=== PATIENT | female | born 1985 | race Caucasian/White ===

== ENCOUNTER 2016-09-04 10:53 | Emergency (ER) | payer OTHER ==
[2016-09-04] MEDS ORDERED: CIPROFLOXACIN 0.3% OPHTH SOLN 2.5 ML BTL RIGHT EAR STA (12:00)
[2016-09-04] MEDS ORDERED: AMOXIC-POT CLAV 875-125MG 1 EACH TAB PO STA (12:00)
--- NOTE | 2016-09-04 12:02 | ED ---
General Adult HPI - General Chief complaint: ENT Stated complaint: DIZZINESS Time Seen by Provider: 09/04/16 11:43 Source: patient, RN notes reviewed, old records reviewed Mode of arrival: wheelchair Limitations: no limitations - History of Present Illness Initial comments: This is a 31-year-old female here for evaluation of failure pain. Patient has pain in her right ear, history of similar symptoms. No fevers no cough no congestion no travel history no history of diabetes no trauma. Patient states she does have some episodes of room does spin around. Symptoms started last night progressing and considered today no modifying factors for pain outpatient states she is able to walk and ambulate without difficulty - Related Data Home Medications Medication Instructions Recorded Confirmed Escitalopram [Lexapro] 10 mg PO DAILY 11/01/15 09/07/16 Lisinopril [Zestril] 5 mg PO DAILY 06/08/16 09/07/16 Omeprazole [PriLOSEC] 10 mg PO DAILY 06/08/16 09/07/16 Acetaminophen-Codeine 300-30mg 1 tab PO Q6H PRN 09/04/16 09/07/16 [Tylenol #3] metFORMIN HCL [Glucophage] 1,000 mg PO BID 09/04/16 09/07/16 Previous Rx's Medication Instructions Recorded Amoxic-Pot Clav 875-125Mg 1 tab PO Q12HR #20 tablet 09/04/16 [Augmentin 875-125] Meclizine [Antivert] 25 mg PO TID PRN #30 tab 09/04/16 Ciprofloxacin Ophth Soln [Cipro 2 drops RIGHT EAR Q4HR #1 bottle 09/07/16 Ophth Soln] Meclizine [Antivert] 25 mg PO TID #30 tab 09/07/16 Allergies Allergy/AdvReac Type Severity Reaction Status Date / Time tomato Allergy Unknown Verified 09/07/16 10:30 Review of Systems ROS Statement: Those systems with pertinent positive or pertinent negative responses have been documented in the HPI. ROS Other: All systems not noted in ROS Statement are negative. Past Medical History Past Medical History: Diabetes Mellitus, Hyperlipidemia Additional Past Medical History / Comment(s): chronic back pain History of Any Multi-Drug Resistant Organisms: None Reported Additional Past Surgical History / Comment(s): cyst removed from neck Past Psychological History: Anxiety, Depression Smoking Status: Current every day smoker Past Alcohol Use History: None Reported Past Drug Use History: None Reported General Exam Limitations: no limitations General appearance: alert, in no apparent distress Head exam: Present: atraumatic, normocephalic, normal inspection Eye exam: Present: normal appearance, PERRL, EOMI. Absent: scleral icterus, conjunctival injection, periorbital swelling ENT exam: Present: normal exam, mucous membranes moist Neck exam: Present: normal inspection. Absent: tenderness, meningismus, lymphadenopathy Respiratory exam: Present: normal lung sounds bilaterally. Absent: respiratory distress, wheezes, rales, rhonchi, stridor Cardiovascular Exam: Present: regular rate, normal rhythm, normal heart sounds. Absent: systolic murmur, diastolic murmur, rubs, gallop, clicks GI/Abdominal exam: Present: soft, normal bowel sounds. Absent: distended, tenderness, guarding, rebound, rigid Extremities exam: Present: normal inspection, full ROM, normal capillary refill. Absent: tenderness, pedal edema, joint swelling, calf tenderness Back exam: Present: normal inspection Neurological exam: Present: alert, oriented X3, CN II-XII intact Psychiatric exam: Present: normal affect, normal mood Skin exam: Present: warm, dry, intact, normal color. Absent: rash Course Vital Signs 09/04/16 09/04/16 11:04 12:15 Temperature 98.8 F 98.5 F Pulse Rate 105 H 99 Respiratory 16 20 Rate Blood Pressure 145/85 142/79 O2 Sat by Pulse 96 96 Oximetry Medical Decision Making - Medical Decision Making 31 female the ER for evaluation of right ear pain. Right ear pain with vertiginous symptoms. Patient states she's had prior history before with vertigo and ear infections, will discharge home patient on antibiotics Disposition Clinical Impression: Right otitis media Disposition: HOME SELF-CARE Condition: Good Instructions: Earache (ED), Otitis Media (ED) Prescriptions: Amoxic-Pot Clav 875-125Mg [Augmentin 875-125] 1 tab PO Q12HR #20 tablet Meclizine [Antivert] 25 mg PO TID PRN #30 tab PRN Reason: Nausea Referrals: Zach Herr MD [Primary Care Provider] - 1-2 days
[2016-09-04] MEDS ORDERED: MECLIZINE 12.5 MG TAB PO STA (12:15)
[2016-09-04 12:16] VITALS: BP 142/79; PULSE 99; RESP 20; TEMP 98.5
== END 2016-09-04 12:25 | disposition home or self-care (01) ==
LOC: EC 10:53
DX: H66.91 Otitis media, unspecified, right ear (principal); F32.9 Major depressive disorder, single episode, unspecified; F41.9 Anxiety disorder, unspecified; E11.9 Type 2 diabetes mellitus without complications; F17.200 Nicotine dependence, unspecified, uncomplicated; Z79.84 Long term (current) use of oral hypoglycemic drugs; Z79.899 Other long term (current) drug therapy; Z91.018 Allergy to other foods
CPT/HCPCS: 99283

== ENCOUNTER 2017-01-04 06:19 | Day surgery (SDC) | payer OTHER ==
[2016-12-30 14:45] VITALS: BMI 46.6
[~2017-01-04 06:19] MED LIST: LACTATED RINGERS 1,000 ML IV SCH
[2017-01-04] MEDS ORDERED: LACTATED RINGERS 1,000 ML IV ONE (06:40)
[2017-01-04 06:53] VITALS: RESP 16; TEMP 98.3
[2017-01-04 06:58] LABS: Glucose,Whole Blood 144 mg/dL (75-99)
[2017-01-04] MEDS ORDERED: PROPOFOL 10 MG/ML 20 ML VIAL IV ONE (07:15)
[2017-01-04 08:18] VITALS: BP 120/70; PULSE 96
[2017-01-04 08:22] LABS: Basophils # (A) 0.1 k/uL (0-0.2); Basophils % (A) 1 %; CH 28.4; CHCM 32.7; Eosinophils # (A) 0.5 k/uL (0-0.7); Eosinophils % (A) 2 %; HCT 46.5 % (34.0-46.0); HDW 2.64; HGB 15.7 gm/dL (11.4-16.0); Luc # (Auto) 0.25; Luc % (Auto) 1; Lymphocytes # (A) 4.1 k/uL (1.0-4.8); Lymphocytes % (A) 20 %; MCH 29.4 pg (25.0-35.0); MCHC 33.7 g/dL (31.0-37.0); MCV 87.3 fL (80.0-100.0); Mean Platelet Volume 8.1; Monocytes % (A) 5 %; Neutrophils # (A) 14.2 k/uL (1.3-7.7); Neutrophils % (A) 71 %; RBC 5.33 m/uL (3.80-5.40); WBC 20.1 k/uL (3.8-10.6); WBC (Perox) 20.12
--- NOTE | 2017-01-04 17:49 | PCN ---
PREOPERATIVE DIAGNOSIS: Leukocytosis. POSTOPERATIVE DIAGNOSIS: Leukocytosis. ANESTHESIA: Local with IV systemic sedation. DETAIL: ( ) sterile technique, the skin overlying the right iliac crest was prepared with ( ) alcohol. ( ) and sterile draping. Local anesthesia and systemic sedation. Size 11 4-inch Jamshidi needle was utilized to access the periosteum with ease. A total of 15 mL of aspirate and 1 cm bone core biopsies were obtained. The patient tolerated the procedure very well. No immediate procedure-related complication ( ). Results pending. MTDD
== END 2017-01-04 08:34 | disposition home or self-care (01) ==
LOC: OR 06:19
PROVIDERS: ATTEND Internal Medicine Hematology & Oncology
DX: D72.821 Monocytosis (symptomatic) (principal); D72.820 Lymphocytosis (symptomatic); I10 Essential (primary) hypertension; J45.909 Unspecified asthma, uncomplicated; M19.90 Unspecified osteoarthritis, unspecified site; F17.200 Nicotine dependence, unspecified, uncomplicated; Z79.84 Long term (current) use of oral hypoglycemic drugs; Z79.899 Other long term (current) drug therapy; Z91.018 Allergy to other foods
CPT/HCPCS: 81025; 85025; 38221; J2704; G0364

== ENCOUNTER 2017-05-10 19:26 | Emergency (ER) | payer OTHER ==
[2017-05-10] MEDS ORDERED: DIAZEPAM 5 MG/ML (10 ML MDV) IVP STA (20:04)
--- NOTE | 2017-05-10 20:22 | ED ---
General Adult HPI - General Chief complaint: Shortness of Breath Stated complaint: SOB, shoulder pain Time Seen by Provider: 05/10/17 19:50 Source: patient Mode of arrival: ambulatory Limitations: no limitations - History of Present Illness Initial comments: patient is a 31-year-old female with a medical history of diabetes, any family history of HI a young age and her mother who presents with a chief complaint of back pain and shortness of breath. She characterizes her shortness of breath as a heaviness. Patient states that at the onset, she was lying on the couch. She does not identify any specific inciting incident. There are no alleviating factors however it is aggravated with palpation and movement of the left arm. Timing is been constant since onset. On initial evaluation, patient appears stable. Triage vitals show that she is mildly tachycardic with a room air oxygen saturation of 95% - Related Data Home Medications Medication Instructions Recorded Confirmed metFORMIN HCL [Glucophage] 1,000 mg PO BID 09/04/16 05/10/17 Albuterol Sulfate [Ventolin Hfa] 1 - 2 puff INHALATION RT-QID PRN 12/30/1605/10 sitaGLIPtin [Januvia] 100 mg PO DAILY 12/30/16 05/10/17 ALPRAZolam [Xanax] 0.25 mg PO BID PRN 05/10/17 05/10/17 Escitalopram Oxalate [Lexapro] 20 mg PO DAILY 05/10/17 05/10/17 Ibuprofen [Motrin] 200 - 400 mg PO Q6HR PRN 05/10/17 05/10/17 Allergies Allergy/AdvReac Type Severity Reaction Status Date / Time tomato Allergy RASH, Verified 05/10/17 20:23 ITCHING amoxicillin AdvReac CAUSED Verified 05/10/17 20:23 DEHYDRATION PER PT Review of Systems ROS Statement: Those systems with pertinent positive or pertinent negative responses have been documented in the HPI. ROS Other: All systems not noted in ROS Statement are negative. Constitutional: Denies: fever Eyes: Denies: vision change ENT: Denies: ear pain, throat pain Respiratory: Reports: dyspnea. Denies: cough Cardiovascular: Reports: chest pain Endocrine: Denies: fatigue Gastrointestinal: Denies: abdominal pain, nausea, vomiting Genitourinary: Denies: dysuria Musculoskeletal: Reports: back pain Skin: Denies: rash, lesions Neurological: Denies: headache Past Medical History Past Medical History: Asthma, Diabetes Mellitus Additional Past Medical History / Comment(s): chronic back pain, VERTIGO,. ELEVATED WBC History of Any Multi-Drug Resistant Organisms: None Reported Additional Past Surgical History / Comment(s): cyst removed from SIDE neck Past Anesthesia/Blood Transfusion Reactions: No Reported Reaction Past Psychological History: Anxiety, Depression Smoking Status: Current every day smoker Past Alcohol Use History: None Reported Past Drug Use History: None Reported - Past Family History Mother Family Medical History: Deep Vein Thrombosis (DVT), Pulmonary Embolus General Exam Limitations: no limitations General appearance: alert, in no apparent distress Head exam: Present: atraumatic, normocephalic Eye exam: Present: normal appearance ENT exam: Present: mucous membranes moist Neck exam: Present: normal inspection Respiratory exam: Present: normal lung sounds bilaterally Cardiovascular Exam: Present: normal rhythm, tachycardia GI/Abdominal exam: Present: soft, other (abdominal exam is limited secondary to morbid obesity). Absent: distended, tenderness Rectal exam: Present: deferred Back exam: Present: tenderness, other (patient has tenderness to palpation of the paraspinal muscles in her thoracic spine. These are exacerbated with left arm movement.) Neurological exam: Present: alert, oriented X3, CN II-XII intact, normal gait Psychiatric exam: Present: normal affect, normal mood Course Vital Signs 05/10/17 19:38 Temperature 100.0 F H Pulse Rate 111 H Respiratory 22 Rate Blood Pressure 147/95 O2 Sat by Pulse 95 Oximetry Medical Decision Making - Medical Decision Making patient presents with a chief complaint of back pain, chest pressure, shortness of breath. History and physical examination most likely consistent with thoracic back pain and muscle spasm however given patient was tachycardic in triage and that she has an oxygen saturation of 95% on room air we'll send basic labs and a d-dimer. Patient was given Valium for suspected muscle spasm. EKG performed at 2036 shows sinus tachycardia with a rate of 105 bpm. EKG is otherwise unremarkable. 9:31 PM lab evaluation of this patient shows leukocytosis with 19,000 white blood cells , patient is hyperglycemic. labs are otherwise unremarkable. D-dimer is negative at 0.29. At this time, he is a very unlikely diagnosis. Chest x-ray does not show any acute process. At this time, patient is stable for discharge. Her pain is likely secondary to muscle spasm. I discussed that the patient should take anti-inflammatory medications and use heat. She is instructed to follow-up with her primary care doctor in 5 days. Further she is instructed to return to the emergency department if her symptoms worsen or change in any way. - Lab Data Result diagrams: 05/10/17 20:12 05/10/17 20:12 Lab Results 05/10/17 05/10/17 05/10/17 Range/Units 20:12 20:12 20:12 WBC 19.6 H (3.8-10.6) k/uL RBC 4.96 (3.80-5.40) m/uL Hgb 14.1 (11.4-16.0) gm/dL Hct 42.7 (34.0-46.0) % MCV 86.0 (80.0-100.0) fL MCH 28.4 (25.0-35.0) pg MCHC 33.0 (31.0-37.0) g/dL RDW 13.7 (11.5-15.5) % Plt Count 303 (150-450) k/uL Neutrophils % 69 % Lymphocytes % 20 % Monocytes % 4 % Eosinophils % 5 % Basophils % 1 % Neutrophils # 13.5 H (1.3-7.7) k/uL Lymphocytes # 3.8 (1.0-4.8) k/uL Monocytes # 0.9 (0-1.0) k/uL Eosinophils # 1.0 H (0-0.7) k/uL Basophils # 0.1 (0-0.2) k/uL D-Dimer 0.29 (<0.60) mg/L FEU Sodium 136 L (137-145) mmol/L Potassium 4.6 (3.5-5.1) mmol/L Chloride 104 (98-107) mmol/L Carbon Dioxide 22 (22-30) mmol/L Anion Gap 10 mmol/L BUN 14 (7-17) mg/dL Creatinine 0.70 (0.52-1.04) mg/dL Est GFR (MDRD) Af Amer >60 (>60 ml/min/1.73 sqM) Est GFR (MDRD) Non-Af >60 (>60 ml/min/1.73 sqM) Glucose 252 H (74-99) mg/dL Calcium 9.5 (8.4-10.2) mg/dL Disposition Clinical Impression: Muscle spasm, Back pain Disposition: HOME SELF-CARE Condition: Good Instructions: Muscle Spasm (ED) Referrals: Zach Herr MD [Primary Care Provider] - 1-2 days
[2017-05-10 20:23] LABS: Basophils # (A) 0.1 k/uL (0-0.2); Basophils % (A) 1 %; CH 27.9; CHCM 32.7; Eosinophils % (A) 5 %; HCT 42.7 % (34.0-46.0); HDW 2.89; HGB 14.1 gm/dL (11.4-16.0); Luc # (Auto) 0.25; Luc % (Auto) 1; Lymphocytes # (A) 3.8 k/uL (1.0-4.8); Lymphocytes % (A) 20 %; MCH 28.4 pg (25.0-35.0); Mean Platelet Volume 7.6; Monocytes # (A) 0.9 k/uL (0-1.0); Monocytes % (A) 4 %; Neutrophils # (A) 13.5 k/uL (1.3-7.7); Neutrophils % (A) 69 %; RBC 4.96 m/uL (3.80-5.40); RDW 13.7 % (11.5-15.5); WBC 19.6 k/uL (3.8-10.6); WBC (Perox) 19.29
[2017-05-10 20:36] LABS: Anion Gap 10 mmol/L; Blood Urea Nitrogen 14 mg/dL (7-17); Calcium 9.5 mg/dL (8.4-10.2); Carbon Dioxide 22 mmol/L (22-30); Chloride 104 mmol/L (98-107); Glucose 252 mg/dL (74-99); Non-African American GFR(MDRD) >60 (>60 ml/min/1.73 sqM); Potassium 4.6 mmol/L (3.5-5.1); Sodium 136 mmol/L (137-145)
--- NOTE | 2017-05-10 21:36 | XR ---
EXAMINATION TYPE: XR chest 2V DATE OF EXAM: 05/10/2017 COMPARISON: 01/24/2016 HISTORY: Shoulder pain TECHNIQUE: Frontal and lateral views of the chest are obtained. FINDINGS: Heart and mediastinum are normal. Lungs are clear. Diaphragm is normal. Bony thorax appear s intact. IMPRESSION: Normal chest. No change.
[2017-05-10 21:48] VITALS: BP 136/73; PULSE 100; RESP 18; TEMP 97.8
== END 2017-05-10 21:48 | disposition home or self-care (01) ==
LOC: EC 19:26
DX: M62.830 Muscle spasm of back (principal); R06.02 Shortness of breath; R00.0 Tachycardia, unspecified; E11.9 Type 2 diabetes mellitus without complications; F32.9 Major depressive disorder, single episode, unspecified; F41.9 Anxiety disorder, unspecified; F17.200 Nicotine dependence, unspecified, uncomplicated; Z79.84 Long term (current) use of oral hypoglycemic drugs; Z79.899 Other long term (current) drug therapy; Z88.0 Allergy status to penicillin; Z91.018 Allergy to other foods
CPT/HCPCS: 36415; 93005; 85379; 80048; 85025; 71020; 99285; 96374; J3360

== ENCOUNTER 2018-01-25 12:09 | Emergency (ER) | payer OTHER ==
[2018-01-25 12:26] VITALS: RESP 18
[2018-01-25] MEDS ORDERED: SODIUM CHLORIDE 0.9% 1,000 ML IV ONE (13:27)
[2018-01-25 14:04] VITALS: BP 111/51; PULSE 90
[2018-01-25 14:15] LABS: Basophils # (A) 0.1 k/uL (0-0.2); Basophils % (A) 1 %; Eosinophils # (A) 0.5 k/uL (0-0.7); Eosinophils % (A) 3 %; HCT 44.2 % (34.0-46.0); HGB 14.5 gm/dL (11.4-16.0); Lymphocytes # (A) 3.4 k/uL (1.0-4.8); Lymphocytes % (A) 19 %; MCH 27.3 pg (25.0-35.0); MCHC 32.7 g/dL (31.0-37.0); MCV 83.5 fL (80.0-100.0); Mean Platelet Volume 8.2; Monocytes # (A) 0.8 k/uL (0-1.0); Monocytes % (A) 5 %; Neutrophils # (A) 12.6 k/uL (1.3-7.7); Neutrophils % (A) 72 %; Platelet Count 299 k/uL (150-450); RDW 14.6 % (11.5-15.5); WBC 17.5 k/uL (3.8-10.6)
[2018-01-25 14:24] LABS: ALT 37 U/L (9-52); AST 28 U/L (14-36); Albumin 3.7 g/dL (3.5-5.0); Alkaline Phosphatase 130 U/L (38-126); Amylase 46 U/L (30-110); Anion Gap 9 mmol/L; Blood Urea Nitrogen 13 mg/dL (7-17); Calcium 9.5 mg/dL (8.4-10.2); Carbon Dioxide 24 mmol/L (22-30); Chloride 104 mmol/L (98-107); Glucose 243 mg/dL (74-99); Lipase 485 U/L (23-300); Magnesium 1.8 mg/dL (1.6-2.3); Potassium 4.7 mmol/L (3.5-5.1); Sodium 137 mmol/L (137-145); Total Bilirubin 0.4 mg/dL (0.2-1.3); Total Protein 6.5 g/dL (6.3-8.2)
[2018-01-25 14:48] LABS: Appearance,Urine Cloudy (Clear); Bacteria,Urine Rare /hpf; Bilirubin,Urine Negative (Negative); Blood,Urine Negative (Negative); Color,Urine Yellow; Glucose,Urine (UA) 3+ (Negative); Ketones,Urine Negative (Negative); Leukocyte Esterase,Urine Large (Negative); Mucus,Urine Few /hpf; Nitrite,Urine Negative (Negative); Protein,Urine Trace (Negative); RBC,Urine 3 /hpf (0-5); Specific Gravity,Urine 1.024 (1.001-1.035); Squamous Epithelial Cell,Urine 5 /hpf (0-4); WBC,Urine 16 /hpf (0-5)
--- NOTE | 2018-01-25 15:10 | ED ---
Abdominal Pain HPI - General Chief Complaint: Abdominal Pain Stated Complaint: vomiting Time Seen by Provider: 01/25/18 13:02 Source: patient Mode of arrival: wheelchair Limitations: no limitations - History of Present Illness Initial Comments: This is a 32-year-old female past medical history of diabetes of Victoza, uncontrolled who presents today for chief complaint of nausea and vomiting 5 days. Patient states that for the past 5 days she's been experiencing nausea, and vomiting, stating that when she is vomiting she has episodes of diarrhea. She denies hematemesis, hematochezia or melena. Patient states that the diarrhea is watery. Patient denies any fever, chills, sick contacts, abdominal pain, dysuria, urgency, frequency, back pain, epigastric pain. Patient hasn't been able to eat very much, however she has been drinking burners enabled that down. Patient presents to emergency department today appearing well, with vital signs stable afebrile. Patient denies any recent fever, chills, shortness of breath, chest pain, back pain, abdominal pain, nausea or vomiting, numbness or tingling, dysuria or hematuria, constipation or diarrhea, headaches or visual changes, or any other complaints. - Related Data Home Medications Medication Instructions Recorded Confirmed metFORMIN HCL [Glucophage] 1,000 mg PO BID 09/04/16 01/25/18 Albuterol Sulfate [Ventolin Hfa] 1 - 2 puff INHALATION RT-QID PRN 12/30/1601/25 sitaGLIPtin [Januvia] 100 mg PO DAILY 12/30/16 01/25/18 DULoxetine HCL [Cymbalta] 60 mg PO DAILY 01/25/18 01/25/18 Gabapentin 600 mg PO TID PRN 01/25/18 01/25/18 Insulin Glargine [Lantus] 50 unit SQ DAILY 01/25/18 01/25/18 Medroxyprogesterone Acetate 150 mg IM Q90D 01/25/18 01/25/18 [Depo-Provera] Omeprazole 20 mg PO DAILY 01/25/18 01/25/18 Ondansetron Odt [Zofran Odt] 4 mg PO Q6H PRN 01/25/18 01/25/18 hydrOXYzine HCL [Atarax] 50 mg PO HS 01/25/18 01/25/18 Previous Rx's Medication Instructions Recorded Ondansetron [Zofran] 4 mg PO Q8HR PRN 3 Days #9 tab 01/25/18 Allergies Allergy/AdvReac Type Severity Reaction Status Date / Time tomato Allergy RASH, Verified 01/25/18 14:13 ITCHING amoxicillin AdvReac CAUSED Verified 01/25/18 14:13 DEHYDRATION PER PT Review of Systems ROS Statement: Those systems with pertinent positive or pertinent negative responses have been documented in the HPI. ROS Other: All systems not noted in ROS Statement are negative. Past Medical History Past Medical History: Asthma, Diabetes Mellitus Additional Past Medical History / Comment(s): chronic back pain, VERTIGO,. ELEVATED WBC History of Any Multi-Drug Resistant Organisms: None Reported Past Surgical History: Tonsillectomy Additional Past Surgical History / Comment(s): cyst removed from SIDE neck Past Anesthesia/Blood Transfusion Reactions: No Reported Reaction Past Psychological History: Anxiety, Depression Smoking Status: Current every day smoker Past Alcohol Use History: None Reported Past Drug Use History: None Reported - Past Family History Mother Family Medical History: Deep Vein Thrombosis (DVT), Pulmonary Embolus General Exam - General Exam Comments Initial Comments: General: The patient is awake and alert, in no distress, and does not appear acutely ill. Eye: Pupils are equal, round and reactive to light, extra-ocular movements are intact. No nystagmus. There is normal conjunctiva bilaterally. No signs of icterus. Ears, nose, mouth and throat: There are moist mucous membranes and no oral lesions. Neck: The neck is supple, there is no tenderness or JVD. Cardiovascular: There is a regular rate and rhythm. No murmur, rub or gallop is appreciated. Respiratory: Lungs are clear to auscultation, respirations are non-labored, breath sounds are equal. No wheezes, stridor, rales, or rhonchi. Gastrointestinal: Obsese abdomen. Striae over abdomen no ecchymosis. Soft, non- distended, non-tender abdomen to deep palpation of all 4 quadrants without masses or organomegaly noted. There is no rebound or guarding present. No CVA tenderness. Bowel sounds are unremarkable. (-) Heel jar, (--) [place] sign. Musculoskeletal: Normal ROM, no tenderness. Strength 5/5. Sensation intact. Pulses equal bilaterally 2+. Neurological: A&O x 3. CN II-XII intact, There are no obvious motor or sensory deficits. Coordination appears grossly intact. Speech is normal. Skin: Skin is warm and dry and no rashes or lesions are noted. Psychiatric: Cooperative, appropriate mood & affect, normal judgment. Limitations: no limitations Course Vital Signs 01/25/18 01/25/18 01/25/18 12:21 14:01 16:38 Temperature 98.3 F 98 F Pulse Rate 104 H 90 Respiratory 18 18 Rate Blood Pressure 126/84 111/51 O2 Sat by Pulse 97 96 Oximetry Medical Decision Making - Medical Decision Making 32yo with complaints of N/V/D x 5 days. Pt given bolus 1000ml of NS. CBC, CMP, Lipase, Amylse, UA, and acetone obtained. CBC revealed elevated WBC at this time we feel this is due to the vomiting/diarrhea most likely viral in origin. Pt mentioned that last night she had mild chest discomfort, that she thought may have been due to vomiting. Trop and EKG obtained returning WNL. Alk Phos and Lipase mildly elevated- U/S of gallbladder obtained because pt stated her mother had similar non specific symptoms when her gall bladder was acting up. U/ S revealed steatotic liver, most likely the cause of increased Alk Phos. Pt blood glucose 243 however she denied treatment at this time stating she would just go home and take her diabetes medication for the day. Pt given zofran for nausea. pt did not have any episodes of vomiting during her visit and was tolerating PO intake drinking her vernors. UA (-) for ketones, acetone (-). Urine (+) leukocyte and WBC however 5 squamous cells. Pt denied urinary symptoms and urine was sent for cx. Pt continued to deny abdominal pain and refused further imaging stating she just wanted to go home and sleep.Case was discussed in detail with Dr. Patiño at this time we feel patient is stable for discharge. Pt was told to return to the ED for any abdominal pain, change or worsening symptoms. pt agreed and was discharged in stable condition. - Lab Data Result diagrams: 01/25/18 13:45 01/25/18 13:45 Lab Results 01/25/18 01/25/18 01/25/18 Range/Units 13:45 13:45 13:45 WBC 17.5 H (3.8-10.6) k/uL RBC 5.30 (3.80-5.40) m/uL Hgb 14.5 (11.4-16.0) gm/dL Hct 44.2 (34.0-46.0) % MCV 83.5 (80.0-100.0) fL MCH 27.3 (25.0-35.0) pg MCHC 32.7 (31.0-37.0) g/dL RDW 14.6 (11.5-15.5) % Plt Count 299 (150-450) k/uL Neutrophils % 72 % Lymphocytes % 19 % Monocytes % 5 % Eosinophils % 3 % Basophils % 1 % Neutrophils # 12.6 H (1.3-7.7) k/uL Lymphocytes # 3.4 (1.0-4.8) k/uL Monocytes # 0.8 (0-1.0) k/uL Eosinophils # 0.5 (0-0.7) k/uL Basophils # 0.1 (0-0.2) k/uL Sodium 137 (137-145) mmol/L Potassium 4.7 (3.5-5.1) mmol/L Chloride 104 (98-107) mmol/L Carbon Dioxide 24 (22-30) mmol/L Anion Gap 9 mmol/L BUN 13 (7-17) mg/dL Creatinine 0.54 (0.52-1.04) mg/dL Est GFR (CKD-EPI)AfAm >90 (>60 ml/min/1.73 sqM) Est GFR (CKD-EPI)NonAf >90 (>60 ml/min/1.73 sqM) Glucose 243 H (74-99) mg/dL Calcium 9.5 (8.4-10.2) mg/dL Magnesium 1.8 (1.6-2.3) mg/dL Total Bilirubin 0.4 (0.2-1.3) mg/dL AST 28 (14-36) U/L ALT 37 (9-52) U/L Alkaline Phosphatase 130 H (38-126) U/L Troponin I <0.012 (0.000-0.034) ng/mL Total Protein 6.5 (6.3-8.2) g/dL Albumin 3.7 (3.5-5.0) g/dL Amylase 46 (30-110) U/L Lipase 485 H (23-300) U/L Urine Color Urine Appearance (Clear) Urine pH (5.0-8.0) Ur Specific [place] (1.001-1.035) Urine Protein (Negative) Urine Glucose (UA) (Negative) Urine Ketones (Negative) Urine Blood (Negative) Urine Nitrite (Negative) Urine Bilirubin (Negative) Urine Urobilinogen (<2.0) mg/dL Ur Leukocyte Esterase (Negative) Urine RBC (0-5) /hpf Urine WBC (0-5) /hpf Ur Squamous Epith Cells (0-4) /hpf Urine Bacteria (None) /hpf Urine Mucus (None) /hpf Urine HCG, Qual (Not Detectd) Acetone, Qual Negative (Negative) 01/25/18 01/25/18 Range/Units 14:15 14:15 WBC (3.8-10.6) k/uL RBC (3.80-5.40) m/uL Hgb (11.4-16.0) gm/dL Hct (34.0-46.0) % MCV (80.0-100.0) fL MCH (25.0-35.0) pg MCHC (31.0-37.0) g/dL RDW (11.5-15.5) % Plt Count (150-450) k/uL Neutrophils % % Lymphocytes % % Monocytes % % Eosinophils % % Basophils % % Neutrophils # (1.3-7.7) k/uL Lymphocytes # (1.0-4.8) k/uL Monocytes # (0-1.0) k/uL Eosinophils # (0-0.7) k/uL Basophils # (0-0.2) k/uL Sodium (137-145) mmol/L Potassium (3.5-5.1) mmol/L Chloride (98-107) mmol/L Carbon Dioxide (22-30) mmol/L Anion Gap mmol/L BUN (7-17) mg/dL Creatinine (0.52-1.04) mg/dL Est GFR (CKD-EPI)AfAm (>60 ml/min/1.73 sqM) Est GFR (CKD-EPI)NonAf (>60 ml/min/1.73 sqM) Glucose (74-99) mg/dL Calcium (8.4-10.2) mg/dL Magnesium (1.6-2.3) mg/dL Total Bilirubin (0.2-1.3) mg/dL AST (14-36) U/L ALT (9-52) U/L Alkaline Phosphatase (38-126) U/L Troponin I (0.000-0.034) ng/mL Total Protein (6.3-8.2) g/dL Albumin (3.5-5.0) g/dL Amylase (30-110) U/L Lipase (23-300) U/L Urine Color Yellow Urine Appearance Cloudy H (Clear) Urine pH 6.0 (5.0-8.0) Ur Specific [place] 1.024 (1.001-1.035) Urine Protein Trace H (Negative) Urine Glucose (UA) 3+ H (Negative) Urine Ketones Negative (Negative) Urine Blood Negative (Negative) Urine Nitrite Negative (Negative) Urine Bilirubin Negative (Negative) Urine Urobilinogen 2.0 (<2.0) mg/dL Ur Leukocyte Esterase Large H (Negative) Urine RBC 3 (0-5) /hpf Urine WBC 16 H (0-5) /hpf Ur Squamous Epith Cells 5 H (0-4) /hpf Urine Bacteria Rare H (None) /hpf Urine Mucus Few H (None) /hpf Urine HCG, Qual Not Detected (Not Detectd) Acetone, Qual (Negative) Disposition Clinical Impression: Nausea vomiting and diarrhea Disposition: HOME SELF-CARE Condition: Good Instructions: Acute Nausea and Vomiting (ED), Acute Diarrhea (ED) Additional Instructions: Please use medication as discussed. Please follow-up with family doctor in the next 2 days of symptoms have not improved. Please return to emergency room if the symptoms increase or worsen or for any other concerns as discussed. Prescriptions: Ondansetron [Zofran] 4 mg PO Q8HR PRN 3 Days #9 tab PRN Reason: Nausea Is patient prescribed a controlled substance at d/c from ED?: No Referrals: Zach Herr MD [Primary Care Provider] - 1-2 days Time of Disposition: 16:20
[2018-01-25] MEDS ORDERED: ONDANSETRON ODT 4 MG TAB PO STA (15:15)
--- NOTE | 2018-01-25 16:12 | US ---
EXAMINATION TYPE: US gallbladder DATE OF EXAM: 01/25/2018 COMPARISON: None CLINICAL HISTORY: 32-year-old female Pain. RUQ pain, abn labs TECHNIQUE: Multiple sonographic images of the right upper quadrant are obtained. FINDINGS: EXAM MEASUREMENTS: Liver Length: 22.4 cm Gallbladder Wall: 0.2 cm CBD: 0.6 cm CHD: 0.4 cm Right Kidney: 12.3 x 5.4 x 4.7 cm Pancreas: Tail obscured by overlying bowel gas Liver: Large with increased echogenicity. No focal lesion seen. Gallbladder: wnl Evidence for sonographic Fatima's sign: neg CBD: wnl CHD: wnl Right Kidney: No hydronephrosis. IMPRESSION: 1. Hepatomegaly (22.4 cm) with hepatic steatosis. 2. Otherwise, no specific abnormality seen.
[2018-01-25 16:40] VITALS: TEMP 98
== END 2018-01-25 16:39 | disposition home or self-care (01) ==
LOC: EC 12:09
DX: R11.2 Nausea with vomiting, unspecified (principal); R19.7 Diarrhea, unspecified; J45.909 Unspecified asthma, uncomplicated; E11.9 Type 2 diabetes mellitus without complications; F41.9 Anxiety disorder, unspecified; F32.9 Major depressive disorder, single episode, unspecified; F17.200 Nicotine dependence, unspecified, uncomplicated; Z53.29 Procedure and treatment not carried out because of patient's decision for other reasons; Z79.4 Long term (current) use of insulin; Z79.3 Long term (current) use of hormonal contraceptives; Z79.899 Other long term (current) drug therapy; Z91.018 Allergy to other foods; Z88.0 Allergy status to penicillin
CPT/HCPCS: 36415; 76705; 80053; 81001; 81025; 82009; 82150; 83690; 83735; 84484; 85025; 87086; 93005; 96360; 99284

== ENCOUNTER → 2018-02-14 | Outpatient (CLI) | payer OTHER ==
[2018-02-14 17:43] LABS: Blood Urea Nitrogen 9 mg/dL (7-17)
--- NOTE | 2018-02-15 08:51 | CT ---
EXAMINATION TYPE: CT abdomen pelvis w con DATE OF EXAM: 02/14/2018 COMPARISON: None HISTORY: Left sided pain for [address] DLP: 1944 mGycm CONTRAST: CT scan of the abdomen and pelvis is performed with Oral Contrast and with IV Contrast, patient injec jon with 100 mL of Isovue 300. FINDINGS: LUNG BASES-: No visible nodule. No infiltrate. LIVER/GB: No calcified gallstones. No space occupying hepatic lesion. Biliary tree is of normal ca liber. PANCREAS: No inflammation. No distinct mass. SPLEEN: Mild splenic enlargement at 13.2 cm craniocaudal dimension. No lesion seen. ADRENALS: No nodule. No thickening. KIDNEYS/BLADDER: No hydronephrosis. No nephrolithiasis. No distinct renal mass. Urinary bladder g rossly unremarkable. BOWEL: Normal appendix. Normal bowel caliber. No inflammation. GENITAL ORGANS: No gross abnormality. LYMPH NODES: No greater than 1cm abdominal or pelvic lymph nodes are appreciated. AORTA: No significant abnormality. OSSEOUS STRUCTURES: No significant abnormality is seen. OTHER: Fat-containing umbilical hernia noted. IMPRESSION: 1. Mild splenic enlargement at 13.2 cm craniocaudal dimension. 2. Fat-containing umbilical hernia.
== END | disposition home or self-care (01) ==
LOC: RADCTMAIN 16:46
PROVIDERS: ATTEND Family Medicine
DX: K42.9 Umbilical hernia without obstruction or gangrene (principal); R16.1 Splenomegaly, not elsewhere classified
CPT/HCPCS: 82565; 84520; 74177; 36415; Q9967

== ENCOUNTER 2018-03-03 06:38 | Day surgery (SDC) | payer OTHER ==
[2018-03-01 09:04] VITALS: BMI 42.4
[~2018-03-03 06:38] MED LIST changes: +DEXAMETHASONE SOD PHOSPHATE 10 MG/ML 1 ML VIAL IV ONE; +HYDROmorphone 0.5 MG/0.5 ML SYRINGE IVP PRN; +MIDAZOLAM 2 MG/2 ML VIAL IV PRN; +ONDANSETRON 4 MG/2 ML VIAL IVP ONE
[2018-03-03 07:06] VITALS: TEMP 98.7
[2018-03-03 07:09] LABS: Glucose,Whole Blood 233 mg/dL (75-99)
[2018-03-03] MEDS ORDERED: LIDOCAINE 1% INJ 10MG/ML (20 ML MDV) ONE (08:24)
[2018-03-03] MEDS ORDERED: ONDANSETRON 4 MG/2 ML VIAL ONE (08:24)
[2018-03-03] MEDS ORDERED: PROPOFOL 10 MG/ML 20 ML VIAL IV ONE (08:24)
--- NOTE | 2018-03-03 08:33 | P.GSHP ---
History of Present Illness H&P Date: 03/03/18 Chief Complaint: GERD, left lower quadrant pain This is a 32-year-old female presents for EGD and colonoscopy. She's had issues with GERD. She'll to complaints of left lower quadrant pain she is undergoing colonoscopy tonight for possible diverticulitis and EGD for evaluation of GERD. Past Medical History Past Medical History: Asthma, Diabetes Mellitus Additional Past Medical History / Comment(s): chronic back pain, VERTIGO,. FREQ N/V/D FOR PAST 6 WEEKS History of Any Multi-Drug Resistant Organisms: None Reported Past Surgical History: Tonsillectomy Additional Past Surgical History / Comment(s): cyst removed from SIDE neck Past Anesthesia/Blood Transfusion Reactions: No Reported Reaction Smoking Status: Current every day smoker - Past Family History Mother Family Medical History: Deep Vein Thrombosis (DVT), Pulmonary Embolus Medications and Allergies Home Medications Medication Instructions Recorded Confirmed Type metFORMIN HCL [Glucophage] 1,000 mg PO BID 09/04/16 03/03/18 History Albuterol Sulfate [Ventolin Hfa] 1 - 2 puff INHALATION RT-QID PRN 12/30/1603/03 History sitaGLIPtin [Januvia] 100 mg PO DAILY 12/30/16 03/03/18 History DULoxetine HCL [Cymbalta] 60 mg PO DAILY 01/25/18 03/03/18 History Gabapentin 600 mg PO TID PRN 01/25/18 03/03/18 History Insulin Glargine [Lantus] 50 unit SQ DAILY 01/25/18 03/03/18 History Medroxyprogesterone Acetate 150 mg IM Q90D 01/25/18 03/03/18 History [Depo-Provera] Omeprazole 20 mg PO DAILY 01/25/18 03/03/18 History Ondansetron Odt [Zofran Odt] 4 mg PO Q6H PRN 01/25/18 03/03/18 History Ondansetron [Zofran] 4 mg PO Q8HR PRN 3 Days #9 tab 01/25/18 03/03/18 Rx hydrOXYzine HCL [Atarax] 50 mg PO HS 01/25/18 03/03/18 History Allergies Allergy/AdvReac Type Severity Reaction Status Date / Time tomato Allergy RASH, Verified 03/01/18 08:59 ITCHING amoxicillin AdvReac CAUSED Verified 03/01/18 08:59 DEHYDRATION PER PT Surgical - Exam Vital Signs Temp Pulse Resp BP Pulse Ox 98.7 F 105 H 14 157/99 97 03/03/18 07:05 03/03/18 07:05 03/03/18 07:05 03/03/18 07:05 03/03/18 07:05 - General well developed, no distress - Eyes PERRL - ENT normal pinna - Neck no masses - Respiratory normal expansion - Cardiovascular Rhythm: regular - Abdomen Abdomen: soft, non tender Hernia: umbilical Results - Labs Abnormal Lab Results - Last 24 Hours (Table) 03/03/18 Range/Units 07:07 POC Glucose (mg/dL) 233 H (75-99) mg/dL Assessment and Plan Assessment: GERD, left lower quadrant pain. We'll perform EGD and colonoscopy to evaluate for GERD and diverticulitis.
--- NOTE | 2018-03-03 08:56 | P.OP ---
Date of Procedure: 03/03/18 Preoperative Diagnosis: GERD Left lower quadrant pain Postoperative Diagnosis: Antral gastritis Hiatal hernia Mild esophagitis Normal colon Procedure(s) Performed: EGD Colonoscopy Anesthesia: MAC Surgeon: Alex De Paz Pathology: other (Antrum, esophagus) Condition: stable Disposition: PACU Description of Procedure: PROCEDURE: The patient was placed on the endoscopy table in the lateral position. Digital rectal examination was performed which revealed no abnormalities. Flexible colonoscope was then placed in the patient's anus and passed throughout the entire colon. The ileocecal valve was visualized. The cecum, ascending, transverse, descending and sigmoid colon were normal. The rectum was normal as well. There were no masses, polyps or diverticula noted in the entire colon. Next, the gastric was placed oropharynx passed in the esophagus and stomach. Scope then placed through the pylorus. The first and second portion of the duodenum appeared normal. Scope was then brought back the antrum this. Mildly inflamed. A biopsy was performed. The scope was then retroflexed and the remainder of the stomach appeared normal. There was a small hiatal hernia. The GE junction was at 38 cm. The distal esophagus appeared mildly inflamed a biopsies performed. The proximal esophagus appeared normal. Scope was withdrawn for patient.
[2018-03-03 09:12] VITALS: RESP 18
[2018-03-03 09:36] VITALS: BP 147/85; PULSE 94
== END 2018-03-03 09:57 | disposition home or self-care (01) ==
LOC: ORWHC2ENDO 06:38
PROVIDERS: ATTEND Surgery
DX: K44.9 Diaphragmatic hernia without obstruction or gangrene (principal); K29.50 Unspecified chronic gastritis without bleeding; K21.0 Gastro-esophageal reflux disease with esophagitis; J45.909 Unspecified asthma, uncomplicated; E11.9 Type 2 diabetes mellitus without complications; G89.29 Other chronic pain; M54.9 Dorsalgia, unspecified; F17.200 Nicotine dependence, unspecified, uncomplicated; F39 Unspecified mood [affective] disorder; R42 Dizziness and giddiness; Z79.02 Long term (current) use of antithrombotics/antiplatelets; Z79.4 Long term (current) use of insulin; Z79.899 Other long term (current) drug therapy; Z88.0 Allergy status to penicillin; Z91.018 Allergy to other foods
CPT/HCPCS: 81025; 88305; 45378; 43239; J2405; J2001; J2704

== ENCOUNTER → 2018-03-14 | Outpatient (CLI) | payer OTHER ==
--- NOTE | 2018-03-15 07:08 | NM ---
EXAMINATION TYPE: NM hepatobiliary w CCK DATE OF EXAM: 03/14/2018 COMPARISON: NONE HISTORY: Right upper quadrant pain TECHNIQUE: After the intravenous administration of 5.02 mCi Tc 99m Mebrofenin hepatobiliary scintigra phy is performed. Immediate images post injection. FINDINGS: There is satisfactory initial accumulation of tracer by the liver. The gallbladder is visualized wit hin 10 minutes. The small bowel activity is noted within 10 minutes. At one hour CCK was administer ed, patient was injected with 2.2 mcg of Kinevac, and gallbladder ejection fraction is calculated at 13 %. IMPRESSION: 1. Diminished gallbladder ejection fraction which may reflect chronic cholecystitis and/or biliary dy skinesia.
== END | disposition home or self-care (01) ==
LOC: RADNMMAIN 14:15
PROVIDERS: ATTEND Surgery
DX: R93.2 Abnormal findings on diagnostic imaging of liver and biliary tract (principal); R10.11 Right upper quadrant pain
CPT/HCPCS: 78227; A9537; J2805

== ENCOUNTER 2018-04-26 06:23 | Day surgery (SDC) | payer OTHER ==
[2018-04-21 10:22] VITALS: BMI 42.3
[~2018-04-26 06:23] MED LIST changes: +HEPARIN SODIUM,PORCINE 5,000 UNIT/ML 1 ML VIAL SQ ONE; -HYDROmorphone 0.5 MG/0.5 ML SYRINGE IVP PRN; +LIDOCAINE 1% 20 ML VIAL (10MG/ML) FOR IV START INTRADERMA PRN; -MIDAZOLAM 2 MG/2 ML VIAL IV PRN; +SCOPOLAMINE 1.5MG/72HR PATCH TRANSDERM ONE
[2018-04-26 07:22] LABS: Glucose,Whole Blood 323 mg/dL (75-99)
[2018-04-26] MEDS ORDERED: INSULIN ASPART 100 UNIT/ML 1 ML 10 ML VIAL SQ ONE ×2 (07:24→10:10)
[2018-04-26 07:32] LABS: Potassium 4.7 mmol/L (3.5-5.1)
--- NOTE | 2018-04-26 08:12 | P.GSHP ---
History of Present Illness H&P Date: 04/26/18 Chief Complaint: Right upper quadrant pain This is a 32-year-old female who presents today for laparoscopic cholecystectomy. Patient's complaints were for pain. She has a HIDA scan which shows a diminished ejection fraction consistent with chronic cholecystitis. Past Medical History Past Medical History: Asthma, Diabetes Mellitus Additional Past Medical History / Comment(s): chronic back pain, History of Any Multi-Drug Resistant Organisms: None Reported Past Surgical History: Tonsillectomy Additional Past Surgical History / Comment(s): cyst removed from SIDE neck, COLONOSCOPY Past Anesthesia/Blood Transfusion Reactions: No Reported Reaction Past Psychological History: Anxiety, Depression, Panic Disorder Additional Psychological History / Comment(s): PANIC ATTACKS Smoking Status: Current every day smoker Past Alcohol Use History: None Reported Additional Past Alcohol Use History / Comment(s): STARTED SMOKING AT AGE 18 SMOKES 3/4 PPD Past Drug Use History: None Reported - Past Family History Mother Family Medical History: Deep Vein Thrombosis (DVT), Pulmonary Embolus Medications and Allergies Home Medications Medication Instructions Recorded Confirmed Type metFORMIN HCL [Glucophage] 1,000 mg PO BID 09/04/16 04/21/18 History Albuterol Sulfate [Ventolin Hfa] 1 - 2 puff INHALATION RT-QID PRN 12/30/1604/21 History sitaGLIPtin [Januvia] 100 mg PO HS 12/30/16 04/21/18 History DULoxetine HCL [Cymbalta] 60 mg PO QAM 01/25/18 04/21/18 History Medroxyprogesterone Acetate 150 mg IM Q90D 01/25/18 04/21/18 History [Depo-Provera] Omeprazole 20 mg PO QAM 01/25/18 04/21/18 History hydrOXYzine HCL [Atarax] 50 mg PO HS PRN 01/25/18 04/21/18 History Insulin Glargine,Hum.rec.anlog 30 units SQ HS 03/15/18 04/21/18 History [Toujeo Solostar] Insulin Glulisine [Apidra] 10 unit SQ TID-W/MEALS PRN 03/15/18 04/21/18 History Pregabalin [Lyrica] 50 mg PO DAILY 03/15/18 04/21/18 History buPROPion HCL [Zyban] 150 mg PO BID 03/15/18 04/21/18 History Acetaminophen Tab [Tylenol Tab] 650 mg PO Q4H PRN 04/21/18 04/21/18 History Allergies Allergy/AdvReac Type Severity Reaction Status Date / Time amoxicillin Allergy Severe Nausea & Verified 04/21/18 10:06 Vomiting tomato Allergy RASH, Verified 04/21/18 10:06 ITCHING Surgical - Exam Vital Signs Temp Pulse Resp BP Pulse Ox 98 F 107 H 16 144/85 97 04/26/18 07:10 04/26/18 07:10 04/26/18 07:10 04/26/18 07:10 04/26/18 07:10 - General well developed, no distress - Eyes PERRL - ENT normal pinna - Neck no masses - Respiratory normal expansion - Cardiovascular Rhythm: regular - Abdomen Abdomen: soft, non tender Results - Labs 04/26/18 07:10 Abnormal Lab Results - Last 24 Hours (Table) 04/26/18 Range/Units 07:06 POC Glucose (mg/dL) 323 H (75-99) mg/dL Diabetes panel 04/26/18 Range/Units 07:10 Potassium 4.7 (3.5-5.1) mmol/L Creatinine 0.52 (0.52-1.04) mg/dL Pituitary panel 04/26/18 Range/Units 07:10 Potassium 4.7 (3.5-5.1) mmol/L Creatinine 0.52 (0.52-1.04) mg/dL Adrenal panel 04/26/18 Range/Units 07:10 Potassium 4.7 (3.5-5.1) mmol/L Creatinine 0.52 (0.52-1.04) mg/dL Assessment and Plan Assessment: Chronic cholecystitis. We'll perform laparoscopic cholecystectomy.
[2018-04-26] MEDS ORDERED: fentaNYL (PF) 50 MCG/ML 2 ML AMP ONE (08:13)
[2018-04-26] MEDS ORDERED: LIDOCAINE 1% INJ 10MG/ML (20 ML MDV) ONE (08:13)
[2018-04-26] MEDS ORDERED: ROCURONIUM BROMIDE 10 MG/ML 10 ML VIAL IV ONE (08:13)
[2018-04-26] MEDS ORDERED: HYDROmorphone (PF) 1 MG/ML ONE (08:13)
[2018-04-26] MEDS ORDERED: PROPOFOL 10 MG/ML 20 ML VIAL IV ONE (08:13)
[2018-04-26] MEDS: ceFAZolin IN SWFI 2 GM/20 ML SYRINGE IVP ONE ×2 (08:13→08:48)
[2018-04-26] MEDS ORDERED: MIDAZOLAM 2 MG/2 ML VIAL ONE (08:13)
[2018-04-26] MEDS ORDERED: GLYCOPYRROLATE 0.2 MG/ML 2 ML VIAL ONE (08:13)
[2018-04-26] MEDS ORDERED: LABETALOL 5 MG/ML VIAL MDV ONE (08:13)
[2018-04-26] MEDS ORDERED: NEOSTIGMINE 1 MG/ML 10 ML VIAL ONE (08:13)
[2018-04-26] MEDS ORDERED: BUPIVACAIN-EPI 0.25%-1:200,000 30 ML VIAL SQ ONE (08:48)
[2018-04-26] MEDS ORDERED: ONDANSETRON 4 MG/2 ML VIAL IVP ONE (09:22)
--- NOTE | 2018-04-26 09:31 | P.OP ---
Date of Procedure: 04/26/18 Preoperative Diagnosis: Cholecystitis Postoperative Diagnosis: Cholecystitis Procedure(s) Performed: Laparoscopic cholecystectomy Anesthesia: BHUPENDRA Surgeon: Alex De Paz Estimated Blood Loss (ml): 5 Pathology: other (Gallbladder) Condition: stable Disposition: PACU Description of Procedure: The patient was placed on the operating table. The patient received a general endotracheal tube anesthesia. The patients abdomen was prepped and draped in the usual sterile fashion. Through an infraumbilical stab incision, the fascia of the anterior abdominal wall was grasped with a pair of Kochers and then the Veress needle was placed in the peritoneal cavity. Position of the Veress needle was confirmed with positive drop test. The abdomen was then insufflated. After adequate insufflation, the 10 mm trocar was placed in the peritoneal cavity. Following this the laparoscope was placed in the peritoneal cavity. The patient was placed in the head-up, right side up position and then a 5 mm trocar was placed in the right lateral and right subcostal position under direct visualization. A 8 mm trocar was placed in the epigastric position. The gallbladder was grasped in the fundus and infundibulum. Traction on the gallbladder was placed in the lateral and the cephalad positions. The triangle of Calot was visualized.. The cystic duct was bluntly dissected until the union of the cystic duct and common bile duct was seen. The cystic duct was then divided and sealed with the Harmonic scissors. A PDS Endoloop was then placed throughout the cystic duct stump. The cystic artery divided and sealed with the Harmonic scissors. The gallbladder was then removed from the liver bed using Harmonic scissors. The gallbladder was then extracted through the epigastric port site. Operative field was checked for any bleeding spots and Harmonic scissors was used to coagulate the liver bed. The abdomen was irrigated. The trocars were removed. The skin was closed using interrupted 3-0 Vicryl suture. Dermabond dressing were applied. The patient tolerated the procedure well.
[2018-04-26 09:32] VITALS: TEMP 97.1
[2018-04-26] MEDS: HYDROmorphone 0.5 MG/0.5 ML SYRINGE IVP PRN ×4 (09:49→10:18)
[2018-04-26] MEDS ORDERED: METOCLOPRAMIDE 5 MG/ML 2 ML VIAL IVP ONE (09:53)
[2018-04-26 10:18] LABS: Glucose,Whole Blood 334 mg/dL (75-99)
[2018-04-26 10:33] VITALS: RESP 18
[2018-04-26 10:45] LABS: Glucose,Whole Blood 337 mg/dL (75-99)
[2018-04-26] MEDS ORDERED: HYDROcodone/APAP 7.5-325MG 1 EACH TAB PO ONE (11:04)
[2018-04-26 11:09] VITALS: BP 110/70; PULSE 95
== END 2018-04-26 12:02 | disposition home or self-care (01) ==
LOC: OR 06:23
PROVIDERS: ATTEND Surgery
DX: K81.1 Chronic cholecystitis (principal); J45.909 Unspecified asthma, uncomplicated; E11.9 Type 2 diabetes mellitus without complications; M54.9 Dorsalgia, unspecified; G89.29 Other chronic pain; F41.9 Anxiety disorder, unspecified; F32.9 Major depressive disorder, single episode, unspecified; F41.0 Panic disorder [episodic paroxysmal anxiety]; K21.9 Gastro-esophageal reflux disease without esophagitis; E66.9 Obesity, unspecified; Z68.41 Body mass index [BMI] 40.0-44.9, adult; F17.210 Nicotine dependence, cigarettes, uncomplicated; Z79.4 Long term (current) use of insulin; Z79.899 Other long term (current) drug therapy; Z79.3 Long term (current) use of hormonal contraceptives; Z88.0 Allergy status to penicillin; Z91.018 Allergy to other foods
CPT/HCPCS: 81025; 88304; 82565; 84132; 47562; J2250; J1644; J1100; J2710; J2765; J2405; J2001; J3010; J1170 ×2; J2704; J0690

== ENCOUNTER 2018-05-24 07:31 | Observation (INO) | payer OTHER ==
[2018-05-22 12:27] VITALS: BMI 41.3
[~2018-05-24 07:31] MED LIST changes: -LACTATED RINGERS 1,000 ML IV SCH; +MIDAZOLAM 2 MG/2 ML VIAL IV PRN; +ceFAZolin IN SWFI 2 GM/20 ML SYRINGE IVP ONE
--- NOTE | 2018-05-24 08:51 | P.GSHP ---
History of Present Illness H&P Date: 05/24/18 Chief Complaint: Umbilical hernia This is a 32-year-old female who presents today for laparoscopic robotic- assisted repair of umbilical hernia. Past Medical History Past Medical History: Asthma, Diabetes Mellitus, Hyperlipidemia Additional Past Medical History / Comment(s): chronic back pain, one seizure as , enlarged spleen, hiatal hernia, high cholesterol "years ago", "high red blood cell count", neuropathy natalia feet History of Any Multi-Drug Resistant Organisms: None Reported Past Surgical History: Cholecystectomy, Tonsillectomy Additional Past Surgical History / Comment(s): cyst removed from SIDE neck, COLONOSCOPY Past Anesthesia/Blood Transfusion Reactions: No Reported Reaction Smoking Status: Current every day smoker - Past Family History Mother Family Medical History: Deep Vein Thrombosis (DVT), Pulmonary Embolus Medications and Allergies Home Medications Medication Instructions Recorded Confirmed Type metFORMIN HCL [Glucophage] 1,000 mg PO BID 09/04/16 05/24/18 History Albuterol Sulfate [Ventolin Hfa] 1 - 2 puff INHALATION QID PRN 12/30/16 History sitaGLIPtin [Januvia] 100 mg PO HS 12/30/16 05/24/18 History DULoxetine HCL [Cymbalta] 60 mg PO QAM 01/25/18 05/24/18 History Medroxyprogesterone Acetate 150 mg IM Q90D 01/25/18 05/24/18 History [Depo-Provera] Omeprazole 20 mg PO QAM 01/25/18 05/24/18 History hydrOXYzine HCL [Atarax] 50 mg PO HS PRN 01/25/18 05/24/18 History Insulin Glargine,Hum.rec.anlog 35 units SQ HS 03/15/18 05/24/18 History [Toujeo Solostar] Insulin Glulisine [Apidra] 10 unit SQ TID-W/MEALS 03/15/18 05/24/18 History Pregabalin [Lyrica] 50 mg PO TID 03/15/18 05/24/18 History Acetaminophen [Tylenol Extra 500 mg PO DIRECTED PRN 05/22/18 05/24/18 History Strength] Allergies Allergy/AdvReac Type Severity Reaction Status Date / Time amoxicillin Allergy Severe Nausea & Verified 05/24/18 08:36 Vomiting tomato Allergy RASH, Verified 05/24/18 08:36 ITCHING Surgical - Exam Vital Signs Temp Pulse Resp BP Pulse Ox 98.0 F 119 H 16 149/82 98 05/24/18 08:23 05/24/18 08:23 05/24/18 08:23 05/24/18 08:23 05/24/18 08:23 - General well developed, no distress - Eyes PERRL - ENT normal pinna - Neck no masses, no bruits - Respiratory normal expansion - Cardiovascular Rhythm: regular - Abdomen Abdomen: soft, non tender Hernia: umbilical Assessment and Plan Assessment: Umbilical hernia. We'll perform laparoscopic robotic-assisted repair.
[2018-05-24] MEDS: LACTATED RINGERS 1,000 ML IV SCH (08:52)
[2018-05-24] MEDS ORDERED: INSULIN ASPART 100 UNIT/ML 1 ML 10 ML VIAL SQ ONE ×3 (09:07→12:10)
[2018-05-24 09:14] LABS: Glucose,Whole Blood 337 mg/dL (75-99)
[2018-05-24] MEDS ORDERED: fentaNYL (PF) 50 MCG/ML 2 ML AMP ONE (09:14)
[2018-05-24] MEDS ORDERED: ROCURONIUM BROMIDE 10 MG/ML 10 ML VIAL IV ONE (09:14)
[2018-05-24] MEDS ORDERED: HYDROmorphone (PF) 1 MG/ML ONE (09:14)
[2018-05-24] MEDS ORDERED: MIDAZOLAM 2 MG/2 ML VIAL ONE (09:14)
[2018-05-24] MEDS ORDERED: LIDOCAINE 1% INJ 10MG/ML (20 ML MDV) ONE (09:14)
[2018-05-24] MEDS ORDERED: LABETALOL 5 MG/ML VIAL MDV ONE (09:14)
[2018-05-24] MEDS ORDERED: SUCCINYLCHOLINE CHLORIDE VIAL 200 MG/10 ML VIAL IV ONE (09:14)
[2018-05-24] MEDS ORDERED: PROPOFOL 10 MG/ML 20 ML VIAL IV ONE (09:14)
[2018-05-24] MEDS ORDERED: BUPIVACAIN-EPI 0.25%-1:200,000 30 ML VIAL SQ ONE (09:49)
--- NOTE | 2018-05-24 10:16 | P.OP ---
Preoperative Diagnosis: Umbilical hernia Postoperative Diagnosis: Incarcerated umbilical hernia Procedure(s) Performed: Laparoscopic robotic-assisted repair of incarcerated umbilical hernia Partial omentectomy Anesthesia: BHUPENDRA Surgeon: Alex De Paz Estimated Blood Loss (ml): 5 Pathology: other (Omentum) Condition: stable Disposition: PACU Description of Procedure: The patient was placed on the operating table in the supine position. He received general anesthesia. His abdomen was prepped and draped usual fashion. Using a 5 mm optical trocar under direct visualization the peritoneal cavity was entered in the left upper quadrant. The abdomen was then insufflated. The laparoscope was placed back into the perineal cavity. Next a 8 mm robotic trocar was placed in the left lower quadrant and a 12 mm robotic trocar was placed in the left lateral position. The original 5 mm trocar was exchanged for a 8 mm robotic trocar. The patient's placed in the left side up position. And the patient was undocked the robot. The umbilical hernia was visualized. Using hook cautery the peritoneum over the umbilical hernia was excised. The incarcerated omentum was dissected free and transected. The fascial opening was repaired using 0V LOC suture. Next a piece of 11 cm round ventral light ST mesh was placed into the. Cavity and secured with 2 OV lock suture. The patient was undocked the robot. The needles were retrieved. The omentum was retrieved and sent to pathology.. The fascia of the 12 mm trocar site was closed with 0 Ethibond suture. Skin was closed interrupted 3-0 Monocryl suture. Dermabond dressings was applied. Patient top procedure well and was sent to recovery room stable condition.
[2018-05-24] MEDS: HYDROmorphone 0.5 MG/0.5 ML SYRINGE IVP PRN ×3 (10:40→11:49)
[2018-05-24] MEDS ORDERED: ONDANSETRON 4 MG/2 ML VIAL IVP ONE (10:53)
[2018-05-24] MEDS ORDERED: PROMETHAZINE INJ 25 MG/ML 1 ML VIAL IVPB ONE (11:02)
[2018-05-24 11:08] LABS: Glucose,Whole Blood 361 mg/dL (75-99)
--- NOTE | 2018-05-24 11:43 | P.ONQ ---
Anesthesiology Proc Note - PNB - Peripheral Nerve Block Performed Bilateral Rectus Abdominis Single Time Out Performed: Yes Procedure Start Time: : Procedure Stop Time: : Indication: Acute Post-Operative Pain, Requested by physician (Dr De Paz) Sedation Type: Sedate with meaningful contact maintained Preparation: Sterile Prep Position: Supine Catheter: None Needle Types: Facet Needle Size: 100mm (4") Needle Gauge: 21 Technique: Ultrasound (Images saved) Injectate: 0.5% Ropivacaine (see comment for volume) (30 ml) Blood Aspirated: No Pain Paresthesia on Injection Noted: No Resistance on Injection: Normal Events: Uneventful and Well Tolerated
[2018-05-24 12:09] LABS: Glucose,Whole Blood 384 mg/dL (75-99)
[2018-05-24] MEDS ORDERED: ONDANSETRON 4 MG/2 ML VIAL IVP PRN (12:36)
[2018-05-24] MEDS ORDERED: NALOXONE 0.4 MG/ML 1 ML VIAL IV PRN (12:36)
[2018-05-24] MEDS ORDERED: LACTATED RINGERS 1,000 ML IV ONE (12:36)
[2018-05-24] MEDS ORDERED: traMADol 50 MG TAB PO PRN (12:36)
[2018-05-24] MEDS ORDERED: hydrOXYzine HCL 25 MG TAB PO PRN (14:38)
[2018-05-24] MEDS ORDERED: ALBUTEROL NEBULIZED 2.5 MG/3 ML INHALATION PRN (14:39)
[2018-05-24 14:46] LABS: Glucose,Whole Blood 338 mg/dL (75-99)
[2018-05-24] MEDS: HYDROcodone/APAP 5-325MG 1 EACH TAB PO PRN ×2 (15:34→22:43)
[2018-05-24] MEDS: HYDROmorphone 1 MG/ML 1 ML SYRINGE IVP PRN ×2 (15:35→19:55)
[2018-05-24] MEDS: NICOTINE 14MG/24HR PATCH TRANSDERM SCH (15:57)
[2018-05-24 17:50] LABS: Glucose,Whole Blood 310 mg/dL (75-99)
[2018-05-24] MEDS: INSULIN ASPART 100 UNIT/ML 1 ML 10 ML VIAL SQ SCH ×3 (18:06→22:40)
[2018-05-24] MEDS: PREGABALIN 50 MG CAP PO SCH ×2 (18:06→22:42)
[2018-05-24 19:36] LABS: Glucose,Whole Blood 306 mg/dL (75-99)
[2018-05-24] MEDS ORDERED: INSULIN DETEMIR 100 UNIT/ML 10 ML VIAL SQ SCH (21:00)
[2018-05-24] MEDS ORDERED: LINAGLIPTIN 5 MG TABLET PO SCH (21:00)
[2018-05-24 22:29] LABS: Glucose,Whole Blood 297 mg/dL (75-99)
[2018-05-24] MEDS: DOCUSATE 100 MG CAP PO SCH (22:42)
[2018-05-24] MEDS: metFORMIN 500 MG TAB PO SCH (22:42)
[2018-05-25] MEDS: HYDROmorphone 1 MG/ML 1 ML SYRINGE IVP PRN ×2 (00:52→04:41)
[2018-05-25 01:30] VITALS: RESP 16
[2018-05-25] MEDS: LACTATED RINGERS 1,000 ML IV SCH (03:33)
[2018-05-25 07:00] LABS: Glucose,Whole Blood 199 mg/dL (75-99)
[2018-05-25] MEDS: INSULIN ASPART 100 UNIT/ML 1 ML 10 ML VIAL SQ SCH ×4 (08:17→13:52)
[2018-05-25 08:35] VITALS: BP 156/105; PULSE 97; TEMP 98.5
[2018-05-25] MEDS ORDERED: DULoxetine HCL 60 MG CAPSULE.DR PO SCH (09:00)
[2018-05-25] MEDS: PREGABALIN 50 MG CAP PO SCH (09:25)
[2018-05-25] MEDS: metFORMIN 500 MG TAB PO SCH (09:25)
[2018-05-25] MEDS: DOCUSATE 100 MG CAP PO SCH (09:26)
[2018-05-25] MEDS: HYDROcodone/APAP 5-325MG 1 EACH TAB PO PRN (09:30)
[2018-05-25] MEDS: NICOTINE 14MG/24HR PATCH TRANSDERM SCH (11:28)
[2018-05-25] MEDS: ENOXAPARIN 40 MG/0.4 ML SYRINGE SQ SCH ×2 (11:28→12:53)
[2018-05-25 11:59] LABS: Glucose,Whole Blood 215 mg/dL (75-99)
--- NOTE | 2018-05-25 13:15 | P.DS ---
Providers Date of admission: 05/25/18 01:40 Expected date of discharge: 05/25/18 Attending physician: Alex De Paz Consults: 05/24/18 12:36 Consult Physician Routine Consulting Provider: Zach Herr Consult Reason/Comments: Medical management Do you want consulting provider notified?: Yes Primary care physician: Zach Herr [facility] Hospital Course: 32-year-old female presented to undergo a laparoscopic robotic-assisted repair of umbilical hernia on May 24 patient underwent left as A robotic-assisted repair of incarcerated umbilical hernia. There were no postop events. Patient was tolerating a diet. Is felt to be appropriate to be discharged. Impression discharge diagnosis Present on admission incarcerated umbilical hernia Postop May 24 laparoscopic robotic-assisted repair of incarcerated umbilical hernia Chronic back pain Type 2 diabetes insulin requiring The above impression and plan of care have been discussed and directed by signing physician. Kathy Hernandez nurse practitioner acting as scribe for signing physician. Plan - Discharge Summary Discharge Rx Participant: No New Discharge Prescriptions: New Docusate [Colace] 100 mg PO BID #20 capsule HYDROcodone/APAP 7.5-325MG [Page 7.5-325] 1 tab PO Q4H PRN 3 Days #18 tab PRN Reason: Pain Continue metFORMIN HCL [Glucophage] 1,000 mg PO BID sitaGLIPtin [Januvia] 100 mg PO HS Albuterol Sulfate [Ventolin HFA] 1 - 2 puff INHALATION RT-QID PRN PRN Reason: Shortness Of Breath Omeprazole 20 mg PO QAM hydrOXYzine HCL [Atarax] 50 mg PO HS PRN PRN Reason: Itching Medroxyprogesterone Acetate [Depo-Provera] 150 mg IM Q90D DULoxetine HCL [Cymbalta] 60 mg PO QAM Insulin Glulisine [Apidra] 10 unit SQ TID-W/MEALS Insulin Glargine,Hum.rec.anlog [Toujeo Solostar] 35 units SQ HS Pregabalin [Lyrica] 50 mg PO TID Acetaminophen [Tylenol Extra Strength] 500 mg PO Q6H PRN PRN Reason: Pain Discharge Medication List metFORMIN HCL [Glucophage] 1,000 mg PO BID 09/04/16 [History] Albuterol Sulfate [Ventolin HFA] 1 - 2 puff INHALATION RT-QID PRN 12/30/16 [ History] sitaGLIPtin [Januvia] 100 mg PO HS 12/30/16 [History] DULoxetine HCL [Cymbalta] 60 mg PO QAM 01/25/18 [History] Medroxyprogesterone Acetate [Depo-Provera] 150 mg IM Q90D 01/25/18 [History] Omeprazole 20 mg PO QAM 01/25/18 [History] hydrOXYzine HCL [Atarax] 50 mg PO HS PRN 01/25/18 [History] Insulin Glargine,Hum.rec.anlog [Toujeo Solostar] 35 units SQ HS 03/15/18 [ History] Insulin Glulisine [Apidra] 10 unit SQ TID-W/MEALS 03/15/18 [History] Pregabalin [Lyrica] 50 mg PO TID 03/15/18 [History] Acetaminophen [Tylenol Extra Strength] 500 mg PO Q6H PRN 05/22/18 [History] Docusate [Colace] 100 mg PO BID #20 capsule 05/24/18 [Rx] HYDROcodone/APAP 7.5-325MG [Page 7.5-325] 1 tab PO Q4H PRN 3 Days #18 tab 05/24 [Rx] Follow up Appointment(s)/Referral(s): Zach Herr MD [Primary Care Provider] - 05/31/18 1:45 pm Alex De Paz MD [STAFF PHYSICIAN] - 06/01/18 2:20 pm Patient Instructions/Handouts: *Surgery [facility] - (Anesthesia) Discharge Instructions Outpatient Surgery, Umbilical Hernia (ED), Umbilical Hernia (DC) Care Plan Goals (MU): CONTINUE CLEAR LIQUID DIET OK TO SHOWER DAILY, NO TUB BATHS OR SOAKING NO DRIVING MAINTAIN ABDOMINAL BINDER CHECK BLOOD SUGAR BEFORE MEALS AND AT BEDTIME NO HEAVY LIFTING, PULLING OR PUSHING NO DRIVING UNTIL OK WITH SURGEON Discharge Disposition: HOME SELF-CARE
[2018-05-25 13:44] LABS: Hemoglobin A1C 10.2 % (4.0-6.0)
== END 2018-05-25 14:00 | disposition home or self-care (01) ==
LOC: OR 07:31 → 4SSUR 14:10 → OR 05-25 01:47
PROVIDERS: ADMIT Surgery; ATTEND Surgery
DX: K42.0 Umbilical hernia with obstruction, without gangrene (principal); G89.29 Other chronic pain; M54.9 Dorsalgia, unspecified; E11.40 Type 2 diabetes mellitus with diabetic neuropathy, unspecified; J45.909 Unspecified asthma, uncomplicated; E78.5 Hyperlipidemia, unspecified; Z88.0 Allergy status to penicillin; Z91.018 Allergy to other foods; Z79.899 Other long term (current) drug therapy; Z79.84 Long term (current) use of oral hypoglycemic drugs; Z79.4 Long term (current) use of insulin; Z79.3 Long term (current) use of hormonal contraceptives; Z90.49 Acquired absence of other specified parts of digestive tract; Z83.2 Family history of diseases of the blood and blood-forming organs and certain disorders involving the immune mechanism; F17.200 Nicotine dependence, unspecified, uncomplicated; E66.01 Morbid (severe) obesity due to excess calories; Z68.41 Body mass index [BMI] 40.0-44.9, adult
CPT/HCPCS: 49653; S2900; 81025; 83036; 88305

== ENCOUNTER → 2018-08-21 | Outpatient (CLI) | payer OTHER ==
[2018-08-21 15:10] VITALS: BP 150/80; PULSE 110; RESP 16; TEMP 99.2; BMI 42.4
--- NOTE | 2018-08-21 16:05 | P.HPBAR ---
Bariatric H&P - History & Physicial H&P Date: 08/21/18 History & Physicial: Visit/CC: initial visit Patient initial contact: Initial weight: 119.55 kg Initial weight in pounds: 263.56 Height: 5 ft 6 in Initial BMI: 42.5 Last weight: Current weight: 119.295 kg Current weight in pounds: 263.00 Current BMI: 42.4 [place] body weight (based on NIH guidelines): 58.967 kg Excess body weight loss: 0.4% The patient is a 33 year-old F who presents for Bariatric Assessment. Patient presents today for new patient consultation. Patient has had lifetime problems obesity. She has severe issues with diabetes. She is requesting information on sleeve gastrectomy. Her BMI is 42. Past Medical History Past Medical History: Asthma, Diabetes Mellitus Additional Past Medical History / Comment(s): chronic back pain, one seizure as , enlarged spleen, hiatal hernia, "high red blood cell count", neuropathy natalia feet, MIGRAINE HEADACHE,difficult swallowing History of Any Multi-Drug Resistant Organisms: None Reported Past Surgical History: Cholecystectomy, Hernia Repair, Tonsillectomy Additional Past Surgical History / Comment(s): cyst removed from SIDE neck, COLONOSCOPY, robotic assisted hernia repair- UMBILICAL REPAIR Past Anesthesia/Blood Transfusion Reactions: No Reported Reaction Past Psychological History: Anxiety, Depression Additional Psychological History / Comment(s): PANIC ATTACKS Smoking Status: Current every day smoker Past Alcohol Use History: None Reported Additional Past Alcohol Use History / Comment(s): STARTED SMOKING AT AGE 18, SMOKES 1/2 PPD Past Drug Use History: None Reported - Past Family History Mother Family Medical History: Deep Vein Thrombosis (DVT), Pulmonary Embolus Surgical - Exam Vital Signs Temp Pulse Resp BP 99.2 F 110 H 16 150/80 08/21/18 15:07 08/21/18 15:07 08/21/18 15:07 08/21/18 15:07 - General well developed, no distress - Eyes PERRL - ENT normal pinna - Neck no masses - Respiratory normal expansion - Cardiovascular Rhythm: regular - Abdomen Abdomen: soft, non tender Bariatric Assessment & Plan Plan: Morbid obesity. Patient will be worked up for sleeve gastrectomy. She'll be scheduled for EGD. She'll follow-up in the bandage clinic after her EGD is performed. Bariatric Checklist Checklist: Plan: Checklist: EGD: 1. Hiatal hernia: 2. H. Pylori: HgbA1c: Vitamin D: Smoking: Current every day smoker Primary care physician referral: dr. villarreal Psychiatry clearance: Cardiology clearance: Sleep study: Diet journal: VTE risk score: VTE risk level: Rehab needs at discharge:
== END ==
LOC: BARWHC3 14:47
PROVIDERS: ATTEND Surgery
DX: Z48.815 Encounter for surgical aftercare following surgery on the digestive system (principal); E66.01 Morbid (severe) obesity due to excess calories; F17.200 Nicotine dependence, unspecified, uncomplicated; Z98.84 Bariatric surgery status; Z68.41 Body mass index [BMI] 40.0-44.9, adult
CPT/HCPCS: 99201

== ENCOUNTER 2018-08-23 08:04 | Day surgery (SDC) | payer OTHER ==
[2018-08-18 11:25] VITALS: BMI 39.6
[~2018-08-23 08:04] MED LIST changes: -DEXAMETHASONE SOD PHOSPHATE 10 MG/ML 1 ML VIAL IV ONE; -HEPARIN SODIUM,PORCINE 5,000 UNIT/ML 1 ML VIAL SQ ONE; +LACTATED RINGERS 1,000 ML IV SCH; -LIDOCAINE 1% 20 ML VIAL (10MG/ML) FOR IV START INTRADERMA PRN; -MIDAZOLAM 2 MG/2 ML VIAL IV PRN; -ONDANSETRON 4 MG/2 ML VIAL IVP ONE; -SCOPOLAMINE 1.5MG/72HR PATCH TRANSDERM ONE; -ceFAZolin IN SWFI 2 GM/20 ML SYRINGE IVP ONE
[2018-08-23 08:38] VITALS: TEMP 97.5
[2018-08-23] MEDS ORDERED: LACTATED RINGERS 1,000 ML IV ONE (08:40)
[2018-08-23] MEDS ORDERED: LIDOCAINE 1% 20 ML VIAL (10MG/ML) FOR IV START INTRADERMA ONE (08:40)
[2018-08-23 08:52] LABS: Glucose,Whole Blood 268 mg/dL (75-99)
[2018-08-23] MEDS ORDERED: fentaNYL (PF) 50 MCG/ML 2 ML AMP ONE (09:04)
[2018-08-23] MEDS ORDERED: PROPOFOL 10 MG/ML 20 ML VIAL IV ONE (09:04)
[2018-08-23] MEDS ORDERED: LIDOCAINE 1% INJ 10MG/ML (20 ML MDV) ONE (09:04)
--- NOTE | 2018-08-23 09:12 | P.GSHP ---
History of Present Illness H&P Date: 08/23/18 Chief Complaint: GERD This is a 33-year-old female who presents today for EGD. She's had issues with GERD. Patient is morbidly obese with a BMI of 40. Past Medical History Past Medical History: Asthma, Diabetes Mellitus Additional Past Medical History / Comment(s): chronic back pain, one seizure as , enlarged spleen, hiatal hernia, "high red blood cell count", neuropathy natalia feet, MIGRAINE HEADACHE,difficult swallowing History of Any Multi-Drug Resistant Organisms: None Reported Past Surgical History: Cholecystectomy, Hernia Repair, Tonsillectomy Additional Past Surgical History / Comment(s): cyst removed from SIDE neck, COLONOSCOPY, robotic assisted hernia repair- UMBILICAL REPAIR Past Anesthesia/Blood Transfusion Reactions: No Reported Reaction Past Psychological History: Anxiety, Depression Additional Psychological History / Comment(s): PANIC ATTACKS Smoking Status: Current every day smoker Past Alcohol Use History: None Reported Additional Past Alcohol Use History / Comment(s): STARTED SMOKING AT AGE 18, SMOKES 1/2 PPD Past Drug Use History: None Reported - Past Family History Mother Family Medical History: Deep Vein Thrombosis (DVT), Pulmonary Embolus Medications and Allergies Home Medications Medication Instructions Recorded Confirmed Type metFORMIN HCL [Glucophage] 1,000 mg PO BID 09/04/16 08/18/18 History Albuterol Sulfate [Ventolin HFA] 1 - 2 puff INHALATION RT-QID PRN 12/30/1608/18 History sitaGLIPtin [Januvia] 100 mg PO DAILY 12/30/16 08/18/18 History DULoxetine HCL [Cymbalta] 60 mg PO HS 01/25/18 08/18/18 History Medroxyprogesterone Acetate 150 mg IM Q90D 01/25/18 08/18/18 History [Depo-Provera] Omeprazole 20 mg PO QAM 01/25/18 08/18/18 History hydrOXYzine HCL [Atarax] 50 mg PO HS PRN 01/25/18 08/18/18 History Pregabalin [Lyrica] 150 mg PO BID 03/15/18 08/18/18 History Acetaminophen [Tylenol Extra 500 mg PO Q6H PRN 05/22/18 08/18/18 History Strength] Insulin Glargine [Lantus] 30 unit SQ HS 08/10/18 08/18/18 History Allergies Allergy/AdvReac Type Severity Reaction Status Date / Time amoxicillin Allergy Severe Nausea & Verified 08/18/18 11:18 Vomiting tomato Allergy RASH, Verified 08/18/18 11:18 ITCHING Surgical - Exam Vital Signs Temp Pulse Resp BP Pulse Ox 97.5 F L 104 H 18 177/85 98 08/23/18 08:37 08/23/18 08:37 08/23/18 08:37 08/23/18 08:37 08/23/18 08:37 - General well developed, well nourished, no distress - Eyes PERRL - ENT normal pinna - Neck no masses - Respiratory normal expansion - Cardiovascular Rhythm: regular - Abdomen Abdomen: soft, non tender Results - Labs Abnormal Lab Results - Last 24 Hours (Table) 08/23/18 Range/Units 08:47 POC Glucose (mg/dL) 268 H (75-99) mg/dL Assessment and Plan Assessment: Morbid obesity GERD. We'll perform EGD.
--- NOTE | 2018-08-23 09:28 | P.OP ---
Date of Procedure: 08/23/18 Preoperative Diagnosis: GERD Morbid obesity Postoperative Diagnosis: Antral gastritis Morbid obesity, BMI 40 Procedure(s) Performed: EGD Anesthesia: MAC Surgeon: Alex De Paz Pathology: other (Antral gastritis) Condition: stable Disposition: PACU Description of Procedure: The patient's placed on the endoscopy table in the lateral position. She received IV sedation. The gastroscope placed oropharynx and passed in the esophagus. Scope was then placed through the pylorus. First and second portion of the duodenum appeared normal. Scope was then brought back the antrum this. Mildly inflamed. A biopsies performed to call [facility]. The scope was unretroflexed and remainder of the stomach appeared normal. There was no hiatal hernia. The GE junction was at 40 cm. The distal esophagus appeared mildly inflamed. A biopsies performed. The proximal esophagus appeared normal. The scope was withdrawn for patient.
[2018-08-23 09:29] VITALS: RESP 16
[2018-08-23 09:33] LABS: Glucose,Whole Blood 280 mg/dL (75-99)
[2018-08-23] MEDS ORDERED: INSULIN ASPART (NovoLOG) 100 UNIT/ML VIAL SQ ONE (09:51)
[2018-08-23 10:00] VITALS: BP 138/83; PULSE 108
== END 2018-08-23 10:26 ==
LOC: ORWHC2ENDO 08:04
PROVIDERS: ATTEND Surgery
DX: K29.50 Unspecified chronic gastritis without bleeding (principal); E66.01 Morbid (severe) obesity due to excess calories; Z68.41 Body mass index [BMI] 40.0-44.9, adult; E11.42 Type 2 diabetes mellitus with diabetic polyneuropathy; J45.909 Unspecified asthma, uncomplicated; G89.29 Other chronic pain; M54.9 Dorsalgia, unspecified; R16.1 Splenomegaly, not elsewhere classified; F17.210 Nicotine dependence, cigarettes, uncomplicated; R71.8 Other abnormality of red blood cells; Z79.4 Long term (current) use of insulin; Z79.899 Other long term (current) drug therapy; Z88.0 Allergy status to penicillin; Z91.018 Allergy to other foods
CPT/HCPCS: 81025; 88305; 43239; J2001; J3010; J2704

== ENCOUNTER → 2018-09-07 | Outpatient (CLI) | payer OTHER ==
[2018-09-07 11:12] LABS: Basophils # (A) 0.1 k/uL (0-0.2); Basophils % (A) 1 %; Eosinophils # (A) 0.5 k/uL (0-0.7); Eosinophils % (A) 3 %; HCT 50.1 % (34.0-46.0); HGB 15.5 gm/dL (11.4-16.0); Lymphocytes # (A) 3.6 k/uL (1.0-4.8); Lymphocytes % (A) 20 %; MCH 26.6 pg (25.0-35.0); MCV 85.6 fL (80.0-100.0); Mean Platelet Volume 7.7; Monocytes # (A) 0.8 k/uL (0-1.0); Monocytes % (A) 5 %; Neutrophils # (A) 12.9 k/uL (1.3-7.7); Neutrophils % (A) 71 %; Platelet Count 334 k/uL (150-450); RBC 5.84 m/uL (3.80-5.40); RDW 14.5 % (11.5-15.5); WBC 18.2 k/uL (3.8-10.6)
[2018-09-07 16:46] LABS: Iron Saturation 14.56 (12.00-45.00)
[2018-09-07 16:51] LABS: Vitamin D 25 Hydroxy 9.4 ng/mL (30.0-100.0)
[2018-09-07 16:57] LABS: Hemoglobin A1C 10.4 % (4.0-6.0)
[2018-09-07 17:02] LABS: Albumin 4.6 g/dL (3.80-4.90); Albumin/Globulin Ratio 1.92 (1.60-3.17); Anion Gap 10.8 mmol/L (4.00-12.00); Carbon Dioxide 25.2 mmol/L (21.6-31.8); Globulin 2.4 g/dL (1.6-3.3); Potassium 5.1 mmol/L (3.5-5.5); Total Bilirubin 0.4 mg/dL (0.2-1.2)
== END | disposition home or self-care (01) ==
LOC: LABWHC1 10:09
PROVIDERS: ATTEND Surgery
DX: E55.9 Vitamin D deficiency, unspecified (principal); E66.01 Morbid (severe) obesity due to excess calories; D72.829 Elevated white blood cell count, unspecified; I10 Essential (primary) hypertension; J45.21 Mild intermittent asthma with (acute) exacerbation; M15.9 Polyosteoarthritis, unspecified
CPT/HCPCS: 36415; 80053; 82306; 82607; 82728; 83036; 83540; 83550; 85025

== ENCOUNTER → 2018-10-10 | Outpatient (CLI) | payer OTHER | END | disposition home or self-care (01) | LOC: LABWHC1 12:00 | PROVIDERS: ATTEND Surgery | DX: E66.01 Morbid (severe) obesity due to excess calories (principal) | CPT/HCPCS: 36415; 93005 ==

== ENCOUNTER → 2018-10-16 | Outpatient (CLI) | payer OTHER ==
[2018-10-16 15:33] VITALS: BP 153/100; PULSE 130; RESP 16; TEMP 98.2; BMI 41.6
--- NOTE | 2018-10-17 09:57 | P.HPBAR ---
Bariatric H&P - History & Physicial H&P Date: 10/16/18 History & Physicial: Visit/CC: Working on criteria Patient initial contact: Initial weight: 119.55 kg Initial weight in pounds: 263.56 Height: 5 ft 6 in Initial BMI: 42.5 Last weight: Current weight: 117.027 kg Current weight in pounds: 258.00 Current BMI: 41.6 [place] body weight (based on NIH guidelines): 58.967 kg Excess body weight loss: 4.1% The patient is a 33 year-old F who presents for Bariatric Assessment. Patient presents today for presurgical consultation. She is currently working on her insurance authorization criteria. She's had long-standing issues with diabetes. Her BMI is 42. Past Medical History Past Medical History: Asthma, Diabetes Mellitus Additional Past Medical History / Comment(s): chronic back pain, one seizure as infant, enlarged spleen, hiatal hernia, "high red blood cell count", neuropathy natalia feet, MIGRAINE HEADACHE,difficult swallowing, anemia requiring iron infusions (September 2018) History of Any Multi-Drug Resistant Organisms: None Reported Past Surgical History: Cholecystectomy, Hernia Repair, Tonsillectomy Additional Past Surgical History / Comment(s): cyst removed from SIDE neck, COLONOSCOPY, robotic assisted hernia repair- UMBILICAL REPAIR Past Anesthesia/Blood Transfusion Reactions: No Reported Reaction Smoking Status: Current every day smoker - Past Family History Mother Family Medical History: Deep Vein Thrombosis (DVT), Pulmonary Embolus Surgical - Exam Vital Signs Temp Pulse Resp BP 98.2 F 130 H 16 153/100 10/16/18 15:29 10/16/18 15:29 10/16/18 15:29 10/16/18 15:29 - General well developed, well nourished, no distress - Eyes PERRL - Abdomen Abdomen: soft, non tender Bariatric Assessment & Plan Plan: Morbid obesity IDDM Patient has a good understanding sleeve gastrectomy. We went over the risks and benefits of the procedure. Patient will have her blood sugar and hemoglobin A1c checked at the next visit. Bariatric Checklist Checklist: Plan: Checklist: EGD: 1. Hiatal hernia: 2. H. Pylori: HgbA1c: Vitamin D: Smoking: Current every day smoker Primary care physician referral: Psychiatry clearance: Cardiology clearance: Sleep study: Diet journal: VTE risk score: VTE risk level: Rehab needs at discharge:
== END | disposition home or self-care (01) ==
LOC: BARWHC3 12:24
PROVIDERS: ATTEND Surgery
DX: E66.01 Morbid (severe) obesity due to excess calories (principal); F17.200 Nicotine dependence, unspecified, uncomplicated; E11.9 Type 2 diabetes mellitus without complications; Z68.41 Body mass index [BMI] 40.0-44.9, adult
CPT/HCPCS: 99211

== ENCOUNTER → 2018-10-30 | Outpatient (CLI) | payer OTHER ==
[2018-10-30 14:10] VITALS: BP 168/121; PULSE 90; TEMP 98.3; BMI 42.4
--- NOTE | 2018-10-30 14:39 | P.HPBAR ---
Bariatric H&P - History & Physicial H&P Date: 10/30/18 History & Physicial: Visit/CC: sleeve consult (check CBG levels per d/c instructions at last visit) Patient initial contact: Initial weight: 119.55 kg Initial weight in pounds: 263.56 Height: 5 ft 6 in Initial BMI: 42.5 Last weight: Current weight: 119.34 kg Current weight in pounds: 263.10 Current BMI: 42.4 [place] body weight (based on NIH guidelines): 58.967 kg Excess body weight loss: 0.3% The patient is a 33 year-old F who presents for Bariatric Assessment. Patient resents today for presurgical screening. She's had trouble maintaining her blood sugars in the normal range. They're consistently in the 2-300 range. Past Medical History Past Medical History: Asthma, Diabetes Mellitus Additional Past Medical History / Comment(s): chronic back pain, one seizure as infant, enlarged spleen, hiatal hernia, "high red blood cell count", neuropathy natalia feet, MIGRAINE HEADACHE,difficult swallowing History of Any Multi-Drug Resistant Organisms: None Reported Past Surgical History: Cholecystectomy, Hernia Repair, Tonsillectomy Additional Past Surgical History / Comment(s): cyst removed from SIDE neck, COLONOSCOPY, robotic assisted hernia repair- UMBILICAL REPAIR Past Anesthesia/Blood Transfusion Reactions: No Reported Reaction Past Psychological History: Anxiety, Depression Additional Psychological History / Comment(s): PANIC ATTACKS Smoking Status: Current every day smoker Past Alcohol Use History: None Reported Additional Past Alcohol Use History / Comment(s): STARTED SMOKING AT AGE 18, SMOKES 1/2 PPD Past Drug Use History: None Reported - Past Family History Mother Family Medical History: Deep Vein Thrombosis (DVT), Pulmonary Embolus Surgical - Exam Vital Signs Temp Pulse BP 98.3 F 90 168/121 10/30/18 13:54 10/30/18 13:54 10/30/18 13:54 - General well developed, well nourished, no distress - Eyes PERRL - ENT normal pinna - Neck no masses - Respiratory normal expansion - Cardiovascular Rhythm: regular - Abdomen Abdomen: soft, non tender Bariatric Assessment & Plan Plan: Poorly controlled diabetes. Patient will follow-up with her PCP for control of her diabetes. She'll follow-up in one month. Patient's morbid obesity BMI 43 Bariatric Checklist Checklist: Plan: Checklist: EGD: 1. Hiatal hernia: 2. H. Pylori: HgbA1c: Vitamin D: Smoking: Current every day smoker Primary care physician referral: Psychiatry clearance: Cardiology clearance: Sleep study: Diet journal: VTE risk score: VTE risk level: Rehab needs at discharge:
== END ==
LOC: BARWHC3 12:52
PROVIDERS: ATTEND Surgery
DX: E66.01 Morbid (severe) obesity due to excess calories (principal); F17.210 Nicotine dependence, cigarettes, uncomplicated; E11.65 Type 2 diabetes mellitus with hyperglycemia; Z68.41 Body mass index [BMI] 40.0-44.9, adult; Z90.49 Acquired absence of other specified parts of digestive tract
CPT/HCPCS: 99211

== ENCOUNTER → 2018-12-04 | Outpatient (CLI) | payer OTHER ==
[2018-12-04 13:20] VITALS: BP 144/98; PULSE 114; RESP 16; TEMP 98.4; BMI 42.1
--- NOTE | 2018-12-04 15:53 | P.HPBAR ---
Bariatric H&P - History & Physicial H&P Date: 12/04/18 History & Physicial: Visit/CC: Working on Criteria Patient initial contact: Initial weight: 119.55 kg Initial weight in pounds: 263.56 Height: 5 ft 6 in Initial BMI: 42.5 Last weight: Current weight: 118.388 kg Current weight in pounds: 261.00 Current BMI: 42.1 [place] body weight (based on NIH guidelines): 58.967 kg Excess body weight loss: 1.9% The patient is a 33 year-old F who presents for Bariatric Assessment. Patient presents today for free surgical consultation. Her weight is remain stable at around 261 pounds. Her BMI is 42. The patient has improved her blood sugars. Dr. Herr has increased her insulin levels. Past Medical History Past Medical History: Asthma, Diabetes Mellitus Additional Past Medical History / Comment(s): chronic back pain, one seizure as infant, enlarged spleen, hiatal hernia, "high red blood cell count", neuropathy natalia feet, MIGRAINE HEADACHE,difficult swallowing History of Any Multi-Drug Resistant Organisms: None Reported Past Surgical History: Cholecystectomy, Hernia Repair, Tonsillectomy Additional Past Surgical History / Comment(s): cyst removed from SIDE neck, COLONOSCOPY, robotic assisted hernia repair- UMBILICAL REPAIR Past Anesthesia/Blood Transfusion Reactions: No Reported Reaction Smoking Status: Current every day smoker - Past Family History Mother Family Medical History: Deep Vein Thrombosis (DVT), Pulmonary Embolus Surgical - Exam Vital Signs Temp Pulse Resp BP 98.4 F 114 H 16 144/98 12/04/18 13:17 12/04/18 13:17 12/04/18 13:17 12/04/18 13:17 - General well developed, well nourished, no distress - Eyes PERRL - ENT normal pinna - Neck no masses - Respiratory normal expansion - Cardiovascular Rhythm: regular - Abdomen Abdomen: soft, non tender Bariatric Assessment & Plan Plan: Morbid obesity Insulin-dependent diabetes Patient will follow-up in one month. She will have her insulin was adjusted in order to improve her blood sugar Bariatric Checklist Checklist: Plan: Checklist: EGD: 1. Hiatal hernia: 2. H. Pylori: HgbA1c: Vitamin D: Smoking: Current every day smoker Primary care physician referral: Psychiatry clearance: Cardiology clearance: Sleep study: Diet journal: VTE risk score: VTE risk level: Rehab needs at discharge:
== END | disposition home or self-care (01) ==
LOC: BARWHC3 12:39
PROVIDERS: ATTEND Surgery
DX: E66.01 Morbid (severe) obesity due to excess calories (principal); E11.9 Type 2 diabetes mellitus without complications; F17.200 Nicotine dependence, unspecified, uncomplicated; Z68.41 Body mass index [BMI] 40.0-44.9, adult; Z79.4 Long term (current) use of insulin
CPT/HCPCS: 99211

== ENCOUNTER 2019-02-18 21:32 | Observation (INO) | payer OTHER ==
--- NOTE | 2019-02-18 23:04 | ED ---
General Adult HPI - General Chief complaint: Abdominal Pain Stated complaint: High Sugar, flank pain Time Seen by Provider: 02/18/19 22:53 Source: patient, family, EMS Mode of arrival: EMS Limitations: no limitations - History of Present Illness Initial comments: Camille is a 33-year-old female who presents to the emergency department today for evaluation of right upper quadrant abdominal and right sided chest pain. Patient reports that approximately a year ago she began experiencing the symptoms, her gallbladder was removed which improved symptoms for couple of months however approximately 2 months after gallbladder removal she began having pain in the right side of her chest as well as some occasional epigastric pain usually comes and goes. She reports she has never seen a doctor for this because it usually resolves in a matter time. Patient reports that yesterday evening she began expressing pain in the right side of her chest which made it hard to breathe. She has no personal history of DVT PE but her mother has had multiple DVTs and PEs for unknown reason. - Related Data Home Medications Medication Instructions Recorded Confirmed metFORMIN HCL [Glucophage] 1,000 mg PO BID 09/04/16 12/14/18 Albuterol Sulfate [Ventolin HFA] 1 - 2 puff INHALATION RT-QID PRN 12/30/16 12/14/18 DULoxetine HCL [Cymbalta] 60 mg PO HS 01/25/18 12/14/18 Medroxyprogesterone Acetate 150 mg IM Q90D 01/25/18 02/18/19 [Depo-Provera] Omeprazole 20 mg PO QAM 01/25/18 02/18/19 hydrOXYzine HCL [Atarax] 50 mg PO HS PRN 01/25/18 12/14/18 Acetaminophen [Tylenol Extra 500 mg PO Q6H PRN 05/22/18 12/14/18 Strength] Meloxicam 2 tab PO DAILY 10/03/18 12/14/18 Insulin Glargine/Lixisenatide 50 units SQ HS 02/18/19 02/18/19 [Soliqua 100 Unit-33 Mcg/ml Pen] Pregabalin [Lyrica] 150 mg PO BID 02/18/19 02/18/19 Allergies Allergy/AdvReac Type Severity Reaction Status Date / Time amoxicillin Allergy Severe Nausea & Verified 02/18/19 21:41 Vomiting tomato Allergy RASH, Verified 02/18/19 21:41 ITCHING Review of Systems ROS Statement: Those systems with pertinent positive or pertinent negative responses have been documented in the HPI. ROS Other: All systems not noted in ROS Statement are negative. Past Medical History Past Medical History: Asthma, Diabetes Mellitus Additional Past Medical History / Comment(s): chronic back pain, one seizure as infant, enlarged spleen, hiatal hernia, "high red blood cell count", neuropathy natalia feet, MIGRAINE HEADACHE,difficult swallowing History of Any Multi-Drug Resistant Organisms: None Reported Past Surgical History: Cholecystectomy, Hernia Repair, Tonsillectomy Additional Past Surgical History / Comment(s): cyst removed from SIDE neck, COLONOSCOPY, robotic assisted hernia repair- UMBILICAL REPAIR Past Anesthesia/Blood Transfusion Reactions: No Reported Reaction Past Psychological History: Anxiety, Depression Smoking Status: Current every day smoker Past Alcohol Use History: None Reported Past Drug Use History: None Reported - Past Family History Mother Family Medical History: Deep Vein Thrombosis (DVT), Pulmonary Embolus General Exam - General Exam Comments Initial Comments: Physical Exam GENERAL: Patient is well-developed and well-nourished. Appears uncomfortable HENT: Normocephalic, Atraumatic. EYES: PERRL, EOMI PULMONARY: Unlabored respirations. No audible rales rhonchi or wheezing was noted. Pleuritic chest pain on inhalation CARDIOVASCULAR: There is a regular rate and rhythm without any murmurs gallops or rubs. ABDOMEN: RUQ and epigastric tenderness Obese SKIN: Skin is clear with no lesions or rashes and otherwise unremarkable. : Deferred NEUROLOGIC: Patient is alert and oriented x3. Moving all extremities spontaneously MUSCULOSKELETAL: Normal extremities with adequate strength and full range of motion. No lower extremity swelling or edema. No calf tenderness. PSYCHIATRIC: Normal psychiatric evaluation. Limitations: no limitations Course Vital Signs 02/18/19 02/19/19 21:37 03:26 Temperature 99.2 F 98.5 F Pulse Rate 118 H 111 H Respiratory 20 20 Rate Blood Pressure 150/100 168/95 O2 Sat by Pulse 96 97 Oximetry EKG Findings - EKG Comments: EKG Findings:: EKG was obtained due to pleuritic chest pain and tachycardia, EKG obtained at 2150, rate is 116 rhythm is sinus tachycardia there is normal axis there are normal intervals, SD 188, QRS 60, QTC is 433, there are no acute ST elevations or depressions exertional evidence of acute ischemia or infarction. There is no acute right heart strain. Medical Decision Making - Medical Decision Making The patient was seen and evaluated history was obtained from patient excited patient has right-sided chest and abdominal pain as well as mild hyperglycemia Labs and imaging were ordered Patient's tachycardia and pleuritic right-sided chest pain as well as family history of recurrent DVT and PE and her mother at 80 study was ordered LabsMultiple abnormalities including leukocytosis, hyperglycemia, elevated lipase This time a CT of the abdomen was ordered CT of the chest concerning for possible pneumonia. Rocephin and azithromycin was ordered. CT of The abdomen with no acute findings no evidence on CT of acute pancreatitis Given the patient's persistent tachycardia, leukocytosis, possible pneumonia, elevated lipase I do feel the patient warrants admission to the hospital for IV fluids and reevaluation. Patient care was discussed with her Dr. Nguyen who agrees with plan for admission. - Lab Data Result diagrams: 02/18/19 21:54 02/18/19 21:54 Lab Results 02/18/19 02/18/19 02/18/19 Range/Units 21:54 21:54 21:54 WBC 22.0 H (3.8-10.6) k/uL RBC 5.17 (3.80-5.40) m/uL Hgb 14.8 (11.4-16.0) gm/dL Hct 44.9 (34.0-46.0) % MCV 86.8 (80.0-100.0) fL MCH 28.7 (25.0-35.0) pg MCHC 33.0 (31.0-37.0) g/dL RDW 16.2 H (11.5-15.5) % Plt Count 322 (150-450) k/uL Neutrophils % 72 % Lymphocytes % 19 % Monocytes % 5 % Eosinophils % 2 % Basophils % 1 % Neutrophils # 15.9 H (1.3-7.7) k/uL Lymphocytes # 4.2 (1.0-4.8) k/uL Monocytes # 1.0 (0-1.0) k/uL Eosinophils # 0.5 (0-0.7) k/uL Basophils # 0.2 (0-0.2) k/uL Anisocytosis Slight PT 9.5 (9.0-12.0) sec INR 0.9 (<1.2) APTT 26.1 (22.0-30.0) sec Sodium 138 (137-145) mmol/L Potassium 4.2 (3.5-5.1) mmol/L Chloride 103 (98-107) mmol/L Carbon Dioxide 21 L (22-30) mmol/L Anion Gap 14 mmol/L BUN 11 (7-17) mg/dL Creatinine 0.53 (0.52-1.04) mg/dL Est GFR (CKD-EPI)AfAm >90 (>60 ml/min/1.73 sqM) Est GFR (CKD-EPI)NonAf >90 (>60 ml/min/1.73 sqM) Glucose 309 H (74-99) mg/dL Calcium 9.8 (8.4-10.2) mg/dL Total Bilirubin 0.3 (0.2-1.3) mg/dL AST 23 (14-36) U/L ALT 26 (9-52) U/L Alkaline Phosphatase 161 H (38-126) U/L Troponin I (0.000-0.034) ng/mL Total Protein 7.0 (6.3-8.2) g/dL Albumin 4.0 (3.5-5.0) g/dL Amylase 46 (30-110) U/L Lipase 507 H (23-300) U/L Urine Color Urine Appearance (Clear) Urine pH (5.0-8.0) Ur Specific [place] (1.001-1.035) Urine Protein (Negative) Urine Glucose (UA) (Negative) Urine Ketones (Negative) Urine Blood (Negative) Urine Nitrite (Negative) Urine Bilirubin (Negative) Urine Urobilinogen (<2.0) mg/dL Ur Leukocyte Esterase (Negative) Urine RBC (0-5) /hpf Urine WBC (0-5) /hpf Ur Squamous Epith Cells (0-4) /hpf Urine Mucus (None) /hpf 02/18/19 02/19/19 Range/Units 21:54 01:00 WBC (3.8-10.6) k/uL RBC (3.80-5.40) m/uL Hgb (11.4-16.0) gm/dL Hct (34.0-46.0) % MCV (80.0-100.0) fL MCH (25.0-35.0) pg MCHC (31.0-37.0) g/dL RDW (11.5-15.5) % Plt Count (150-450) k/uL Neutrophils % % Lymphocytes % % Monocytes % % Eosinophils % % Basophils % % Neutrophils # (1.3-7.7) k/uL Lymphocytes # (1.0-4.8) k/uL Monocytes # (0-1.0) k/uL Eosinophils # (0-0.7) k/uL Basophils # (0-0.2) k/uL Anisocytosis PT (9.0-12.0) sec INR (<1.2) APTT (22.0-30.0) sec Sodium (137-145) mmol/L Potassium (3.5-5.1) mmol/L Chloride (98-107) mmol/L Carbon Dioxide (22-30) mmol/L Anion Gap mmol/L BUN (7-17) mg/dL Creatinine (0.52-1.04) mg/dL Est GFR (CKD-EPI)AfAm (>60 ml/min/1.73 sqM) Est GFR (CKD-EPI)NonAf (>60 ml/min/1.73 sqM) Glucose (74-99) mg/dL Calcium (8.4-10.2) mg/dL Total Bilirubin (0.2-1.3) mg/dL AST (14-36) U/L ALT (9-52) U/L Alkaline Phosphatase (38-126) U/L Troponin I <0.012 (0.000-0.034) ng/mL Total Protein (6.3-8.2) g/dL Albumin (3.5-5.0) g/dL Amylase (30-110) U/L Lipase (23-300) U/L Urine Color Yellow Urine Appearance Clear (Clear) Urine pH 5.5 (5.0-8.0) Ur Specific [place] 1.040 H (1.001-1.035) Urine Protein Trace H (Negative) Urine Glucose (UA) 3+ H (Negative) Urine Ketones Negative (Negative) Urine Blood Large H (Negative) Urine Nitrite Negative (Negative) Urine Bilirubin Negative (Negative) Urine Urobilinogen <2.0 (<2.0) mg/dL Ur Leukocyte Esterase Negative (Negative) Urine RBC 4 (0-5) /hpf Urine WBC 3 (0-5) /hpf Ur Squamous Epith Cells 2 (0-4) /hpf Urine Mucus Rare H (None) /hpf Disposition Clinical Impression: Leukocytosis, Pneumonia, Elevated lipase, Tachycardia Disposition: ADMITTED IP TO THIS HOSP Condition: Stable Is patient prescribed a controlled substance at d/c from ED?: No
[2019-02-18] MEDS ORDERED: SODIUM CHLORIDE 0.9% 1,000 ML IV STA (23:26)
[2019-02-18 23:36] LABS: Anisocytosis Slight; Basophils # (A) 0.2 k/uL (0-0.2); Basophils % (A) 1 %; Eosinophils # (A) 0.5 k/uL (0-0.7); Eosinophils % (A) 2 %; HCT 44.9 % (34.0-46.0); HGB 14.8 gm/dL (11.4-16.0); Lymphocytes # (A) 4.2 k/uL (1.0-4.8); Lymphocytes % (A) 19 %; MCH 28.7 pg (25.0-35.0); MCV 86.8 fL (80.0-100.0); Monocytes % (A) 5 %; Neutrophils # (A) 15.9 k/uL (1.3-7.7); Neutrophils % (A) 72 %; Platelet Count 322 k/uL (150-450); RBC 5.17 m/uL (3.80-5.40); RDW 16.2 % (11.5-15.5)
[2019-02-18 23:48] LABS: INR 0.9 (<1.2); Partial Thromboplastin Time 26.1 sec (22.0-30.0); Prothrombin Time 9.5 sec (9.0-12.0)
[2019-02-18 23:52] LABS: ALT 26 U/L (9-52); AST 23 U/L (14-36); African American GFR (CKD) >90 (>60 ml/min/1.73 sqM); Alkaline Phosphatase 161 U/L (38-126); Amylase 46 U/L (30-110); Anion Gap 14 mmol/L; Blood Urea Nitrogen 11 mg/dL (7-17); Calcium 9.8 mg/dL (8.4-10.2); Carbon Dioxide 21 mmol/L (22-30); Chloride 103 mmol/L (98-107); Glucose 309 mg/dL (74-99); Potassium 4.2 mmol/L (3.5-5.1); Sodium 138 mmol/L (137-145); Total Bilirubin 0.3 mg/dL (0.2-1.3)
--- NOTE | 2019-02-19 00:10 | CT ---
EXAM: CT Angiography Chest With Intravenous Contrast CLINICAL HISTORY: ITS.REASON CT Reason: Right sided chest pain, tachycard TECHNIQUE: Axial computed tomographic angiography images of the chest with intravenous contrast using pulmonary embolism protocol. CTDI is 27 mGy and DLP is 977 mGy-cm. This CT exam was performed using one or more of the following dose reduction techniques: automated exposure control, adjustment of the mA and/or kV according to patient size, and/or use of iterative reconstruction technique. MIP reconstructed images were created and reviewed. COMPARISON: 05/10/17 x-ray FINDINGS: Pulmonary arteries: No filling defects. Aorta: No thoracic aortic aneurysm. Lungs: No mass. No consolidation. Tiny groundglass opacities in the right upper lobe. 6 mm nodule in the right upper lobe. Pleural space: No pneumothorax. No significant effusion. Heart: Mild cardiomegaly. No pericardial effusion. Bones/joints: No acute fracture or dislocation. Soft tissues: Unremarkable. Lymph nodes: No enlarged lymph nodes. IMPRESSION: No pulmonary embolism. Small groundglass opacities and 6 mm nodule in the right upper lobe, possibly infectious/inflammatory process. Mild cardiomegaly.
[2019-02-19] MEDS ORDERED: MORPHINE SULFATE 4 MG/ML SYRINGE IVP STA (00:14)
[2019-02-19] MEDS ORDERED: SODIUM CHLORIDE 0.9% 1,000 ML IV ONE (00:15)
[2019-02-19 01:10] LABS: Appearance,Urine Clear (Clear); Bilirubin,Urine Negative (Negative); Blood,Urine Large (Negative); Color,Urine Yellow; Glucose,Urine (UA) 3+ (Negative); Ketones,Urine Negative (Negative); Leukocyte Esterase,Urine Negative (Negative); Mucus,Urine Rare /hpf; Nitrite,Urine Negative (Negative); PH, Urine 5.5 (5.0-8.0); Protein,Urine Trace (Negative); RBC,Urine 4 /hpf (0-5); Squamous Epithelial Cell,Urine 2 /hpf (0-4); Urobilinogen,Urine <2.0 mg/dL (<2.0); WBC,Urine 3 /hpf (0-5)
--- NOTE | 2019-02-19 02:13 | CT ---
EXAM: CT Abdomen and Pelvis With Intravenous Contrast CLINICAL HISTORY: ITS.REASON CT Reason: Pain, pancreatitis TECHNIQUE: Axial computed tomography images of the abdomen and pelvis with intravenous contrast. CTDI is 29 mGy and DLP is 1149 mGy-cm. This CT exam was performed using one or more of the following dose reduction techniques: automated exposure control, adjustment of the mA and/or kV according to patient size, and/or use of iterative reconstruction technique. COMPARISON: 02/14/19 CT abdomen FINDINGS: Lung bases: No mass. No consolidation. ABDOMEN: Liver: Enlarged with steatosis. Gallbladder and bile ducts: Removed. Pancreas: Unremarkable. Spleen: Unremarkable. Adrenals: Unremarkable. Kidneys and ureters: No hydronephrosis. Stomach and bowel: No bowel obstruction. No bowel wall thickening. PELVIS: Appendix: No appendicitis. Bladder: Unremarkable. Reproductive: Unremarkable. ABDOMEN and PELVIS: Intraperitoneal space: Unremarkable. Bones/joints: No acute fractures. Soft tissues: Unremarkable. Vasculature: No abdominal aortic aneurysm. Lymph nodes: No enlarged lymph nodes. IMPRESSION: Pancreas appears unremarkable. Hepatomegaly with steatosis.
[2019-02-19] MEDS ORDERED: AZITHROMYCIN 500 MG in SODIUM CHLORIDE 0.9% 250 ML IVPB STA (03:06)
[2019-02-19] MEDS ORDERED: PNEUMONIA PROTOCOL UTILIZED 1 EACH MISC PO PRN (03:38)
[2019-02-19] MEDS ORDERED: SODIUM CHLORIDE 0.9% 1,000 ML IV SCH (03:45)
[2019-02-19 04:52] VITALS: BMI 41.0
[2019-02-19] MEDS: NICOTINE 21MG/24HR PATCH TRANSDERM SCH (09:28)
[2019-02-19 12:08] LABS: Glucose,Whole Blood 226 mg/dL (75-99)
[2019-02-19 12:13] VITALS: BP 151/88; PULSE 99; RESP 20; TEMP 98.2
[2019-02-19] MEDS ORDERED: INSULIN ASPART (NovoLOG) 100 UNIT/ML VIAL SQ SCH (12:30)
--- NOTE | 2019-02-19 14:18 | P.HPIM ---
History of Present Illness H&P Date: 02/19/19 Chief Complaint: Abdominal pain 33-year-old female well-known practice who presents today for right upper quadrant abdominal pain and right-sided chest pain reports approximately ago she began experiencing same symptoms patient status post cholecystectomy Long-standing history of fatty liver disease, with chronic cholecystitis prior to cholecystectomy and probable subsequent chronic pancreatitis No personal history of DVT PE but mother has had multiple DVTs and PEs for some unknown reason which apparently has not been investigated at this time Patient has some difficulty breathing which seems to have improved. Also a history of chronic lymphocytic leukemia for which she is then followed by Dr. Bar Cali Review of Systems Constitutional: Reports as per HPI Ears, nose, mouth and throat: Reports as per HPI Cardiovascular: Reports as per HPI Respiratory: Reports as per HPI (Right-sided abdominal pain right upper flank pain M and no evidence of PE or DVT) Gastrointestinal: Reports as per HPI (Right-sided abdominal pain and right-sided flank pain status post cholecystectomy approximately 3 months ago) Genitourinary: Reports as per HPI Menstruation: Reports as per HPI Musculoskeletal: Reports as per HPI Integumentary: Reports as per HPI Neurological: Reports as per HPI Psychiatric: Reports as per HPI Endocrine: Reports excessive thirst, Reports high blood sugars, Reports polydipsia Hematologic/Lymphatic: Reports lymphadenopathy (Known history of CLL) Past Medical History Past Medical History: Asthma, Diabetes Mellitus Additional Past Medical History / Comment(s): chronic back pain, one seizure as infant, enlarged spleen, hiatal hernia, "high red blood cell count", neuropathy natalia feet, MIGRAINE HEADACHE,difficult swallowing History of Any Multi-Drug Resistant Organisms: None Reported Past Surgical History: Cholecystectomy, Hernia Repair, Tonsillectomy Additional Past Surgical History / Comment(s): cyst removed from SIDE neck, COLONOSCOPY, robotic assisted hernia repair- UMBILICAL REPAIR Past Anesthesia/Blood Transfusion Reactions: No Reported Reaction Additional Past Anesthesia/Blood Transfusion Reaction / Comment(s): 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 currently being worked up by oncology Past Psychological History: Anxiety, Depression Smoking Status: Current every day smoker Past Alcohol Use History: None Reported Past Drug Use History: None Reported - Past Family History Mother Family Medical History: Deep Vein Thrombosis (DVT), Pulmonary Embolus Medications and Allergies Home Medications Medication Instructions Recorded Confirmed Type metFORMIN HCL [Glucophage] 1,000 mg PO BID 09/04/16 12/14/18 History Albuterol Sulfate [Ventolin HFA] 1 - 2 puff INHALATION RT-QID PRN 12/30/16 12/14/18 History DULoxetine HCL [Cymbalta] 60 mg PO HS 01/25/18 02/19/19 History Medroxyprogesterone Acetate 150 mg IM Q90D 01/25/18 02/18/19 History [Depo-Provera] Omeprazole 20 mg PO QAM 01/25/18 02/18/19 History hydrOXYzine HCL [Atarax] 50 mg PO HS PRN 01/25/18 12/14/18 History Acetaminophen [Tylenol Extra 500 mg PO Q6H PRN 05/22/18 12/14/18 History Strength] Meloxicam 2 tab PO DAILY 10/03/18 12/14/18 History Insulin Glargine/Lixisenatide 50 units SQ HS 02/18/19 02/18/19 History [Soliqua 100 Unit-33 Mcg/ml Pen] Pregabalin [Lyrica] 150 mg PO BID 02/18/19 02/18/19 History Allergies Allergy/AdvReac Type Severity Reaction Status Date / Time amoxicillin Allergy Severe Nausea & Verified 02/18/19 21:41 Vomiting tomato Allergy RASH, Verified 02/18/19 21:41 ITCHING Physical Exam Osteopathic Statement: *. No significant issues noted on an osteopathic structural exam other than those noted in the History and Physical/Consult. Vitals: Vital Signs Temp Pulse Pulse Resp BP BP Pulse Ox 02/19/19 12:11 98.2 F 99 20 151/88 97 02/19/19 05:18 98.5 F 120 H 16 144/82 94 L 02/19/19 03:26 98.5 F 111 H 20 168/95 97 02/18/19 21:37 99.2 F 118 H 20 150/100 96 Intake and Output 02/18/19 02/19/19 02/19/19 22:59 06:59 14:59 Intake Total 800 Balance 800 Intake: Intake, IV Titration 800 Amount Sodium Chloride 0.9% 1, 800 000 ml @ 100 mls/hr IV . Q10H [facility] Rx#:[id number] Other: Voiding Method Toilet Toilet # Voids 1 2 Weight 115.212 kg General: [Patient awake, alert and oriented times 3. Patient in no acute distress.] Morbidly obese HEENT: [PERRL. EOMI. No pharyngeal erythema or exudate.] Neck: [No adenopathy.] Cardiac: [Heart regular in rate and rhythm. No S3. No S4. No clicks, rubs. No murmur.] Lungs: Breath sounds clear bilaterally with mild wheezes in the bases Abdomen: [No mass. No organomegaly. Bowel sounds presnt and normoactive in all 4 quadrants.] Extremes: [No edema no cyanosis no claudication normal pulses] : [] Musculoskeletal: [No joint erythema, edema or tenderness.] Skin: [No rash.] Neurologic: [No lateralizing deficits. CN II - XII grossly intact.] Lymphatic: [No adenopathy.] Results CBC & Chem 7: 02/18/19 21:54 02/18/19 21:54 Labs: Abnormal Lab Results - Last 24 Hours (Table) 02/18/19 02/18/19 02/19/19 Range/Units 21:54 21:54 01:00 WBC 22.0 H (3.8-10.6) k/uL RDW 16.2 H (11.5-15.5) % Neutrophils # 15.9 H (1.3-7.7) k/uL Carbon Dioxide 21 L (22-30) mmol/L Glucose 309 H (74-99) mg/dL POC Glucose (mg/dL) (75-99) mg/dL Alkaline Phosphatase 161 H (38-126) U/L Lipase 507 H (23-300) U/L Ur Specific [place] 1.040 H (1.001-1.035) Urine Protein Trace H (Negative) Urine Glucose (UA) 3+ H (Negative) Urine Blood Large H (Negative) Urine Mucus Rare H (None) /hpf 02/19/19 Range/Units 12:05 WBC (3.8-10.6) k/uL RDW (11.5-15.5) % Neutrophils # (1.3-7.7) k/uL Carbon Dioxide (22-30) mmol/L Glucose (74-99) mg/dL POC Glucose (mg/dL) 226 H (75-99) mg/dL Alkaline Phosphatase (38-126) U/L Lipase (23-300) U/L Ur Specific [place] (1.001-1.035) Urine Protein (Negative) Urine Glucose (UA) (Negative) Urine Blood (Negative) Urine Mucus (None) /hpf Thrombosis Risk Factor Assmnt - Choose All That Apply Any of the Below Risk Factors Present?: Yes Each Factor Represents 1 point: Obesity (BMI >25), Serious lung disease incl. pn eumonia (< 1month) Other Risk Factors: Yes Each Risk Factor Represents 3 Points: Family history of DVT/PE Thrombosis Risk Factor Assessment Total Risk Factor Score: 5 Thrombosis Risk Factor Assessment Level: High Risk Assessment and Plan (1) Elevated lipase Narrative/Plan: Recent cholecystectomy\\fatty liver disease Current Visit: Yes Status: Acute Code(s): R74.8 - ABNORMAL LEVELS OF OTHER SERUM ENZYMES SNOMED Code(s): 235710350 (2) Leukocytosis Narrative/Plan: Currently being worked up with heme for secondary polycythemia vera and possible chronic lymphocytic leukemia patient currently seeing DR PARUL DOUGLAS for same Current Visit: Yes Status: Acute Code(s): D72.829 - ELEVATED WHITE BLOOD CELL COUNT, UNSPECIFIED SNOMED Code(s): 548882555 (3) Pneumonia Narrative/Plan: Discharge home on Levaquin 500 mg 1 by mouth daily 10 days Current Visit: Yes Status: Acute Code(s): J18.9 - PNEUMONIA, UNSPECIFIED ORGANISM SNOMED Code(s): 387247659 (4) Tachycardia Current Visit: Yes Status: Acute Code(s): R00.0 - TACHYCARDIA, UNSPECIFIED SNOMED Code(s): 6260073 Plan: Patient was admitted to the hospital started on IV antibiotic therapy When patient is afternoon she was in the process of taking her IV out and told me that she was going home We'll discharge patient home on by mouth Levaquin 500 mg 1 by mouth daily for 10 days We'll workup fatty liver disease, and elevated lipase as outpatient Patient has repeat colonoscopy scheduled for this Tuesday we may reschedule Patient has instructions to follow up with Dr. lewis or Dr. Herr in 3-5 days We will follow her aggressively
--- NOTE | 2019-02-19 15:13 | P.DS ---
Providers Date of admission: 02/19/19 03:39 Expected date of discharge: 02/19/19 Attending physician: Ernesto Nguyen Primary care physician: Zach Herr - Discharge Diagnosis(es) (1) Elevated lipase Current Visit: Yes Status: Acute (2) Leukocytosis Current Visit: Yes Status: Acute (3) Pneumonia Current Visit: Yes Status: Acute (4) Tachycardia Current Visit: Yes Status: Acute Hospital Course: Pateint insisted on being discharged home. Patient Condition at Discharge: Stable Plan - Discharge Summary Discharge Rx Participant: No New Discharge Prescriptions: New Ciprofloxacin HCl [Cipro] 500 mg PO Q12HR #20 tablet No Action metFORMIN HCL [Glucophage] 1,000 mg PO BID Albuterol Sulfate [Ventolin HFA] 1 - 2 puff INHALATION RT-QID PRN PRN Reason: Shortness Of Breath Omeprazole 20 mg PO QAM hydrOXYzine HCL [Atarax] 50 mg PO HS PRN PRN Reason: Itching Medroxyprogesterone Acetate [Depo-Provera] 150 mg IM Q90D DULoxetine HCL [Cymbalta] 60 mg PO HS Acetaminophen [Tylenol Extra Strength] 500 mg PO Q6H PRN PRN Reason: Pain Meloxicam 2 tab PO DAILY Pregabalin [Lyrica] 150 mg PO BID Insulin Glargine/Lixisenatide [Soliqua 100 Unit-33 Mcg/ml Pen] 50 units SQ HS Discharge Medication List metFORMIN HCL [Glucophage] 1,000 mg PO BID 09/04/16 [History] Albuterol Sulfate [Ventolin HFA] 1 - 2 puff INHALATION RT-QID PRN 12/30/16 [History] DULoxetine HCL [Cymbalta] 60 mg PO HS 01/25/18 [History] Medroxyprogesterone Acetate [Depo-Provera] 150 mg IM Q90D 01/25/18 [History] Omeprazole 20 mg PO QAM 01/25/18 [History] hydrOXYzine HCL [Atarax] 50 mg PO HS PRN 01/25/18 [History] Acetaminophen [Tylenol Extra Strength] 500 mg PO Q6H PRN 05/22/18 [History] Meloxicam 2 tab PO DAILY 10/03/18 [History] Insulin Glargine/Lixisenatide [Soliqua 100 Unit-33 Mcg/ml Pen] 50 units SQ HS 02/18/19 [History] Pregabalin [Lyrica] 150 mg PO BID 02/18/19 [History] Ciprofloxacin HCl [Cipro] 500 mg PO Q12HR #20 tablet 02/19/19 [Rx] Follow up Appointment(s)/Referral(s): Zach Herr MD [Primary Care Provider] - 1-2 days Patient Instructions/Handouts: Atrial Tachycardia (DC), Pneumonia (DC)
== END 2019-02-19 15:47 | disposition home or self-care (01) ==
LOC: EC 21:32 → 3NMEDONC 02-19 03:39
PROVIDERS: ADMIT Family Medicine; ATTEND Family Medicine
DX: J18.9 Pneumonia, unspecified organism (principal); R74.8 Abnormal levels of other serum enzymes; C91.10 Chronic lymphocytic leukemia of B-cell type not having achieved remission; K76.0 Fatty (change of) liver, not elsewhere classified; J45.909 Unspecified asthma, uncomplicated; E11.42 Type 2 diabetes mellitus with diabetic polyneuropathy; R91.1 Solitary pulmonary nodule; G89.29 Other chronic pain; M54.9 Dorsalgia, unspecified; R16.1 Splenomegaly, not elsewhere classified; K44.9 Diaphragmatic hernia without obstruction or gangrene; F41.9 Anxiety disorder, unspecified; F32.9 Major depressive disorder, single episode, unspecified; F17.200 Nicotine dependence, unspecified, uncomplicated; E11.65 Type 2 diabetes mellitus with hyperglycemia; R13.10 Dysphagia, unspecified; E66.9 Obesity, unspecified; Z68.41 Body mass index [BMI] 40.0-44.9, adult; Z79.4 Long term (current) use of insulin; Z79.1 Long term (current) use of non-steroidal anti-inflammatories (NSAID); Z79.899 Other long term (current) drug therapy; Z88.0 Allergy status to penicillin; Z91.018 Allergy to other foods; Z90.49 Acquired absence of other specified parts of digestive tract; Z83.2 Family history of diseases of the blood and blood-forming organs and certain disorders involving the immune mechanism; Z82.49 Family history of ischemic heart disease and other diseases of the circulatory system
CPT/HCPCS: 96366; 96361 ×2; 96365; 96367; 96375; 99285; 36415; 80053; 82150; 83690; 84484; 85025; 85610; 85730; 81001; 71275; 74177; G0378; S4990; J2270; J0456; J0696; Q9967 ×2

== ENCOUNTER → 2019-03-14 | Outpatient (CLI) | payer OTHER | END | disposition home or self-care (01) | LOC: LABWHC1 08:09 | PROVIDERS: ATTEND Family Medicine | DX: R00.0 Tachycardia, unspecified (principal) | CPT/HCPCS: 93005 ==

== ENCOUNTER 2019-04-03 20:39 | Emergency (ER) | payer OTHER ==
[2019-04-03 20:45] VITALS: BP 136/95; PULSE 111; RESP 20; TEMP 98.7
--- NOTE | 2019-04-03 20:59 | ED ---
Abdominal Pain HPI - General Chief Complaint: Abdominal Pain Stated Complaint: Back Pain Source: patient Mode of arrival: EMS Limitations: no limitations - History of Present Illness Initial Comments: Camille morbidly obese 33-year-old diabetic female who presents the emergency de partment today for evaluation of 2 days of right-sided flank pain. Patient reports severe pain in her right abdomen and right flank. He is not associated with any nausea, vomiting, change in bowel or bladder habits, hematuria or dysuria. Patient reports the pain is been constant nothing makes it better, pain is worse with movement or palpation. Pain is both in her right flank and her right anterior mid abdomen. No right lower quadrant pain,. Patient is status post cholecystectomy that she does still have her appendix in place. Patient experienced similar pain higher in the flank last month and was diagnosed with an atypical pneumonia and subsequently admitted to the hospital. - Related Data Home Medications Medication Instructions Recorded Confirmed metFORMIN HCL [Glucophage] 1,000 mg PO BID 09/04/16 04/03/19 Albuterol Sulfate [Ventolin HFA] 2 puff INHALATION RT-QID PRN 12/30/16 04/03/19 DULoxetine HCL [Cymbalta] 60 mg PO HS 01/25/18 04/03/19 Medroxyprogesterone Acetate 150 mg IM Q90D 01/25/18 04/03/19 [Depo-Provera] Omeprazole 20 mg PO QAM 01/25/18 04/03/19 hydrOXYzine HCL [Atarax] 50 mg PO HS PRN 01/25/18 04/03/19 Insulin Glargine/Lixisenatide 50 units SQ HS 02/18/19 04/03/19 [Soliqua 100 Unit-33 Mcg/ml Pen] Pregabalin [Lyrica] 150 mg PO TID 02/18/19 04/03/19 Ibuprofen [Motrin] 800 mg PO TID PRN 04/03/19 04/03/19 Valsartan [Diovan] 160 mg PO DAILY 04/03/19 04/03/19 amLODIPine [Norvasc] 5 mg PO DAILY 04/03/19 04/03/19 Allergies Allergy/AdvReac Type Severity Reaction Status Date / Time tomato Allergy RASH, Verified 04/03/19 21:03 ITCHING amoxicillin AdvReac Severe Nausea & Verified 04/03/19 21:03 Vomiting Review of Systems ROS Statement: Those systems with pertinent positive or pertinent negative responses have been documented in the HPI. ROS Other: All systems not noted in ROS Statement are negative. Past Medical History Past Medical History: Asthma, Diabetes Mellitus Additional Past Medical History / Comment(s): chronic back pain, one seizure as , enlarged spleen, hiatal hernia, "high red blood cell count", neuropathy natalia feet, MIGRAINE HEADACHE,difficult swallowing History of Any Multi-Drug Resistant Organisms: None Reported Past Surgical History: Cholecystectomy, Hernia Repair, Tonsillectomy Additional Past Surgical History / Comment(s): cyst removed from SIDE neck, COLONOSCOPY, robotic assisted hernia repair- UMBILICAL REPAIR Past Anesthesia/Blood Transfusion Reactions: No Reported Reaction Additional Past Anesthesia/Blood Transfusion Reaction / Comment(s): 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 currently being worked up by oncology Past Psychological History: Anxiety, Depression Smoking Status: Current every day smoker Past Alcohol Use History: None Reported Past Drug Use History: Marijuana - Past Family History Mother Family Medical History: Deep Vein Thrombosis (DVT), Pulmonary Embolus General Exam - General Exam Comments Initial Comments: Physical Exam GENERAL: Patient is well-developed and well-nourished. Patient is nontoxic and well-hydrated Appears uncomfortable HENT: Normocephalic, Atraumatic. EYES: PERRL, EOMI PULMONARY: Unlabored respirations. No audible rales rhonchi or wheezing was noted. CARDIOVASCULAR: Tachycardic, regular ABDOMEN: Morbidly obese, tenderness in right abdomen Non-peritoneal SKIN: Skin is clear with no lesions or rashes and otherwise unremarkable. : Deferred NEUROLOGIC: Patient is alert and oriented x3. Moving all extremities spontaneously MUSCULOSKELETAL: Normal extremities with adequate strength and full range of motion. No lower extremity swelling or edema. No calf tenderness. PSYCHIATRIC: Normal psychiatric evaluation. Limitations: no limitations Course Vital Signs 04/03/19 20:40 Temperature 98.7 F Pulse Rate 111 H Respiratory 20 Rate Blood Pressure 136/95 O2 Sat by Pulse 96 Oximetry Medical Decision Making - Medical Decision Making Patient was seen and evaluated, history is obtained from patient and review of medical record This morbidly obese 33-year-old female with recurrent right-sided flank pain. Previous workup revealed leukocytosis which is chronic in nature, patient was previously diagnosed possible pneumonia no other identifying cause of her right flank pain. Repeat labs and ultrasound imaging were ordered today. Urinalysis with some hematuria no signs of significant infection there is green the cells noted indicating contamination of the sample. Patient reported pain improvement with Toradol however had recurrent episodes of pain, was given additional pain medications, Ultrasound was obtained, patient is comfortable with plan for discharge home and outpatient management. All questions pertaining care were answered return parameters were discussed patient was discharged home in stable condition with a presumed nonobstructive kidney stone. - Lab Data Result diagrams: 04/03/19 22:10 04/03/19 22:10 Lab Results 04/03/19 04/03/19 04/04/19 Range/Units 22:10 22:10 00:15 WBC 22.8 H (3.8-10.6) k/uL RBC 5.22 (3.80-5.40) m/uL Hgb 15.3 (11.4-16.0) gm/dL Hct 44.8 (34.0-46.0) % MCV 85.8 (80.0-100.0) fL MCH 29.2 (25.0-35.0) pg MCHC 34.1 (31.0-37.0) g/dL RDW 13.7 (11.5-15.5) % Plt Count 329 (150-450) k/uL Neutrophils % 70 % Lymphocytes % 21 % Monocytes % 4 % Eosinophils % 2 % Basophils % 1 % Neutrophils # 16.0 H (1.3-7.7) k/uL Lymphocytes # 4.8 (1.0-4.8) k/uL Monocytes # 1.0 (0-1.0) k/uL Eosinophils # 0.5 (0-0.7) k/uL Basophils # 0.2 (0-0.2) k/uL Sodium 138 (137-145) mmol/L Potassium 4.3 (3.5-5.1) mmol/L Chloride 102 (98-107) mmol/L Carbon Dioxide 23 (22-30) mmol/L Anion Gap 13 mmol/L BUN 12 (7-17) mg/dL Creatinine 0.57 (0.52-1.04) mg/dL Est GFR (CKD-EPI)AfAm >90 (>60 ml/min/1.73 sqM) Est GFR (CKD-EPI)NonAf >90 (>60 ml/min/1.73 sqM) Glucose 318 H (74-99) mg/dL Calcium 10.3 H (8.4-10.2) mg/dL Total Bilirubin 0.3 (0.2-1.3) mg/dL AST 18 (14-36) U/L ALT 29 (9-52) U/L Alkaline Phosphatase 181 H (38-126) U/L Total Protein 7.4 (6.3-8.2) g/dL Albumin 4.2 (3.5-5.0) g/dL Lipase 474 H (23-300) U/L Urine Color Urine Appearance (Clear) Urine pH (5.0-8.0) Ur Specific [place] (1.001-1.035) Urine Protein (Negative) Urine Glucose (UA) (Negative) Urine Ketones (Negative) Urine Blood (Negative) Urine Nitrite (Negative) Urine Bilirubin (Negative) Urine Urobilinogen (<2.0) mg/dL Ur Leukocyte Esterase (Negative) Urine RBC (0-5) /hpf Urine WBC (0-5) /hpf Ur Squamous Epith Cells (0-4) /hpf Calcium Oxalate Crystal (None) /hpf Urine Bacteria (None) /hpf Hyaline Casts (0-2) /lpf Urine Mucus (None) /hpf Urine Yeast (Budding) (None) /hpf Urine HCG, Qual Not Detected (Not Detectd) 04/04/19 Range/Units 00:15 WBC (3.8-10.6) k/uL RBC (3.80-5.40) m/uL Hgb (11.4-16.0) gm/dL Hct (34.0-46.0) % MCV (80.0-100.0) fL MCH (25.0-35.0) pg MCHC (31.0-37.0) g/dL RDW (11.5-15.5) % Plt Count (150-450) k/uL Neutrophils % % Lymphocytes % % Monocytes % % Eosinophils % % Basophils % % Neutrophils # (1.3-7.7) k/uL Lymphocytes # (1.0-4.8) k/uL Monocytes # (0-1.0) k/uL Eosinophils # (0-0.7) k/uL Basophils # (0-0.2) k/uL Sodium (137-145) mmol/L Potassium (3.5-5.1) mmol/L Chloride (98-107) mmol/L Carbon Dioxide (22-30) mmol/L Anion Gap mmol/L BUN (7-17) mg/dL Creatinine (0.52-1.04) mg/dL Est GFR (CKD-EPI)AfAm (>60 ml/min/1.73 sqM) Est GFR (CKD-EPI)NonAf (>60 ml/min/1.73 sqM) Glucose (74-99) mg/dL Calcium (8.4-10.2) mg/dL Total Bilirubin (0.2-1.3) mg/dL AST (14-36) U/L ALT (9-52) U/L Alkaline Phosphatase (38-126) U/L Total Protein (6.3-8.2) g/dL Albumin (3.5-5.0) g/dL Lipase (23-300) U/L Urine Color Yellow Urine Appearance Cloudy H (Clear) Urine pH 5.5 (5.0-8.0) Ur Specific [place] 1.029 (1.001-1.035) Urine Protein 1+ H (Negative) Urine Glucose (UA) 4+ H (Negative) Urine Ketones Trace H (Negative) Urine Blood Negative (Negative) Urine Nitrite Negative (Negative) Urine Bilirubin Negative (Negative) Urine Urobilinogen 2.0 (<2.0) mg/dL Ur Leukocyte Esterase Large H (Negative) Urine RBC 6 H (0-5) /hpf Urine WBC 92 H (0-5) /hpf Ur Squamous Epith Cells 18 H (0-4) /hpf Calcium Oxalate Crystal Moderate H (None) /hpf Urine Bacteria Rare H (None) /hpf Hyaline Casts 20 H (0-2) /lpf Urine Mucus Many H (None) /hpf Urine Yeast (Budding) Moderate H (None) /hpf Urine HCG, Qual (Not Detectd) Disposition Clinical Impression: Flank pain Disposition: HOME SELF-CARE Condition: Stable Instructions (If sedation given, give patient instructions): Abdominal Pain (ED) Is patient prescribed a controlled substance at d/c from ED?: No Referrals: Zach Herr MD [Primary Care Provider] - 1-2 days
[2019-04-03] MEDS ORDERED: KETOROLAC 30 MG/ML 1 ML VIAL IVP STA (21:15)
[2019-04-03] MEDS ORDERED: SODIUM CHLORIDE 0.9% 1,000 ML IV STA (21:15)
[2019-04-03 22:30] LABS: ALT 29 U/L (9-52); AST 18 U/L (14-36); African American GFR (CKD) >90 (>60 ml/min/1.73 sqM); Albumin 4.2 g/dL (3.5-5.0); Alkaline Phosphatase 181 U/L (38-126); Anion Gap 13 mmol/L; Blood Urea Nitrogen 12 mg/dL (7-17); Calcium 10.3 mg/dL (8.4-10.2); Carbon Dioxide 23 mmol/L (22-30); Chloride 102 mmol/L (98-107); Glucose 318 mg/dL (74-99); Potassium 4.3 mmol/L (3.5-5.1); Sodium 138 mmol/L (137-145); Total Bilirubin 0.3 mg/dL (0.2-1.3); Total Protein 7.4 g/dL (6.3-8.2)
[2019-04-03 22:34] LABS: Basophils # (A) 0.2 k/uL (0-0.2); Basophils % (A) 1 %; Eosinophils # (A) 0.5 k/uL (0-0.7); Eosinophils % (A) 2 %; HCT 44.8 % (34.0-46.0); HGB 15.3 gm/dL (11.4-16.0); Lymphocytes # (A) 4.8 k/uL (1.0-4.8); Lymphocytes % (A) 21 %; MCH 29.2 pg (25.0-35.0); MCHC 34.1 g/dL (31.0-37.0); MCV 85.8 fL (80.0-100.0); Mean Platelet Volume 7.3; Monocytes % (A) 4 %; Neutrophils % (A) 70 %; Platelet Count 329 k/uL (150-450); RBC 5.22 m/uL (3.80-5.40); RDW 13.7 % (11.5-15.5); WBC 22.8 k/uL (3.8-10.6)
[2019-04-04] MEDS ORDERED: ACET/COD 300 MG/30 MG STARTER PACK 6 TAB BTL PO ONE (01:30)
[2019-04-04] MEDS ORDERED: ONDANSETRON 4 MG ODT STARTER PACK 2 TAB BTL ONE (01:30)
[2019-04-04 09:34] LABS: Appearance,Urine Cloudy (Clear); Bacteria,Urine Rare /hpf; Bilirubin,Urine Negative (Negative); Blood,Urine Negative (Negative); Budding Yeast,Urine Moderate /hpf; Calcium Oxalate Crystals,Urine Moderate /hpf; Color,Urine Yellow; Glucose,Urine (UA) 4+ (Negative); Hyaline Casts,Urine 20 /lpf (0-2); Ketones,Urine Trace (Negative); Leukocyte Esterase,Urine Large (Negative); Mucus,Urine Many /hpf; Nitrite,Urine Negative (Negative); PH, Urine 5.5 (5.0-8.0); Protein,Urine 1+ (Negative); RBC,Urine 6 /hpf (0-5); Specific Gravity,Urine 1.029 (1.001-1.035); Squamous Epithelial Cell,Urine 18 /hpf (0-4)
--- NOTE | 2019-04-04 09:59 | XR ---
EXAM: XR Abdomen, 2 Views CLINICAL HISTORY: RLQ abd pain TECHNIQUE: Frontal view of the abdomen/pelvis with upright view of the abdomen. COMPARISON: 02/19/2019. FINDINGS: Lower thorax: Minimal elevation of the right hemidiaphragm. Intraperitoneal space: No evidence of free air. Gastrointestinal tract: Unremarkable. No dilation. Organs: A 0.3 cm nonobstructing calculus in the upper pole region of the right kidney is suggested. Bones/joints: Probable osteopenia. Gentle levoscoliosis of the lumbar spine. Other findings: Mild to moderate quantity of stool is noted. IMPRESSION: Nonspecific bowel gas pattern. No evidence of obstruction. No free air. Nonobstructing right renal calculus.
--- NOTE | 2019-04-04 10:43 | US ---
EXAM: US Retroperitoneal Limited, Renal CLINICAL HISTORY: Kidney stone per physician order (verbal). Back pain. TECHNIQUE: Real-time limited ultrasound of the retroperitoneum with image documentation. COMPARISON: No relevant prior studies available. FINDINGS: Right kidney: No stones. No solid mass. No hydronephrosis. Left kidney: No stones. No solid mass. No hydronephrosis. Bladder: Not seen. Patient voided prior. IMPRESSION: No hydronephrosis or nephrolithiasis.
== END 2019-04-04 01:39 | disposition home or self-care (01) ==
LOC: EC 20:39
DX: R10.9 Unspecified abdominal pain (principal); M54.9 Dorsalgia, unspecified; Z32.02 Encounter for pregnancy test, result negative; D72.829 Elevated white blood cell count, unspecified; J45.909 Unspecified asthma, uncomplicated; F41.9 Anxiety disorder, unspecified; F32.9 Major depressive disorder, single episode, unspecified; E11.40 Type 2 diabetes mellitus with diabetic neuropathy, unspecified; F17.200 Nicotine dependence, unspecified, uncomplicated; E66.01 Morbid (severe) obesity due to excess calories; Z79.4 Long term (current) use of insulin; Z79.899 Other long term (current) drug therapy; Z88.0 Allergy status to penicillin; Z91.018 Allergy to other foods; Z90.49 Acquired absence of other specified parts of digestive tract
CPT/HCPCS: 36415; 80053; 83690; 85025; 81001; 81025; 87086; 74018; 76770; 99284; 96374; 96361; J1885; S0119

== ENCOUNTER 2019-05-13 13:17 | Inpatient (IN) | payer OTHER ==
[2019-05-13] MEDS ORDERED: SODIUM CHLORIDE 0.9% 500 ML 500 ML IV SCH (14:15)
[2019-05-13 14:26] LABS: Appearance,Urine Clear (Clear); Bilirubin,Urine Negative (Negative); Blood,Urine Small (Negative); Budding Yeast,Urine Occasional /hpf; Color,Urine Yellow; Glucose,Urine (UA) 4+ (Negative); Ketones,Urine Negative (Negative); Leukocyte Esterase,Urine Trace (Negative); Nitrite,Urine Negative (Negative); PH, Urine 6.5 (5.0-8.0); Protein,Urine Negative (Negative); RBC,Urine 7 /hpf (0-5); Specific Gravity,Urine 1.032 (1.001-1.035); Squamous Epithelial Cell,Urine 1 /hpf (0-4); Urobilinogen,Urine <2.0 mg/dL (<2.0)
[2019-05-13] MEDS ORDERED: KETOROLAC 30 MG/ML 1 ML VIAL IVP STA (14:31)
[2019-05-13] MEDS ORDERED: MORPHINE SULFATE 4 MG/ML SYRINGE IVP STA (14:31)
--- NOTE | 2019-05-13 14:54 | ED ---
General Adult HPI - General Chief complaint: Urogenital Stated complaint: urine incontinence Time Seen by Provider: 05/13/19 13:24 Source: patient, RN notes reviewed Mode of arrival: EMS Limitations: no limitations - History of Present Illness Initial comments: 33-year-old female with a past medical history of diabetes, asthma, chronic back pain presents to the emergency department for but I couldn't wound. Patient has had a wound for the past several weeks. However this is not improving and seems to be worsening. States it is draining. This is now painful to move and walk because of this so she has been urinating on herself instead of getting up to go to the bathroom. It was noted that patient walked to the ambulance by EMS.Patient has no other complaints at this time including shortness of breath, chest pain, abdominal pain, nausea or vomiting, headache, or visual changes. - Related Data Home Medications Medication Instructions Recorded Confirmed metFORMIN HCL [Glucophage] 1,000 mg PO BID 09/04/16 04/03/19 Albuterol Sulfate [Ventolin HFA] 2 puff INHALATION RT-QID PRN 12/30/16 04/03/19 DULoxetine HCL [Cymbalta] 60 mg PO HS 01/25/18 04/03/19 Medroxyprogesterone Acetate 150 mg IM Q90D 01/25/18 04/03/19 [Depo-Provera] Omeprazole 20 mg PO QAM 01/25/18 04/03/19 hydrOXYzine HCL [Atarax] 50 mg PO HS PRN 01/25/18 04/03/19 Insulin Glargine/Lixisenatide 50 units SQ HS 02/18/19 04/03/19 [Soliqua 100 Unit-33 Mcg/ml Pen] Pregabalin [Lyrica] 150 mg PO TID 02/18/19 04/03/19 Ibuprofen [Motrin] 800 mg PO TID PRN 04/03/19 04/03/19 Valsartan [Diovan] 160 mg PO DAILY 04/03/19 04/03/19 amLODIPine [Norvasc] 5 mg PO DAILY 04/03/19 04/03/19 Allergies Allergy/AdvReac Type Severity Reaction Status Date / Time tomato Allergy RASH, Verified 05/13/19 13:34 ITCHING amoxicillin AdvReac Severe Nausea & Verified 05/13/19 13:34 Vomiting Review of Systems ROS Statement: Those systems with pertinent positive or pertinent negative responses have been documented in the HPI. ROS Other: All systems not noted in ROS Statement are negative. Past Medical History Past Medical History: Asthma, Diabetes Mellitus Additional Past Medical History / Comment(s): chronic back pain, one seizure as , enlarged spleen, hiatal hernia, "high red blood cell count", neuropathy natalia feet, MIGRAINE HEADACHE,difficult swallowing History of Any Multi-Drug Resistant Organisms: None Reported Past Surgical History: Cholecystectomy, Hernia Repair, Tonsillectomy Additional Past Surgical History / Comment(s): cyst removed from SIDE neck, COLONOSCOPY, robotic assisted hernia repair- UMBILICAL REPAIR Past Anesthesia/Blood Transfusion Reactions: No Reported Reaction Additional Past Anesthesia/Blood Transfusion Reaction / Comment(s): 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 Absent: scleral icterus, conjunctival injection, periorbital swelling ENT exam: Present: normal exam, mucous membranes moist Neck exam: Present: normal inspection, full ROM. Absent: tenderness, meningismus, lymphadenopathy Respiratory exam: Present: normal lung sounds bilaterally. Absent: respiratory distress, wheezes, rales, rhonchi, stridor Cardiovascular Exam: Present: regular rate, normal rhythm, normal heart sounds. Absent: systolic murmur, diastolic murmur, rubs, gallop, clicks GI/Abdominal exam: Present: soft, normal bowel sounds. Absent: distended, tenderness, guarding, rebound, rigid Skin exam: Present: other (Patient has a visible 3 cm x 3 cm wound on the left lateral buttock. However when explored with a Q-tip it extends up to about 8 cm. Copious Purulent material draining from wound) Course Vital Signs 05/13/19 05/13/19 13:25 14:34 Temperature 97.8 F 98.3 F Pulse Rate 118 H 89 Respiratory 18 20 Rate Blood Pressure 111/59 108/60 O2 Sat by Pulse 95 98 Oximetry Medical Decision Making - Medical Decision Making 33-year-old female presents for abscess. Patient states has been ongoing for several weeks but is getting worse. It is on her left buttock inferiorly and laterally. CBC shows a white count of 12.7. Patient also has mild lactic acidosis. She was given 30 mg/kg of fluids based on her ideal body weight. Urinalysis unremarkable. Ultrasound was performed 5.4 x 3.2 cm. Patient was given Rocephin immediately. Vancomycin will be added. Blood and wound pending. Culture pending At this point patient will be admitted given lab abnormalities with abscess. - Lab Data Result diagrams: 05/13/19 14:45 05/13/19 14:45 Lab Results 05/13/19 05/13/19 05/13/19 Range/Units 14:00 14:00 14:45 WBC 12.7 H (3.8-10.6) k/uL RBC 4.36 (3.80-5.40) m/uL Hgb 12.4 (11.4-16.0) gm/dL Hct 37.0 (34.0-46.0) % MCV 84.9 (80.0-100.0) fL MCH 28.5 (25.0-35.0) pg MCHC 33.6 (31.0-37.0) g/dL RDW 13.6 (11.5-15.5) % Plt Count 437 (150-450) k/uL Neutrophils % 76 % Lymphocytes % 19 % Monocytes % 2 % Eosinophils % 1 % Basophils % 1 % Neutrophils # 9.6 H (1.3-7.7) k/uL Lymphocytes # 2.4 (1.0-4.8) k/uL Monocytes # 0.3 (0-1.0) k/uL Eosinophils # 0.2 (0-0.7) k/uL Basophils # 0.1 (0-0.2) k/uL Sodium (137-145) mmol/L Potassium (3.5-5.1) mmol/L Chloride (98-107) mmol/L Carbon Dioxide (22-30) mmol/L Anion Gap mmol/L BUN (7-17) mg/dL Creatinine (0.52-1.04) mg/dL Est GFR (CKD-EPI)AfAm (>60 ml/min/1.73 sqM) Est GFR (CKD-EPI)NonAf (>60 ml/min/1.73 sqM) Glucose (74-99) mg/dL Plasma Lactic Acid Simon (0.7-2.0) mmol/L Calcium (8.4-10.2) mg/dL Total Bilirubin (0.2-1.3) mg/dL AST (14-36) U/L ALT (9-52) U/L Alkaline Phosphatase (38-126) U/L Total Protein (6.3-8.2) g/dL Albumin (3.5-5.0) g/dL Urine Color Yellow Urine Appearance Clear (Clear) Urine pH 6.5 (5.0-8.0) Ur Specific [place] 1.032 (1.001-1.035) Urine Protein Negative (Negative) Urine Glucose (UA) 4+ H (Negative) Urine Ketones Negative (Negative) Urine Blood Small H (Negative) Urine Nitrite Negative (Negative) Urine Bilirubin Negative (Negative) Urine Urobilinogen <2.0 (<2.0) mg/dL Ur Leukocyte Esterase Trace H (Negative) Urine RBC 7 H (0-5) /hpf Urine WBC 1 (0-5) /hpf Ur Squamous Epith Cells 1 (0-4) /hpf Urine Yeast (Budding) Occasional H (None) /hpf Urine HCG, Qual Not Detected (Not Detectd) 05/13/19 05/13/19 Range/Units 14:45 14:45 WBC (3.8-10.6) k/uL RBC (3.80-5.40) m/uL Hgb (11.4-16.0) gm/dL Hct (34.0-46.0) % MCV (80.0-100.0) fL MCH (25.0-35.0) pg MCHC (31.0-37.0) g/dL RDW (11.5-15.5) % Plt Count (150-450) k/uL Neutrophils % % Lymphocytes % % Monocytes % % Eosinophils % % Basophils % % Neutrophils # (1.3-7.7) k/uL Lymphocytes # (1.0-4.8) k/uL Monocytes # (0-1.0) k/uL Eosinophils # (0-0.7) k/uL Basophils # (0-0.2) k/uL Sodium 131 L (137-145) mmol/L Potassium 3.4 L (3.5-5.1) mmol/L Chloride 91 L (98-107) mmol/L Carbon Dioxide 32 H (22-30) mmol/L Anion Gap 8 mmol/L BUN 9 (7-17) mg/dL Creatinine 0.49 L (0.52-1.04) mg/dL Est GFR (CKD-EPI)AfAm >90 (>60 ml/min/1.73 sqM) Est GFR (CKD-EPI)NonAf >90 (>60 ml/min/1.73 sqM) Glucose 471 H (74-99) mg/dL Plasma Lactic Acid Simon 2.5 H* (0.7-2.0) mmol/L Calcium 8.5 (8.4-10.2) mg/dL Total Bilirubin 0.4 (0.2-1.3) mg/dL AST 13 L (14-36) U/L ALT 18 (9-52) U/L Alkaline Phosphatase 176 H (38-126) U/L Total Protein 5.5 L (6.3-8.2) g/dL Albumin 2.5 L (3.5-5.0) g/dL Urine Color Urine Appearance (Clear) Urine pH (5.0-8.0) Ur Specific [place] (1.001-1.035) Urine Protein (Negative) Urine Glucose (UA) (Negative) Urine Ketones (Negative) Urine Blood (Negative) Urine Nitrite (Negative) Urine Bilirubin (Negative) Urine Urobilinogen (<2.0) mg/dL Ur Leukocyte Esterase (Negative) Urine RBC (0-5) /hpf Urine WBC (0-5) /hpf Ur Squamous Epith Cells (0-4) /hpf Urine Yeast (Budding) (None) /hpf Urine HCG, Qual (Not Detectd) Disposition Clinical Impression: Abscess, Lactic acidosis, Leukocytosis Disposition: ADMITTED IP TO THIS HOSP Condition: Fair Is patient prescribed a controlled substance at d/c from ED?: No Referrals: Zach Herr MD [Primary Care Provider] - 1-2 days Time of Disposition: 16:00
[2019-05-13 15:15] LABS: Basophils # (A) 0.1 k/uL (0-0.2); Basophils % (A) 1 %; Eosinophils # (A) 0.2 k/uL (0-0.7); Eosinophils % (A) 1 %; HGB 12.4 gm/dL (11.4-16.0); Lymphocytes # (A) 2.4 k/uL (1.0-4.8); Lymphocytes % (A) 19 %; MCH 28.5 pg (25.0-35.0); MCHC 33.6 g/dL (31.0-37.0); MCV 84.9 fL (80.0-100.0); Mean Platelet Volume 7.2; Monocytes # (A) 0.3 k/uL (0-1.0); Monocytes % (A) 2 %; Neutrophils # (A) 9.6 k/uL (1.3-7.7); Neutrophils % (A) 76 %; Platelet Count 437 k/uL (150-450); RBC 4.36 m/uL (3.80-5.40); RDW 13.6 % (11.5-15.5); WBC 12.7 k/uL (3.8-10.6)
[2019-05-13 15:26] LABS: ALT 18 U/L (9-52); AST 13 U/L (14-36); African American GFR (CKD) >90 (>60 ml/min/1.73 sqM); Albumin 2.5 g/dL (3.5-5.0); Alkaline Phosphatase 176 U/L (38-126); Anion Gap 8 mmol/L; Blood Urea Nitrogen 9 mg/dL (7-17); Calcium 8.5 mg/dL (8.4-10.2); Carbon Dioxide 32 mmol/L (22-30); Chloride 91 mmol/L (98-107); Glucose 471 mg/dL (74-99); Non-African American GFR(CKD) >90 (>60 ml/min/1.73 sqM); Potassium 3.4 mmol/L (3.5-5.1); Sodium 131 mmol/L (137-145); Total Bilirubin 0.4 mg/dL (0.2-1.3); Total Protein 5.5 g/dL (6.3-8.2)
--- NOTE | 2019-05-13 15:32 | US ---
EXAMINATION TYPE: US extremity nonvasc mass LT DATE OF EXAM: 05/13/2019 COMPARISON: NONE CLINICAL HISTORY: measure wound size. Open wound left posterior thigh inferior to buttocks x 2 weeks with discharge scanned within area of concern, left posterior upper thigh inferior to buttock, complex hypoechoic ar ea = 5.4 x 3.2cm. soft tissue edema also noted Limited scanning performed at the level of patient's symptomatology IMPRESSION: Findings likely correspond to phlegmon or developing abscess.
[2019-05-13] MEDS ORDERED: INSULIN REGULAR 100 UNIT/ML VIAL IV ONE (15:46)
[2019-05-13] MEDS ORDERED: SODIUM CHLORIDE 0.9% 1,000 ML IV STA (15:55)
[2019-05-13] MEDS ORDERED: VANCOMYCIN IV PER PHARMACY 1 EACH MISC MISCELLANE PRN (15:58)
[2019-05-13] MEDS ORDERED: VANCOMYCIN 1,750 MG in SODIUM CHLORIDE 0.9% 500 ML 500 ML IVPB STA (16:02)
[2019-05-13 16:17] LABS: Glucose,Whole Blood 490 mg/dL (75-99)
[2019-05-13 17:32] LABS: Glucose,Whole Blood 346 mg/dL (75-99)
[2019-05-13] MEDS: INSULIN ASPART (NovoLOG) 100 UNIT/ML VIAL SQ SCH ×2 (17:35→20:35)
[2019-05-13] MEDS: PIPERACILLIN-TAZOBACTAM 3.375 GM in SODIUM CHLORIDE 0.9% 100 ML IVPB SCH (18:42)
[2019-05-13] MEDS: PREGABALIN 75 MG CAP PO SCH ×2 (18:52→20:36)
[2019-05-13] MEDS: SODIUM CHLORIDE 0.9% 1,000 ML IV SCH (18:52)
[2019-05-13] MEDS ORDERED: SODIUM CHLORIDE 0.9% 500 ML 500 ML IV ONE (19:54)
[2019-05-13] MEDS ORDERED: HYDROcodone/APAP 10-325MG 1 EACH TAB PO PRN (20:22)
[2019-05-13 20:25] LABS: Glucose,Whole Blood 432 mg/dL (75-99)
[2019-05-13] MEDS: DULoxetine HCL 60 MG CAPSULE.DR PO SCH (20:35)
[2019-05-13] MEDS: busPIRone HCl 5 MG TAB PO SCH (20:36)
[2019-05-13] MEDS: NICOTINE 21MG/24HR PATCH TRANSDERM SCH (20:36)
[2019-05-13] MEDS: metFORMIN 500 MG TAB PO SCH (20:36)
[2019-05-13] MEDS ORDERED: INSULIN DETEMIR (LEVEMIR) 100 UNIT/ML SYR SQ SCH (21:00)
[2019-05-14] MEDS: PIPERACILLIN-TAZOBACTAM 3.375 GM in SODIUM CHLORIDE 0.9% 100 ML IVPB SCH ×3 (00:59→16:19)
[2019-05-14] MEDS: HYDROcodone/APAP 10-325MG 1 EACH TAB PO PRN ×3 (00:59→11:57)
[2019-05-14] MEDS: VANCOMYCIN 1,750 MG in SODIUM CHLORIDE 0.9% 500 ML 500 ML IVPB SCH ×2 (03:27→09:15)
[2019-05-14 03:28] LABS: African American GFR (CKD) >90 (>60 ml/min/1.73 sqM); Non-African American GFR(CKD) >90 (>60 ml/min/1.73 sqM)
[2019-05-14] MEDS: SODIUM CHLORIDE 0.9% 1,000 ML IV SCH ×3 (03:32→16:18)
[2019-05-14] MEDS ORDERED: INSULIN DETEMIR (LEVEMIR) 100 UNIT/ML SYR SQ SCH (07:00)
[2019-05-14 07:57] LABS: Glucose,Whole Blood 219 mg/dL (75-99)
[2019-05-14] MEDS: metFORMIN 500 MG TAB PO SCH (09:11)
[2019-05-14] MEDS: VALSARTAN 160 MG TAB PO SCH (09:11)
[2019-05-14] MEDS: NICOTINE 21MG/24HR PATCH TRANSDERM SCH (09:11)
[2019-05-14] MEDS: PREGABALIN 75 MG CAP PO SCH ×3 (09:11→20:50)
[2019-05-14] MEDS: PANTOPRAZOLE 40 MG TABLET PO SCH (09:11)
[2019-05-14] MEDS: busPIRone HCl 5 MG TAB PO SCH ×2 (09:12→20:50)
[2019-05-14] MEDS: INSULIN ASPART (NovoLOG) 100 UNIT/ML VIAL SQ SCH ×3 (09:12→18:31)
[2019-05-14] MEDS: amLODIPine 5 MG TAB PO SCH (09:15)
[2019-05-14 11:14] LABS: Glucose,Whole Blood 269 mg/dL (75-99)
[2019-05-14] MEDS ORDERED: Potassium Replacement Protocol 1 EACH MISC MISCELLANE PRN (12:12)
[2019-05-14] MEDS ORDERED: INSULIN REGULAR 100 UNIT in SODIUM CHLORIDE 0.9% 100 ML IV SCH (12:15)
--- NOTE | 2019-05-14 12:26 | P.HPIM ---
History of Present Illness H&P Date: 05/14/19 Chief Complaint: Left lateral buttock abscess This is a 33-year-old female with history of asthma, diabetes mellitus, chronic back pain, nicotine dependence, marijuana use, anxiety, depression, panic attacks and multiple other medical issues presented to the ER with tender left lateral buttock wound worsening over several weeks with copious purulent drainage. He reports wound to making it difficult for her to ambulate, to the point where she is unable to walk to the bathroom, urinating on herself. Reports she does not check her blood sugars, with Accu-Chek of 490 on admission. Afebrile, WBC 12.7. Lactic acid 3.4, received IV fluid hydration, currently down to 1.9. Hemoglobin 12.4. Sodium 131, potassium 3.4. BUN 9, creatinine 0.49. Alk phos elevated to 176. UA reporting 4+ glucose, negative for ketones. Ultrasound of left posterior thigh measuring 5.43.2 cm soft tissue edema, corresponding to phlegmon or developing abscess-limited study. Denies chest p ain, palpitations or shortness of breath. Denies lightheadedness, dizziness or focal deficits. Wound and blood cultures obtained. Rocephin and vancomycin IV antibiotics initiated. Review of Systems ROS Statement: Those systems with pertinent positive or pertinent negative responses have been documented in the HPI. ROS Other: All systems not noted in ROS Statement are negative. Past Medical History Past Medical History: Asthma, Diabetes Mellitus Additional Past Medical History / Comment(s): chronic back pain, one seizure as , enlarged spleen, hiatal hernia, "high red blood cell count", neuropathy natalia feet, MIGRAINE HEADACHE,difficult swallowing History of Any Multi-Drug Resistant Organisms: None Reported Past Surgical History: Cholecystectomy, Hernia Repair, Tonsillectomy Additional Past Surgical History / Comment(s): cyst removed from SIDE neck, COLONOSCOPY, robotic assisted hernia repair- UMBILICAL REPAIR Past Anesthesia/Blood Transfusion Reactions: No Reported Reaction Additional Past Anesthesia/Blood Transfusion Reaction / Comment(s): 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 currently being worked up by oncology Past Psychological History: Anxiety, Depression Additional Psychological History / Comment(s): PANIC ATTACKS Smoking Status: Current every day smoker Past Alcohol Use History: None Reported Additional Past Alcohol Use History / Comment(s): STARTED SMOKING AT AGE 18, SMOKES 1/2 PPD Past Drug Use History: Marijuana - Past Family History Mother Family Medical History: Deep Vein Thrombosis (DVT), Pulmonary Embolus Medications and Allergies Home Medications Medication Instructions Recorded Confirmed Type metFORMIN HCL [Glucophage] 1,000 mg PO BID 09/04/16 05/13/19 History DULoxetine HCL [Cymbalta] 60 mg PO HS 01/25/18 05/13/19 History Medroxyprogesterone Acetate 150 mg IM Q90D 01/25/18 05/13/19 History [Depo-Provera] Omeprazole 20 mg PO DAILY 01/25/18 05/13/19 History Insulin Glargine/Lixisenatide See Protocol SQ HS 02/18/19 05/13/19 History [Soliqua 100 Unit-33 Mcg/ml Pen] Pregabalin [Lyrica] 150 mg PO TID 02/18/19 05/13/19 History Ibuprofen [Motrin] 800 mg PO TID PRN 04/03/19 05/13/19 History Valsartan [Diovan] 160 mg PO DAILY 04/03/19 05/13/19 History amLODIPine [Norvasc] 5 mg PO DAILY 04/03/19 05/13/19 History Nicotine Polacrilex [Nicorette] 4 mg BC Q2H PRN 05/13/19 05/13/19 History busPIRone HCl [Buspar] 5 mg PO BID 05/13/19 05/13/19 History Allergies Allergy/AdvReac Type Severity Reaction Status Date / Time tomato Allergy RASH, Verified 05/13/19 16:32 ITCHING amoxicillin AdvReac Severe Nausea & Verified 05/13/19 16:32 Vomiting Physical Exam Vitals: Vital Signs Temp Pulse Pulse Pulse Resp BP BP 05/14/19 07:00 97.9 F 117 H 15 91/64 05/14/19 01:11 98.1 F 116 H 16 110/65 05/14/19 00:00 16 05/13/19 20:00 16 05/13/19 16:36 98.1 F 95 20 103/50 05/13/19 14:34 98.3 F 89 20 108/60 05/13/19 13:25 97.8 F 118 H 18 111/59 Pulse Ox 05/14/19 07:00 92 L 05/14/19 01:11 94 L 05/14/19 00:00 05/13/19 20:00 05/13/19 16:36 95 05/13/19 14:34 98 05/13/19 13:25 95 Intake and Output 05/13/19 05/14/19 05/14/19 22:59 06:59 14:59 Output Total 3 Balance -3 Output: Urine 3 Other: Voiding Method Bedpan Bedpan Diaper Diaper # Voids 2 2 PHYSICAL EXAM: VITAL SIGNS: As above GENERAL: Sitting up in bed, no acute distress HEENT: Conjunctivae normal. eyes normal. NECK: No JVD. No thyroid enlargement. No LNs CARDIOVASCULAR: S1, S2 regular.. No murmur RESPIRATION: Breath sounds diminished in the bases. No rhonchi or crackles. No bronchial breathing. ABDOMEN: Obese, Soft, nontender . No guarding. no masses palpable. No ascites, No hepatosplenomegaly.Bowel sounds heard. LEGS: No edema. no swelling PSYCHIATRY: Alert and oriented X3, mood and affect normal. NERVOUS SYSTEM: Cranial N 2-12 grossly normal. Moves all 4 limbs. Diffuse weakness No focal deficits. Strength and sensation grossly intact.. Skin: Left posterior lateral buttock abscess, 5.43.2 cm with purulent drainage,erythematous. Lymphatic system. No LN neck axilla or groin. Results CBC & Chem 7: 05/13/19 14:45 05/14/19 03:05 Labs: Abnormal Lab Results - Last 24 Hours (Table) 05/13/19 05/13/19 05/13/19 Range/Units 14:00 14:45 14:45 WBC 12.7 H (3.8-10.6) k/uL Neutrophils # 9.6 H (1.3-7.7) k/uL Sodium 131 L (137-145) mmol/L Potassium 3.4 L (3.5-5.1) mmol/L Chloride 91 L (98-107) mmol/L Carbon Dioxide 32 H (22-30) mmol/L Creatinine 0.49 L (0.52-1.04) mg/dL Glucose 471 H (74-99) mg/dL POC Glucose (mg/dL) (75-99) mg/dL Plasma Lactic Acid Simon (0.7-2.0) mmol/L AST 13 L (14-36) U/L Alkaline Phosphatase 176 H (38-126) U/L Total Protein 5.5 L (6.3-8.2) g/dL Albumin 2.5 L (3.5-5.0) g/dL Urine Glucose (UA) 4+ H (Negative) Urine Blood Small H (Negative) Ur Leukocyte Esterase Trace H (Negative) Urine RBC 7 H (0-5) /hpf Urine Yeast (Budding) Occasional H (None) /hpf 05/13/19 05/13/19 05/13/19 Range/Units 14:45 16:16 17:21 WBC (3.8-10.6) k/uL Neutrophils # (1.3-7.7) k/uL Sodium (137-145) mmol/L Potassium (3.5-5.1) mmol/L Chloride (98-107) mmol/L Carbon Dioxide (22-30) mmol/L Creatinine (0.52-1.04) mg/dL Glucose (74-99) mg/dL POC Glucose (mg/dL) 490 H 346 H (75-99) mg/dL Plasma Lactic Acid Simon 2.5 H* (0.7-2.0) mmol/L AST (14-36) U/L Alkaline Phosphatase (38-126) U/L Total Protein (6.3-8.2) g/dL Albumin (3.5-5.0) g/dL Urine Glucose (UA) (Negative) Urine Blood (Negative) Ur Leukocyte Esterase (Negative) Urine RBC (0-5) /hpf Urine Yeast (Budding) (None) /hpf 05/13/19 05/13/19 05/13/19 Range/Units 18:47 20:14 23:04 WBC (3.8-10.6) k/uL Neutrophils # (1.3-7.7) k/uL Sodium (137-145) mmol/L Potassium (3.5-5.1) mmol/L Chloride (98-107) mmol/L Carbon Dioxide (22-30) mmol/L Creatinine (0.52-1.04) mg/dL Glucose (74-99) mg/dL POC Glucose (mg/dL) 432 H (75-99) mg/dL Plasma Lactic Acid Simon 3.6 H* 3.4 H* (0.7-2.0) mmol/L AST (14-36) U/L Alkaline Phosphatase (38-126) U/L Total Protein (6.3-8.2) g/dL Albumin (3.5-5.0) g/dL Urine Glucose (UA) (Negative) Urine Blood (Negative) Ur Leukocyte Esterase (Negative) Urine RBC (0-5) /hpf Urine Yeast (Budding) (None) /hpf 05/14/19 05/14/19 05/14/19 Range/Units 03:04 07:56 11:09 WBC (3.8-10.6) k/uL Neutrophils # (1.3-7.7) k/uL Sodium (137-145) mmol/L Potassium (3.5-5.1) mmol/L Chloride (98-107) mmol/L Carbon Dioxide (22-30) mmol/L Creatinine (0.52-1.04) mg/dL Glucose (74-99) mg/dL POC Glucose (mg/dL) 219 H 269 H (75-99) mg/dL Plasma Lactic Acid Simon 2.5 H* (0.7-2.0) mmol/L AST (14-36) U/L Alkaline Phosphatase (38-126) U/L Total Protein (6.3-8.2) g/dL Albumin (3.5-5.0) g/dL Urine Glucose (UA) (Negative) Urine Blood (Negative) Ur Leukocyte Esterase (Negative) Urine RBC (0-5) /hpf Urine Yeast (Budding) (None) /hpf Microbiology - Last 24 Hours (Table) 05/13/19 14:00 Gram Stain - Preliminary Buttock Wound Culture - Preliminary Gram Neg Bacilli Assessment and Plan Assessment: -Left buttock abscess -Leukocytosis secondary to the above -Lactic acidosis -Diabetes mellitus, hyperglycemia, secondary to infection and noncompliance, hemoglobin A1c pending -Chronic intermittent asthma -Chronic back pain -Anxiety-depression -Panic attacks -Ongoing nicotine dependence -Marijuana use -Morbid obesity, BMI 38.7. Plan: Continue on current medication regime ,monitoring and symptomatic treatment. Maintain IV antibiotics Rocephin, vancomycin. Surgery consulted. Tight blood sugar control, insulin drip ordered. Hemoglobin A1c pending. Diabe tic educator consulted. Home meds have been reviewed and resumed. GI and DVT prophylaxis in place. The impression and plan of care has been dictated as directed. : I performed a history and examination of this patient, discussed the same with the dictator. I agree with the dictator's note ,documented as a scribe. Any additional findings or plans will be noted.
--- NOTE | 2019-05-14 14:32 | P.GSCN ---
History of Present Illness Consult date: 05/14/19 Reason for Consult: Abscess Requesting physician: Laureano Patiño History of present illness: CHIEF COMPLAINT: Abscess HISTORY OF PRESENT ILLNESS: 33-year-old female who presents to emergency room with a chief complaint of an abscess to her left posterior leg. Patient reports she thought she had a boil to the back of her leg that started about two weeks ago. She states it started to drain spontaneously. She denies previous abscesses like this one. She states the area has become more tender to the point that she has not been able to ambulate and was urinating on herself. Patients blood sugars were found to be 490 on admission. Patient states she does not check her blood sugars at home and does not administer her insulin because "it hurts". PAST MEDICAL HISTORY: See list. PAST SURGICAL HISTORY: See list. SOCIAL HISTORY: History of marijuana use REVIEW OF SYSTEMS: CONSTITUTIONAL: Denies fever or chills. HEENT: Denies blurred vision, vision changes, or eye pain. Denies hemoptysis CARDIOVASCULAR: Denies chest pain or pressure. RESPIRATORY: No shortness of breath. GASTROINTESTINAL: Denies abdominal pain. Denies nausea or vomiting HEMATOLOGIC: Denies bleeding disorders. GENITOURINARY: Denies any blood in urine. SKIN: Reports wound to left posterior leg PHYSICAL EXAM: VITAL SIGNS: Reviewed. GENERAL: Well-developed in no acute distress. HEENT: No sclera icterus. Extraocular movements grossly intact. Moist buccal mucosa. Head is atraumatic, normocephalic. ABDOMEN: Soft. Nondistended. Nontender. NEUROLOGIC: Alert and oriented. Cranial nerves II through XII grossly intact. SKIN: Quarter sized open wound to left posterior thigh with purulent drainage. Undermining present. Surrounding erythema. Skin surrounding wound indurated. No palpable fluid collection. LABORATORY DATA: WBC on admission 12.7. Hemoglobin 12.4. Platelet count 437. Sodium 131. Potassium 3.4. BUN 9. Creatinine 0.49. Lactic acid peaked at 3.6. Most recent 1.9. IMAGING: Ultrasound left leg: Findings likely correspond to phlegmon or developing abscess. Measuring 5.4 x 3.2 cm. Soft tissue edema also noted. ASSESSMENT: 1. Left posterior upper thigh abscess PLAN: 1. Continue antibiotics. Await culture results. Infectious disease consulted 2. Local wound care with aquacel rope. Pack wound daily. Cover with gauze and ABD pad 3. Patient requires tight glucose control. She is noncompliant with her diabetes. Will consult coding educator. 4. No surgical intervention recommended at this time Nurse practitioner note has been reviewed by physician. Signing provider agrees with the documented findings, assessment, and plan of care. Past Medical History Past Medical History: Asthma, Diabetes Mellitus Additional Past Medical History / Comment(s): chronic back pain, one seizure as infant, enlarged spleen, hiatal hernia, "high red blood cell count", neuropathy natalia feet, MIGRAINE HEADACHE,difficult swallowing History of Any Multi-Drug Resistant Organisms: None Reported Past Surgical History: Cholecystectomy, Hernia Repair, Tonsillectomy Additional Past Surgical History / Comment(s): cyst removed from SIDE neck, COLONOSCOPY, robotic assisted hernia repair- UMBILICAL REPAIR Past Anesthesia/Blood Transfusion Reactions: No Reported Reaction Additional Past Anesthesia/Blood Transfusion Reaction / Comm: 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 currently being worked up by oncology Past Psychological History: Anxiety, Depression Additional Psychological History / Comment(s): PANIC ATTACKS Smoking Status: Current every day smoker Past Alcohol Use History: None Reported Additional Past Alcohol Use History / Comment(s): STARTED SMOKING AT AGE 18, SMOKES 1/2 PPD Past Drug Use History: Marijuana - Past Family History Mother Family Medical History: Deep Vein Thrombosis (DVT), Pulmonary Embolus Medications and Allergies Home Medications Medication Instructions Recorded Confirmed Type metFORMIN HCL [Glucophage] 1,000 mg PO BID 09/04/16 05/13/19 History DULoxetine HCL [Cymbalta] 60 mg PO HS 01/25/18 05/13/19 History Medroxyprogesterone Acetate 150 mg IM Q90D 01/25/18 05/13/19 History [Depo-Provera] Omeprazole 20 mg PO DAILY 01/25/18 05/13/19 History Insulin Glargine/Lixisenatide See Protocol SQ HS 02/18/19 05/13/19 History [Soliqua 100 Unit-33 Mcg/ml Pen] Pregabalin [Lyrica] 150 mg PO TID 02/18/19 05/13/19 History Ibuprofen [Motrin] 800 mg PO TID PRN 04/03/19 05/13/19 History Valsartan [Diovan] 160 mg PO DAILY 04/03/19 05/13/19 History amLODIPine [Norvasc] 5 mg PO DAILY 04/03/19 05/13/19 History Nicotine Polacrilex [Nicorette] 4 mg BC Q2H PRN 05/13/19 05/13/19 History busPIRone HCl [Buspar] 5 mg PO BID 05/13/19 05/13/19 History Allergies Allergy/AdvReac Type Severity Reaction Status Date / Time tomato Allergy RASH, Verified 05/13/19 16:32 ITCHING amoxicillin AdvReac Severe Nausea & Verified 05/13/19 16:32 Vomiting Surgical - Exam Vital Signs Temp Pulse Resp BP Pulse Ox 97.8 F 118 H 18 111/59 95 05/13/19 13:25 05/13/19 13:25 05/13/19 13:25 05/13/19 13:25 05/13/19 13:25 Results - Labs 05/13/19 14:45 05/14/19 03:05 Abnormal Lab Results - Last 24 Hours (Table) 05/13/19 05/13/19 05/13/19 Range/Units 14:00 14:45 14:45 WBC 12.7 H (3.8-10.6) k/uL Neutrophils # 9.6 H (1.3-7.7) k/uL Sodium 131 L (137-145) mmol/L Potassium 3.4 L (3.5-5.1) mmol/L Chloride 91 L (98-107) mmol/L Carbon Dioxide 32 H (22-30) mmol/L Creatinine 0.49 L (0.52-1.04) mg/dL Glucose 471 H (74-99) mg/dL POC Glucose (mg/dL) (75-99) mg/dL Plasma Lactic Acid Simon (0.7-2.0) mmol/L AST 13 L (14-36) U/L Alkaline Phosphatase 176 H (38-126) U/L Total Protein 5.5 L (6.3-8.2) g/dL Albumin 2.5 L (3.5-5.0) g/dL Urine Glucose (UA) 4+ H (Negative) Urine Blood Small H (Negative) Ur Leukocyte Esterase Trace H (Negative) Urine RBC 7 H (0-5) /hpf Urine Yeast (Budding) Occasional H (None) /hpf 05/13/19 05/13/1919 Range/Units 14:45 16:16 17:21 WBC (3.8-10.6) k/uL Neutrophils # (1.3-7.7) k/uL Sodium (137-145) mmol/L Potassium (3.5-5.1) mmol/L Chloride (98-107) mmol/L Carbon Dioxide (22-30) mmol/L Creatinine (0.52-1.04) mg/dL Glucose (74-99) mg/dL POC Glucose (mg/dL) 490 H 346 H (75-99) mg/dL Plasma Lactic Acid Simon 2.5 H* (0.7-2.0) mmol/L AST (14-36) U/L Alkaline Phosphatase (38-126) U/L Total Protein (6.3-8.2) g/dL Albumin (3.5-5.0) g/dL Urine Glucose (UA) (Negative) Urine Blood (Negative) Ur Leukocyte Esterase (Negative) Urine RBC (0-5) /hpf Urine Yeast (Budding) (None) /hpf 05/13/19 05/13/19 05/13/19 Range/Units 18:47 20:14 23:04 WBC (3.8-10.6) k/uL Neutrophils # (1.3-7.7) k/uL Sodium (137-145) mmol/L Potassium (3.5-5.1) mmol/L Chloride (98-107) mmol/L Carbon Dioxide (22-30) mmol/L Creatinine (0.52-1.04) mg/dL Glucose (74-99) mg/dL POC Glucose (mg/dL) 432 H (75-99) mg/dL Plasma Lactic Acid Simon 3.6 H* 3.4 H* (0.7-2.0) mmol/L AST (14-36) U/L Alkaline Phosphatase (38-126) U/L Total Protein (6.3-8.2) g/dL Albumin (3.5-5.0) g/dL Urine Glucose (UA) (Negative) Urine Blood (Negative) Ur Leukocyte Esterase (Negative) Urine RBC (0-5) /hpf Urine Yeast (Budding) (None) /hpf 05/14/19 05/14/19 05/14/19 Range/Units 03:04 07:56 11:09 WBC (3.8-10.6) k/uL Neutrophils # (1.3-7.7) k/uL Sodium (137-145) mmol/L Potassium (3.5-5.1) mmol/L Chloride (98-107) mmol/L Carbon Dioxide (22-30) mmol/L Creatinine (0.52-1.04) mg/dL Glucose (74-99) mg/dL POC Glucose (mg/dL) 219 H 269 H (75-99) mg/dL Plasma Lactic Acid Simon 2.5 H* (0.7-2.0) mmol/L AST (14-36) U/L Alkaline Phosphatase (38-126) U/L Total Protein (6.3-8.2) g/dL Albumin (3.5-5.0) g/dL Urine Glucose (UA) (Negative) Urine Blood (Negative) Ur Leukocyte Esterase (Negative) Urine RBC (0-5) /hpf Urine Yeast (Budding) (None) /hpf Microbiology - Last 24 Hours (Table) 05/13/19 14:00 Gram Stain - Preliminary Buttock Wound Culture - Preliminary Gram Neg Bacilli Diabetes panel 05/13/19 05/14/19 Range/Units 14:45 03:05 Sodium 131 L (137-145) mmol/L Potassium 3.4 L (3.5-5.1) mmol/L Chloride 91 L (98-107) mmol/L Carbon Dioxide 32 H (22-30) mmol/L BUN 9 (7-17) mg/dL Creatinine 0.49 L 0.59 (0.52-1.04) mg/dL Glucose 471 H (74-99) mg/dL Calcium 8.5 (8.4-10.2) mg/dL AST 13 L (14-36) U/L ALT 18 (9-52) U/L Alkaline Phosphatase 176 H (38-126) U/L Total Protein 5.5 L (6.3-8.2) g/dL Albumin 2.5 L (3.5-5.0) g/dL Calcium panel 05/13/19 Range/Units 14:45 Calcium 8.5 (8.4-10.2) mg/dL Albumin 2.5 L (3.5-5.0) g/dL Pituitary panel 05/13/19 05/14/19 Range/Units 14:45 03:05 Sodium 131 L (137-145) mmol/L Potassium 3.4 L (3.5-5.1) mmol/L Chloride 91 L (98-107) mmol/L Carbon Dioxide 32 H (22-30) mmol/L BUN 9 (7-17) mg/dL Creatinine 0.49 L 0.59 (0.52-1.04) mg/dL Glucose 471 H (74-99) mg/dL Calcium 8.5 (8.4-10.2) mg/dL Adrenal panel 05/13/19 05/14/19 Range/Units 14:45 03:05 Sodium 131 L (137-145) mmol/L Potassium 3.4 L (3.5-5.1) mmol/L Chloride 91 L (98-107) mmol/L Carbon Dioxide 32 H (22-30) mmol/L BUN 9 (7-17) mg/dL Creatinine 0.49 L 0.59 (0.52-1.04) mg/dL Glucose 471 H (74-99) mg/dL Calcium 8.5 (8.4-10.2) mg/dL Total Bilirubin 0.4 (0.2-1.3) mg/dL AST 13 L (14-36) U/L ALT 18 (9-52) U/L Alkaline Phosphatase 176 H (38-126) U/L Total Protein 5.5 L (6.3-8.2) g/dL Albumin 2.5 L (3.5-5.0) g/dL
[2019-05-14] MEDS: HEPARIN SODIUM,PORCINE 5,000 UNIT/ML 1 ML VIAL SQ SCH (16:19)
[2019-05-14 16:32] LABS: Glucose,Whole Blood 144 mg/dL (75-99)
[2019-05-14] MEDS: IOPAMIDOL CONTRAST (ORAL USE) VIAL PO PRN ×2 (17:18→17:57)
--- NOTE | 2019-05-14 18:55 | CT ---
EXAMINATION TYPE: CT abdomen pelvis w con DATE OF EXAM: 05/14/2019 COMPARISON: February 19, 2019 HISTORY: PERIRECTAL ABCESS CT DLP: 2932.4 mGycm Automated exposure control for dose reduction was used. TECHNIQUE: Helical acquisition of images was performed from the lung bases through the pelvis. CONTRAST: Performed with Oral Contrast and with IV Contrast, patient injected with 100 mL of Isovue 300. FINDINGS: There is small right pleural effusion. There is minimal pleural thickening left posterior lung base. There is no pericardial effusion. Liver appears intact. There are clips from cholecystectomy. Bile ducts are not dilated. Spleen is int act. Spleen is slightly enlarged and measures 13.5 cm. The stomach is intact. There is no pancreatic mass. There is no adrenal mass. Kidneys show satisfactory contrast opacificati on. Delayed images show very little contrast in the renal collecting system. There is no retroperiton eal adenopathy. There is subcutaneous edema around the abdomen. Ureters are not dilated. Bladder distends smoothly. Uterus is anteverted. There is tiny amount of fluid in the pelvis. There i s no inguinal hernia. There is soft tissue air over the lateral aspect of the pelvis on the left side and also left hip. There is extensive soft tissue air extending over the left buttock posteriorly an d into the medial aspect of the left upper thigh. I see no evidence of a rectal abscess. Bladder dist ends smoothly. There is normal contrast opacification of the small bowel. There is no sign of a bowel obstruction. T here is no ascites. There is no free air. There is no mesenteric edema. Lumbar vertebra have normal spacing and alignment. Posterior elements are intact. Bony pelvis appears intact. IMPRESSION: THERE IS EXTENSIVE FAT STRANDING AND SOFT TISSUE AIR BUBBLES OVER THE POSTERIOR LEFT BUTTOCK AND LATE RAL ASPECT OF THE LEFT HIP CONSISTENT WITH CELLULITIS AND ABSCESS FORMATION. I DO NOT SEE ANY PERIREC ALANA INVOLVEMENT. NO EVIDENCE OF OSTEOMYELITIS. THE LOWER EXTENT OF THE ABNORMALITY IS NOT DEMONSTRATED. THIS APPEARS T O EXTEND FURTHER DOWN THE LEFT THIGH. THERE IS VERY LITTLE CONTRAST IN THE RENAL COLLECTING SYSTEM ON THE DELAYED IMAGES SUGGESTIVE OF ACUT E RENAL FAILURE. NO RENAL ATROPHY. THERE IS NEW SMALL RIGHT PLEURAL EFFUSION COMPARED TO LAST EXAM.
[2019-05-14 20:08] LABS: Glucose,Whole Blood 116 mg/dL (75-99)
[2019-05-14] MEDS: DULoxetine HCL 60 MG CAPSULE.DR PO SCH (20:50)
[2019-05-15] MEDS ORDERED: HEPARIN SODIUM,PORCINE 5,000 UNIT/ML 1 ML VIAL ONE (03:52)
[2019-05-15] MEDS ORDERED: SODIUM CHLORIDE 0.9% 1,000 ML BAG ONE (03:52)
[2019-05-15] MEDS ORDERED: HYDROcodone/APAP 10-325MG 1 EACH TAB ONE (03:52)
[2019-05-15] MEDS: SODIUM CHLORIDE 0.9% 1,000 ML IV SCH ×2 (05:42→20:53)
[2019-05-15] MEDS: HEPARIN SODIUM,PORCINE 5,000 UNIT/ML 1 ML VIAL SQ SCH ×3 (05:42→17:23)
[2019-05-15] MEDS: PIPERACILLIN-TAZOBACTAM 3.375 GM in SODIUM CHLORIDE 0.9% 100 ML IVPB SCH ×3 (05:42→17:23)
[2019-05-15 06:52] LABS: Glucose,Whole Blood 102 mg/dL (75-99)
[2019-05-15] MEDS: INSULIN ASPART (NovoLOG) 100 UNIT/ML VIAL SQ SCH ×3 (07:43→18:38)
[2019-05-15] MEDS: amLODIPine 5 MG TAB PO SCH (08:09)
[2019-05-15] MEDS: busPIRone HCl 5 MG TAB PO SCH ×2 (08:09→21:16)
[2019-05-15] MEDS: HYDROcodone/APAP 10-325MG 1 EACH TAB PO PRN ×2 (08:09→13:44)
[2019-05-15] MEDS: PREGABALIN 75 MG CAP PO SCH ×3 (08:09→21:16)
[2019-05-15] MEDS: PANTOPRAZOLE 40 MG TABLET PO SCH (08:09)
[2019-05-15] MEDS: VALSARTAN 160 MG TAB PO SCH (08:11)
[2019-05-15] MEDS: NICOTINE 21MG/24HR PATCH TRANSDERM SCH (08:16)
--- NOTE | 2019-05-15 08:45 | P.CONS ---
History of Present Illness - Reason for Consult Consult date: 05/14/19 Left gluteal wound and abscess Requesting physician: Zach Herr - Chief Complaint Pain drainage to the left gluteal area times few weeks - History of Present Illness Patient is a 33-year-old morbidly obese female presenting to the ER yesterday with the chief complaints of pain in the draining wound to the left gluteal area for the last few weeks the patient stated the area started as a pimple that subsequently eruption about a week ago patient said she did not try to yovani it with drainage of some purulent material since then had the area has not healed with persistent drainage which has been moderate in amount and pain to the left gluteal area with the patient is describing to be sharp almost 10 out of 10 and no radiation slight worsening with movement of her leg patient denies having any diarrhea the patient be complaining of some fever and chills with these symptoms the patient was evaluated by the ER physician and ultrasound of the area did shows a small area of abscess for Gen. surgery has been consulted patient did have elevated white count of 12,000 but no fever wound cultures has been obtained and the patient had been empirically treated with vancomycin and Zosyn and infectious disease has been consulted for further recommendation regarding antibiotic therapy Review of Systems Positive point has been mentioned in the HPI rest of the systems are negative Past Medical History Past Medical History: Asthma, Diabetes Mellitus Additional Past Medical History / Comment(s): chronic back pain, one seizure as , enlarged spleen, hiatal hernia, "high red blood cell count", neuropathy natalia feet, MIGRAINE HEADACHE,difficult swallowing History of Any Multi-Drug Resistant Organisms: None Reported Past Surgical History: Cholecystectomy, Hernia Repair, Tonsillectomy Additional Past Surgical History / Comment(s): cyst removed from SIDE neck, COLONOSCOPY, robotic assisted hernia repair- UMBILICAL REPAIR Past Anesthesia/Blood Transfusion Reactions: No Reported Reaction Additional Past Anesthesia/Blood Transfusion Reaction / Comm: 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 currently being worked up by oncology Past Psychological History: Anxiety, Depression Additional Psychological History / Comment(s): PANIC ATTACKS Smoking Status: Current every day smoker Past Alcohol Use History: None Reported Additional Past Alcohol Use History / Comment(s): STARTED SMOKING AT AGE 18, SMOKES 1/2 PPD Past Drug Use History: Marijuana - Past Family History Mother Family Medical History: Deep Vein Thrombosis (DVT), Pulmonary Embolus Medications and Allergies Home Medications Medication Instructions Recorded Confirmed Type metFORMIN HCL [Glucophage] 1,000 mg PO BID 09/04/16 05/13/19 History DULoxetine HCL [Cymbalta] 60 mg PO HS 01/25/18 05/13/19 History Medroxyprogesterone Acetate 150 mg IM Q90D 01/25/18 05/13/19 History [Depo-Provera] Omeprazole 20 mg PO DAILY 01/25/18 05/13/19 History Insulin Glargine/Lixisenatide See Protocol SQ HS 02/18/19 05/13/19 History [Soliqua 100 Unit-33 Mcg/ml Pen] Pregabalin [Lyrica] 150 mg PO TID 02/18/19 05/13/19 History Ibuprofen [Motrin] 800 mg PO TID PRN 04/03/19 05/13/19 History Valsartan [Diovan] 160 mg PO DAILY 04/03/19 05/13/19 History amLODIPine [Norvasc] 5 mg PO DAILY 04/03/19 05/13/19 History Nicotine Polacrilex [Nicorette] 4 mg BC Q2H PRN 05/13/19 05/13/19 History busPIRone HCl [Buspar] 5 mg PO BID 05/13/19 05/13/19 History Allergies Allergy/AdvReac Type Severity Reaction Status Date / Time tomato Allergy RASH, Verified 05/13/19 16:32 ITCHING amoxicillin AdvReac Severe Nausea & Verified 05/13/19 16:32 Vomiting Physical Exam Vitals: Vital Signs Temp Pulse Pulse Pulse Resp BP BP 05/14/19 07:00 97.9 F 117 H 15 91/64 05/14/19 01:11 98.1 F 116 H 16 110/65 05/14/19 00:00 16 05/13/19 20:00 16 05/13/19 16:36 98.1 F 95 20 103/50 05/13/19 14:34 98.3 F 89 20 108/60 05/13/19 13:25 97.8 F 118 H 18 111/59 Pulse Ox 05/14/19 07:00 92 L 05/14/19 01:11 94 L 05/14/19 00:00 05/13/19 20:00 05/13/19 16:36 95 05/13/19 14:34 98 05/13/19 13:25 95 Intake and Output 05/13/19 05/14/19 05/14/19 22:59 06:59 14:59 Output Total 3 Balance -3 Output: Urine 3 Other: Voiding Method Bedpan Bedpan Diaper Diaper # Voids 2 2 GENERAL DESCRIPTION: Middle-aged female lying in bed, no distress. No tachypnea or accessory muscle of respiration use. HEENT: Shows Pallor , no scleral icterus. Oral mucous membrane is dry. No pharyngeal erythema or thrush NECK: Trachea central, no thyromegaly. LUNGS: Unlabored breathing. Clear to auscultation anteriorly. No wheeze or crackle. HEART: S1, S2, regular rate and rhythm. No loud murmur ABDOMEN: Soft, no tenderness , guarding or rigidity, no organomegaly Left gluteal area with the draining wound and drainage of significant amount of purulent secretion EXTREMITIES: No edema of feet. SKIN: No rash, no masses palpable. NEUROLOGICAL: The patient is awake, alert, oriented x3, mood and affect normal. Results CBC & Chem 7: 05/13/19 14:45 05/14/19 03:05 Labs: Abnormal Lab Results - Last 24 Hours (Table) 05/13/19 05/13/19 05/13/19 Range/Units 14:00 14:45 14:45 WBC 12.7 H (3.8-10.6) k/uL Neutrophils # 9.6 H (1.3-7.7) k/uL Sodium 131 L (137-145) mmol/L Potassium 3.4 L (3.5-5.1) mmol/L Chloride 91 L (98-107) mmol/L Carbon Dioxide 32 H (22-30) mmol/L Creatinine 0.49 L (0.52-1.04) mg/dL Glucose 471 H (74-99) mg/dL POC Glucose (mg/dL) (75-99) mg/dL Plasma Lactic Acid Simon (0.7-2.0) mmol/L AST 13 L (14-36) U/L Alkaline Phosphatase 176 H (38-126) U/L Total Protein 5.5 L (6.3-8.2) g/dL Albumin 2.5 L (3.5-5.0) g/dL Urine Glucose (UA) 4+ H (Negative) Urine Blood Small H (Negative) Ur Leukocyte Esterase Trace H (Negative) Urine RBC 7 H (0-5) /hpf Urine Yeast (Budding) Occasional H (None) /hpf 05/13/19 05/13/19 05/13/19 Range/Units 14:45 16:16 17:21 WBC (3.8-10.6) k/uL Neutrophils # (1.3-7.7) k/uL Sodium (137-145) mmol/L Potassium (3.5-5.1) mmol/L Chloride (98-107) mmol/L Carbon Dioxide (22-30) mmol/L Creatinine (0.52-1.04) mg/dL Glucose (74-99) mg/dL POC Glucose (mg/dL) 490 H 346 H (75-99) mg/dL Plasma Lactic Acid Simon 2.5 H* (0.7-2.0) mmol/L AST (14-36) U/L Alkaline Phosphatase (38-126) U/L Total Protein (6.3-8.2) g/dL Albumin (3.5-5.0) g/dL Urine Glucose (UA) (Negative) Urine Blood (Negative) Ur Leukocyte Esterase (Negative) Urine RBC (0-5) /hpf Urine Yeast (Budding) (None) /hpf 05/13/19 05/13/19 05/13/19 Range/Units 18:47 20:14 23:04 WBC (3.8-10.6) k/uL Neutrophils # (1.3-7.7) k/uL Sodium (137-145) mmol/L Potassium (3.5-5.1) mmol/L Chloride (98-107) mmol/L Carbon Dioxide (22-30) mmol/L Creatinine (0.52-1.04) mg/dL Glucose (74-99) mg/dL POC Glucose (mg/dL) 432 H (75-99) mg/dL Plasma Lactic Acid Simon 3.6 H* 3.4 H* (0.7-2.0) mmol/L AST (14-36) U/L Alkaline Phosphatase (38-126) U/L Total Protein (6.3-8.2) g/dL Albumin (3.5-5.0) g/dL Urine Glucose (UA) (Negative) Urine Blood (Negative) Ur Leukocyte Esterase (Negative) Urine RBC (0-5) /hpf Urine Yeast (Budding) (None) /hpf 05/14/19 05/14/19 05/14/19 Range/Units 03:04 07:56 11:09 WBC (3.8-10.6) k/uL Neutrophils # (1.3-7.7) k/uL Sodium (137-145) mmol/L Potassium (3.5-5.1) mmol/L Chloride (98-107) mmol/L Carbon Dioxide (22-30) mmol/L Creatinine (0.52-1.04) mg/dL Glucose (74-99) mg/dL POC Glucose (mg/dL) 219 H 269 H (75-99) mg/dL Plasma Lactic Acid Simon 2.5 H* (0.7-2.0) mmol/L AST (14-36) U/L Alkaline Phosphatase (38-126) U/L Total Protein (6.3-8.2) g/dL Albumin (3.5-5.0) g/dL Urine Glucose (UA) (Negative) Urine Blood (Negative) Ur Leukocyte Esterase (Negative) Urine RBC (0-5) /hpf Urine Yeast (Budding) (None) /hpf Microbiology - Last 24 Hours (Table) 05/13/19 14:00 Gram Stain - Preliminary Buttock Wound Culture - Preliminary Gram Neg Bacilli Assessment and Plan Assessment: 1-patient presented to the hospital with left gluteal pain in this patient did have a wound after spontaneous with evidence of underlying abscess in the of the close proximity to the pelvic organ will make sure no evidence of any colocutenous fistula and involvement of the GI tract as the Gram stain is currently showing gram-negative 2-patient with questionable amoxicillin ALLERGY as she has been tolerating Zosyn without any problem (1) Abscess, gluteal, left Current Visit: Yes Status: Acute Code(s): L02.31 - CUTANEOUS ABSCESS OF BUTTOCK SNOMED Code(s): 77490528 Plan: 1-we will obtain a CT of abdominal pelvis to make sure no evidence of any fistula 2-should continue with Zosyn 3.375 g every 8 hours and discontinue the vancomycin as no gram-positive has been seen We will follow on clinical condition and cultures to further adjust medication if needed Thank you for this consultation will follow this patient with you Time with Patient: Greater than 30
[2019-05-15] MEDS ORDERED: VANCOMYCIN TROUGH DUE 1 EACH MISC MISCELLANE ONE (09:00)
[2019-05-15 09:47] LABS: Basophils # (A) 0.3 k/uL (0-0.2); Basophils % (A) 2 %; Eosinophils # (A) 0.2 k/uL (0-0.7); Eosinophils % (A) 1 %; HCT 35.8 % (34.0-46.0); HGB 11.4 gm/dL (11.4-16.0); Lymphocytes # (A) 2.8 k/uL (1.0-4.8); Lymphocytes % (A) 17 %; MCH 27.6 pg (25.0-35.0); MCHC 31.8 g/dL (31.0-37.0); MCV 86.9 fL (80.0-100.0); Mean Platelet Volume 7.4; Monocytes # (A) 0.4 k/uL (0-1.0); Monocytes % (A) 2 %; Neutrophils % (A) 77 %; Platelet Count 401 k/uL (150-450); RBC 4.12 m/uL (3.80-5.40); RDW 14.2 % (11.5-15.5); WBC 16.9 k/uL (3.8-10.6)
[2019-05-15 10:14] LABS: Calcium 7.9 mg/dL (8.4-10.2); Potassium 3.4 mmol/L (3.5-5.1)
[2019-05-15 10:37] LABS: C Reactive Protein 229.4 mg/L (<10.0)
[2019-05-15 11:45] LABS: Glucose,Whole Blood 136 mg/dL (75-99)
--- NOTE | 2019-05-15 13:57 | P.PN ---
Subjective Progress Note Date: 05/15/19 CHIEF COMPLAINT: Abscess HISTORY OF PRESENT ILLNESS: Patient examined at the bedside. She reports her pain has improved today. WBC 16.9. Cultures positive for Klebsiella oxytoca. PHYSICAL EXAM: VITAL SIGNS: Reviewed. GENERAL: Well-developed in no acute distress. HEENT: No sclera icterus. Extraocular movements grossly intact. Moist buccal mucosa. Head is atraumatic, normocephalic. ABDOMEN: Soft. Nondistended. Nontender. NEUROLOGIC: Alert and oriented. Cranial nerves II through XII grossly intact. SKIN: Quarter sized open wound to left posterior thigh with purulent drainage. Undermining present. Surrounding erythema. Skin surrounding wound indurated. No palpable fluid collection. ASSESSMENT: 1. Left posterior upper thigh abscess PLAN: 1. Continue antibiotics. Antibiotics per Infectious disease. 2. Local wound care with aquacel rope. Pack wound daily. Cover with gauze and AB D pad 3. Patient requires tight glucose control. She is noncompliant with her diabetes. nutrition educator on consult. 4. No surgical intervention recommended at this time per Dr. De Paz Nurse practitioner note has been reviewed by physician. Signing provider agrees with the documented findings, assessment, and plan of care. Objective - Vital Signs Vital signs: Vital Signs Temp 98.0 F 05/15/19 07:00 Pulse 102 H 05/15/19 08:20 Resp 17 05/15/19 08:20 BP 112/68 05/15/19 07:00 Pulse Ox 93 L 05/15/19 07:00 Intake & Output 05/14/19 05/15/19 05/15/19 18:59 06:59 18:59 Intake Total 2200 20 100 Output Total 3 Balance 2200 20 97 Intake: IV 2200 Piperacillin-Tazobactam 3 1100 .375 gm In Sodium Chloride 0.9% 100 ml @ 25 mls/hr IVPB Q8HR [facility] Rx# :[id number] Sodium Chloride 0.9% 1, 600 000 ml @ 75 mls/hr IV . [id number] [facility] Rx#:[id number] Vancomycin 1,750 mg In 500 Sodium Chloride 0.9% 500 ml 500 ml @ 167 mls/hr IVPB Q8H [facility] Rx#: [id number] Oral 20 100 Output: Urine 3 Other: Voiding Method Bedpan Bedpan # Voids 2 - Labs CBC & Chem 7: 11/26/19 09:13 05/15/19 09:13 Labs: Abnormal Lab Results - Last 24 Hours (Table) 05/14/19 05/14/19 05/15/19 Range/Units 16:31 20:06 06:49 WBC (3.8-10.6) k/uL Neutrophils # (1.3-7.7) k/uL Basophils # (0-0.2) k/uL Sodium (137-145) mmol/L Potassium (3.5-5.1) mmol/L BUN (7-17) mg/dL Creatinine (0.52-1.04) mg/dL Glucose (74-99) mg/dL POC Glucose (mg/dL) 144 H 116 H 102 H (75-99) mg/dL Calcium (8.4-10.2) mg/dL C-Reactive Protein (<10.0) mg/L 05/15/19 05/15/19 05/15/19 Range/Units 09:13 09:13 11:42 WBC 16.9 H (3.8-10.6) k/uL Neutrophils # 13.0 H (1.3-7.7) k/uL Basophils # 0.3 H (0-0.2) k/uL Sodium 132 L (137-145) mmol/L Potassium 3.4 L (3.5-5.1) mmol/L BUN 21 H (7-17) mg/dL Creatinine 2.23 H (0.52-1.04) mg/dL Glucose 119 H (74-99) mg/dL POC Glucose (mg/dL) 136 H (75-99) mg/dL Calcium 7.9 L (8.4-10.2) mg/dL C-Reactive Protein 229.4 H (<10.0) mg/L Microbiology - Last 24 Hours (Table) 05/13/19 14:00 Gram Stain - Final Buttock Wound Culture - Final Klebsiella oxytoca 05/13/19 14:45 Blood Culture - Preliminary Blood No Growth after 24 hours
--- NOTE | 2019-05-15 15:19 | P.PN ---
Subjective Progress Note Date: 05/15/19 This is a 33-year-old female with history of asthma, diabetes mellitus, chronic back pain, nicotine dependence, marijuana use, anxiety, depression, panic attacks and multiple other medical issues presented to the ER with tender left lateral buttock wound worsening over several weeks with copious purulent drainage. He reports wound to making it difficult for her to ambulate, to the point where she is unable to walk to the bathroom, urinating on herself. Reports she does not check her blood sugars, with Accu-Chek of 490 on admission. Afebrile, WBC 12.7. Lactic acid 3.4, received IV fluid hydration, currently down to 1.9. Hemoglobin 12.4. Sodium 131, potassium 3.4. BUN 9, creatinine 0.49. Alk phos elevated to 176. UA reporting 4+ glucose, negative for ketones. Ultrasound of left posterior thigh measuring 5.43.2 cm soft tissue edema, corresponding to phlegmon or developing abscess-limited study. Denies chest pain, palpitations or shortness of breath. Denies lightheadedness, dizziness or focal deficits. Wound and blood cultures obtained. Rocephin and vancomycin IV antibiotics initiated. 05/15/2019 maintained on Zosyn, vancomycin discontinued as per infectious disease. Complete of urinary retention, bladder scanned for [address] of abdomen and pelvis reporting cellulitis and abscess formation without. Rectal involvement, no osteomyelitis, appears to extend further down by. Wound culture reporting gram-negative bacilli. Afebrile, WBC elevated 16.9. Blood sugars con trolled. Hemoglobin A1c pending. Reports pain improving. Objective - Vital Signs Vital signs: Vital Signs Temp 98.0 F 05/15/19 07:00 Pulse 102 H 05/15/19 07:00 Resp 17 05/15/19 07:00 BP 112/68 05/15/19 07:00 Pulse Ox 93 L 05/15/19 07:00 Intake & Output 05/14/19 05/15/19 05/15/19 18:59 06:59 18:59 Intake Total 2200 20 100 Balance 2200 20 100 Intake: IV 2200 Piperacillin-Tazobactam 3 1100 .375 gm In Sodium Chloride 0.9% 100 ml @ 25 mls/hr IVPB Q8HR [facility] Rx# :[id number] Sodium Chloride 0.9% 1, 600 000 ml @ 75 mls/hr IV . [id number] [facility] Rx#:[id number] Vancomycin 1,750 mg In 500 Sodium Chloride 0.9% 500 ml 500 ml @ 167 mls/hr IVPB Q8H [facility] Rx#: [id number] Oral 20 100 Other: Voiding Method Bedpan - Exam PHYSICAL EXAM: VITAL SIGNS: As above GENERAL: Sitting up in bed, no acute distress HEENT: Conjunctivae normal. eyes normal. NECK: No JVD. No thyroid enlargement. No LNs CARDIOVASCULAR: S1, S2 regular.. No murmur RESPIRATION: Breath sounds diminished in the bases. No rhonchi or crackles. No bronchial breathing. ABDOMEN: Obese, Soft, nontender . No guarding. no masses palpable. No ascites, No hepatosplenomegaly.Bowel sounds heard. PSYCHIATRY: Alert and oriented X3, mood and affect normal. NERVOUS SYSTEM: Cranial N 2-12 grossly normal. Moves all 4 limbs. Diffuse weakness No focal deficits. Strength and sensation grossly intact.. Skin: Left posterior lateral buttock abscess, 5.43.2 cm with purulent copious drainage,erythematous. - Labs CBC & Chem 7: 05/15/19 09:13 05/15/19 09:13 Labs: Abnormal Lab Results - Last 24 Hours (Table) 05/14/19 05/14/19 05/14/19 Range/Units 11:09 16:31 20:06 POC Glucose (mg/dL) 269 H 144 H 116 H (75-99) mg/dL 05/15/19 Range/Units 06:49 POC Glucose (mg/dL) 102 H (75-99) mg/dL Microbiology - Last 24 Hours (Table) 05/13/19 14:45 Blood Culture - Preliminary Blood No Growth after 24 hours 05/13/19 14:00 Gram Stain - Preliminary Buttock Wound Culture - Preliminary Gram Neg Bacilli Assessment and Plan Assessment: -Left buttock abscess, culture reporting gram-negative bacilli -Leukocytosis secondary to the above -Lactic acidosis -Diabetes mellitus, hyperglycemia, secondary to infection and noncompliance, hemoglobin A1c pending -Chronic intermittent asthma -Chronic back pain -Anxiety-depression -Panic attacks -Ongoing nicotine dependence -Marijuana use -Morbid obesity, BMI 38.7. Plan: Continue on current medication regime ,monitoring and symptomatic treatment. IV antibiotics as per ID. Wound care, possible I&D as per surgery. Patient declined insulin drip yesterday. Currently maintained on 3 shots protocol. Close monitoring of Accu-Cheks. Hemoglobin A1c pending. Pt/Ot. The impression and plan of care has been dictated as directed. : I performed a history and examination of this patient, discussed the same with the dictator. I agree with the dictator's note ,documented as a scribe. Any additional findings or plans will be noted.
[2019-05-15 17:02] LABS: Glucose,Whole Blood 142 mg/dL (75-99)
[2019-05-15 20:26] LABS: Glucose,Whole Blood 201 mg/dL (75-99)
[2019-05-15 20:49] LABS: Hemoglobin A1C 14.6 % (4.0-6.0)
[2019-05-15] MEDS: DULoxetine HCL 60 MG CAPSULE.DR PO SCH (21:16)
--- NOTE | 2019-05-16 00:22 | PN ---
PROGRESS NOTE DATE OF SERVICE: 05/15/2019. REASON FOR FOLLOWUP: Left gluteal abscess and cellulitis. INTERVAL HISTORY: The patient is currently afebrile. The patient is breathing comfortably. The patient denies having any chest pain or cough. No nausea, vomiting. No abdominal pain or pain to the left scrotal area. PHYSICAL EXAMINATION: Blood pressure is 95/58 with a pulse of 102, temperature 98. She is 94% on room air. General description is a middle-aged female lying in bed in no distress.. Respiratory system: Unlabored breathing and is clear to auscultation anteriorly heart S1, S2. Regular rate and rhythm. ABDOMEN: Soft, no tenderness. Left foot is currently dressed up. No obvious drainage on the dressing. LABS: Hemoglobin is 11.4, white count 16.9. However, the patient did have jump in creatinine to 2.3. DIAGNOSTIC IMPRESSION AND PLAN: Patient with left gluteal abscess, status post spontaneous drainage culture with Klebsiella antibiotic will be adjusted to Rocephin 2 g daily with finish therapy with oral antibiotics. She did have jump in her creatinine,, will need to be monitored closely. Repeat a CBC and BMP tomorrow. Continue supportive care. MMODL / IJN: [id number] /
[2019-05-16] MEDS: PIPERACILLIN-TAZOBACTAM 3.375 GM in SODIUM CHLORIDE 0.9% 100 ML IVPB SCH ×3 (01:24→15:47)
[2019-05-16] MEDS: HEPARIN SODIUM,PORCINE 5,000 UNIT/ML 1 ML VIAL SQ SCH ×4 (01:24→23:38)
[2019-05-16] MEDS: SODIUM CHLORIDE 0.9% 1,000 ML IV SCH ×2 (05:40→20:00)
[2019-05-16] MEDS: HYDROcodone/APAP 10-325MG 1 EACH TAB PO PRN ×3 (05:45→17:53)
[2019-05-16 06:58] LABS: Glucose,Whole Blood 135 mg/dL (75-99)
[2019-05-16] MEDS: INSULIN ASPART (NovoLOG) 100 UNIT/ML VIAL SQ SCH ×3 (07:19→17:53)
--- NOTE | 2019-05-16 09:41 | P.PN ---
Subjective his is a 33-year-old female with history of asthma, diabetes mellitus, chronic back pain, nicotine dependence, marijuana use, anxiety, depression, panic attacks and multiple other medical issues presented to the ER with tender left lateral buttock wound worsening over several weeks with copious purulent drainage. He reports wound to making it difficult for her to ambulate, to the point where she is unable to walk to the bathroom, urinating on herself. Reports she does not check her blood sugars, with Accu-Chek of 490 on admission. Afebrile, WBC 12.7. Lactic acid 3.4, received IV fluid hydration, currently down to 1.9. Hemoglobin 12.4. Sodium 131, potassium 3.4. BUN 9, creatinine 0.49. Alk phos elevated to 176. UA reporting 4+ glucose, negative for ketones. Ultrasound of left posterior thigh measuring 5.43.2 cm soft tissue edema, corresponding to phlegmon or developing abscess-limited study. Denies chest pain, palpitations or shortness of breath. Denies lightheadedness, dizziness or focal deficits. Wound and blood cultures obtained. Rocephin and vancomycin IV antibiotics initiated. 05/16/2019: Patient remains in pain from her abscess to the left thigh. She had possible sepsis on admission and had significant IV fluid hydration. Currently her blood pressure stable. Her oxygen is stable. Her sugars are well contr olled at this time. Her creatinine yesterday was 2.23 with a BUN of 21 and a GFR of 29, this is up from her BUN of 9 and creatinine is 0.49 admission. She currently is on IV fluids at 75 mL an hour. Wound cultures are resulted and positive for Klebsiella. Infectious disease was consult and changed her to Zosyn. Surgery does not want to do an or debridement. He is currently on valsartan for blood pressure along with amlodipine. She denies any chest pains, pressures, shortness of breath. She does indicate she can feel sore all over. No recent nausea or vomiting. Objective - Vital Signs Vital signs: Vital Signs Temp 97.6 F 05/16/19 07:00 Pulse 95 05/16/19 07:00 Resp 12 05/16/19 07:00 BP 101/63 05/16/19 07:00 Pulse Ox 94 L 05/16/19 07:00 Intake & Output 05/15/19 05/16/19 05/16/19 18:59 06:59 18:59 Intake Total 1245 120 140 Output Total 6 Balance 1239 120 140 Intake: IV 625 Piperacillin-Tazobactam 3 100 .375 gm In Sodium Chloride 0.9% 100 ml @ 25 mls/hr IVPB Q8HR [facility] Rx# :[id number] Sodium Chloride 0.9% 1, 525 000 ml @ 75 mls/hr IV . [id number] [facility] Rx#:[id number] Oral 620 120 140 Output: Urine 6 Other: Voiding Method Bedpan Toilet # Voids 1 - Exam GENERAL: She is lying in bed, in minimal distress due to pain, she is morbidly obese NECK: No JVD. No thyroid enlargement. No LNs CARDIOVASCULAR: S1, S2 regular.. No murmur RESPIRATION: Breath sounds diminished in the bases. No rhonchi or crackles. No bronchial breathing. ABDOMEN: Obese, Soft, nontender . Distended due to truncal obesity. No guarding. no masses palpable. No ascites, No hepatosplenomegaly.Bowel sounds heard. PSYCHIATRY: Alert and oriented X3, mood and affect normal. NERVOUS SYSTEM: Cranial N 2-12 grossly normal. Moves all 4 limbs. Diffuse weakness No focal deficits. Strength and sensation grossly intact.. Skin: Left posterior lateral buttock abscess, 5.43.2 cm with purulent copious drainage,erythematous. - Labs CBC & Chem 7: 05/15/19 09:13 05/16/19 06:57 Labs: Abnormal Lab Results - Last 24 Hours (Table) 05/15/19 05/15/19 05/15/19 Range/Units 09:13 09:13 09:13 WBC 16.9 H (3.8-10.6) k/uL Neutrophils # 13.0 H (1.3-7.7) k/uL Basophils # 0.3 H (0-0.2) k/uL Sodium 132 L (137-145) mmol/L Potassium 3.4 L (3.5-5.1) mmol/L BUN 21 H (7-17) mg/dL Creatinine 2.23 H (0.52-1.04) mg/dL Glucose 119 H (74-99) mg/dL POC Glucose (mg/dL) (75-99) mg/dL Hemoglobin A1c 14.6 H (4.0-6.0) % Calcium 7.9 L (8.4-10.2) mg/dL C-Reactive Protein 229.4 H (<10.0) mg/L 05/15/19 05/15/19 05/15/19 Range/Units 11:42 16:57 20:15 WBC (3.8-10.6) k/uL Neutrophils # (1.3-7.7) k/uL Basophils # (0-0.2) k/uL Sodium (137-145) mmol/L Potassium (3.5-5.1) mmol/L BUN (7-17) mg/dL Creatinine (0.52-1.04) mg/dL Glucose (74-99) mg/dL POC Glucose (mg/dL) 136 H 142 H 201 H (75-99) mg/dL Hemoglobin A1c (4.0-6.0) % Calcium (8.4-10.2) mg/dL C-Reactive Protein (<10.0) mg/L 05/16/19 05/16/19 Range/Units 06:56 06:57 WBC (3.8-10.6) k/uL Neutrophils # (1.3-7.7) k/uL Basophils # (0-0.2) k/uL Sodium (137-145) mmol/L Potassium (3.5-5.1) mmol/L BUN (7-17) mg/dL Creatinine 3.65 H (0.52-1.04) mg/dL Glucose (74-99) mg/dL POC Glucose (mg/dL) 135 H (75-99) mg/dL Hemoglobin A1c (4.0-6.0) % Calcium (8.4-10.2) mg/dL C-Reactive Protein (<10.0) mg/L Microbiology - Last 24 Hours (Table) 05/13/19 14:45 Blood Culture - Preliminary Blood No Growth after 48 hours 05/13/19 14:00 Gram Stain - Final Buttock Wound Culture - Final Klebsiella oxytoca Assessment and Plan (1) Type 2 diabetes mellitus with hyperglycemia Current Visit: Yes Status: Acute Code(s): E11.65 - TYPE 2 DIABETES MELLITUS WITH HYPERGLYCEMIA SNOMED Code(s): 989667602601108 (2) Morbid (severe) obesity due to excess calories Current Visit: Yes Status: Acute Code(s): E66.01 - MORBID (SEVERE) OBESITY DUE TO EXCESS CALORIES SNOMED Code(s): 289966921 (3) Depression Current Visit: Yes Status: Acute Code(s): F32.9 - MAJOR DEPRESSIVE DISORDER, SINGLE EPISODE, UNSPECIFIED SNOMED Code(s): 70537422 (4) Dorsalgia of lumbar region Current Visit: Yes Status: Acute Code(s): M54.5 - LOW BACK PAIN SNOMED Code(s): 438551337 (5) Asthma Current Visit: Yes Status: Acute Code(s): J45.909 - UNSPECIFIED ASTHMA, UNCOMPLICATED SNOMED Code(s): 219180490 (6) Acute renal failure Current Visit: Yes Status: Acute Code(s): N17.9 - ACUTE KIDNEY FAILURE, UNSPECIFIED SNOMED Code(s): 48178014 (7) Abscess, gluteal, left Current Visit: Yes Status: Acute Code(s): L02.31 - CUTANEOUS ABSCESS OF BUTTOCK SNOMED Code(s): 14665836 (8) Leukocytosis Current Visit: Yes Status: Acute Code(s): D72.829 - ELEVATED WHITE BLOOD CELL COUNT, UNSPECIFIED SNOMED Code(s): 273408966 Plan: Due to significantly elevated creatinine this morning, I'll consult nephrology, we'll increase the IV fluids 125 mL per hour for 75. I'll discontinue her valsartan. I will bedside probe the wound to break up any loculations as surgery does not want to do an or debridement. We'll continue Aquacel Silver packed in the wound. She may need a wound VAC in the near future. She'll continue on her current pain medications of [place], and NovoLog 14 units before meals await further recommendations from infectious disease. Be reevaluated in the next 24 hours.
--- NOTE | 2019-05-16 09:46 | P.WCPCN ---
Wound Center Open Debridement PREOPERATIVE DIAGNOSES: Left thigh abscess with tunneling POSTOPERATIVE DIAGNOSES: [same] PROCEDURE: Mechanical debridement DESCRIPTION: The full-thickness ulcer, measuring, pre-debridement: 5.4 x 3.2 x 0.3 cm with undermining to 8 cm at 7:00 to 12:00 was debrided to the subcutaneous tissues today to remove yellow fibrinous slough, purulent drainage, and break up the loculations. Post debridement measurements:5.4 x 3.2 x 0.3 cm with undermining to 10 cm at 7:00 to 12:00 There are obvious signs of infection today and this abscess. There are [no] other materials in the wound that he would inhibit healing or promote adjacent tissue breakdown. EXTENT OF NECROTIC TISSUE: 100% DEGREE OF EPITHELIALIZATION: 0% CHARACTER OF WOUND AFTER DEBRIDEMINT: bloody with a great deal of purulent material removed from the wound.. INSTRUMENTATION: Multiple cotton-tipped swabs, and normal saline with 60 mL syringe for irrigation after BLEEDING: [Minimal and controlled with pressure] ANESTHESIA: None at this time DRESSING: AQUACEL ag rope packed in the wound and changed daily as needed depending Amount of drainage. EBD overlying this. Patient tolerated today's procedure well. The patient will be reevaluated in 1 day
[2019-05-16] MEDS: PANTOPRAZOLE 40 MG TABLET PO SCH (10:06)
[2019-05-16] MEDS: amLODIPine 5 MG TAB PO SCH (10:08)
[2019-05-16] MEDS: busPIRone HCl 5 MG TAB PO SCH ×2 (10:08→20:32)
[2019-05-16] MEDS: NICOTINE 21MG/24HR PATCH TRANSDERM SCH (10:08)
[2019-05-16] MEDS: PREGABALIN 75 MG CAP PO SCH ×3 (10:09→21:36)
--- NOTE | 2019-05-16 10:42 | P.PN ---
<Laura Acuna A - Last Filed: 05/16/19 10:37> Subjective Progress Note Date: 05/16/19 CHIEF COMPLAINT: Abscess HISTORY OF PRESENT ILLNESS: Patient examined at the bedside. She continues to reports discomfort to leg wound but states the pain is improved since admission. She is tolerating diet. Denies nausea or vomiting. Creatinine was noted to be 3.65 today. No repeat CBC today. She is afebrile. Cultures positive for Klebsiella oxytoca. PHYSICAL EXAM: VITAL SIGNS: Reviewed. GENERAL: Well-developed in no acute distress. HEENT: No sclera icterus. Extraocular movements grossly intact. Moist buccal mucosa. Head is atraumatic, normocephalic. ABDOMEN: Soft. Nondistended. Nontender. NEUROLOGIC: Alert and oriented. Cranial nerves II through XII grossly intact. SKIN: Quarter sized open wound to left posterior thigh with purulent drainage. Undermining present. Surrounding erythema. Skin surrounding wound indurated. No palpable fluid collection. ASSESSMENT: 1. Left posterior upper thigh abscess PLAN: 1. Continue antibiotics per Infectious disease. 2. Continue local wound care 3. Patient requires tight glucose control. She is noncompliant with her diabetes. certified breastfeeding educator on consult. 4. No surgical intervention recommended at this time 5. Repeat CBC and BMP in AM 6. Case discussed with Dr. Herr at the bedside who reports he will perform bedside debridement of wound. Nephrology consult also placed due to acute renal failure. Nurse practitioner note has been reviewed by physician. Signing provider agrees with the documented findings, assessment, and plan of care. Objective - Vital Signs Vital signs: Vital Signs Temp 97.6 F 05/16/19 07:00 Pulse 95 05/16/19 07:00 Resp 12 05/16/19 07:00 BP 101/63 05/16/19 07:00 Pulse Ox 94 L 05/16/19 07:00 Intake & Output 05/15/19 05/16/19 05/16/19 18:59 06:59 18:59 Intake Total 1245 120 140 Output Total 6 Balance 1239 120 140 Intake: IV 625 Piperacillin-Tazobactam 3 100 .375 gm In Sodium Chloride 0.9% 100 ml @ 25 mls/hr IVPB Q8HR [facility] Rx# :[id number] Sodium Chloride 0.9% 1, 525 000 ml @ 125 mls/hr IV . Q8H [facility] Rx#:[id number] Oral 620 120 140 Output: Urine 6 Other: Voiding Method Bedpan Toilet # Voids 1 # Bowel Movements 1 - Labs CBC & Chem 7: 05/15/19 09:13 05/16/19 06:57 Labs: Abnormal Lab Results - Last 24 Hours (Table) 05/15/19 05/15/19 05/15/19 Range/Units 09:13 09:13 11:42 Creatinine (0.52-1.04) mg/dL POC Glucose (mg/dL) 136 H (75-99) mg/dL Hemoglobin A1c 14.6 H (4.0-6.0) % Creatine Kinase (30-135) U/L C-Reactive Protein 229.4 H (<10.0) mg/L 05/15/19 05/15/19 05/16/19 Range/Units 16:57 20:15 06:56 Creatinine (0.52-1.04) mg/dL POC Glucose (mg/dL) 142 H 201 H 135 H (75-99) mg/dL Hemoglobin A1c (4.0-6.0) % Creatine Kinase (30-135) U/L C-Reactive Protein (<10.0) mg/L 05/16/19 05/16/19 Range/Units 06:57 06:57 Creatinine 3.65 H (0.52-1.04) mg/dL POC Glucose (mg/dL) (75-99) mg/dL Hemoglobin A1c (4.0-6.0) % Creatine Kinase 22 L (30-135) U/L C-Reactive Protein (<10.0) mg/L Microbiology - Last 24 Hours (Table) 05/13/19 14:45 Blood Culture - Preliminary Blood No Growth after 48 hours 05/13/19 14:00 Gram Stain - Final Buttock Wound Culture - Final Klebsiella oxytoca <Mushtaq Torres - Last Filed: 05/16/19 12:46> Subjective As above. Patient without new complaints. Says her pain in the posterior left thigh is improved. Continue local dressing. Switch to cling gauze for now. Objective - Vital Signs Vital signs: Vital Signs Temp 97.6 F 05/16/19 07:00 Pulse 95 05/16/19 08:05 Resp 14 05/16/19 08:05 BP 101/63 11/27/19 07:00 Pulse Ox 94 L 05/16/19 07:00 Intake & Output 05/15/19 05/16/19 05/16/19 18:59 06:59 18:59 Intake Total 1245 120 140 Output Total 6 Balance 1239 120 140 Intake: IV 625 Piperacillin-Tazobactam 3 100 .375 gm In Sodium Chloride 0.9% 100 ml @ 25 mls/hr IVPB Q8HR [facility] Rx# :[id number] Sodium Chloride 0.9% 1, 525 000 ml @ 125 mls/hr IV . Q8H [facility] Rx#:[id number] Oral 620 120 140 Output: Urine 6 Other: Voiding Method Bedpan Toilet Toilet # Voids 1 # Bowel Movements 1 - Labs CBC & Chem 7: 05/15/19 09:13 05/16/19 06:57 Labs: Abnormal Lab Results - Last 24 Hours (Table) 05/15/19 05/15/19 05/15/19 Range/Units 09:13 16:57 20:15 Creatinine (0.52-1.04) mg/dL POC Glucose (mg/dL) 142 H 201 H (75-99) mg/dL Hemoglobin A1c 14.6 H (4.0-6.0) % Creatine Kinase (30-135) U/L 05/16/19 05/16/19 05/16/19 Range/Units 06:56 06:57 06:57 Creatinine 3.65 H (0.52-1.04) mg/dL POC Glucose (mg/dL) 135 H (75-99) mg/dL Hemoglobin A1c (4.0-6.0) % Creatine Kinase 22 L (30-135) U/L 05/16/19 Range/Units 11:18 Creatinine (0.52-1.04) mg/dL POC Glucose (mg/dL) 284 H (75-99) mg/dL Hemoglobin A1c (4.0-6.0) % Creatine Kinase (30-135) U/L Microbiology - Last 24 Hours (Table) 05/13/19 14:45 Blood Culture - Preliminary Blood No Growth after 48 hours 05/13/19 14:00 Gram Stain - Final Buttock Wound Culture - Final Klebsiella oxytoca
[2019-05-16 11:20] LABS: Glucose,Whole Blood 284 mg/dL (75-99)
--- NOTE | 2019-05-16 11:54 | P.NPCON ---
History of Present Illness - Reason for Consult acute renal failure - History of Present Illness Reason for consultation: Acute kidney injury History of present illness: Patient is 33-year-old female seen in renal consultation for acute kidney injury. Patient presented to the hospital due to poor wound on her left buttock. Patient states she felt that she had a pimple which a pop. She was having drainage for several days of different colors. She finally decided to come to the hospital for further care. Patient's creatinine on admission was 0.49 and is up to 3.65 today. She has been voiding. No hematuria or dysuria. Denies chest pain or shortness of breath. She does admit to taking Motrin 2-3 times daily prior to admission for about a month. No family history of renal disease. Patient's blood pressure has been low in the systolic 90s this admission. This morning he was 101/63. Patient's UA reveals no proteinuria and 7 RBCs. She does have history of diabetes mellitus that was diagnosed 4 years ago. She is maintained on Norvasc at this time. Diovan was discontinued on May 15. In terms of antibiotic she is on IV Zosyn. She is also receiving IV fluids with normal saline at 125 mL an hour. Vital signs are stable. General: The patient appeared well nourished and normally developed. HEENT: Head exam is unremarkable. Neck is without jugular venous distension. LUNGS: Lungs are clear to auscultation and percussion. Breath sounds decreased. HEART: Rate and Rhythm are regular. First and second heart sounds normal. No murmurs, rubs or gallops. ABDOMEN: Abdominal exam reveals normal bowel sounds. Non-tender and non- distended. No evidence of peritonitis. EXTREMITITES: Trace edema. Past Medical History Past Medical History: Asthma, Diabetes Mellitus Additional Past Medical History / Comment(s): chronic back pain, one seizure as , enlarged spleen, hiatal hernia, "high red blood cell count", neuropathy [place] feet, MIGRAINE HEADACHE,difficult swallowing History of Any Multi-Drug Resistant Organisms: None Reported Past Surgical History: Cholecystectomy, Hernia Repair, Tonsillectomy Additional Past Surgical History / Comment(s): cyst removed from SIDE neck, COLONOSCOPY, robotic assisted hernia repair- UMBILICAL REPAIR Past Anesthesia/Blood Transfusion Reactions: No Reported Reaction Additional Past Anesthesia/Blood Transfusion Reaction / Comment(s): 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 currently being worked up by oncology Past Psychological History: Anxiety, Depression Additional Psychological History / Comment(s): PANIC ATTACKS Smoking Status: Current every day smoker Past Alcohol Use History: None Reported Additional Past Alcohol Use History / Comment(s): STARTED SMOKING AT AGE 18, SMOKES 1/2 PPD Past Drug Use History: Marijuana - Past Family History Mother Family Medical History: Deep Vein Thrombosis (DVT), Pulmonary Embolus Medications and Allergies Home Medications Medication Instructions Recorded Confirmed Type metFORMIN HCL [Glucophage] 1,000 mg PO BID 09/04/16 05/13/19 History DULoxetine HCL [Cymbalta] 60 mg PO HS 01/25/18 05/13/19 History Medroxyprogesterone Acetate 150 mg IM Q90D 01/25/18 05/13/19 History [Depo-Provera] Omeprazole 20 mg PO DAILY 01/25/18 05/13/19 History Insulin Glargine/Lixisenatide See Protocol SQ HS 02/18/19 05/13/19 History [Sol[place]a 100 Unit-33 Mcg/ml Pen] Pregabalin [Lyrica] 150 mg PO TID 02/18/19 05/13/19 History Ibuprofen [Motrin] 800 mg PO TID PRN 04/03/19 05/13/19 History Valsartan [Diovan] 160 mg PO DAILY 04/03/19 05/13/19 History amLODIPine [Norvasc] 5 mg PO DAILY 04/03/19 05/13/19 History Nicotine Polacrilex [Nicorette] 4 mg BC Q2H PRN 05/13/19 05/13/19 History busPIRone HCl [Buspar] 5 mg PO BID 05/13/19 05/13/19 History Allergies Allergy/AdvReac Type Severity Reaction Status Date / Time amoxicillin AdvReac Severe Nausea & Verified 05/13/19 16:32 Vomiting Tomatoes fresh cut Allergy Rash/Hives Uncoded 05/15/19 16:09 Physical Exam Vitals: Vital Signs Temp Pulse Resp BP BP Pulse Ox 05/16/19 07:00 97.6 F 95 12 101/63 94 L 05/16/19 02:42 98.6 F 105 H 102/65 95 05/15/19 19:35 98 F 102 H 16 95/58 94 L 05/15/19 16:00 100 17 05/15/19 14:40 97.9 F 100 17 104/64 94 L Intake and Output 05/15/19 05/16/19 05/16/19 22:59 06:59 14:59 Intake Total 100 20 140 Output Total 3 Balance 97 20 140 Intake: Oral 100 20 140 Output: Urine 3 Other: Voiding Method Toilet # Voids 1 # Bowel Movements 1 Results - Lab Results Most recent lab results Calcium 7.9 mg/dL (8.4-10.2) L 05/15/19 09:13 05/15/19 09:13 05/16/19 06:57 Assessment and Plan Plan: Assessment: 1. Acute kidney injury secondary to ATN secondary to infection and hypotension. Rule out ALLERGIC interstitial nephritis from antibiotics. No proteinuria on UA. No hydronephrosis noted on CAT scan. Baseline creatinine near 1. 2. Left gluteal abscess maintained on antibiotics. Wound culture positive for Klebsiella. Maintained on IV antibiotics per infectious disease. 3. Diabetes mellitus. Patient's hemoglobin A1c was 14.6 on admission. 4. Benign hypertension. Blood pressure currently in the lower side. Plan: Decreased rate of normal saline to 75 mL an hour. Discontinue all antihypertensives. Quantify proteinuria. Check urine eosinophils. Check bladder scan to rule out underlying urinary retention. Check kidney ultrasound. Continue to monitor renal function and urine output closely. Thank you for the consultation. I will continue to follow the patient with you during her hospital stay.
--- NOTE | 2019-05-16 13:30 | US ---
EXAMINATION TYPE: US kidneys/renal and bladder DATE OF EXAM: 05/16/2019 COMPARISON: CT abdomen pelvis 2 days ago. CLINICAL HISTORY: kirstin. Patient states being in renal failure EXAM MEASUREMENTS: Right Kidney: 14.3 x 7.0 x 6.1 cm Left Kidney: 13.4 x 6.8 x 6.4 cm Right Kidney: No hydronephrosis or masses seen Left Kidney: No hydronephrosis or masses seen Bladder: Mildly distended, very limited visualization Bilateral Jets not seen There is no evidence for hydronephrosis at this point in time. No nephrolithiasis is seen. No marbin s are identified. The urinary bladder is not well visualized. Bilateral ureteral jets are not seen. IMPRESSION: Suboptimal study due to body habitus without gross hydronephrosis seen bilaterally.
[2019-05-16 14:23] VITALS: BMI 38.7
[2019-05-16 16:39] LABS: Glucose,Whole Blood 272 mg/dL (75-99)
--- NOTE | 2019-05-16 19:34 | PN ---
PROGRESS NOTE DATE OF SERVICE: 05/16/2019 REASON FOR FOLLOWUP: Left gluteal wound and abscess. INTERVAL HISTORY: The patient is currently afebrile. The patient is mentioning that Dr. Fonseca did do a bedside debridement of her wound. The patient denies having any chest pain or cough. No nausea, vomiting or abdominal pain or any diarrhea. PHYSICAL EXAMINATION: On examination, her blood pressure is 94/58 with a pulse of 90, temperature 97.6. She is 93% on room air. General description is a middle-aged female lying in bed in no distress. RESPIRATORY SYSTEM: Unlabored breathing. Clear to auscultation anteriorly. HEART: S1, S2. Regular rate and rhythm. ABDOMEN: Soft. No tenderness. Gluteal area is currently dressed up. LABS: Creatinine is up to 3.65. The left buttock wound culture finalized with Klebsiella. DIAGNOSTIC IMPRESSION AND PLAN: Patient with a left gluteal wound as a result of spontaneous drainage of an abscess. The patient is currently covered with Zosyn. Antibiotic was adjusted to Rocephin sensitive pathogen. Local care to continue as ordered. Monitor clinical course closely. Continue with supportive care. MMODL / IJN: [id number] /
[2019-05-16] MEDS: DULoxetine HCL 60 MG CAPSULE.DR PO SCH (20:32)
[2019-05-16 20:49] LABS: Glucose,Whole Blood 266 mg/dL (75-99)
[2019-05-17] MEDS: HYDROcodone/APAP 10-325MG 1 EACH TAB PO PRN ×2 (03:05→13:37)
[2019-05-17 07:17] LABS: Glucose,Whole Blood 204 mg/dL (75-99)
[2019-05-17 08:00] LABS: Basophils % (A) 0 %; Eosinophils # (A) 0.1 k/uL (0-0.7); Eosinophils % (A) 1 %; HGB 10.7 gm/dL (11.4-16.0); Hypochromasia Slight; Lymphocytes # (A) 1.9 k/uL (1.0-4.8); Lymphocytes % (A) 14 %; MCHC 32.4 g/dL (31.0-37.0); MCV 86.4 fL (80.0-100.0); Mean Platelet Volume 6.6; Monocytes # (A) 0.4 k/uL (0-1.0); Monocytes % (A) 3 %; Neutrophils # (A) 10.4 k/uL (1.3-7.7); Neutrophils % (A) 80 %; Platelet Count 370 k/uL (150-450); RBC 3.82 m/uL (3.80-5.40); RDW 14.1 % (11.5-15.5)
[2019-05-17] MEDS: busPIRone HCl 5 MG TAB PO SCH ×2 (08:09→21:15)
[2019-05-17] MEDS: INSULIN ASPART (NovoLOG) 100 UNIT/ML VIAL SQ SCH ×3 (08:09→17:24)
[2019-05-17] MEDS: NICOTINE 21MG/24HR PATCH TRANSDERM SCH (08:09)
[2019-05-17] MEDS: HEPARIN SODIUM,PORCINE 5,000 UNIT/ML 1 ML VIAL SQ SCH ×2 (08:10→15:55)
[2019-05-17] MEDS: PREGABALIN 75 MG CAP PO SCH ×3 (08:10→21:14)
[2019-05-17] MEDS: PANTOPRAZOLE 40 MG TABLET PO SCH (08:10)
[2019-05-17 08:18] LABS: Albumin 2.1 g/dL (3.5-5.0); Calcium 7.8 mg/dL (8.4-10.2); Magnesium 1.8 mg/dL (1.6-2.3); Potassium 3.6 mmol/L (3.5-5.1); Total Bilirubin 0.6 mg/dL (0.2-1.3); Total Protein 4.6 g/dL (6.3-8.2)
[2019-05-17] MEDS: SODIUM CHLORIDE 0.9% 1,000 ML IV SCH ×4 (09:10→22:39)
--- NOTE | 2019-05-17 10:48 | P.PN ---
Subjective Progress Note Date: 05/17/19 Principal diagnosis: This is a 33-year-old female with diabetes mellitus, came in with a left upper thigh abscess and her creatinine which was normal admission for 2 days but subse quently has been going up very rapidly. Her creatinine was 0.4 on 05/13/2019, 0.5 on 05/14/2019, went up to 2.2 on 1126 and is up to 4.75 this morning.. This acute kidney injury is deemed to be from a combination of hypotension, sepsis as well as dye study associated with a CAT scan of the abdomen dated 05/14/2019. Urinalysis benign. Urine protein to creatinine ratio is 24/49. Blood pressures remain in the 90s to 100's range. She is afebrile. She has fair appetite no nausea vomiting no chest pain shortness of breath no cough no fever chills. No abdominal pain no diarrhea. She says is making fair amount of urine. Is not documented how much Objective - Vital Signs Vital signs: Vital Signs Temp 97.4 F L 05/17/19 07:51 Pulse 93 05/17/19 07:51 Resp 16 05/17/19 07:51 BP 98/61 05/17/19 07:51 Pulse Ox 96 05/17/19 07:51 Intake & Output 05/16/19 05/17/19 05/17/19 18:59 06:59 18:59 Intake Total 1610 20 Output Total 350 Balance 1610 -330 Weight 108.862 kg Intake: IV 100 Piperacillin-Tazobactam 3 100 .375 gm In Sodium Chloride 0.9% 100 ml @ 25 mls/hr IVPB Q8HR [facility] Rx# :[id number] Intake, IV Titration 600 Amount Sodium Chloride 0.9% 1, 600 000 ml @ 75 mls/hr IV . [id number] [facility] Rx#:[id number] Oral 910 20 Output: Urine 350 Straight 50 Other: Voiding Method Toilet Toilet # Voids 3 1 1 # Bowel Movements 1 1 On examination she is obese female comfortable not in any distress HEENT exam no JVP neck is supple no facial asymmetry Lungs are clear to auscultation fair air entry bilaterally Heart sounds are unremarkable no murmur rub gallop Abdomen is soft but vaguely tender bowel sounds are present. Extremity exam was trace edema She has a large bandage in her left upper thigh posteriorly which is showing fair amount of drainage. Neurologically awake alert oriented - Labs CBC & Chem 7: 05/17/19 07:30 05/17/19 07:30 Labs: Abnormal Lab Results - Last 24 Hours (Table) 05/16/19 05/16/19 05/16/19 Range/Units 11:18 16:37 20:36 WBC (3.8-10.6) k/uL Hgb (11.4-16.0) gm/dL Hct (34.0-46.0) % Neutrophils # (1.3-7.7) k/uL Sodium (137-145) mmol/L Carbon Dioxide (22-30) mmol/L BUN (7-17) mg/dL Creatinine (0.52-1.04) mg/dL Glucose (74-99) mg/dL POC Glucose (mg/dL) 284 H 272 H 266 H (75-99) mg/dL Calcium (8.4-10.2) mg/dL Alkaline Phosphatase (38-126) U/L Total Protein (6.3-8.2) g/dL Albumin (3.5-5.0) g/dL U Random Total Protein (<12) mg/dL 05/17/19 05/17/19 05/17/19 Range/Units 05:45 07:00 07:30 WBC 13.0 H (3.8-10.6) k/uL Hgb 10.7 L (11.4-16.0) gm/dL Hct 33.0 L (34.0-46.0) % Neutrophils # 10.4 H (1.3-7.7) k/uL Sodium (137-145) mmol/L Carbon Dioxide (22-30) mmol/L BUN (7-17) mg/dL Creatinine (0.52-1.04) mg/dL Glucose (74-99) mg/dL POC Glucose (mg/dL) 204 H (75-99) mg/dL Calcium (8.4-10.2) mg/dL Alkaline Phosphatase (38-126) U/L Total Protein (6.3-8.2) g/dL Albumin (3.5-5.0) g/dL U Random Total Protein 24 H (<12) mg/dL 05/17/19 Range/Units 07:30 WBC (3.8-10.6) k/uL Hgb (11.4-16.0) gm/dL Hct (34.0-46.0) % Neutrophils # (1.3-7.7) k/uL Sodium 132 L (137-145) mmol/L Carbon Dioxide 21 L (22-30) mmol/L BUN 33 H (7-17) mg/dL Creatinine 4.75 H (0.52-1.04) mg/dL Glucose 177 H (74-99) mg/dL POC Glucose (mg/dL) (75-99) mg/dL Calcium 7.8 L (8.4-10.2) mg/dL Alkaline Phosphatase 150 H (38-126) U/L Total Protein 4.6 L (6.3-8.2) g/dL Albumin 2.1 L (3.5-5.0) g/dL U Random Total Protein (<12) mg/dL Microbiology - Last 24 Hours (Table) 05/13/19 14:45 Blood Culture - Preliminary Blood No Growth after 72 hours Assessment and Plan Assessment: Impression 1. Acute kidney injury with ATN, and a rapidly progressive increase in creatinine from 0.5-4.75 in 3 days. This is from hypotension, CT dye and sepsis from the high abscess. Urine protein to creatinine ratio is 24/49, urinalysis shows 7 rbc's 1 WBCs and negative protein on 05/13/2019 prior to her acute kidney injury 2. Mild degree of non-gap acidosis. Bicarb 21 and gap is 10 3. Mild degree of hyponatremia sodium is 132 secondary to acute kidney injury 4. Hypotension secondary to sepsis 5. Obesity Recommendation 1. IV normal saline 100 and hour 2. Repeat urinalysis 3. Check postvoid Restoril 4. Patient has been warned about possible need for dialysis
--- NOTE | 2019-05-17 12:05 | P.PN ---
Subjective his is a 33-year-old female with history of asthma, diabetes mellitus, chronic back pain, nicotine dependence, marijuana use, anxiety, depression, panic attacks and multiple other medical issues presented to the ER with tender left lateral buttock wound worsening over several weeks with copious purulent drainage. He reports wound to making it difficult for her to ambulate, to the point where she is unable to walk to the bathroom, urinating on herself. Reports she does not check her blood sugars, with Accu-Chek of 490 on admission. Afebrile, WBC 12.7. Lactic acid 3.4, received IV fluid hydration, currently down to 1.9. Hemoglobin 12.4. Sodium 131, potassium 3.4. BUN 9, creatinine 0.49. Alk phos elevated to 176. UA reporting 4+ glucose, negative for ketones. Ultrasound of left posterior thigh measuring 5.43.2 cm soft tissue edema, corresponding to phlegmon or developing abscess-limited study. Denies chest pain, palpitations or shortness of breath. Denies lightheadedness, dizziness or focal deficits. Wound and blood cultures obtained. Rocephin and vancomycin IV antibiotics initiated. 05/16/2019: Patient remains in pain from her abscess to the left thigh. She had possible sepsis on admission and had significant IV fluid hydration. Currently her blood pressure stable. Her oxygen is stable. Her sugars are well contr olled at this time. Her creatinine yesterday was 2.23 with a BUN of 21 and a GFR of 29, this is up from her BUN of 9 and creatinine is 0.49 admission. She currently is on IV fluids at 75 mL an hour. Wound cultures are resulted and positive for Klebsiella. Infectious disease was consult and changed her to Zosyn. Surgery does not want to do an or debridement. He is currently on valsartan for blood pressure along with amlodipine. She denies any chest pains, pressures, shortness of breath. She does indicate she can feel sore all over. No recent nausea or vomiting. Number 2019 to This a.m. her BUN is 33 and creatinine is 4.75 and a GFR now of 11. Nephrology had increased her IV fluids. She remains under wound care. I discussed the case with Dr. Diane who recommended changing the packing time to something a little bit more absorbent minimally silver rope had been. It should be at bedside. She denies any chest pains pressures or shortness of breath. She is complaining of ongoing pain to her wound. She indicates she is making urine. Output shows 350 mL the past 8 hours. He is also had a bowel movement past 24 hours. Serum was changed from Zosyn to Rocephin. She o riginally started on vancomycin for antibiotic coverage. Infectious diseases monitoring. Objective - Vital Signs Vital signs: Vital Signs Temp 97.4 F L 05/17/19 07:51 Pulse 93 05/17/19 07:51 Resp 16 05/17/19 07:51 BP 98/61 05/17/19 07:51 Pulse Ox 96 05/17/19 07:51 Intake & Output 05/16/19 05/17/19 05/17/19 18:59 06:59 18:59 Intake Total 1610 20 Output Total 350 Balance 1610 -330 Weight 108.862 kg Intake: IV 100 Piperacillin-Tazobactam 3 100 .375 gm In Sodium Chloride 0.9% 100 ml @ 25 mls/hr IVPB Q8HR [facility] Rx# :[id number] Intake, IV Titration 600 Amount Sodium Chloride 0.9% 1, 600 000 ml @ 75 mls/hr IV . [id number] [facility] Rx#:[id number] Oral 910 20 Output: Urine 350 Straight 50 Other: Voiding Method Toilet Toilet # Voids 3 1 1 # Bowel Movements 1 1 - Exam GENERAL: She is lying in bed, in minimal distress due to pain, she is morbidly obese NECK: No JVD. No thyroid enlargement. No LNs CARDIOVASCULAR: S1, S2 regular.. No murmur RESPIRATION: Breath sounds diminished in the bases. No rhonchi or crackles. No bronchial breathing. ABDOMEN: Obese, Soft, nontender . Distended due to truncal obesity. No guarding. no masses palpable. No ascites, No hepatosplenomegaly.Bowel sounds heard. PSYCHIATRY: Alert and oriented X3, mood and affect normal. NERVOUS SYSTEM: Cranial N 2-12 grossly normal. Moves all 4 limbs. Diffuse weakness No focal deficits. Strength and sensation grossly intact.. Skin: Left posterior lateral buttock abscess, 5.43.2 cm with purulent copious drainage,erythematous. - Labs CBC & Chem 7: 05/17/19 07:30 05/17/19 07:30 Labs: Abnormal Lab Results - Last 24 Hours (Table) 05/16/19 05/16/19 05/17/19 Range/Units 16:37 20:36 05:45 WBC (3.8-10.6) k/uL Hgb (11.4-16.0) gm/dL Hct (34.0-46.0) % Neutrophils # (1.3-7.7) k/uL Sodium (137-145) mmol/L Carbon Dioxide (22-30) mmol/L BUN (7-17) mg/dL Creatinine (0.52-1.04) mg/dL Glucose (74-99) mg/dL POC Glucose (mg/dL) 272 H 266 H (75-99) mg/dL Calcium (8.4-10.2) mg/dL Alkaline Phosphatase (38-126) U/L Total Protein (6.3-8.2) g/dL Albumin (3.5-5.0) g/dL U Random Total Protein 24 H (<12) mg/dL 05/17/19 05/17/19 05/17/19 Range/Units 07:00 07:30 07:30 WBC 13.0 H (3.8-10.6) k/uL Hgb 10.7 L (11.4-16.0) gm/dL Hct 33.0 L (34.0-46.0) % Neutrophils # 10.4 H (1.3-7.7) k/uL Sodium 132 L (137-145) mmol/L Carbon Dioxide 21 L (22-30) mmol/L BUN 33 H (7-17) mg/dL Creatinine 4.75 H (0.52-1.04) mg/dL Glucose 177 H (74-99) mg/dL POC Glucose (mg/dL) 204 H (75-99) mg/dL Calcium 7.8 L (8.4-10.2) mg/dL Alkaline Phosphatase 150 H (38-126) U/L Total Protein 4.6 L (6.3-8.2) g/dL Albumin 2.1 L (3.5-5.0) g/dL U Random Total Protein (<12) mg/dL Microbiology - Last 24 Hours (Table) 05/13/19 14:45 Blood Culture - Preliminary Blood No Growth after 72 hours Assessment and Plan (1) Acute renal failure Current Visit: Yes Status: Acute Code(s): N17.9 - ACUTE KIDNEY FAILURE, UNSPECIFIED SNOMED Code(s): 20776574 (2) Abscess, gluteal, left Current Visit: Yes Status: Acute Code(s): L02.31 - CUTANEOUS ABSCESS OF BUTTOCK SNOMED Code(s): 42186300 (3) Type 2 diabetes mellitus with hyperglycemia Current Visit: Yes Status: Acute Code(s): E11.65 - TYPE 2 DIABETES MELLITUS WITH HYPERGLYCEMIA SNOMED Code(s): 218295041740055 (4) Morbid (severe) obesity due to excess calories Current Visit: Yes Status: Acute Code(s): E66.01 - MORBID (SEVERE) OBESITY DUE TO EXCESS CALORIES SNOMED Code(s): 432279433 (5) Depression Current Visit: Yes Status: Acute Code(s): F32.9 - MAJOR DEPRESSIVE DISORDER, SINGLE EPISODE, UNSPECIFIED SNOMED Code(s): 56324403 (6) Dorsalgia of lumbar region Current Visit: Yes Status: Acute Code(s): M54.5 - LOW BACK PAIN SNOMED Code(s): 127361190 (7) Asthma Current Visit: Yes Status: Acute Code(s): J45.909 - UNSPECIFIED ASTHMA, UNCOMPLICATED SNOMED Code(s): 319568902 (8) Leukocytosis Current Visit: Yes Status: Acute Code(s): D72.829 - ELEVATED WHITE BLOOD CELL COUNT, UNSPECIFIED SNOMED Code(s): 487146827 Plan: Nephrology had seen her and discontinued her Norvasc as well this time. Her IV fluids of an increased 100 mL an hour, after being dropped back to 75. Infectious disease consult was reviewed and she is now on Rocephin. General surgery is following but does not believe any operating room intervention is needed. Nephrology indicates possible need for dialysis if patient doesn't improve.. Repeat labs in a.m. Continue on current wound care. I will add strict I's and O's at this time. She will be reevaluated in the Next 24 hours.
[2019-05-17 12:11] LABS: Glucose,Whole Blood 128 mg/dL (75-99)
--- NOTE | 2019-05-17 12:23 | P.PN ---
Subjective Progress Note Date: 05/17/19 Principal diagnosis: Left leg abscess Patient without new complaints. Says her pain is slightly better. White blood cell count 13 today. She is afebrile. Objective - Vital Signs Vital signs: Vital Signs Temp 97.4 F L 05/17/19 07:51 Pulse 93 05/17/19 07:51 Resp 16 05/17/19 07:51 BP 98/61 05/17/19 07:51 Pulse Ox 96 05/17/19 07:51 Intake & Output 05/16/19 05/17/19 05/17/19 18:59 06:59 18:59 Intake Total 1610 20 Output Total 350 Balance 1610 -330 Weight 108.862 kg Intake: IV 100 Piperacillin-Tazobactam 3 100 .375 gm In Sodium Chloride 0.9% 100 ml @ 25 mls/hr IVPB Q8HR [facility] Rx# :[id number] Intake, IV Titration 600 Amount Sodium Chloride 0.9% 1, 600 000 ml @ 75 mls/hr IV . [id number] [facility] Rx#:[id number] Oral 910 20 Output: Urine 350 Straight 50 Other: Voiding Method Toilet Toilet # Voids 3 1 1 # Bowel Movements 1 1 - Exam Left leg abscess site with purulent drainage, mild tenderness, minimal erythema - Labs CBC & Chem 7: 05/17/19 07:30 05/17/19 07:30 Labs: Abnormal Lab Results - Last 24 Hours (Table) 05/16/19 05/16/19 05/17/19 Range/Units 16:37 20:36 05:45 WBC (3.8-10.6) k/uL Hgb (11.4-16.0) gm/dL Hct (34.0-46.0) % Neutrophils # (1.3-7.7) k/uL Sodium (137-145) mmol/L Carbon Dioxide (22-30) mmol/L BUN (7-17) mg/dL Creatinine (0.52-1.04) mg/dL Glucose (74-99) mg/dL POC Glucose (mg/dL) 272 H 266 H (75-99) mg/dL Calcium (8.4-10.2) mg/dL Alkaline Phosphatase (38-126) U/L Total Protein (6.3-8.2) g/dL Albumin (3.5-5.0) g/dL U Random Total Protein 24 H (<12) mg/dL 05/17/19 05/17/19 05/17/19 Range/Units 07:00 07:30 07:30 WBC 13.0 H (3.8-10.6) k/uL Hgb 10.7 L (11.4-16.0) gm/dL Hct 33.0 L (34.0-46.0) % Neutrophils # 10.4 H (1.3-7.7) k/uL Sodium 132 L (137-145) mmol/L Carbon Dioxide 21 L (22-30) mmol/L BUN 33 H (7-17) mg/dL Creatinine 4.75 H (0.52-1.04) mg/dL Glucose 177 H (74-99) mg/dL POC Glucose (mg/dL) 204 H (75-99) mg/dL Calcium 7.8 L (8.4-10.2) mg/dL Alkaline Phosphatase 150 H (38-126) U/L Total Protein 4.6 L (6.3-8.2) g/dL Albumin 2.1 L (3.5-5.0) g/dL U Random Total Protein (<12) mg/dL 05/17/19 Range/Units 11:50 WBC (3.8-10.6) k/uL Hgb (11.4-16.0) gm/dL Hct (34.0-46.0) % Neutrophils # (1.3-7.7) k/uL Sodium (137-145) mmol/L Carbon Dioxide (22-30) mmol/L BUN (7-17) mg/dL Creatinine (0.52-1.04) mg/dL Glucose (74-99) mg/dL POC Glucose (mg/dL) 128 H (75-99) mg/dL Calcium (8.4-10.2) mg/dL Alkaline Phosphatase (38-126) U/L Total Protein (6.3-8.2) g/dL Albumin (3.5-5.0) g/dL U Random Total Protein (<12) mg/dL Microbiology - Last 24 Hours (Table) 05/13/19 14:45 Blood Culture - Preliminary Blood No Growth after 72 hours Assessment and Plan (1) Abscess, gluteal, left Narrative/Plan: Continue IV antibiotics. Continue local wound care with Janelle gauze. Will evaluate tomorrow. Current Visit: Yes Status: Acute Code(s): L02.31 - CUTANEOUS ABSCESS OF BUTTOCK SNOMED Code(s): 64573725
[2019-05-17] MEDS: diphenhydrAMINE 25 MG CAP PO PRN (15:55)
[2019-05-17 17:05] LABS: Glucose,Whole Blood 227 mg/dL (75-99)
[2019-05-17 20:10] LABS: Glucose,Whole Blood 223 mg/dL (75-99)
[2019-05-17] MEDS: DULoxetine HCL 60 MG CAPSULE.DR PO SCH (21:14)
[2019-05-18] MEDS: HEPARIN SODIUM,PORCINE 5,000 UNIT/ML 1 ML VIAL SQ SCH ×3 (00:31→15:36)
[2019-05-18] MEDS: diphenhydrAMINE 25 MG CAP PO PRN (02:24)
[2019-05-18] MEDS: HYDROcodone/APAP 10-325MG 1 EACH TAB PO PRN ×3 (02:24→17:02)
[2019-05-18 07:13] LABS: Glucose,Whole Blood 254 mg/dL (75-99)
--- NOTE | 2019-05-18 07:35 | P.PN ---
Subjective Progress Note Date: 05/18/19 Principal diagnosis: This is a 33-year-old female with diabetes mellitus, came in with a left posterior upper thigh abscess and her creatinine which was normal admission for 2 days but subsequently has been going up very rapidly. Her creatinine was 0.4 on 05/13/2019, 0.5 on 05/14/2019, went up to 2.2 on 05/15 and is up to 4.75 as of yesterday morning. This acute kidney injury is deemed to be from a combination of hypotension, sepsis as well as dye study associated with a CAT scan of the abdomen dated 05/14/2019. Urinalysis benign. Urine protein to creatinine ratio is 24/49. Blood pressures remain in the 90s to 100's range. She is afebrile. She has fair appetite, had some nausea and might have vomited small amounts once, no chest pain shortness of breath no cough no fever chills. No abdominal pain no diarrhea. She says is making fair amount of urine. Is not documented how much. Today's labs are pending Objective - Vital Signs Vital signs: Vital Signs Temp 99.8 F H 05/18/19 02:57 Pulse 109 H 05/18/19 02:57 Resp 16 05/18/19 02:57 BP 117/66 05/18/19 02:57 Pulse Ox 96 05/18/19 02:57 Intake & Output 05/17/19 05/18/19 05/18/19 18:59 06:59 18:59 Intake Total 20 Balance 20 Intake: Oral 20 Other: # Voids 3 1 # Bowel Movements 1 On examination she is obese female in no distress. HEENT exam no JVP neck is supple no facial asymmetry Lungs are clear to auscultation fair air entry bilaterally Heart sounds are unremarkable for any murmur rub gallop Abdomen soft nontender. Obese Extremity exam was minimal edema on the left with some tenderness in her calf. Right leg is unremarkable Neurologically awake alert oriented - Labs CBC & Chem 7: 05/17/19 07:30 05/17/19 07:30 Labs: Abnormal Lab Results - Last 24 Hours (Table) 05/17/19 05/17/19 05/17/19 Range/Units 07:30 07:30 11:50 WBC 13.0 H (3.8-10.6) k/uL Hgb 10.7 L (11.4-16.0) gm/dL Hct 33.0 L (34.0-46.0) % Neutrophils # 10.4 H (1.3-7.7) k/uL Sodium 132 L (137-145) mmol/L Carbon Dioxide 21 L (22-30) mmol/L BUN 33 H (7-17) mg/dL Creatinine 4.75 H (0.52-1.04) mg/dL Glucose 177 H (74-99) mg/dL POC Glucose (mg/dL) 128 H (75-99) mg/dL Calcium 7.8 L (8.4-10.2) mg/dL Alkaline Phosphatase 150 H (38-126) U/L Total Protein 4.6 L (6.3-8.2) g/dL Albumin 2.1 L (3.5-5.0) g/dL 05/17/19 05/17/19 05/18/19 Range/Units 16:50 19:59 07:02 WBC (3.8-10.6) k/uL Hgb (11.4-16.0) gm/dL Hct (34.0-46.0) % Neutrophils # (1.3-7.7) k/uL Sodium (137-145) mmol/L Carbon Dioxide (22-30) mmol/L BUN (7-17) mg/dL Creatinine (0.52-1.04) mg/dL Glucose (74-99) mg/dL POC Glucose (mg/dL) 227 H 223 H 254 H (75-99) mg/dL Calcium (8.4-10.2) mg/dL Alkaline Phosphatase (38-126) U/L Total Protein (6.3-8.2) g/dL Albumin (3.5-5.0) g/dL Microbiology - Last 24 Hours (Table) 05/13/19 14:45 Blood Culture - Preliminary Blood No Growth after 96 hours Assessment and Plan Assessment: Impression 1. Acute kidney injury with ATN, and a rapidly progressive increase in creatinine from 0.5-4.75 in 3 days. This is from hypotension, CT dye and sepsis from the thigh abscess. Urine protein to creatinine ratio is 24/49, urinalysis shows 7 rbc's 1 WBCs and negative protein on 05/13/2019 prior to her acute kidney injury 2. Mild degree of non-gap acidosis. Bicarb 21 and gap is 10 3. Mild degree of hyponatremia sodium is 132 secondary to acute kidney injury 4. Hypotension secondary to sepsis 5. Obesity Recommendation 1. Continue IV normal saline 100 and hour 2. Repeat urinalysis, ordered yesterday was not done yet 3. Patient has been warned about possible need for dialysis
[2019-05-18] MEDS: NICOTINE 21MG/24HR PATCH TRANSDERM SCH (07:55)
[2019-05-18] MEDS: PREGABALIN 75 MG CAP PO SCH ×3 (07:55→21:30)
[2019-05-18] MEDS: INSULIN ASPART (NovoLOG) 100 UNIT/ML VIAL SQ SCH ×3 (07:55→17:08)
[2019-05-18] MEDS: PANTOPRAZOLE 40 MG TABLET PO SCH (07:56)
[2019-05-18] MEDS: SODIUM CHLORIDE 0.9% 1,000 ML IV SCH ×3 (07:56→17:02)
[2019-05-18] MEDS: busPIRone HCl 5 MG TAB PO SCH ×2 (07:56→20:54)
[2019-05-18 08:34] LABS: Calcium 7.6 mg/dL (8.4-10.2); Magnesium 1.7 mg/dL (1.6-2.3); Potassium 3.9 mmol/L (3.5-5.1)
--- NOTE | 2019-05-18 09:46 | P.PN ---
<Laura Acuna - Last Filed: 05/18/19 09:43> Subjective Progress Note Date: 05/18/19 CHIEF COMPLAINT: Abscess HISTORY OF PRESENT ILLNESS: Patient examined at the bedside. She continues to report generalized pain. Tolerating diet. Denies nausea or vomiting. Creatinine 5.48 today. Patient with low-grade temp overnight 99.8. She is mildly tachycardic this morning. PHYSICAL EXAM: VITAL SIGNS: Reviewed. GENERAL: Well-developed in no acute distress. HEENT: No sclera icterus. Extraocular movements grossly intact. Moist buccal mucosa. Head is atraumatic, normocephalic. ABDOMEN: Soft. Nondistended. Nontender. NEUROLOGIC: Alert and oriented. Cranial nerves II through XII grossly intact. SKIN: Quarter sized open wound to left posterior thigh with purulent drainage. Undermining present. Erythema and induration improved. ASSESSMENT: 1. Left posterior upper thigh abscess PLAN: Continue antibiotics per Infectious disease. Repeat CBC this AM due to tachycardia and low grade fever overnight Continue local wound care. Dressings to be changed every shift No surgical intervention recommended at this time Nurse practitioner note has been reviewed by physician. Signing provider agrees with the documented findings, assessment, and plan of care. Objective - Vital Signs Vital signs: Vital Signs Temp 97.8 F 05/18/19 07:13 Pulse 103 H 05/18/19 07:13 Resp 18 05/18/19 07:13 BP 92/54 05/18/19 07:13 Pulse Ox 96 05/18/19 07:13 Intake & Output 05/17/19 05/18/19 05/18/19 18:59 06:59 18:59 Intake Total 20 180 Balance 20 180 Intake: Oral 20 180 Other: # Voids 3 1 # Bowel Movements 1 - Labs CBC & Chem 7: 05/17/19 07:30 05/18/19 07:07 Labs: Abnormal Lab Results - Last 24 Hours (Table) 05/17/19 05/17/19 05/17/19 Range/Units 11:50 16:50 19:59 Sodium (137-145) mmol/L Carbon Dioxide (22-30) mmol/L BUN (7-17) mg/dL Creatinine (0.52-1.04) mg/dL Glucose (74-99) mg/dL POC Glucose (mg/dL) 128 H 227 H 223 H (75-99) mg/dL Calcium (8.4-10.2) mg/dL 05/18/19 05/18/19 Range/Units 07:02 07:07 Sodium 135 L (137-145) mmol/L Carbon Dioxide 18 L (22-30) mmol/L BUN 37 H (7-17) mg/dL Creatinine 5.48 H (0.52-1.04) mg/dL Glucose 219 H (74-99) mg/dL POC Glucose (mg/dL) 254 H (75-99) mg/dL Calcium 7.6 L (8.4-10.2) mg/dL Microbiology - Last 24 Hours (Table) 05/13/19 14:45 Blood Culture - Preliminary Blood No Growth after 96 hours <Mushtaq Torres - Last Filed: 05/18/19 13:00> Subjective As above. Patient remains relatively inactive. She is MAXIMUM TEMPERATURE 99.8. Creatinine climbing. Continue local wound care. Objective - Vital Signs Vital signs: Vital Signs Temp 97.8 F 05/18/19 07:13 Pulse 103 H 05/18/19 07:13 Resp 18 05/18/19 07:13 BP 92/54 05/18/19 07:13 Pulse Ox 96 05/18/19 07:13 Intake & Output 05/17/19 05/18/19 05/18/19 18:59 06:59 18:59 Intake Total 20 180 Balance 20 180 Intake: Oral 20 180 Other: Voiding Method Toilet # Voids 3 1 # Bowel Movements 1 - Labs CBC & Chem 7: 05/18/19 07:07 05/18/19 07:07 Labs: Abnormal Lab Results - Last 24 Hours (Table) 05/17/19 05/17/19 05/18/19 Range/Units 16:50 19:59 07:02 WBC (3.8-10.6) k/uL RBC (3.80-5.40) m/uL Hgb (11.4-16.0) gm/dL Hct (34.0-46.0) % Neutrophils # (1.3-7.7) k/uL Sodium (137-145) mmol/L Carbon Dioxide (22-30) mmol/L BUN (7-17) mg/dL Creatinine (0.52-1.04) mg/dL Glucose (74-99) mg/dL POC Glucose (mg/dL) 227 H 223 H 254 H (75-99) mg/dL Calcium (8.4-10.2) mg/dL 05/18/19 05/18/19 05/18/19 Range/Units 07:07 07:07 12:07 WBC 17.9 H (3.8-10.6) k/uL RBC 3.68 L (3.80-5.40) m/uL Hgb 10.2 L (11.4-16.0) gm/dL Hct 32.4 L (34.0-46.0) % Neutrophils # 15.1 H (1.3-7.7) k/uL Sodium 135 L (137-145) mmol/L Carbon Dioxide 18 L (22-30) mmol/L BUN 37 H (7-17) mg/dL Creatinine 5.48 H (0.52-1.04) mg/dL Glucose 219 H (74-99) mg/dL POC Glucose (mg/dL) 108 H (75-99) mg/dL Calcium 7.6 L (8.4-10.2) mg/dL Microbiology - Last 24 Hours (Table) 05/13/19 14:45 Blood Culture - Preliminary Blood No Growth after 96 hours Assessment and Plan (1) Abscess, gluteal, left Current Visit: Yes Status: Acute Code(s): L02.31 - CUTANEOUS ABSCESS OF BUTTOCK SNOMED Code(s): 37762241
[2019-05-18 09:53] LABS: Basophils % (A) 0 %; Eosinophils # (A) 0.1 k/uL (0-0.7); Eosinophils % (A) 1 %; HCT 32.4 % (34.0-46.0); HGB 10.2 gm/dL (11.4-16.0); Hypochromasia Slight; Lymphocytes # (A) 2.2 k/uL (1.0-4.8); Lymphocytes % (A) 12 %; MCH 27.6 pg (25.0-35.0); MCHC 31.3 g/dL (31.0-37.0); MCV 88.2 fL (80.0-100.0); Mean Platelet Volume 7.5; Monocytes # (A) 0.4 k/uL (0-1.0); Monocytes % (A) 2 %; Neutrophils # (A) 15.1 k/uL (1.3-7.7); Neutrophils % (A) 84 %; Platelet Count 371 k/uL (150-450); RBC 3.68 m/uL (3.80-5.40); RDW 14.3 % (11.5-15.5); WBC 17.9 k/uL (3.8-10.6)
[2019-05-18 12:20] LABS: Glucose,Whole Blood 108 mg/dL (75-99)
--- NOTE | 2019-05-18 12:37 | P.PN ---
Subjective his is a 33-year-old female with history of asthma, diabetes mellitus, chronic back pain, nicotine dependence, marijuana use, anxiety, depression, panic attacks and multiple other medical issues presented to the ER with tender left lateral buttock wound worsening over several weeks with copious purulent drainage. He reports wound to making it difficult for her to ambulate, to the point where she is unable to walk to the bathroom, urinating on herself. Reports she does not check her blood sugars, with Accu-Chek of 490 on admission. Afebrile, WBC 12.7. Lactic acid 3.4, received IV fluid hydration, currently down to 1.9. Hemoglobin 12.4. Sodium 131, potassium 3.4. BUN 9, creatinine 0.49. Alk phos elevated to 176. UA reporting 4+ glucose, negative for ketones. Ultrasound of left posterior thigh measuring 5.43.2 cm soft tissue edema, corresponding to phlegmon or developing abscess-limited study. Denies chest pain, palpitations or shortness of breath. Denies lightheadedness, dizziness or focal deficits. Wound and blood cultures obtained. Rocephin and vancomycin IV antibiotics initiated. 05/16/2019: Patient remains in pain from her abscess to the left thigh. She had possible sepsis on admission and had significant IV fluid hydration. Currently her blood pressure stable. Her oxygen is stable. Her sugars are well contr olled at this time. Her creatinine yesterday was 2.23 with a BUN of 21 and a GFR of 29, this is up from her BUN of 9 and creatinine is 0.49 admission. She currently is on IV fluids at 75 mL an hour. Wound cultures are resulted and positive for Klebsiella. Infectious disease was consult and changed her to Zosyn. Surgery does not want to do an or debridement. He is currently on valsartan for blood pressure along with amlodipine. She denies any chest pains, pressures, shortness of breath. She does indicate she can feel sore all over. No recent nausea or vomiting. 05/17/2019 to This a.m. her BUN is 33 and creatinine is 4.75 and a GFR now of 11. Nephrology had increased her IV fluids. She remains under wound care. I discussed the case with Dr. Diane who recommended changing the packing time to something a little bit more absorbent minimally silver rope had been. It should be at bedside. She denies any chest pains pressures or shortness of breath. She is complaining of ongoing pain to her wound. She indicates she is making urine. Output shows 350 mL the past 8 hours. He is also had a bowel movement past 24 hours. Serum was changed from Zosyn to Rocephin. She originally started on vancomycin for antibiotic coverage. Infectious diseases monitoring. Number 2018: Patient's creatinine is now up to 5.48. GFR is down to 10. Nephrology is currently following. She remains on wound care. No surgical interventions currently pending. He remains on Rocephin for antibiotic coverage. Is on the insulin scale as sugars are fairly well controlled. She remains on IV fluids at 100 mL per hour. There continues to be a great deal of drainage from her wound. He denies any chest pains, pressures, shortness of breath. Complains of pain in her left leg Objective - Vital Signs Vital signs: Vital Signs Temp 97.8 F 05/18/19 07:13 Pulse 103 H 05/18/19 07:13 Resp 18 05/18/19 07:13 BP 92/54 05/18/19 07:13 Pulse Ox 96 05/18/19 07:13 Intake & Output 05/17/19 05/18/19 05/18/19 18:59 06:59 18:59 Intake Total 20 180 Balance 20 180 Intake: Oral 20 180 Other: Voiding Method Toilet # Voids 3 1 # Bowel Movements 1 - Exam GENERAL: She is lying in bed, in minimal distress due to pain, she is morbidly obese NECK: No JVD. No thyroid enlargement. No LNs CARDIOVASCULAR: S1, S2 regular.. No murmur RESPIRATION: Breath sounds diminished in the bases. No rhonchi or crackles. No bronchial breathing. ABDOMEN: Obese, Soft, nontender . Distended due to truncal obesity. No guarding. no masses palpable. No ascites, No hepatosplenomegaly.Bowel sounds heard. PSYCHIATRY: Alert and oriented X3, mood and affect normal. NERVOUS SYSTEM: Cranial N 2-12 grossly normal. Moves all 4 limbs. Diffuse weakness No focal deficits. Strength and sensation grossly intact.. Skin: Left posterior lateral buttock abscess, 5.43.2 cm with purulent copious drainage, no periwound erythema noted. - Labs CBC & Chem 7: 05/18/19 07:07 05/18/19 07:07 Labs: Abnormal Lab Results - Last 24 Hours (Table) 05/17/19 05/17/19 05/18/19 Range/Units 16:50 19:59 07:02 WBC (3.8-10.6) k/uL RBC (3.80-5.40) m/uL Hgb (11.4-16.0) gm/dL Hct (34.0-46.0) % Neutrophils # (1.3-7.7) k/uL Sodium (137-145) mmol/L Carbon Dioxide (22-30) mmol/L BUN (7-17) mg/dL Creatinine (0.52-1.04) mg/dL Glucose (74-99) mg/dL POC Glucose (mg/dL) 227 H 223 H 254 H (75-99) mg/dL Calcium (8.4-10.2) mg/dL 05/18/19 05/18/19 05/18/19 Range/Units 07:07 07:07 12:07 WBC 17.9 H (3.8-10.6) k/uL RBC 3.68 L (3.80-5.40) m/uL Hgb 10.2 L (11.4-16.0) gm/dL Hct 32.4 L (34.0-46.0) % Neutrophils # 15.1 H (1.3-7.7) k/uL Sodium 135 L (137-145) mmol/L Carbon Dioxide 18 L (22-30) mmol/L BUN 37 H (7-17) mg/dL Creatinine 5.48 H (0.52-1.04) mg/dL Glucose 219 H (74-99) mg/dL POC Glucose (mg/dL) 108 H (75-99) mg/dL Calcium 7.6 L (8.4-10.2) mg/dL Microbiology - Last 24 Hours (Table) 05/13/19 14:45 Blood Culture - Preliminary Blood No Growth after 96 hours Assessment and Plan (1) Acute renal failure Current Visit: Yes Status: Acute Code(s): N17.9 - ACUTE KIDNEY FAILURE, UNSPECIFIED SNOMED Code(s): 76872409 (2) Abscess, gluteal, left Current Visit: Yes Status: Acute Code(s): L02.31 - CUTANEOUS ABSCESS OF BUTTOCK SNOMED Code(s): 93137236 (3) Type 2 diabetes mellitus with hyperglycemia Current Visit: Yes Status: Acute Code(s): E11.65 - TYPE 2 DIABETES MELLITUS WITH HYPERGLYCEMIA SNOMED Code(s): 196683381818881 (4) Morbid (severe) obesity due to excess calories Current Visit: Yes Status: Acute Code(s): E66.01 - MORBID (SEVERE) OBESITY DUE TO EXCESS CALORIES SNOMED Code(s): 814880519 (5) Depression Current Visit: Yes Status: Acute Code(s): F32.9 - MAJOR DEPRESSIVE DISORDER, SINGLE EPISODE, UNSPECIFIED SNOMED Code(s): 75316499 (6) Dorsalgia of lumbar region Current Visit: Yes Status: Acute Code(s): M54.5 - LOW BACK PAIN SNOMED Code(s): 505071618 (7) Asthma Current Visit: Yes Status: Acute Code(s): J45.909 - UNSPECIFIED ASTHMA, UNCOMPLICATED SNOMED Code(s): 345172361 (8) Leukocytosis Current Visit: Yes Status: Acute Code(s): D72.829 - ELEVATED WHITE BLOOD CELL COUNT, UNSPECIFIED SNOMED Code(s): 201471070 Plan: Nephrology is following for acute renal failure. The IV fluids at 100 mL an hour. Infectious disease is following she remains on Rocephin. General surgery is following but does not believe any operating room intervention is needed. Nephrology indicates possible need for dialysis if patient doesn't improve.. Repeat labs in a.m. Continue on current wound care. I will add strict I's and O's at this time. add Dakin solution irrigations daily to the wound. She will be reevaluated in the Next 24 hours.
[2019-05-18] MEDS ORDERED: SODIUM HYPOCHLORITE 0.25% 480 ML BOT MISCELLANE SCH (13:00)
[2019-05-18] MEDS: SODIUM HYPOCHLORITE 0.25% 480 ML BOT MISCELLANE SCH ×3 (14:06→20:54)
[2019-05-18 17:11] LABS: Glucose,Whole Blood 213 mg/dL (75-99)
[2019-05-18] MEDS: DULoxetine HCL 60 MG CAPSULE.DR PO SCH (20:54)
[2019-05-19] MEDS: HEPARIN SODIUM,PORCINE 5,000 UNIT/ML 1 ML VIAL SQ SCH ×4 (00:12→22:55)
[2019-05-19] MEDS: HYDROcodone/APAP 10-325MG 1 EACH TAB PO PRN ×4 (00:12→22:55)
[2019-05-19] MEDS: SODIUM HYPOCHLORITE 0.25% 480 ML BOT MISCELLANE SCH ×2 (00:13→12:02)
[2019-05-19] MEDS: SODIUM CHLORIDE 0.9% 1,000 ML IV SCH ×2 (05:11→12:04)
[2019-05-19 06:48] LABS: Glucose,Whole Blood 123 mg/dL (75-99)
[2019-05-19 07:07] LABS: Basophils % (A) 0 %; Eosinophils # (A) 0.2 k/uL (0-0.7); Eosinophils % (A) 1 %; HCT 31.5 % (34.0-46.0); HGB 9.9 gm/dL (11.4-16.0); Lymphocytes # (A) 2.9 k/uL (1.0-4.8); Lymphocytes % (A) 17 %; MCH 27.8 pg (25.0-35.0); MCHC 31.6 g/dL (31.0-37.0); MCV 87.9 fL (80.0-100.0); Mean Platelet Volume 6.8; Monocytes # (A) 0.5 k/uL (0-1.0); Monocytes % (A) 3 %; Neutrophils # (A) 13.6 k/uL (1.3-7.7); Neutrophils % (A) 78 %; Platelet Count 383 k/uL (150-450); RBC 3.58 m/uL (3.80-5.40); RDW 14.6 % (11.5-15.5); WBC 17.4 k/uL (3.8-10.6)
[2019-05-19] MEDS: PANTOPRAZOLE 40 MG TABLET PO SCH (07:09)
[2019-05-19] MEDS: busPIRone HCl 5 MG TAB PO SCH ×2 (07:09→21:10)
[2019-05-19] MEDS: PREGABALIN 75 MG CAP PO SCH ×3 (07:09→21:11)
[2019-05-19] MEDS: NICOTINE 21MG/24HR PATCH TRANSDERM SCH (07:10)
[2019-05-19] MEDS: INSULIN ASPART (NovoLOG) 100 UNIT/ML VIAL SQ SCH ×3 (07:11→16:51)
[2019-05-19 07:22] LABS: Calcium 7.6 mg/dL (8.4-10.2); Potassium 3.6 mmol/L (3.5-5.1)
[2019-05-19 10:12] LABS: Appearance,Urine Cloudy (Clear); Bacteria,Urine Few /hpf; Bilirubin,Urine Negative (Negative); Blood,Urine Moderate (Negative); Color,Urine Light Yellow; Glucose,Urine (UA) Negative (Negative); Ketones,Urine Negative (Negative); Leukocyte Esterase,Urine Large (Negative); Mucus,Urine Rare /hpf; Nitrite,Urine Negative (Negative); Protein,Urine 1+ (Negative); RBC,Urine 19 /hpf (0-5); Squamous Epithelial Cell,Urine 6 /hpf (0-4); Urobilinogen,Urine <2.0 mg/dL (<2.0); WBC,Urine >182 /hpf (0-5)
--- NOTE | 2019-05-19 10:29 | P.PN ---
Subjective Patient is seen in follow-up for acute kidney injury. Renal function continues to worsen. Creatinine 5.98. She has been voiding. Oral intake is fair. She is maintained on normal saline at 75 mL an hour. Hemodynamically she has been stable although blood pressures remain on the lower side. Vital signs are stable. General: The patient appeared well nourished and normally developed. HEENT: Head exam is unremarkable. Neck is without jugular venous distension. LUNGS: Lungs are clear to auscultation and percussion. Breath sounds decreased. HEART: Rate and Rhythm are regular. First and second heart sounds normal. No murmurs, rubs or gallops. ABDOMEN: Abdominal exam reveals normal bowel sounds. Non-tender and non- distended. No evidence of peritonitis. EXTREMITITES: No clubbing, cyanosis, or edema. Objective - Vital Signs Vital signs: Vital Signs Temp 98.2 F 05/19/19 07:00 Pulse 101 H 05/19/19 07:00 Resp 16 05/19/19 07:00 BP 111/65 05/19/19 07:00 Pulse Ox 97 05/19/19 07:00 Intake & Output 05/18/19 05/19/19 05/19/19 18:59 06:59 18:59 Intake Total 680 825 Output Total 300 400 Balance 680 525 -400 Intake: IV 825 Sodium Chloride 0.9% 1, 825 000 ml @ 75 mls/hr IV . [id number] [facility] Rx#:[id number] Oral 680 Output: Urine 300 400 Other: Voiding Method Toilet Toilet # Voids 1 - Labs CBC & Chem 7: 05/19/19 06:48 05/19/19 06:48 Labs: Abnormal Lab Results - Last 24 Hours (Table) 05/17/19 05/18/19 05/18/19 Range/Units 09:50 12:07 17:00 WBC (3.8-10.6) k/uL RBC (3.80-5.40) m/uL Hgb (11.4-16.0) gm/dL Hct (34.0-46.0) % Neutrophils # (1.3-7.7) k/uL Sodium (137-145) mmol/L Carbon Dioxide (22-30) mmol/L BUN (7-17) mg/dL Creatinine (0.52-1.04) mg/dL Glucose (74-99) mg/dL POC Glucose (mg/dL) 108 H 213 H (75-99) mg/dL Calcium (8.4-10.2) mg/dL Urine Appearance Cloudy H (Clear) Urine Protein 1+ H (Negative) Urine Blood Moderate H (Negative) Ur Leukocyte Esterase Large H (Negative) Urine RBC 19 H (0-5) /hpf Urine WBC >182 H (0-5) /hpf Urine WBC Clumps Many H (None) /hpf Ur Squamous Epith Cells 6 H (0-4) /hpf Urine Bacteria Few H (None) /hpf Urine Mucus Rare H (None) /hpf 05/19/19 05/19/19 05/19/19 Range/Units 06:45 06:48 06:48 WBC 17.4 H (3.8-10.6) k/uL RBC 3.58 L (3.80-5.40) m/uL Hgb 9.9 L (11.4-16.0) gm/dL Hct 31.5 L (34.0-46.0) % Neutrophils # 13.6 H (1.3-7.7) k/uL Sodium 136 L (137-145) mmol/L Carbon Dioxide 21 L (22-30) mmol/L BUN 39 H (7-17) mg/dL Creatinine 5.98 H (0.52-1.04) mg/dL Glucose 112 H (74-99) mg/dL POC Glucose (mg/dL) 123 H (75-99) mg/dL Calcium 7.6 L (8.4-10.2) mg/dL Urine Appearance (Clear) Urine Protein (Negative) Urine Blood (Negative) Ur Leukocyte Esterase (Negative) Urine RBC (0-5) /hpf Urine WBC (0-5) /hpf Urine WBC Clumps (None) /hpf Ur Squamous Epith Cells (0-4) /hpf Urine Bacteria (None) /hpf Urine Mucus (None) /hpf Microbiology - Last 24 Hours (Table) 05/13/19 14:45 Blood Culture - Preliminary Blood No Growth after 120 hours Assessment and Plan Plan: Assessment: 1. Acute kidney injury secondary to ATN secondary to contrast-induced nephropathy, infection and hypotension. Rule out ALLERGIC interstitial nephritis from antibiotics - urine eosinophils negative. No proteinuria on initial UA but repeat UA does show 1+ proteinuria. UPC 0.48. No hydronephrosis noted on CAT scan/Uls. Baseline creatinine near 1. 2. Left gluteal abscess maintained on antibiotics. Wound culture positive for Klebsiella. Maintained on IV antibiotics per infectious disease. 3. Diabetes mellitus. Patient's hemoglobin A1c was 14.6 on admission. 4. Benign hypertension. Blood pressure currently in the lower side. Plan: Maintain normal saline at 75 mL an hour. Remains off all antihypertensives. Check serologies. Continue to monitor renal function and urine output closely. No urgent need for renal replacement therapy at this time. Start prednisone 20 mg twice daily.
--- NOTE | 2019-05-19 11:51 | P.PN ---
Subjective Progress Note Date: 05/19/19 Principal diagnosis: Left leg abscess Patient's kidney function has increased slightly. White blood cell count remains elevated at 17.4. She is afebrile. Mild tachycardia. Says her pain left thigh improving. Objective - Vital Signs Vital signs: Vital Signs Temp 98.2 F 05/19/19 07:00 Pulse 101 H 05/19/19 07:00 Resp 16 05/19/19 07:00 BP 111/65 05/19/19 07:00 Pulse Ox 97 05/19/19 07:00 Intake & Output 05/18/19 05/19/19 05/19/19 18:59 06:59 18:59 Intake Total 680 825 Output Total 300 620 Balance 680 525 -620 Intake: IV 825 Sodium Chloride 0.9% 1, 825 000 ml @ 75 mls/hr IV . [id number] [facility] Rx#:[id number] Oral 680 Output: Urine 300 620 Other: Voiding Method Toilet Toilet # Voids 1 - Exam Left thigh abscess site with slightly decreased drainage, mild tenderness, no erythema - Labs CBC & Chem 7: 05/19/19 06:48 05/19/19 06:48 Labs: Abnormal Lab Results - Last 24 Hours (Table) 05/17/19 05/18/19 05/18/19 Range/Units 09:50 12:07 17:00 WBC (3.8-10.6) k/uL RBC (3.80-5.40) m/uL Hgb (11.4-16.0) gm/dL Hct (34.0-46.0) % Neutrophils # (1.3-7.7) k/uL Sodium (137-145) mmol/L Carbon Dioxide (22-30) mmol/L BUN (7-17) mg/dL Creatinine (0.52-1.04) mg/dL Glucose (74-99) mg/dL POC Glucose (mg/dL) 108 H 213 H (75-99) mg/dL Calcium (8.4-10.2) mg/dL Urine Appearance Cloudy H (Clear) Urine Protein 1+ H (Negative) Urine Blood Moderate H (Negative) Ur Leukocyte Esterase Large H (Negative) Urine RBC 19 H (0-5) /hpf Urine WBC >182 H (0-5) /hpf Urine WBC Clumps Many H (None) /hpf Ur Squamous Epith Cells 6 H (0-4) /hpf Urine Bacteria Few H (None) /hpf Urine Mucus Rare H (None) /hpf 05/19/19 05/19/19 05/19/19 Range/Units 06:45 06:48 06:48 WBC 17.4 H (3.8-10.6) k/uL RBC 3.58 L (3.80-5.40) m/uL Hgb 9.9 L (11.4-16.0) gm/dL Hct 31.5 L (34.0-46.0) % Neutrophils # 13.6 H (1.3-7.7) k/uL Sodium 136 L (137-145) mmol/L Carbon Dioxide 21 L (22-30) mmol/L BUN 39 H (7-17) mg/dL Creatinine 5.98 H (0.52-1.04) mg/dL Glucose 112 H (74-99) mg/dL POC Glucose (mg/dL) 123 H (75-99) mg/dL Calcium 7.6 L (8.4-10.2) mg/dL Urine Appearance (Clear) Urine Protein (Negative) Urine Blood (Negative) Ur Leukocyte Esterase (Negative) Urine RBC (0-5) /hpf Urine WBC (0-5) /hpf Urine WBC Clumps (None) /hpf Ur Squamous Epith Cells (0-4) /hpf Urine Bacteria (None) /hpf Urine Mucus (None) /hpf Microbiology - Last 24 Hours (Table) 05/13/19 14:45 Blood Culture - Preliminary Blood No Growth after 120 hours Assessment and Plan (1) Abscess, gluteal, left Narrative/Plan: Continue appropriate antibiotics. Continue local wound care. Will follow. Current Visit: Yes Status: Acute Code(s): L02.31 - CUTANEOUS ABSCESS OF BUTTOCK SNOMED Code(s): 12902449
[2019-05-19 11:53] LABS: Glucose,Whole Blood 120 mg/dL (75-99)
[2019-05-19] MEDS: predniSONE 20 MG TAB PO SCH ×2 (12:02→21:11)
--- NOTE | 2019-05-19 12:44 | P.PN ---
Subjective his is a 33-year-old female with history of asthma, diabetes mellitus, chronic back pain, nicotine dependence, marijuana use, anxiety, depression, panic attacks and multiple other medical issues presented to the ER with tender left lateral buttock wound worsening over several weeks with copious purulent drainage. He reports wound to making it difficult for her to ambulate, to the point where she is unable to walk to the bathroom, urinating on herself. Reports she does not check her blood sugars, with Accu-Chek of 490 on admission. Afebrile, WBC 12.7. Lactic acid 3.4, received IV fluid hydration, currently down to 1.9. Hemoglobin 12.4. Sodium 131, potassium 3.4. BUN 9, creatinine 0.49. Alk phos elevated to 176. UA reporting 4+ glucose, negative for ketones. Ultrasound of left posterior thigh measuring 5.43.2 cm soft tissue edema, corresponding to phlegmon or developing abscess-limited study. Denies chest pain, palpitations or shortness of breath. Denies lightheadedness, dizziness or focal deficits. Wound and blood cultures obtained. Rocephin and vancomycin IV antibiotics initiated. 05/16/2019: Patient remains in pain from her abscess to the left thigh. She had possible sepsis on admission and had significant IV fluid hydration. Currently her blood pressure stable. Her oxygen is stable. Her sugars are well contr olled at this time. Her creatinine yesterday was 2.23 with a BUN of 21 and a GFR of 29, this is up from her BUN of 9 and creatinine is 0.49 admission. She currently is on IV fluids at 75 mL an hour. Wound cultures are resulted and positive for Klebsiella. Infectious disease was consult and changed her to Zosyn. Surgery does not want to do an or debridement. He is currently on valsartan for blood pressure along with amlodipine. She denies any chest pains, pressures, shortness of breath. She does indicate she can feel sore all over. No recent nausea or vomiting. 05/17/2019 to This a.m. her BUN is 33 and creatinine is 4.75 and a GFR now of 11. Nephrology had increased her IV fluids. She remains under wound care. I discussed the case with Dr. Diane who recommended changing the packing time to something a little bit more absorbent minimally silver rope had been. It should be at bedside. She denies any chest pains pressures or shortness of breath. She is complaining of ongoing pain to her wound. She indicates she is making urine. Output shows 350 mL the past 8 hours. He is also had a bowel movement past 24 hours. Serum was changed from Zosyn to Rocephin. She originally started on vancomycin for antibiotic coverage. Infectious diseases monitoring. May 18 2019: Patient's creatinine is now up to 5.48. GFR is down to 10. Nephrology is currently following. She remains on wound care. No surgical interventions currently pending. He remains on Rocephin for antibiotic coverage. Is on the insulin scale as sugars are fairly well controlled. She remains on IV fluids at 100 mL per hour. There continues to be a great deal of drainage from her wound. He denies any chest pains, pressures, shortness of breath. Complains of pain in her left leg 05/19/2019: Patient's creatinine is now 5.98 him a GFR is 9 nephrology is following and their recommendations were noted today. She continues on Aquacel Silver rope packing into the wound. We added Dakin solution irrigations and dressing changes yesterday. She denies any ongoing chest pressure shortness of breath nausea vomiting. She complains of generalized pain in her chest and arms and legs and just overall feeling of stiffness and achiness. She remains on Rocephin for IV antibiotic coverage. She is on heparin subcutaneous for anticoagulation. She remains on insulin and IV fluids. Objective - Vital Signs Vital signs: Vital Signs Temp 98.2 F 05/19/19 07:00 Pulse 101 H 05/19/19 07:00 Resp 16 05/19/19 07:00 BP 111/65 05/19/19 07:00 Pulse Ox 97 05/19/19 07:00 Intake & Output 05/18/19 05/19/19 05/19/19 18:59 06:59 18:59 Intake Total 680 825 Output Total 300 620 Balance 680 525 -620 Intake: IV 825 Sodium Chloride 0.9% 1, 825 000 ml @ 75 mls/hr IV . [id number] [facility] Rx#:[id number] Oral 680 Output: Urine 300 620 Other: Voiding Method Toilet Toilet # Voids 1 - Exam GENERAL: She is lying in bed, in minimal distress due to pain, she is morbidly obese NECK: No JVD. No thyroid enlargement. No LNs CARDIOVASCULAR: S1, S2 regular.. No murmur RESPIRATION: Breath sounds diminished in the bases. No rhonchi or crackles. No bronchial breathing. ABDOMEN: Obese, Soft, nontender . Distended due to truncal obesity. No guarding. no masses palpable. No ascites, No hepatosplenomegaly.Bowel sounds heard. PSYCHIATRY: Alert and oriented X3, mood and affect normal. NERVOUS SYSTEM: Cranial N 2-12 grossly normal. Moves all 4 limbs. Diffuse weakness No focal deficits. Strength and sensation grossly intact.. Skin: Left posterior lateral buttock abscess, 5.43.2 cm with purulent copious drainage, no periwound erythema noted. - Labs CBC & Chem 7: 05/19/19 06:48 05/19/19 06:48 Labs: Abnormal Lab Results - Last 24 Hours (Table) 05/17/19 05/18/19 05/19/19 Range/Units 09:50 17:00 06:45 WBC (3.8-10.6) k/uL RBC (3.80-5.40) m/uL Hgb (11.4-16.0) gm/dL Hct (34.0-46.0) % Neutrophils # (1.3-7.7) k/uL Sodium (137-145) mmol/L Carbon Dioxide (22-30) mmol/L BUN (7-17) mg/dL Creatinine (0.52-1.04) mg/dL Glucose (74-99) mg/dL POC Glucose (mg/dL) 213 H 123 H (75-99) mg/dL Calcium (8.4-10.2) mg/dL Urine Appearance Cloudy H (Clear) Urine Protein 1+ H (Negative) Urine Blood Moderate H (Negative) Ur Leukocyte Esterase Large H (Negative) Urine RBC 19 H (0-5) /hpf Urine WBC >182 H (0-5) /hpf Urine WBC Clumps Many H (None) /hpf Ur Squamous Epith Cells 6 H (0-4) /hpf Urine Bacteria Few H (None) /hpf Urine Mucus Rare H (None) /hpf 05/19/19 05/19/19 05/19/19 Range/Units 06:48 06:48 11:50 WBC 17.4 H (3.8-10.6) k/uL RBC 3.58 L (3.80-5.40) m/uL Hgb 9.9 L (11.4-16.0) gm/dL Hct 31.5 L (34.0-46.0) % Neutrophils # 13.6 H (1.3-7.7) k/uL Sodium 136 L (137-145) mmol/L Carbon Dioxide 21 L (22-30) mmol/L BUN 39 H (7-17) mg/dL Creatinine 5.98 H (0.52-1.04) mg/dL Glucose 112 H (74-99) mg/dL POC Glucose (mg/dL) 120 H (75-99) mg/dL Calcium 7.6 L (8.4-10.2) mg/dL Urine Appearance (Clear) Urine Protein (Negative) Urine Blood (Negative) Ur Leukocyte Esterase (Negative) Urine RBC (0-5) /hpf Urine WBC (0-5) /hpf Urine WBC Clumps (None) /hpf Ur Squamous Epith Cells (0-4) /hpf Urine Bacteria (None) /hpf Urine Mucus (None) /hpf Microbiology - Last 24 Hours (Table) 05/13/19 14:45 Blood Culture - Preliminary Blood No Growth after 120 hours Assessment and Plan (1) Acute renal failure Current Visit: Yes Status: Acute Code(s): N17.9 - ACUTE KIDNEY FAILURE, UNSPECIFIED SNOMED Code(s): 47685568 (2) Abscess, gluteal, left Current Visit: Yes Status: Acute Code(s): L02.31 - CUTANEOUS ABSCESS OF BUTTOCK SNOMED Code(s): 58229242 (3) Type 2 diabetes mellitus with hyperglycemia Current Visit: Yes Status: Acute Code(s): E11.65 - TYPE 2 DIABETES MELLITUS WITH HYPERGLYCEMIA SNOMED Code(s): 445215363154221 (4) Morbid (severe) obesity due to excess calories Current Visit: Yes Status: Acute Code(s): E66.01 - MORBID (SEVERE) OBESITY DUE TO EXCESS CALORIES SNOMED Code(s): 492326749 (5) Depression Current Visit: Yes Status: Acute Code(s): F32.9 - MAJOR DEPRESSIVE DISORDER, SINGLE EPISODE, UNSPECIFIED SNOMED Code(s): 38002978 (6) Dorsalgia of lumbar region Current Visit: Yes Status: Acute Code(s): M54.5 - LOW BACK PAIN SNOMED Code(s): 780060922 (7) Asthma Current Visit: Yes Status: Acute Code(s): J45.909 - UNSPECIFIED ASTHMA, UNCOMPLICATED SNOMED Code(s): 395557839 (8) Leukocytosis Current Visit: Yes Status: Acute Code(s): D72.829 - ELEVATED WHITE BLOOD CELL COUNT, UNSPECIFIED SNOMED Code(s): 027169510 Plan: Nephrology is following for acute renal failure. The IV fluids at 100 mL an hour. Infectious disease is following she remains on Rocephin. General surgery is following but does not believe any operating room intervention is needed. Nephrology indicates her dialysis at this time, continue IV fluids and added prednisone. Repeat labs in a.m. Continue on current wound care. I will add strict I's and O's at this time. Streeter catheter to gravity Continue Dakin solution She will be reevaluated in the Next 24 hours.
[2019-05-19 15:20] LABS: Appearance,Urine Cloudy (Clear); Bacteria,Urine Occasional /hpf; Bilirubin,Urine Negative (Negative); Blood,Urine Moderate (Negative); Color,Urine Light Yellow; Glucose,Urine (UA) Negative (Negative); Ketones,Urine Negative (Negative); Leukocyte Esterase,Urine Large (Negative); Nitrite,Urine Negative (Negative); Protein,Urine 1+ (Negative); RBC,Urine 12 /hpf (0-5); Squamous Epithelial Cell,Urine 7 /hpf (0-4); Urobilinogen,Urine <2.0 mg/dL (<2.0); WBC,Urine >182 /hpf (0-5)
[2019-05-19 16:37] LABS: Glucose,Whole Blood 134 mg/dL (75-99)
[2019-05-19 20:40] LABS: Glucose,Whole Blood 229 mg/dL (75-99)
[2019-05-19] MEDS: DULoxetine HCL 60 MG CAPSULE.DR PO SCH (21:10)
[2019-05-20] MEDS: SODIUM CHLORIDE 0.9% 1,000 ML IV SCH ×3 (03:13→20:59)
[2019-05-20] MEDS: HYDROcodone/APAP 10-325MG 1 EACH TAB PO PRN ×3 (04:23→20:54)
[2019-05-20] MEDS: NICOTINE 21MG/24HR PATCH TRANSDERM SCH (05:07)
[2019-05-20 06:48] LABS: Glucose,Whole Blood 260 mg/dL (75-99)
[2019-05-20 06:57] LABS: Basophils % (A) 0 %; Eosinophils % (A) 0 %; HCT 30.1 % (34.0-46.0); HGB 9.5 gm/dL (11.4-16.0); Lymphocytes # (A) 1.4 k/uL (1.0-4.8); Lymphocytes % (A) 8 %; MCH 27.6 pg (25.0-35.0); MCHC 31.6 g/dL (31.0-37.0); MCV 87.5 fL (80.0-100.0); Mean Platelet Volume 7.5; Monocytes # (A) 0.3 k/uL (0-1.0); Monocytes % (A) 2 %; Neutrophils # (A) 15.6 k/uL (1.3-7.7); Neutrophils % (A) 89 %; Platelet Count 395 k/uL (150-450); RBC 3.44 m/uL (3.80-5.40); RDW 14.4 % (11.5-15.5); WBC 17.5 k/uL (3.8-10.6)
[2019-05-20 07:09] LABS: Calcium 7.5 mg/dL (8.4-10.2); Magnesium 1.7 mg/dL (1.6-2.3); Potassium 4.4 mmol/L (3.5-5.1)
[2019-05-20] MEDS: busPIRone HCl 5 MG TAB PO SCH ×2 (08:01→20:54)
[2019-05-20] MEDS: predniSONE 20 MG TAB PO SCH ×2 (08:02→20:53)
[2019-05-20] MEDS: INSULIN ASPART (NovoLOG) 100 UNIT/ML VIAL SQ SCH ×3 (08:02→17:43)
[2019-05-20] MEDS: PREGABALIN 75 MG CAP PO SCH ×3 (08:02→20:53)
[2019-05-20] MEDS: HEPARIN SODIUM,PORCINE 5,000 UNIT/ML 1 ML VIAL SQ SCH ×2 (08:02→15:32)
[2019-05-20] MEDS: PANTOPRAZOLE 40 MG TABLET PO SCH (08:02)
--- NOTE | 2019-05-20 10:46 | P.PN ---
Subjective Progress Note Date: 05/20/19 Principal diagnosis: Left leg abscess Patient without new complaints. Streeter catheter was placed yesterday. White blood cell count remains elevated at 17. Creatinine unchanged as well. Urine is clear in color. Says her left thigh pain is definitely improving. Objective - Vital Signs Vital signs: Vital Signs Temp 97.8 F 05/20/19 07:00 Pulse 89 05/20/19 07:00 Resp 18 05/20/19 07:00 BP 103/59 05/20/19 07:00 Pulse Ox 91 L 05/20/19 07:00 Intake & Output 05/19/19 05/20/19 05/20/19 18:59 06:59 18:59 Intake Total 444 1880 Output Total 720 925 Balance -276 955 Intake: Intake, IV Titration 900 Amount Sodium Chloride 0.9% 1, 900 000 ml @ 100 mls/hr IV . Q10H [facility] Rx#:[id number] Oral 444 980 Output: Urine 720 925 Other: Voiding Method Indwelling Catheter Indwelling Catheter # Bowel Movements 1 - Exam Left thigh wound smaller, decreased drainage, mild tenderness - Labs CBC & Chem 7: 05/20/19 06:38 05/20/19 06:38 Labs: Abnormal Lab Results - Last 24 Hours (Table) 05/19/19 05/19/19 05/19/19 Range/Units 11:50 13:00 16:36 WBC (3.8-10.6) k/uL RBC (3.80-5.40) m/uL Hgb (11.4-16.0) gm/dL Hct (34.0-46.0) % Neutrophils # (1.3-7.7) k/uL Chloride (98-107) mmol/L Carbon Dioxide (22-30) mmol/L BUN (7-17) mg/dL Creatinine (0.52-1.04) mg/dL Glucose (74-99) mg/dL POC Glucose (mg/dL) 120 H 134 H (75-99) mg/dL Calcium (8.4-10.2) mg/dL Urine Appearance Cloudy H (Clear) Urine Protein 1+ H (Negative) Urine Blood Moderate H (Negative) Ur Leukocyte Esterase Large H (Negative) Urine RBC 12 H (0-5) /hpf Urine WBC >182 H (0-5) /hpf Urine WBC Clumps Many H (None) /hpf Ur Squamous Epith Cells 7 H (0-4) /hpf Urine Bacteria Occasional H (None) /hpf 05/19/19 05/20/19 05/20/19 Range/Units 20:38 06:38 06:38 WBC 17.5 H (3.8-10.6) k/uL RBC 3.44 L (3.80-5.40) m/uL Hgb 9.5 L (11.4-16.0) gm/dL Hct 30.1 L (34.0-46.0) % Neutrophils # 15.6 H (1.3-7.7) k/uL Chloride 109 H (98-107) mmol/L Carbon Dioxide 18 L (22-30) mmol/L BUN 42 H (7-17) mg/dL Creatinine 5.96 H (0.52-1.04) mg/dL Glucose 229 H (74-99) mg/dL POC Glucose (mg/dL) 229 H (75-99) mg/dL Calcium 7.5 L (8.4-10.2) mg/dL Urine Appearance (Clear) Urine Protein (Negative) Urine Blood (Negative) Ur Leukocyte Esterase (Negative) Urine RBC (0-5) /hpf Urine WBC (0-5) /hpf Urine WBC Clumps (None) /hpf Ur Squamous Epith Cells (0-4) /hpf Urine Bacteria (None) /hpf 05/20/19 Range/Units 06:47 WBC (3.8-10.6) k/uL RBC (3.80-5.40) m/uL Hgb (11.4-16.0) gm/dL Hct (34.0-46.0) % Neutrophils # (1.3-7.7) k/uL Chloride (98-107) mmol/L Carbon Dioxide (22-30) mmol/L BUN (7-17) mg/dL Creatinine (0.52-1.04) mg/dL Glucose (74-99) mg/dL POC Glucose (mg/dL) 260 H (75-99) mg/dL Calcium (8.4-10.2) mg/dL Urine Appearance (Clear) Urine Protein (Negative) Urine Blood (Negative) Ur Leukocyte Esterase (Negative) Urine RBC (0-5) /hpf Urine WBC (0-5) /hpf Urine WBC Clumps (None) /hpf Ur Squamous Epith Cells (0-4) /hpf Urine Bacteria (None) /hpf Microbiology - Last 24 Hours (Table) 05/13/19 14:45 Blood Culture - Final Blood No Growth after 144 hours Assessment and Plan (1) Abscess, gluteal, left Narrative/Plan: Continue IV antibiotics for left thigh abscess. Continue local wound care. Monitor elevated creatinine. Current Visit: Yes Status: Acute Code(s): L02.31 - CUTANEOUS ABSCESS OF BUTTOCK SNOMED Code(s): 72225478
[2019-05-20 11:36] LABS: Glucose,Whole Blood 259 mg/dL (75-99)
--- NOTE | 2019-05-20 11:37 | P.PN ---
Subjective This is a 33-year-old female with history of asthma, diabetes mellitus, chronic back pain, nicotine dependence, marijuana use, anxiety, depression, panic attacks and multiple other medical issues presented to the ER with tender left lateral buttock wound worsening over several weeks with copious purulent drainage. He reports wound to making it difficult for her to ambulate, to the point where she is unable to walk to the bathroom, urinating on herself. Reports she does not check her blood sugars, with Accu-Chek of 490 on admission. Afebrile, WBC 12.7. Lactic acid 3.4, received IV fluid hydration, currently down to 1.9. Hemoglobin 12.4. Sodium 131, potassium 3.4. BUN 9, creatinine 0.49. Alk phos elevated to 176. UA reporting 4+ glucose, negative for ketones. Ultrasound of left posterior thigh measuring 5.43.2 cm soft tissue edema, corresponding to phlegmon or developing abscess-limited study. Denies chest pain, palpitations or shortness of breath. Denies lightheadedness, dizziness or focal deficits. Wound and blood cultures obtained. Rocephin and vancomycin IV antibiotics initiated. 05/16/2019: Patient remains in pain from her abscess to the left thigh. She had possible sepsis on admission and had significant IV fluid hydration. Currently her blood pressure stable. Her oxygen is stable. Her sugars are well cont rolled at this time. Her creatinine yesterday was 2.23 with a BUN of 21 and a GFR of 29, this is up from her BUN of 9 and creatinine is 0.49 admission. She currently is on IV fluids at 75 mL an hour. Wound cultures are resulted and positive for Klebsiella. Infectious disease was consult and changed her to Zosyn. Surgery does not want to do an or debridement. He is currently on valsartan for blood pressure along with amlodipine. She denies any chest pains, pressures, shortness of breath. She does indicate she can feel sore all over. No recent nausea or vomiting. 05/17/2019 to This a.m. her BUN is 33 and creatinine is 4.75 and a GFR now of 11. Nephrology had increased her IV fluids. She remains under wound care. I discussed the case with Dr. Diane who recommended changing the packing time to something a little bit more absorbent minimally silver rope had been. It should be at bedside. She denies any chest pains pressures or shortness of breath. She is complaining of ongoing pain to her wound. She indicates she is making urine. Output shows 350 mL the past 8 hours. He is also had a bowel movement past 24 hours. Serum was changed from Zosyn to Rocephin. She originally started on vancomycin for antibiotic coverage. Infectious diseases monitoring. May 18 2019: Patient's creatinine is now up to 5.48. GFR is down to 10. Nephrology is currently following. She remains on wound care. No surgical interventions currently pending. He remains on Rocephin for antibiotic coverage. Is on the insulin scale as sugars are fairly well controlled. She remains on IV fluids at 100 mL per hour. There continues to be a great deal of drainage from her wound. He denies any chest pains, pressures, shortness of breath. Complains of pain in her left leg 05/19/2019: Patient's creatinine is now 5.98 him a GFR is 9 nephrology is following and their recommendations were noted today. She continues on Aquacel Silver rope packing into the wound. We added Dakin solution irrigations and dressing changes yesterday. She denies any ongoing chest pressure shortness of breath nausea vomiting. She complains of generalized pain in her chest and arms and legs and just overall feeling of stiffness and achiness. She remains on Rocephin for IV antibiotic coverage. She is on heparin subcutaneous for anticoagulation. She remains on insulin and IV fluids. 05/20/2019: Patient remains afebrile and other vitals remained stable. She has a persistent leukocytosis with left shift. Her acute renal failure is about the same today. GFR is 9. Creatinine 5.96. Glucoses remained somewhat stable. She agreed a Streeter catheter yesterday was placed. Straw-colored urine was found in the Streeter bag today. The urinalysis showed moderate blood large leukocytes negative nitrates large WBCs. Occasional bacteria. Blood cultures negative, she remains on Rocephin 2 g daily per infectious disease for Klebsiella wound infection. She continues to have Aquacel silver rope packing in her wound with dressing changes at least once a day and Dakin solution irrigations and dressing changes. There is much less than wound discharge today. Objective - Vital Signs Vital signs: Vital Signs Temp 97.8 F 05/20/19 07:00 Pulse 89 05/20/19 07:00 Resp 18 05/20/19 07:00 BP 175/115 05/20/19 11:08 Pulse Ox 91 L 05/20/19 07:00 Intake & Output 05/19/19 05/20/19 05/20/19 18:59 06:59 18:59 Intake Total 444 1880 Output Total 720 925 Balance -276 955 Intake: Intake, IV Titration 900 Amount Sodium Chloride 0.9% 1, 900 000 ml @ 100 mls/hr IV . Q10H [facility] Rx#:[id number] Oral 444 980 Output: Urine 720 925 Other: Voiding Method Indwelling Catheter Indwelling Catheter # Bowel Movements 1 - Exam GENERAL: She is lying in bed, in minimal distress due to pain, she is morbidly obese NECK: No JVD. No thyroid enlargement. No LNs CARDIOVASCULAR: S1, S2 regular.. No murmur RESPIRATION: Breath sounds diminished in the bases. No rhonchi or crackles. No bronchial breathing. ABDOMEN: Obese, Soft, nontender . Distended due to truncal obesity. No guarding. no masses palpable. No ascites, No hepatosplenomegaly.Bowel sounds heard. PSYCHIATRY: Alert and oriented X3, mood and affect normal. NERVOUS SYSTEM: Cranial N 2-12 grossly normal. Moves all 4 limbs. Diffuse weakness No focal deficits. Strength and sensation grossly intact.. Skin: Left posterior lateral buttock abscess, 5.43.2 cm with noticeably less drainage, no periwound erythema noted. - Labs CBC & Chem 7: 05/20/19 06:38 05/20/19 06:38 Labs: Abnormal Lab Results - Last 24 Hours (Table) 05/19/19 05/19/19 05/19/19 Range/Units 11:50 13:00 16:36 WBC (3.8-10.6) k/uL RBC (3.80-5.40) m/uL Hgb (11.4-16.0) gm/dL Hct (34.0-46.0) % Neutrophils # (1.3-7.7) k/uL Chloride (98-107) mmol/L Carbon Dioxide (22-30) mmol/L BUN (7-17) mg/dL Creatinine (0.52-1.04) mg/dL Glucose (74-99) mg/dL POC Glucose (mg/dL) 120 H 134 H (75-99) mg/dL Calcium (8.4-10.2) mg/dL Urine Appearance Cloudy H (Clear) Urine Protein 1+ H (Negative) Urine Blood Moderate H (Negative) Ur Leukocyte Esterase Large H (Negative) Urine RBC 12 H (0-5) /hpf Urine WBC >182 H (0-5) /hpf Urine WBC Clumps Many H (None) /hpf Ur Squamous Epith Cells 7 H (0-4) /hpf Urine Bacteria Occasional H (None) /hpf 05/19/19 05/20/19 05/20/19 Range/Units 20:38 06:38 06:38 WBC 17.5 H (3.8-10.6) k/uL RBC 3.44 L (3.80-5.40) m/uL Hgb 9.5 L (11.4-16.0) gm/dL Hct 30.1 L (34.0-46.0) % Neutrophils # 15.6 H (1.3-7.7) k/uL Chloride 109 H (98-107) mmol/L Carbon Dioxide 18 L (22-30) mmol/L BUN 42 H (7-17) mg/dL Creatinine 5.96 H (0.52-1.04) mg/dL Glucose 229 H (74-99) mg/dL POC Glucose (mg/dL) 229 H (75-99) mg/dL Calcium 7.5 L (8.4-10.2) mg/dL Urine Appearance (Clear) Urine Protein (Negative) Urine Blood (Negative) Ur Leukocyte Esterase (Negative) Urine RBC (0-5) /hpf Urine WBC (0-5) /hpf Urine WBC Clumps (None) /hpf Ur Squamous Epith Cells (0-4) /hpf Urine Bacteria (None) /hpf 05/20/19 Range/Units 06:47 WBC (3.8-10.6) k/uL RBC (3.80-5.40) m/uL Hgb (11.4-16.0) gm/dL Hct (34.0-46.0) % Neutrophils # (1.3-7.7) k/uL Chloride (98-107) mmol/L Carbon Dioxide (22-30) mmol/L BUN (7-17) mg/dL Creatinine (0.52-1.04) mg/dL Glucose (74-99) mg/dL POC Glucose (mg/dL) 260 H (75-99) mg/dL Calcium (8.4-10.2) mg/dL Urine Appearance (Clear) Urine Protein (Negative) Urine Blood (Negative) Ur Leukocyte Esterase (Negative) Urine RBC (0-5) /hpf Urine WBC (0-5) /hpf Urine WBC Clumps (None) /hpf Ur Squamous Epith Cells (0-4) /hpf Urine Bacteria (None) /hpf Microbiology - Last 24 Hours (Table) 05/13/19 14:45 Blood Culture - Final Blood No Growth after 144 hours Assessment and Plan (1) Sepsis due to Klebsiella Current Visit: Yes Status: Acute Code(s): A41.4 - SEPSIS DUE TO ANAEROBES SNOMED Code(s): 902388849 (2) Acute renal failure Current Visit: Yes Status: Acute Code(s): N17.9 - ACUTE KIDNEY FAILURE, UNSPECIFIED SNOMED Code(s): 12963718 (3) Abscess, gluteal, left Current Visit: Yes Status: Acute Code(s): L02.31 - CUTANEOUS ABSCESS OF BUTTOCK SNOMED Code(s): 64411074 (4) Type 2 diabetes mellitus with hyperglycemia Current Visit: Yes Status: Acute Code(s): E11.65 - TYPE 2 DIABETES MELLITUS WITH HYPERGLYCEMIA SNOMED Code(s): 578498123744696 (5) Morbid (severe) obesity due to excess calories Current Visit: Yes Status: Acute Code(s): E66.01 - MORBID (SEVERE) OBESITY DUE TO EXCESS CALORIES SNOMED Code(s): 577899898 (6) Depression Current Visit: Yes Status: Acute Code(s): F32.9 - MAJOR DEPRESSIVE DISORDER, SINGLE EPISODE, UNSPECIFIED SNOMED Code(s): 35553647 (7) Dorsalgia of lumbar region Current Visit: Yes Status: Acute Code(s): M54.5 - LOW BACK PAIN SNOMED Code(s): 465641134 (8) Asthma Current Visit: Yes Status: Acute Code(s): J45.909 - UNSPECIFIED ASTHMA, UNCOMPLICATED SNOMED Code(s): 948518837 (9) Leukocytosis Current Visit: Yes Status: Acute Code(s): D72.829 - ELEVATED WHITE BLOOD CELL COUNT, UNSPECIFIED SNOMED Code(s): 393594511 Plan: Nephrology is following for acute renal failure. The IV fluids at 100 mL an hour. Infectious disease is following she remains on Rocephin. General surgery is following but does not believe any operating room int ervention is needed. Nephrology indicates her dialysis at this time, continue IV fluids and predn isone. Repeat labs in a.m. Continue on current wound care.Continue Dakin's solution Continue Streeter catheter She will be reevaluated in the Next 24 hours.
[2019-05-20] MEDS: SODIUM HYPOCHLORITE 0.25% 480 ML BOT MISCELLANE SCH (12:00)
--- NOTE | 2019-05-20 12:54 | P.PN ---
Subjective Patient is seen in follow-up for acute kidney injury. Renal function stable - creatinine 5.96 today. Streeter catheter was placed yesterday. Urine output 1.6 L in the last 24 hours. Oral intake is fair. She is maintained on normal saline at 75 mL an hour. Hemodynamically she has been stable although blood pressures remain on the lower side. Vital signs are stable. General: The patient appeared well nourished and normally developed. HEENT: Head exam is unremarkable. Neck is without jugular venous distension. LUNGS: Lungs are clear to auscultation and percussion. Breath sounds decreased. HEART: Rate and Rhythm are regular. First and second heart sounds normal. No murmurs, rubs or gallops. ABDOMEN: Abdominal exam reveals normal bowel sounds. Non-tender and non- distended. No evidence of peritonitis. EXTREMITITES: No clubbing, cyanosis, or edema. Objective - Vital Signs Vital signs: Vital Signs Temp 97.8 F 05/20/19 07:00 Pulse 89 05/20/19 07:00 Resp 18 05/20/19 07:00 BP 175/115 05/20/19 11:08 Pulse Ox 91 L 05/20/19 07:00 Intake & Output 05/19/19 05/20/19 05/20/19 18:59 06:59 18:59 Intake Total 444 1880 Output Total 720 925 420 Balance -276 955 -420 Intake: Intake, IV Titration 900 Amount Sodium Chloride 0.9% 1, 900 000 ml @ 100 mls/hr IV . Q10H [facility] Rx#:[id number] Oral 444 980 Output: Urine 720 925 420 Other: Voiding Method Indwelling Catheter Indwelling Catheter # Voids 1 # Bowel Movements 1 - Labs CBC & Chem 7: 05/20/19 06:38 05/20/19 06:38 Labs: Abnormal Lab Results - Last 24 Hours (Table) 05/19/19 05/19/19 05/19/19 Range/Units 13:00 16:36 20:38 WBC (3.8-10.6) k/uL RBC (3.80-5.40) m/uL Hgb (11.4-16.0) gm/dL Hct (34.0-46.0) % Neutrophils # (1.3-7.7) k/uL Chloride (98-107) mmol/L Carbon Dioxide (22-30) mmol/L BUN (7-17) mg/dL Creatinine (0.52-1.04) mg/dL Glucose (74-99) mg/dL POC Glucose (mg/dL) 134 H 229 H (75-99) mg/dL Calcium (8.4-10.2) mg/dL Urine Appearance Cloudy H (Clear) Urine Protein 1+ H (Negative) Urine Blood Moderate H (Negative) Ur Leukocyte Esterase Large H (Negative) Urine RBC 12 H (0-5) /hpf Urine WBC >182 H (0-5) /hpf Urine WBC Clumps Many H (None) /hpf Ur Squamous Epith Cells 7 H (0-4) /hpf Urine Bacteria Occasional H (None) /hpf 05/20/19 05/20/19 05/20/19 Range/Units 06:38 06:38 06:47 WBC 17.5 H (3.8-10.6) k/uL RBC 3.44 L (3.80-5.40) m/uL Hgb 9.5 L (11.4-16.0) gm/dL Hct 30.1 L (34.0-46.0) % Neutrophils # 15.6 H (1.3-7.7) k/uL Chloride 109 H (98-107) mmol/L Carbon Dioxide 18 L (22-30) mmol/L BUN 42 H (7-17) mg/dL Creatinine 5.96 H (0.52-1.04) mg/dL Glucose 229 H (74-99) mg/dL POC Glucose (mg/dL) 260 H (75-99) mg/dL Calcium 7.5 L (8.4-10.2) mg/dL Urine Appearance (Clear) Urine Protein (Negative) Urine Blood (Negative) Ur Leukocyte Esterase (Negative) Urine RBC (0-5) /hpf Urine WBC (0-5) /hpf Urine WBC Clumps (None) /hpf Ur Squamous Epith Cells (0-4) /hpf Urine Bacteria (None) /hpf 05/20/19 Range/Units 11:35 WBC (3.8-10.6) k/uL RBC (3.80-5.40) m/uL Hgb (11.4-16.0) gm/dL Hct (34.0-46.0) % Neutrophils # (1.3-7.7) k/uL Chloride (98-107) mmol/L Carbon Dioxide (22-30) mmol/L BUN (7-17) mg/dL Creatinine (0.52-1.04) mg/dL Glucose (74-99) mg/dL POC Glucose (mg/dL) 259 H (75-99) mg/dL Calcium (8.4-10.2) mg/dL Urine Appearance (Clear) Urine Protein (Negative) Urine Blood (Negative) Ur Leukocyte Esterase (Negative) Urine RBC (0-5) /hpf Urine WBC (0-5) /hpf Urine WBC Clumps (None) /hpf Ur Squamous Epith Cells (0-4) /hpf Urine Bacteria (None) /hpf Microbiology - Last 24 Hours (Table) 05/13/19 14:45 Blood Culture - Final Blood No Growth after 144 hours Assessment and Plan Plan: Assessment: 1. Acute kidney injury secondary to ATN secondary to contrast-induced nephropathy, infection and hypotension. Rule out ALLERGIC interstitial nephritis from antibiotics - urine eosinophils negative. No proteinuria on initial UA but repeat UA does show 1+ proteinuria. UPC 0.48. No hydronephrosis noted on CAT scan/Uls. Baseline creatinine near 1. 2. Left gluteal abscess maintained on antibiotics. Wound culture positive for Klebsiella. Maintained on IV antibiotics per infectious disease. 3. Diabetes mellitus. Patient's hemoglobin A1c was 14.6 on admission. 4. Benign hypertension. Stable. 5. Metabolic acidosis secondary to acute kidney injury. Plan: Maintain normal saline at 75 mL an hour. Remains off all antihypertensives. Follow-up serologies. Continue to monitor renal function and urine output closely. No urgent need for renal replacement therapy at this time. Started prednisone 20 mg twice daily on May 19. Add oral sodium bicarbonate.
[2019-05-20] MEDS: SODIUM BICARBONATE TAB 650 MG TAB PO SCH ×2 (15:32→21:13)
[2019-05-20 17:12] LABS: Glucose,Whole Blood 281 mg/dL (75-99)
[2019-05-20 20:23] LABS: Glucose,Whole Blood 291 mg/dL (75-99)
[2019-05-20] MEDS: DULoxetine HCL 60 MG CAPSULE.DR PO SCH (20:53)
[2019-05-21] MEDS: metroNIDAZOLE 500 MG TAB PO SCH ×4 (01:27→21:20)
--- NOTE | 2019-05-21 02:02 | PN ---
PROGRESS NOTE DATE OF SERVICE: 05/20/2019. REASON FOR FOLLOWUP: Left gluteal abscess and cellulitis. INTERVAL HISTORY: The patient is currently afebrile. She is breathing comfortably. Overall pain to the left gluteal area has improved. No nausea, vomiting, abdominal pain, did have a urine output, though no worsening of her kidney function. PHYSICAL EXAMINATION: Blood pressure 135/84 with a pulse of 98, temperature 97.9. She is 97% on room air. General description is a middle age female lying in bed in no distress. Respiratory system: Unlabored breathing, clear to auscultation anteriorly. Heart S1, S2. Regular rate and rhythm. Abdomen soft. No tenderness. Left leg wound is currently packed up. LABS: Hemoglobin is 9.5, white count 17.5. BUN of 42, creatinine 5.96. DIAGNOSTIC IMPRESSION AND PLAN: Patient with left gluteal abscess with spontaneous drainage. Cultures with Klebsiella. Currently covered with Rocephin with persistent elevated white count. Some of it could be related to steroids the patient is on with underlying anaerobic bacteria not entirely excluded. We will add Flagyl. Local care to continue with Dakin solution. Monitor clinical course closely. MMODL / IJN: [id number] /
[2019-05-21] MEDS: SODIUM CHLORIDE 0.9% 1,000 ML IV SCH ×2 (05:22→16:38)
[2019-05-21 06:53] LABS: Basophils % (A) 0 %; Eosinophils % (A) 0 %; HCT 33.1 % (34.0-46.0); HGB 10.2 gm/dL (11.4-16.0); Hypochromasia Slight; Lymphocytes # (A) 2.4 k/uL (1.0-4.8); Lymphocytes % (A) 11 %; MCH 27.4 pg (25.0-35.0); MCHC 30.7 g/dL (31.0-37.0); MCV 89.3 fL (80.0-100.0); Mean Platelet Volume 6.8; Monocytes # (A) 0.5 k/uL (0-1.0); Monocytes % (A) 2 %; Neutrophils # (A) 17.9 k/uL (1.3-7.7); Neutrophils % (A) 85 %; Platelet Count 464 k/uL (150-450); RBC 3.71 m/uL (3.80-5.40); RDW 14.9 % (11.5-15.5); WBC 21.1 k/uL (3.8-10.6)
[2019-05-21 06:57] LABS: Glucose,Whole Blood 233 mg/dL (75-99)
[2019-05-21] MEDS: INSULIN ASPART (NovoLOG) 100 UNIT/ML VIAL SQ SCH ×3 (07:29→17:49)
[2019-05-21] MEDS: busPIRone HCl 5 MG TAB PO SCH ×2 (07:30→21:20)
[2019-05-21] MEDS: PANTOPRAZOLE 40 MG TABLET PO SCH (07:30)
[2019-05-21] MEDS: PREGABALIN 75 MG CAP PO SCH ×3 (07:30→21:20)
[2019-05-21] MEDS: HEPARIN SODIUM,PORCINE 5,000 UNIT/ML 1 ML VIAL SQ SCH ×4 (07:30→23:13)
[2019-05-21] MEDS: predniSONE 20 MG TAB PO SCH ×2 (07:30→21:20)
[2019-05-21] MEDS: NICOTINE 21MG/24HR PATCH TRANSDERM SCH (07:30)
[2019-05-21 07:34] LABS: Calcium 8.1 mg/dL (8.4-10.2); Magnesium 1.7 mg/dL (1.6-2.3); Potassium 4.8 mmol/L (3.5-5.1)
[2019-05-21 10:53] LABS: Anti-DNA, DS unit <1.0 IU/mL; DNA Double-Stranded NEGATIVE (NEGATIVE)
[2019-05-21 11:31] LABS: Glucose,Whole Blood 218 mg/dL (75-99)
[2019-05-21] MEDS: SODIUM HYPOCHLORITE 0.25% 480 ML BOT MISCELLANE SCH (12:35)
[2019-05-21 12:51] LABS: Protein, Total 4.9 g/dL (6.2-8.2)
[2019-05-21 12:52] LABS: Hepatitis A Antibody IgM Non-Reactive (Non-Reactive); Hepatitis B Core IgM Non-Reactive (Non-Reactive); Hepatitis B Surface Antigen Non-Reactive (Non-Reactive); Hepatitis C IgG Antibody Non-Reactive (Non-Reactive)
--- NOTE | 2019-05-21 13:25 | P.PN ---
Subjective Progress Note Date: 05/21/19 CHIEF COMPLAINT: Abscess HISTORY OF PRESENT ILLNESS: Patient examined at the bedside. She continues to report generalized pain. Tolerating diet. Denies nausea or vomiting. PHYSICAL EXAM: VITAL SIGNS: Reviewed. GENERAL: Well-developed in no acute distress. HEENT: No sclera icterus. Extraocular movements grossly intact. Moist buccal mucosa. Head is atraumatic, normocephalic. ABDOMEN: Soft. Nondistended. Nontender. NEUROLOGIC: Alert and oriented. Cranial nerves II through XII grossly intact. SKIN: Open wound to left posterior thigh with purulent drainage. ASSESSMENT: 1. Left posterior upper thigh abscess PLAN: Continue antibiotics per Infectious disease. Continue local wound care with Aquacel silver and Dakin solution irrigation. Dressings to be changed every shift No surgical intervention recommended at this time Nurse practitioner note has been reviewed by physician. Signing provider agrees with the documented findings, assessment, and plan of care. Objective - Vital Signs Vital signs: Vital Signs Temp 97.9 F 05/21/19 07:00 Pulse 95 05/21/19 07:00 Resp 12 05/21/19 07:00 BP 141/66 05/21/19 07:00 Pulse Ox 91 L 05/21/19 07:00 Intake & Output 05/20/19 05/21/19 05/21/19 18:59 06:59 18:59 Intake Total 600 1740 250 Output Total 420 2425 800 Balance 180 -685 -550 Intake: IV 600 300 Sodium Chloride 0.9% 1, 600 300 000 ml @ 75 mls/hr IV . [id number] [facility] Rx#:[id number] Oral 1440 250 Output: Urine 420 2425 800 Straight 550 Other: Voiding Method Indwelling Catheter Indwelling Catheter Indwelling Catheter # Voids 1 # Bowel Movements 1 1 - Labs CBC & Chem 7: 05/21/19 06:27 05/21/19 06:27 Labs: Abnormal Lab Results - Last 24 Hours (Table) 05/20/19 05/20/19 05/20/19 Range/Units 06:38 17:11 20:20 WBC (3.8-10.6) k/uL RBC (3.80-5.40) m/uL Hgb (11.4-16.0) gm/dL Hct (34.0-46.0) % MCHC (31.0-37.0) g/dL Plt Count (150-450) k/uL Neutrophils # (1.3-7.7) k/uL Chloride (98-107) mmol/L Carbon Dioxide (22-30) mmol/L BUN (7-17) mg/dL Creatinine (0.52-1.04) mg/dL Glucose (74-99) mg/dL POC Glucose (mg/dL) 281 H 291 H (75-99) mg/dL Calcium (8.4-10.2) mg/dL Total Protein (PEP) 4.9 L (6.2-8.2) g/dL 05/21/19 05/21/19 05/21/19 Range/Units 06:27 06:27 06:56 WBC 21.1 H (3.8-10.6) k/uL RBC 3.71 L (3.80-5.40) m/uL Hgb 10.2 L (11.4-16.0) gm/dL Hct 33.1 L (34.0-46.0) % MCHC 30.7 L (31.0-37.0) g/dL Plt Count 464 H (150-450) k/uL Neutrophils # 17.9 H (1.3-7.7) k/uL Chloride 109 H (98-107) mmol/L Carbon Dioxide 20 L (22-30) mmol/L BUN 47 H (7-17) mg/dL Creatinine 5.51 H (0.52-1.04) mg/dL Glucose 219 H (74-99) mg/dL POC Glucose (mg/dL) 233 H (75-99) mg/dL Calcium 8.1 L (8.4-10.2) mg/dL Total Protein (PEP) (6.2-8.2) g/dL 05/21/19 Range/Units 11:29 WBC (3.8-10.6) k/uL RBC (3.80-5.40) m/uL Hgb (11.4-16.0) gm/dL Hct (34.0-46.0) % MCHC (31.0-37.0) g/dL Plt Count (150-450) k/uL Neutrophils # (1.3-7.7) k/uL Chloride (98-107) mmol/L Carbon Dioxide (22-30) mmol/L BUN (7-17) mg/dL Creatinine (0.52-1.04) mg/dL Glucose (74-99) mg/dL POC Glucose (mg/dL) 218 H (75-99) mg/dL Calcium (8.4-10.2) mg/dL Total Protein (PEP) (6.2-8.2) g/dL
--- NOTE | 2019-05-21 14:37 | P.PN ---
Subjective Patient is seen in follow-up for acute kidney injury. Renal function a little improved - creatinine 5.51 today. Streeter catheter has been removed. She has been voiding. Oral intake is fair. She is maintained on normal saline at 75 mL an hour. Hemodynamically she has been stable. Vital signs are stable. General: The patient appeared well nourished and normally developed. HEENT: Head exam is unremarkable. Neck is without jugular venous distension. LUNGS: Lungs are clear to auscultation and percussion. Breath sounds decreased. HEART: Rate and Rhythm are regular. First and second heart sounds normal. No murmurs, rubs or gallops. ABDOMEN: Abdominal exam reveals normal bowel sounds. Non-tender and non- distended. No evidence of peritonitis. EXTREMITITES: No clubbing, cyanosis, or edema. Objective - Vital Signs Vital signs: Vital Signs Temp 97.9 F 05/21/19 07:00 Pulse 95 05/21/19 07:00 Resp 12 05/21/19 07:00 BP 141/66 05/21/19 07:00 Pulse Ox 91 L 05/21/19 07:00 Intake & Output 05/20/19 05/21/19 05/21/19 18:59 06:59 18:59 Intake Total 600 1740 250 Output Total 420 2425 800 Balance 180 -685 -550 Intake: IV 600 300 Sodium Chloride 0.9% 1, 600 300 000 ml @ 75 mls/hr IV . [id number] [facility] Rx#:[id number] Oral 1440 250 Output: Urine 420 2425 800 Straight 550 Other: Voiding Method Indwelling Catheter Indwelling Catheter Indwelling Catheter # Voids 1 # Bowel Movements 1 1 - Labs CBC & Chem 7: 05/21/19 06:27 05/21/19 06:27 Labs: Abnormal Lab Results - Last 24 Hours (Table) 05/20/19 05/20/19 05/20/19 Range/Units 06:38 17:11 20:20 WBC (3.8-10.6) k/uL RBC (3.80-5.40) m/uL Hgb (11.4-16.0) gm/dL Hct (34.0-46.0) % MCHC (31.0-37.0) g/dL Plt Count (150-450) k/uL Neutrophils # (1.3-7.7) k/uL Chloride (98-107) mmol/L Carbon Dioxide (22-30) mmol/L BUN (7-17) mg/dL Creatinine (0.52-1.04) mg/dL Glucose (74-99) mg/dL POC Glucose (mg/dL) 281 H 291 H (75-99) mg/dL Calcium (8.4-10.2) mg/dL Total Protein (PEP) 4.9 L (6.2-8.2) g/dL 05/21/19 05/21/19 05/21/19 Range/Units 06:27 06:27 06:56 WBC 21.1 H (3.8-10.6) k/uL RBC 3.71 L (3.80-5.40) m/uL Hgb 10.2 L (11.4-16.0) gm/dL Hct 33.1 L (34.0-46.0) % MCHC 30.7 L (31.0-37.0) g/dL Plt Count 464 H (150-450) k/uL Neutrophils # 17.9 H (1.3-7.7) k/uL Chloride 109 H (98-107) mmol/L Carbon Dioxide 20 L (22-30) mmol/L BUN 47 H (7-17) mg/dL Creatinine 5.51 H (0.52-1.04) mg/dL Glucose 219 H (74-99) mg/dL POC Glucose (mg/dL) 233 H (75-99) mg/dL Calcium 8.1 L (8.4-10.2) mg/dL Total Protein (PEP) (6.2-8.2) g/dL 05/21/19 Range/Units 11:29 WBC (3.8-10.6) k/uL RBC (3.80-5.40) m/uL Hgb (11.4-16.0) gm/dL Hct (34.0-46.0) % MCHC (31.0-37.0) g/dL Plt Count (150-450) k/uL Neutrophils # (1.3-7.7) k/uL Chloride (98-107) mmol/L Carbon Dioxide (22-30) mmol/L BUN (7-17) mg/dL Creatinine (0.52-1.04) mg/dL Glucose (74-99) mg/dL POC Glucose (mg/dL) 218 H (75-99) mg/dL Calcium (8.4-10.2) mg/dL Total Protein (PEP) (6.2-8.2) g/dL Assessment and Plan Plan: Assessment: 1. Acute kidney injury secondary to ATN secondary to contrast-induced nephropathy, infection and hypotension. Rule out ALLERGIC interstitial nephritis from antibiotics - urine eosinophils negative. No proteinuria on initial UA but repeat UA does show 1+ proteinuria. UPC 0.48. No hydronephrosis noted on CAT scan/Uls. Baseline creatinine near 1. Creatinine peaked at 5.9 at this admission and is 5.51 today. Serologies negative. 2. Left gluteal abscess maintained on antibiotics. Wound culture positive for Klebsiella. Maintained on IV antibiotics per infectious disease. 3. Diabetes mellitus. Patient's hemoglobin A1c was 14.6 on admission. 4. Benign hypertension. Stable. 5. Metabolic acidosis secondary to acute kidney injury. Better. Maintained on oral sodium bicarbonate. Plan: Decrease rate of normal saline to 50 mL an hour. Continue to monitor renal function and urine output closely. No urgent need for renal replacement therapy at this time. Started prednisone 20 mg twice daily on May 19.
[2019-05-21 14:44] LABS: C-ANCA <1:20 Titer (<1:20)
--- NOTE | 2019-05-21 15:41 | P.PN ---
Subjective Progress Note Date: 05/21/19 This is a 33-year-old female with history of asthma, diabetes mellitus, chronic back pain, nicotine dependence, marijuana use, anxiety, depression, panic attacks and multiple other medical issues presented to the ER with tender left lateral buttock wound worsening over several weeks with copious purulent drainage. He reports wound to making it difficult for her to ambulate, to the point where she is unable to walk to the bathroom, urinating on herself. Reports she does not check her blood sugars, with Accu-Chek of 490 on admission. Afebrile, WBC 12.7. Lactic acid 3.4, received IV fluid hydration, currently down to 1.9. Hemoglobin 12.4. Sodium 131, potassium 3.4. BUN 9, creatinine 0.49. Alk phos elevated to 176. UA reporting 4+ glucose, negative for ketones. Ultrasound of left posterior thigh measuring 5.43.2 cm soft tissue edema, corresponding to phlegmon or developing abscess-limited study. Denies chest pain, palpitations or shortness of breath. Denies lightheadedness, dizziness or focal deficits. Wound and blood cultures obtained. Rocephin and vancomycin IV antibiotics initiated. 05/15/2019 maintained on Zosyn, vancomycin discontinued as per infectious disease. Complete of urinary retention, bladder scanned for [address] of abdomen and pelvis reporting cellulitis and abscess formation without. Rectal involvement, no osteomyelitis, appears to extend further down by. Wound culture reporting gram-negative bacilli. Afebrile, WBC elevated 16.9. Blood sugars con trolled. Hemoglobin A1c pending. Reports pain improving. 05/16/2019: Patient remains in pain from her abscess to the left thigh. She had possible sepsis on admission and had significant IV fluid hydration. Currently her blood pressure stable. Her oxygen is stable. Her sugars are well controll ed at this time. Her creatinine yesterday was 2.23 with a BUN of 21 and a GFR of 29, this is up from her BUN of 9 and creatinine is 0.49 admission. She currently is on IV fluids at 75 mL an hour. Wound cultures are resulted and positive for Klebsiella. Infectious disease was consult and changed her to Zosyn. Surgery does not want to do an or debridement. He is currently on valsartan for blood pressure along with amlodipine. She denies any chest pains, pressures, shortness of breath. She does indicate she can feel sore all over. No recent nausea or vomiting. 05/17/2019 to This a.m. her BUN is 33 and creatinine is 4.75 and a GFR now of 11. Nephrology had increased her IV fluids. She remains under wound care. I discussed the case with Dr. Diane who recommended changing the packing time to something a little bit more absorbent minimally silver rope had been. It should be at bedside. She denies any chest pains pressures or shortness of breath. She is complaining of ongoing pain to her wound. She indicates she is making urine. Output shows 350 mL the past 8 hours. He is also had a bowel movement past 24 hours. Serum was changed from Zosyn to Rocephin. She originally started on vancomycin for antibiotic coverage. Infectious diseases monitoring. May 18 2019: Patient's creatinine is now up to 5.48. GFR is down to 10. Nephrology is currently following. She remains on wound care. No surgical interventions currently pending. He remains on Rocephin for antibiotic coverage. Is on the insulin scale as sugars are fairly well controlled. She remains on IV fluids at 100 mL per hour. There continues to be a great deal of drainage from her wound. He denies any chest pains, pressures, shortness of breath. Complains of pain in her left leg 05/19/2019: Patient's creatinine is now 5.98 him a GFR is 9 nephrology is following and their recommendations were noted today. She continues on Aquacel Silver rope packing into the wound. We added Dakin solution irrigations and dressing changes yesterday. She denies any ongoing chest pressure shortness of breath nausea vomiting. She complains of generalized pain in her chest and arms and legs and just overall feeling of stiffness and achiness. She remains on Rocephin for IV antibiotic coverage. She is on heparin subcutaneous for anticoagulation. She remains on insulin and IV fluids. 05/20/2019: Patient remains afebrile and other vitals remained stable. She has a persistent leukocytosis with left shift. Her acute renal failure is about the same today. GFR is 9. Creatinine 5.96. Glucoses remained somewhat stable. She agreed a Streeter catheter yesterday was placed. Straw-colored urine was found in the Streeter bag today. The urinalysis showed moderate blood large leukocytes negative nitrates large WBCs. Occasional bacteria. Blood cultures negative, she remains on Rocephin 2 g daily per infectious disease for Klebsiella wound infection. She continues to have Aquacel silver rope packing in her wound with dressing changes at least once a day and Dakin solution irrigations and dressing changes. There is much less than wound discharge today. 05/21/2019 continues on IV antibiotics as per infectious disease for Klebsiella in wound.maintained on steroids for potential ALLERGIC interstitial nephritis. IV fluids at 75 MLS an hour, creatinine down to 5.51. Streeter discontinued, spontaneously voiding. Continues to have significant drainage from wound site, reevaluation by surgery pending.Blood sugars currently running in the low 200s, discussed tight blood sugar control in combination with diet intake.afebrile, WBC 21.1. Objective - Vital Signs Vital signs: Vital Signs Temp 97.9 F 05/21/19 07:00 Pulse 95 05/21/19 07:00 Resp 12 05/21/19 07:00 BP 141/66 05/21/19 07:00 Pulse Ox 91 L 05/21/19 07:00 Intake & Output 05/20/19 05/21/19 05/21/19 18:59 06:59 18:59 Intake Total 600 1740 250 Output Total 420 2425 800 Balance 180 -685 -550 Intake: IV 600 300 Sodium Chloride 0.9% 1, 600 300 000 ml @ 75 mls/hr IV . [id number] [facility] Rx#:[id number] Oral 1440 250 Output: Urine 420 2425 800 Straight 550 Other: Voiding Method Indwelling Catheter Indwelling Catheter Indwelling Catheter # Voids 1 # Bowel Movements 1 1 - Exam PHYSICAL EXAM: VITAL SIGNS: As above GENERAL: Sitting up at bedside, eating lunch, no acute distress HEENT: Conjunctivae normal. eyes normal. oral mucosa moist NECK: No JVD. No thyroid enlargement. No LNs CARDIOVASCULAR: S1, S2 regular.. No murmur RESPIRATION: Breath sounds diminished in the bases. No rhonchi or crackles. No bronchial breathing. ABDOMEN: Obese, Soft, nontender . No guarding. no masses palpable. No ascites, No hepatosplenomegaly.Bowel sounds heard. PSYCHIATRY: Alert and oriented X3, mood and affect normal. NERVOUS SYSTEM: Cranial N 2-12 grossly normal. Moves all 4 limbs. Diffuse weakness No focal deficits. Strength and sensation grossly intact.. Skin: Left posterior lateral buttock abscess, 5.43.2 cm with significant d rainage Microbiology 05/13/19 14:45 Blood Blood Culture - Final No Growth after 144 hours 05/13/19 14:00 Buttock Gram Stain - Final 05/13/19 14:00 Buttock Wound Culture - Final Klebsiella oxytoca - Labs CBC & Chem 7: 05/21/19 06:27 05/21/19 06:27 Labs: Abnormal Lab Results - Last 24 Hours (Table) 05/20/19 05/20/19 05/20/19 Range/Units 06:38 17:11 20:20 WBC (3.8-10.6) k/uL RBC (3.80-5.40) m/uL Hgb (11.4-16.0) gm/dL Hct (34.0-46.0) % MCHC (31.0-37.0) g/dL Plt Count (150-450) k/uL Neutrophils # (1.3-7.7) k/uL Chloride (98-107) mmol/L Carbon Dioxide (22-30) mmol/L BUN (7-17) mg/dL Creatinine (0.52-1.04) mg/dL Glucose (74-99) mg/dL POC Glucose (mg/dL) 281 H 291 H (75-99) mg/dL Calcium (8.4-10.2) mg/dL Total Protein (PEP) 4.9 L (6.2-8.2) g/dL 05/21/19 05/21/19 05/21/19 Range/Units 06:27 06:27 06:56 WBC 21.1 H (3.8-10.6) k/uL RBC 3.71 L (3.80-5.40) m/uL Hgb 10.2 L (11.4-16.0) gm/dL Hct 33.1 L (34.0-46.0) % MCHC 30.7 L (31.0-37.0) g/dL Plt Count 464 H (150-450) k/uL Neutrophils # 17.9 H (1.3-7.7) k/uL Chloride 109 H (98-107) mmol/L Carbon Dioxide 20 L (22-30) mmol/L BUN 47 H (7-17) mg/dL Creatinine 5.51 H (0.52-1.04) mg/dL Glucose 219 H (74-99) mg/dL POC Glucose (mg/dL) 233 H (75-99) mg/dL Calcium 8.1 L (8.4-10.2) mg/dL Total Protein (PEP) (6.2-8.2) g/dL 05/21/19 Range/Units 11:29 WBC (3.8-10.6) k/uL RBC (3.80-5.40) m/uL Hgb (11.4-16.0) gm/dL Hct (34.0-46.0) % MCHC (31.0-37.0) g/dL Plt Count (150-450) k/uL Neutrophils # (1.3-7.7) k/uL Chloride (98-107) mmol/L Carbon Dioxide (22-30) mmol/L BUN (7-17) mg/dL Creatinine (0.52-1.04) mg/dL Glucose (74-99) mg/dL POC Glucose (mg/dL) 218 H (75-99) mg/dL Calcium (8.4-10.2) mg/dL Total Protein (PEP) (6.2-8.2) g/dL Assessment and Plan Assessment: -sepsis secondary to Left gluteal, thigh abscess,growing Klebsiella oxytoca -Leukocytosis secondary to the above -Lactic acidosis -Diabetes mellitus, hyperglycemia, secondary to infection and noncompliance,hemoglobin A1c 14.6 -acute renal failure secondary to ATN from contrast-induced nephropathy, infection, hypotension.possible ALLERGIC interstitial nephritis. -metabolic acidosis secondary to ATN -Chronic intermittent asthma -Chronic back pain -Anxiety-depression -Panic attacks -Ongoing nicotine dependence -Marijuana use -Morbid obesity, BMI 38.7. Plan: Continue on current medication regime ,oral sodium bicarb,monitoring and symptomatic treatment.maintain oral steroids as per nephrology. no dialysis at this time as per nephrology. IV antibiotics as per ID. IV fluid hydration decreased.diet/tight blood sugar control reinforced. wound care as per surgery. Close monitoring of renal function, with electrolytes with Labs ordered for a.m. The impression and plan of care has been dictated as directed. : I performed a history and examination of this patient, discussed the same with the dictator. I agree with the dictator's note ,documented as a scribe. Any additional findings or plans will be noted.
--- NOTE | 2019-05-21 16:11 | PN ---
PROGRESS NOTE DATE OF SERVICE: 05/21/2019 REASON FOR FOLLOWUP: Left gluteal abscess. INTERVAL HISTORY: The patient is currently afebrile. The patient is breathing comfortably. The patient denies having any chest pain or cough. Still complaining of pain to the left gluteal area, but no worsening. No nausea. No vomiting. No abdominal pain or diarrhea. PHYSICAL EXAMINATION: On examination, her blood pressure is 141/66 with a pulse of 95, temperature 97.9. She is 91% on room air. General description is a middle-aged female lying in bed in no distress. RESPIRATORY SYSTEM: Unlabored breathing. Clear to auscultation anteriorly. HEART: S1, S2. Regular rate and rhythm. ABDOMEN: Soft. No tenderness. Left gluteal area still has a wound with purulent drainage. No significant surrounding fluctuation or induration. LABS: White count up to 21,000 today. Creatinine is down to 5.51. DIAGNOSTIC IMPRESSION AND PLAN: Patient with a left gluteal abscess with spontaneous drainage. Cultures have been positive for Klebsiella oxytoca which is sensitive to Rocephin; however, the patient did have worsening of her white count, with a question of possible steroid effect versus a pocket that is currently not being drained. Will discuss further with Surgery. Continue with Rocephin and Flagyl at this point. Monitor clinical course closely. Continue with supportive care. MMODL / IJN: [id number] /
[2019-05-21 17:44] LABS: Glucose,Whole Blood 208 mg/dL (75-99)
[2019-05-21 20:26] LABS: Glucose,Whole Blood 299 mg/dL (75-99)
[2019-05-21] MEDS: DULoxetine HCL 60 MG CAPSULE.DR PO SCH (21:20)
[2019-05-21] MEDS: HYDROcodone/APAP 10-325MG 1 EACH TAB PO PRN (21:20)
[2019-05-21] MEDS: SODIUM BICARBONATE TAB 650 MG TAB PO SCH (21:20)
[2019-05-22 06:51] LABS: Glucose,Whole Blood 342 mg/dL (75-99)
[2019-05-22] MEDS: metroNIDAZOLE 500 MG TAB PO SCH ×3 (07:16→20:47)
[2019-05-22] MEDS: busPIRone HCl 5 MG TAB PO SCH ×2 (07:16→20:47)
[2019-05-22] MEDS: PREGABALIN 75 MG CAP PO SCH ×3 (07:16→20:47)
[2019-05-22] MEDS: SODIUM BICARBONATE TAB 650 MG TAB PO SCH ×2 (07:16→20:47)
[2019-05-22] MEDS: PANTOPRAZOLE 40 MG TABLET PO SCH (07:16)
[2019-05-22] MEDS: predniSONE 20 MG TAB PO SCH ×2 (07:16→20:47)
[2019-05-22] MEDS: NICOTINE 21MG/24HR PATCH TRANSDERM SCH (07:17)
[2019-05-22] MEDS: HEPARIN SODIUM,PORCINE 5,000 UNIT/ML 1 ML VIAL SQ SCH ×3 (07:17→22:55)
[2019-05-22] MEDS: INSULIN ASPART (NovoLOG) 100 UNIT/ML VIAL SQ SCH ×3 (07:17→17:19)
[2019-05-22] MEDS: SODIUM HYPOCHLORITE 0.25% 480 ML BOT MISCELLANE SCH (07:18)
[2019-05-22 08:05] LABS: Magnesium 1.7 mg/dL (1.6-2.3); Potassium 4.9 mmol/L (3.5-5.1)
[2019-05-22] MEDS: HYDROcodone/APAP 10-325MG 1 EACH TAB PO PRN ×2 (10:35→20:47)
[2019-05-22 11:11] LABS: Glucose,Whole Blood 270 mg/dL (75-99)
--- NOTE | 2019-05-22 11:26 | P.PN ---
Subjective Progress Note Date: 05/22/19 CHIEF COMPLAINT: Abscess HISTORY OF PRESENT ILLNESS: Patient examined at the bedside. She continues to report generalized pain. Minimal discomfort to left lower quadrant. Tolerating diet. Denies nausea or vomiting. PHYSICAL EXAM: VITAL SIGNS: Reviewed. GENERAL: Well-developed in no acute distress. HEENT: No sclera icterus. Extraocular movements grossly intact. Moist buccal mucosa. Head is atraumatic, normocephalic. ABDOMEN: Soft. Nondistended. Nontender. NEUROLOGIC: Alert and oriented. Cranial nerves II through XII grossly intact. SKIN: Open wound to left posterior thigh with small amount of purulent drainage. ASSESSMENT: 1. Left posterior upper thigh abscess PLAN: Continue antibiotics Continue local wound care per ID No surgical intervention recommended at this time Nurse practitioner note has been reviewed by physician. Signing provider agrees with the documented findings, assessment, and plan of care. Objective - Vital Signs Vital signs: Vital Signs Temp 98.2 F 05/22/19 07:00 Pulse 92 05/22/19 07:00 Resp 19 05/22/19 07:00 BP 164/94 05/22/19 07:00 Pulse Ox 96 05/22/19 07:00 Intake & Output 05/21/19 05/22/19 05/22/19 18:59 06:59 18:59 Intake Total 250 550 250 Output Total 1625 900 Balance -1375 -350 250 Intake: Intake, IV Titration 550 Amount Sodium Chloride 0.9% 1, 550 000 ml @ 50 mls/hr IV . Q20H [facility] Rx#:[id number] Oral 250 250 Output: Urine 1625 900 Other: Voiding Method Indwelling Catheter # Bowel Movements 1 1 - Labs CBC & Chem 7: 05/21/19 06:27 05/22/19 07:31 Labs: Abnormal Lab Results - Last 24 Hours (Table) 05/20/19 05/21/19 05/21/19 Range/Units 06:38 11:29 17:09 Chloride (98-107) mmol/L Carbon Dioxide (22-30) mmol/L BUN (7-17) mg/dL Creatinine (0.52-1.04) mg/dL Glucose (74-99) mg/dL POC Glucose (mg/dL) 218 H 208 H (75-99) mg/dL Calcium (8.4-10.2) mg/dL Total Protein (PEP) 4.9 L (6.2-8.2) g/dL 05/21/19 05/22/19 05/22/19 Range/Units 20:24 06:49 07:31 Chloride 109 H (98-107) mmol/L Carbon Dioxide 19 L (22-30) mmol/L BUN 49 H (7-17) mg/dL Creatinine 4.76 H (0.52-1.04) mg/dL Glucose 295 H (74-99) mg/dL POC Glucose (mg/dL) 299 H 342 H (75-99) mg/dL Calcium 8.0 L (8.4-10.2) mg/dL Total Protein (PEP) (6.2-8.2) g/dL 05/22/19 Range/Units 11:09 Chloride (98-107) mmol/L Carbon Dioxide (22-30) mmol/L BUN (7-17) mg/dL Creatinine (0.52-1.04) mg/dL Glucose (74-99) mg/dL POC Glucose (mg/dL) 270 H (75-99) mg/dL Calcium (8.4-10.2) mg/dL Total Protein (PEP) (6.2-8.2) g/dL
[2019-05-22] MEDS ORDERED: FUROSEMIDE 10 MG/ML 4 ML VIAL IV STA (11:49)
[2019-05-22] MEDS: SODIUM CHLORIDE 0.9% 1,000 ML IV SCH (12:20)
--- NOTE | 2019-05-22 13:56 | P.PN ---
Subjective Progress Note Date: 05/22/19 This is a 33-year-old female with history of asthma, diabetes mellitus, chronic back pain, nicotine dependence, marijuana use, anxiety, depression, panic attacks and multiple other medical issues presented to the ER with tender left lateral buttock wound worsening over several weeks with copious purulent drainage. He reports wound to making it difficult for her to ambulate, to the point where she is unable to walk to the bathroom, urinating on herself. Reports she does not check her blood sugars, with Accu-Chek of 490 on admission. Afebrile, WBC 12.7. Lactic acid 3.4, received IV fluid hydration, currently down to 1.9. Hemoglobin 12.4. Sodium 131, potassium 3.4. BUN 9, creatinine 0.49. Alk phos elevated to 176. UA reporting 4+ glucose, negative for ketones. Ultrasound of left posterior thigh measuring 5.43.2 cm soft tissue edema, corresponding to phlegmon or developing abscess-limited study. Denies chest pain, palpitations or shortness of breath. Denies lightheadedness, dizziness or focal deficits. Wound and blood cultures obtained. Rocephin and vancomycin IV antibiotics initiated. 05/15/2019 maintained on Zosyn, vancomycin discontinued as per infectious disease. Complete of urinary retention, bladder scanned for [address] of abdomen and pelvis reporting cellulitis and abscess formation without. Rectal involvement, no osteomyelitis, appears to extend further down by. Wound culture reporting gram-negative bacilli. Afebrile, WBC elevated 16.9. Blood sugars con trolled. Hemoglobin A1c pending. Reports pain improving. 05/16/2019: Patient remains in pain from her abscess to the left thigh. She had possible sepsis on admission and had significant IV fluid hydration. Currently her blood pressure stable. Her oxygen is stable. Her sugars are well controll ed at this time. Her creatinine yesterday was 2.23 with a BUN of 21 and a GFR of 29, this is up from her BUN of 9 and creatinine is 0.49 admission. She currently is on IV fluids at 75 mL an hour. Wound cultures are resulted and positive for Klebsiella. Infectious disease was consult and changed her to Zosyn. Surgery does not want to do an or debridement. He is currently on valsartan for blood pressure along with amlodipine. She denies any chest pains, pressures, shortness of breath. She does indicate she can feel sore all over. No recent nausea or vomiting. 05/17/2019 to This a.m. her BUN is 33 and creatinine is 4.75 and a GFR now of 11. Nephrology had increased her IV fluids. She remains under wound care. I discussed the case with Dr. Diane who recommended changing the packing time to something a little bit more absorbent minimally silver rope had been. It should be at bedside. She denies any chest pains pressures or shortness of breath. She is complaining of ongoing pain to her wound. She indicates she is making urine. Output shows 350 mL the past 8 hours. He is also had a bowel movement past 24 hours. Serum was changed from Zosyn to Rocephin. She originally started on vancomycin for antibiotic coverage. Infectious diseases monitoring. May 18 2019: Patient's creatinine is now up to 5.48. GFR is down to 10. Nephrology is currently following. She remains on wound care. No surgical interventions currently pending. He remains on Rocephin for antibiotic coverage. Is on the insulin scale as sugars are fairly well controlled. She remains on IV fluids at 100 mL per hour. There continues to be a great deal of drainage from her wound. He denies any chest pains, pressures, shortness of breath. Complains of pain in her left leg 05/19/2019: Patient's creatinine is now 5.98 him a GFR is 9 nephrology is following and their recommendations were noted today. She continues on Aquacel Silver rope packing into the wound. We added Dakin solution irrigations and dressing changes yesterday. She denies any ongoing chest pressure shortness of breath nausea vomiting. She complains of generalized pain in her chest and arms and legs and just overall feeling of stiffness and achiness. She remains on Rocephin for IV antibiotic coverage. She is on heparin subcutaneous for anticoagulation. She remains on insulin and IV fluids. 05/20/2019: Patient remains afebrile and other vitals remained stable. She has a persistent leukocytosis with left shift. Her acute renal failure is about the same today. GFR is 9. Creatinine 5.96. Glucoses remained somewhat stable. She agreed a Streeter catheter yesterday was placed. Straw-colored urine was found in the Streeter bag today. The urinalysis showed moderate blood large leukocytes negative nitrates large WBCs. Occasional bacteria. Blood cultures negative, she remains on Rocephin 2 g daily per infectious disease for Klebsiella wound infection. She continues to have Aquacel silver rope packing in her wound with dressing changes at least once a day and Dakin solution irrigations and dressing changes. There is much less than wound discharge today. 05/21/2019 continues on IV antibiotics as per infectious disease for Klebsiella in wound.maintained on steroids for potential ALLERGIC interstitial nephritis. IV fluids at 75 MLS an hour, creatinine down to 5.51. Streeter discontinued, spontaneously voiding. Continues to have significant drainage from wound site, reevaluation by surgery pending.Blood sugars currently running in the low 200s, discussed tight blood sugar control in combination with diet intake.afebrile, WBC 21.1. 05/22/2019 Reevaluated by surgery with no surgical intervention recommended. Maintained on Rocephin .Afebrile. Renal function improving, creatinine 4.76. Bicarb 19. Noncompliant with diet, staff reports patient consumed potato chips last night, cheddar cheese fish crackers at bedside .Currently eating a cheeseburger. Blood sugars running high 200s to mid 300s. Denies chest pain, palpitations. Pain improving. Denies chest pain, palpitations. Objective - Vital Signs Vital signs: Vital Signs Temp 98.2 F 05/22/19 07:00 Pulse 92 05/22/19 07:00 Resp 19 05/22/19 07:00 BP 164/94 05/22/19 07:00 Pulse Ox 96 05/22/19 07:00 Intake & Output 05/21/19 05/22/19 05/22/19 18:59 06:59 18:59 Intake Total 250 550 250 Output Total 1625 900 Balance -1375 -350 250 Intake: Intake, IV Titration 550 Amount Sodium Chloride 0.9% 1, 550 000 ml @ 50 mls/hr IV . Q20H [facility] Rx#:[id number] Oral 250 250 Output: Urine 1625 900 Other: Voiding Method Indwelling Catheter # Bowel Movements 1 1 - Exam PHYSICAL EXAM: VITAL SIGNS: As above GENERAL: Sitting up at bedside, eating lunch, no acute distress HEENT: Conjunctivae normal. eyes normal. oral mucosa moist NECK: No JVD. No thyroid enlargement. No LNs CARDIOVASCULAR: S1, S2 regular.. No murmur RESPIRATION: Breath sounds diminished in the bases. No rhonchi or crackles. ABDOMEN: Obese, Soft, nontender . No guarding. no masses palpable.Bowel sounds heard. PSYCHIATRY: Alert and oriented X3, mood and affect normal. NERVOUS SYSTEM: Cranial N 2-12 grossly normal. Moves all 4 limbs. Diffuse weakness No focal deficits. Strength and sensation grossly intact.. Skin: Left posterior lateral buttock/thigh abscess with purulent drainage Microbiology 05/13/19 14:45 Blood Blood Culture - Final No Growth after 144 hours 05/13/19 14:00 Buttock Gram Stain - Final 05/13/19 14:00 Buttock Wound Culture - Final Klebsiella oxytoca - Labs CBC & Chem 7: 05/21/19 06:27 05/22/19 07:31 Labs: Abnormal Lab Results - Last 24 Hours (Table) 05/20/19 05/21/19 05/21/19 Range/Units 06:38 17:09 20:24 Chloride (98-107) mmol/L Carbon Dioxide (22-30) mmol/L BUN (7-17) mg/dL Creatinine (0.52-1.04) mg/dL Glucose (74-99) mg/dL POC Glucose (mg/dL) 208 H 299 H (75-99) mg/dL Calcium (8.4-10.2) mg/dL Total Protein (PEP) 4.9 L (6.2-8.2) g/dL 05/22/19 05/22/19 05/22/19 Range/Units 06:49 07:31 11:09 Chloride 109 H (98-107) mmol/L Carbon Dioxide 19 L (22-30) mmol/L BUN 49 H (7-17) mg/dL Creatinine 4.76 H (0.52-1.04) mg/dL Glucose 295 H (74-99) mg/dL POC Glucose (mg/dL) 342 H 270 H (75-99) mg/dL Calcium 8.0 L (8.4-10.2) mg/dL Total Protein (PEP) (6.2-8.2) g/dL Assessment and Plan Assessment: -sepsis secondary to Left gluteal, thigh abscess,growing Klebsiella oxytoca -Leukocytosis secondary to the above -Lactic acidosis, resolved -Diabetes mellitus, hyperglycemia, secondary to infection and noncompliance,hemoglobin A1c 14.6 -acute renal failure secondary to ATN from contrast-induced nephropathy, infection, hypotension.possible ALLERGIC interstitial nephritis. -metabolic acidosis secondary to ATN -Chronic intermittent asthma -Chronic back pain -Anxiety-depression -Panic attacks -Ongoing nicotine dependence -Marijuana use -Morbid obesity, BMI 38.7. Plan: Continue on current medication regime ,oral sodium bicarb,monitoring and symptomatic treatment.IV antibiotics as per ID. IV fluid hydration decreased.wound care as per surgery .Diet/tight blood sugar control reinforced. Metformin resumed, Lantus initiated. Close monitoring of Accu-Cheks. Discharge planning in progress for tomorrow pending significant improvement in blood sugars ,final DC recommendations and clearance of all consults. Discharge planning discussed with patient and family at bedside. Wound care center apt. with Dr. Herr to be arranged. The impression and plan of care has been dictated as directed. : I performed a history and examination of this patient, discussed the same with the dictator. I agree with the dictator's note ,documented as a scribe. Any additional findings or plans will be noted.
[2019-05-22 16:51] LABS: Glucose,Whole Blood 360 mg/dL (75-99)
[2019-05-22] MEDS: metFORMIN 500 MG TAB PO SCH (17:19)
[2019-05-22 20:09] LABS: Glucose,Whole Blood 284 mg/dL (75-99)
--- NOTE | 2019-05-22 20:11 | PN ---
PROGRESS NOTE The patient is seen for followup for acute kidney injury secondary to vancomycin toxicity. She is currently sitting up in bed. Renal function has improved with creatinine down from 5.9 at peak to 4.7 today. Creatinine was 5.5 yesterday. The patient has had good urine output. PHYSICAL EXAMINATION: This morning blood pressure was 164/94, heart rate 92 per minute. She is afebrile. Examination of the heart S1, S2. Examination of the lungs, bilateral breath sounds are heard. Abdomen is soft, nontender, obese. Examination of the lower extremities shows edema 2+ bilaterally. [employer]EL[employer] exam grossly intact. LAB: Show sodium 139, potassium 4.9, chloride 109, CO2 is 19, BUN 49, creatinine 4.76. ASSESSMENT: 1. Acute kidney injury, acute tubular necrosis, nonoliguric secondary to contrast induced nephropathy and underlying infection and hypotension. No evidence of obstructive uropathy on ultrasound. Continue to avoid nephrotoxic agents. 2. Left gluteal abscess, maintained on antibiotics. Wound culture positive for Klebsiella. 3. Type 2 diabetes. 4. Benign hypertension, now stable. Blood pressure is slightly on the higher side. 5. Metabolic acidosis secondary to renal failure, maintained on sodium bicarb. 6. Volume overload and lower extremity edema associated with renal failure. PLAN: IV Lasix x1. Continue with empiric prednisone which was added 2 days ago for possible acute interstitial nephritis. Repeat labs in a.m. and continue to avoid any nephrotoxic medications. MMODL / IJN: [id number] /
[2019-05-22] MEDS: DULoxetine HCL 60 MG CAPSULE.DR PO SCH (20:47)
--- NOTE | 2019-05-22 22:47 | PN ---
PROGRESS NOTE DATE OF SERVICE: 05/22/2019 REASON FOR FOLLOWUP: Left gluteal abscess and cellulitis. INTERVAL HISTORY: The patient is currently afebrile. The patient has been breathing comfortably. Denies having any chest pain or cough. No abdominal pain or pain to the left gluteal area. PHYSICAL EXAMINATION: Blood pressure 132/83 with a pulse of 102, temperature 98.3. She is 95% on room air. General description is a middle-aged female lying in bed in no distress. RESPIRATORY SYSTEM: Unlabored breathing. Clear to auscultation anteriorly. HEART: S1, S2. Regular rate and rhythm. ABDOMEN: Soft. No tenderness. LABS: Hemoglobin is 10.2, white count of 21.1 as of yesterday, not repeated today. Creatinine is 4.76. DIAGNOSTIC IMPRESSION AND PLAN: Patient with a left gluteal abscess with spontaneous drainage, culture with Klebsiella oxytoca. Patient is currently covered with Rocephin and Flagyl. Repeat the CBC tomorrow. Monitor clinical course closely. MMODL / IJN: [id number] /
[2019-05-23] MEDS: HYDROcodone/APAP 10-325MG 1 EACH TAB PO PRN ×2 (05:52→16:17)
[2019-05-23] MEDS ORDERED: INSULIN DETEMIR (LEVEMIR) 100 UNIT/ML SYR SQ SCH (07:00)
[2019-05-23 07:16] LABS: Glucose,Whole Blood 298 mg/dL (75-99)
[2019-05-23] MEDS: busPIRone HCl 5 MG TAB PO SCH (08:47)
[2019-05-23] MEDS: PREGABALIN 75 MG CAP PO SCH ×2 (08:47→16:18)
[2019-05-23] MEDS: HEPARIN SODIUM,PORCINE 5,000 UNIT/ML 1 ML VIAL SQ SCH ×2 (08:47→16:10)
[2019-05-23] MEDS: metroNIDAZOLE 500 MG TAB PO SCH ×2 (08:47→16:18)
[2019-05-23] MEDS: SODIUM BICARBONATE TAB 650 MG TAB PO SCH (08:47)
[2019-05-23] MEDS: PANTOPRAZOLE 40 MG TABLET PO SCH (08:47)
[2019-05-23] MEDS: predniSONE 20 MG TAB PO SCH (08:47)
[2019-05-23] MEDS: NICOTINE 21MG/24HR PATCH TRANSDERM SCH (08:48)
[2019-05-23] MEDS: metFORMIN 500 MG TAB PO SCH (08:48)
[2019-05-23] MEDS: INSULIN ASPART (NovoLOG) 100 UNIT/ML VIAL SQ SCH ×2 (08:48→12:45)
[2019-05-23] MEDS: SODIUM HYPOCHLORITE 0.25% 480 ML BOT MISCELLANE SCH (08:49)
[2019-05-23] MEDS: SODIUM CHLORIDE 0.9% 1,000 ML IV SCH (08:49)
--- NOTE | 2019-05-23 11:17 | P.DS ---
Providers Date of admission: 05/15/19 08:43 Expected date of discharge: 05/23/19 Attending physician: Zach Herr Consults: 05/13/19 15:57 Consult Physician Urgent Consulting Provider: Alex De Paz Consult Reason/Comments: abcess Do you want consulting provider notified?: Yes Consult Physician Urgent Consulting Provider: Loretta Orta Consult Reason/Comments: rectal abcess Do you want consulting provider notified?: Yes 05/16/19 08:43 Consult Physician Routine Consulting Provider: Rickie Hamm Consult Reason/Comments: acute renal failure Do you want consulting provider notified?: Yes Primary care physician: Zach Herr Hospital Course: Final Diagnoses: -sepsis secondary to Left gluteal, thigh abscess,growing Klebsiella oxytoca -Leukocytosis secondary to the above -Lactic acidosis, resolved -Diabetes mellitus, hyperglycemia, secondary to infection and noncompliance,hemoglobin A1c 14.6 -acute renal failure secondary to ATN from contrast-induced nephropathy, infection, hypotension.possible ALLERGIC interstitial nephritis. -metabolic acidosis secondary to ATN -Chronic intermittent asthma -Chronic back pain -Anxiety-depression -Panic attacks -Ongoing nicotine dependence -Marijuana use -Morbid obesity, BMI 38.7. Hospital course: This is a 33-year-old female with history of asthma, diabetes mellitus, chronic back pain, nicotine dependence, marijuana use, anxiety, depression, panic attacks and multiple other medical issues presented to the ER with tender left lateral buttock wound worsening over several weeks with copious purulent drainage. He reports wound to making it difficult for her to ambulate, to the point where she is unable to walk to the bathroom, urinating on herself. Reports she does not check her blood sugars, with Accu-Chek of 490 on admission. Afebrile, WBC 12.7. Lactic acid 3.4, received IV fluid hydration, currently down to 1.9. Hemoglobin 12.4. Sodium 131, potassium 3.4. BUN 9, creatinine 0.49. Alk phos elevated to 176. UA reporting 4+ glucose, negative for ketones. Ultrasound of left posterior thigh measuring 5.43.2 cm soft tissue edema, corresponding to phlegmon or developing abscess-limited study. Denies chest pain, palpitations or shortness of breath. Denies lightheadedness, dizziness or focal deficits. Wound and blood cultures obtained. Rocephin and vancomycin IV antibiotics initiated. 05/15/2019 maintained on Zosyn, vancomycin discontinued as per infectious disease. Complete of urinary retention, bladder scanned for [address] of abdomen and pelvis reporting cellulitis and abscess formation without. Rectal involvement, no osteomyelitis, appears to extend further down by. Wound culture reporting gram-negative bacilli. Afebrile, WBC elevated 16.9. Blood sugars controlled. Hemoglobin A1c pending. Reports pain improving. 05/16/2019: Patient remains in pain from her abscess to the left thigh. She had possible sepsis on admission and had significant IV fluid hydration. Currently her blood pressure stable. Her oxygen is stable. Her sugars are well controlled at this time. Her creatinine yesterday was 2.23 with a BUN of 21 and a GFR of 29, this is up from her BUN of 9 and creatinine is 0.49 admission. She currently is on IV fluids at 75 mL an hour. Wound cultures are resulted and positive for Klebsiella. Infectious disease was consult and changed her to Zosyn. Surgery does not want to do an or debridement. He is currently on valsartan for blood pressure along with amlodipine. She denies any chest pains, pressures, shortness of breath. She does indicate she can feel sore all over. No recent nausea or vomiting. 05/17/2019 to This a.m. her BUN is 33 and creatinine is 4.75 and a GFR now of 11. Nephrology had increased her IV fluids. She remains under wound care. I discussed the case with Dr. Diane who recommended changing the packing time to something a little bit more absorbent minimally silver rope had been. It should be at bedside. She denies any chest pains pressures or shortness of breath. She is complaining of ongoing pain to her wound. She indicates she is making urine. Output shows 350 mL the past 8 hours. He is also had a bowel movement past 24 hours. Serum was changed from Zosyn to Rocephin. She originally started on vancomycin for antibiotic coverage. Infectious diseases monitoring. May 18 2019: Patient's creatinine is now up to 5.48. GFR is down to 10. Nephrology is currently following. She remains on wound care. No surgical interventions currently pending. He remains on Rocephin for antibiotic coverage. Is on the insulin scale as sugars are fairly well controlled. She remains on IV fluids at 100 mL per hour. There continues to be a great deal of drainage from her wound. He denies any chest pains, pressures, shortness of breath. Complains of pain in her left leg 05/19/2019: Patient's creatinine is now 5.98 him a GFR is 9 nephrology is following and their recommendations were noted today. She continues on Aquacel Silver rope packing into the wound. We added Dakin solution irrigations and dressing changes yesterday. She denies any ongoing chest pressure shortness of breath nausea vomiting. She complains of generalized pain in her chest and arms and legs and just overall feeling of stiffness and achiness. She remains on Rocephin for IV antibiotic coverage. She is on heparin subcutaneous for anticoagulation. She remains on insulin and IV fluids. 05/20/2019: Patient remains afebrile and other vitals remained stable. She has a persistent leukocytosis with left shift. Her acute renal failure is about the same today. GFR is 9. Creatinine 5.96. Glucoses remained somewhat stable. She agreed a Streeter catheter yesterday was placed. Straw-colored urine was found in the Streeter bag today. The urinalysis showed moderate blood large leukocytes negative nitrates large WBCs. Occasional bacteria. Blood cultures negative, she remains on Rocephin 2 g daily per infectious disease for Klebsiella wound infection. She continues to have Aquacel silver rope packing in her wound with dressing changes at least once a day and Dakin solution irrigations and dressing changes. There is much less than wound discharge today. 05/21/2019 continues on IV antibiotics as per infectious disease for Klebsiella in wound.maintained on steroids for potential ALLERGIC interstitial nephritis. IV fluids at 75 MLS an hour, creatinine down to 5.51. Streeter discontinued, spontaneously voiding. Continues to have significant drainage from wound site, reevaluation by surgery pending.Blood sugars currently running in the low 200s, discussed tight blood sugar control in combination with diet intake.afebrile, WBC 21.1. 05/22/2019 Reevaluated by surgery with no surgical intervention recommended. Maintained on Rocephin .Afebrile. Renal function improving, creatinine 4.76. Bicarb 19. Noncompliant with diet, staff reports patient consumed potato chips last night, cheddar cheese fish crackers at bedside .Currently eating a cheeseburger. Blood sugars running high 200s to mid 300s. Denies chest pain, palpitations. Pain improving. Denies chest pain, palpitations. Significant clinical improvement. Patient being discharged home today in a stable condition with guarded prognosis, pending discharge clearance and final DC recommendations from nephrology, infectious disease and surgery. EXAM: GENERAL: Alert and oriented 3, no acute distress CARDIOVASCULAR: S1, S2 regular.. No murmur RESPIRATION: Breath sounds diminished in the bases. No rhonchi or crackles. ABDOMEN: Obese, Soft, nontender . No guarding. no masses palpable.Bowel sounds heard. NERVOUS SYSTEM: No focal deficits. Skin: Left posterior lateral buttock/thigh abscess dressing clean dry and int act. The impression and plan of care has been dictated as directed. : I performed a history and examination of this patient, discussed the same with the dictator. I agree with the dictator's note ,documented as a scribe. Any additional findings or plans will be noted. Patient Condition at Discharge: Stable Plan - Discharge Summary Discharge Rx Participant: Yes New Discharge Prescriptions: New predniSONE 20 mg PO DAILY #5 tab Sodium Bicarbonate Tab 650 mg PO BID #0 tab HYDROcodone/APAP 10-325MG [Prospect 10-325] 1 each PO Q6H PRN #12 tab PRN Reason: Pain Continue metFORMIN HCL [Glucophage] 1,000 mg PO BID Omeprazole 20 mg PO DAILY Medroxyprogesterone Acetate [Depo-Provera] 150 mg IM Q90D DULoxetine HCL [Cymbalta] 60 mg PO HS Pregabalin [Lyrica] 150 mg PO TID Insulin Glargine/Lixisenatide [Soliqua 100 Unit-33 Mcg/ml Pen] See Protocol SQ HS busPIRone HCl [Buspar] 5 mg PO BID Nicotine Polacrilex [Nicorette] 4 mg BC Q2H PRN PRN Reason: CRAVINGS Discontinued Ibuprofen [Motrin] 800 mg PO TID PRN PRN Reason: Pain Discharge Medication List metFORMIN HCL [Glucophage] 1,000 mg PO BID 09/04/16 [History] DULoxetine HCL [Cymbalta] 60 mg PO HS 01/25/18 [History] Medroxyprogesterone Acetate [Depo-Provera] 150 mg IM Q90D 01/25/18 [History] Omeprazole 20 mg PO DAILY 01/25/18 [History] Insulin Glargine/Lixisenatide [Soliqua 100 Unit-33 Mcg/ml Pen] See Protocol SQ HS 02/18/19 [History] Pregabalin [Lyrica] 150 mg PO TID 02/18/19 [History] Nicotine Polacrilex [Nicorette] 4 mg BC Q2H PRN 05/13/19 [History] busPIRone HCl [Buspar] 5 mg PO BID 05/13/19 [History] HYDROcodone/APAP 10-325MG [Prospect 10-325] 1 each PO Q6H PRN #12 tab 05/23/19 [Rx] Sodium Bicarbonate Tab 650 mg PO BID #0 tab 05/23/19 [Rx] predniSONE 20 mg PO DAILY #5 tab 05/23/19 [Rx] Follow up Appointment(s)/Referral(s): Shanelle Chapa MD [STAFF PHYSICIAN] - 1 Week Zach Herr MD [Primary Care Provider] - 1-2 days Loretta Orta MD [STAFF PHYSICIAN] - 1 Week [facility] Nurse, [NON-STAFF] - As Needed Alex De Paz MD [STAFF PHYSICIAN] - 1 Week Ambulatory/Diagnostic Orders: Complete Blood Count w/diff [LAB.AMB] Time Frame: 3 Days, Location: None Selected Activity/Diet/Wound Care/Special Instructions: Antibiotics as per ID. Wound care as per surgery. Appointment in wound care center prior to discharge with Dr. Herr. Diet: consistent carb Accu-Cheks before meals and at bedtime, maintain log intake to follow-up visit with PCP for further recommendations Outpatient diabetic education Activity: Limited until follow up
--- NOTE | 2019-05-23 11:27 | P.PN ---
Subjective Progress Note Date: 05/23/19 CHIEF COMPLAINT: Abscess HISTORY OF PRESENT ILLNESS: Patient examined at the bedside. Reports minimal pain to left lower extremity. Tolerating diet. Denies nausea or vomiting. PHYSICAL EXAM: VITAL SIGNS: Reviewed. GENERAL: Well-developed in no acute distress. HEENT: No sclera icterus. Extraocular movements grossly intact. Moist buccal mucosa. Head is atraumatic, normocephalic. ABDOMEN: Soft. Nondistended. Nontender. NEUROLOGIC: Alert and oriented. Cranial nerves II through XII grossly intact. SKIN: Open wound to left posterior thigh with small amount of purulent drainage. ASSESSMENT: 1. Left posterior upper thigh abscess PLAN: Continue antibiotics Continue local wound care per ID No surgical intervention recommended at this time We will sign off. Please re-consult if needed. Nurse practitioner note has been reviewed by physician. Signing provider agrees with the documented findings, assessment, and plan of care. Objective - Vital Signs Vital signs: Vital Signs Temp 97.7 F 05/23/19 07:00 Pulse 86 05/23/19 07:00 Resp 18 05/23/19 07:00 BP 139/78 05/23/19 07:00 Pulse Ox 90 L 05/23/19 07:00 Intake & Output 05/22/19 05/23/19 05/23/19 18:59 06:59 18:59 Intake Total 500 175 Output Total 850 Balance 500 -675 Weight 108.862 kg Intake: Intake, IV Titration 175 Amount Sodium Chloride 0.9% 1, 175 000 ml @ 50 mls/hr IV . Q20H [facility] Rx#:[id number] Oral 500 Output: Urine 850 Other: Voiding Method Toilet # Voids 3 # Bowel Movements 1 - Labs CBC & Chem 7: 05/21/19 06:27 05/22/19 07:31 Labs: Abnormal Lab Results - Last 24 Hours (Table) 05/22/19 05/22/19 05/23/19 Range/Units 16:49 20:06 07:05 POC Glucose (mg/dL) 360 H 284 H 298 H (75-99) mg/dL
[2019-05-23 11:54] LABS: Glucose,Whole Blood 222 mg/dL (75-99)
[2019-05-23 11:56] LABS: Basophils # (A) 0.1 k/uL (0-0.2); Basophils % (A) 0 %; Eosinophils # (A) 0.1 k/uL (0-0.7); Eosinophils % (A) 1 %; HGB 9.6 gm/dL (11.4-16.0); Hypochromasia Slight; Lymphocytes # (A) 2.3 k/uL (1.0-4.8); Lymphocytes % (A) 14 %; MCH 27.1 pg (25.0-35.0); MCHC 30.9 g/dL (31.0-37.0); MCV 87.9 fL (80.0-100.0); Mean Platelet Volume 6.7; Monocytes # (A) 0.4 k/uL (0-1.0); Monocytes % (A) 3 %; Neutrophils # (A) 13.8 k/uL (1.3-7.7); Neutrophils % (A) 82 %; Platelet Count 472 k/uL (150-450); RBC 3.52 m/uL (3.80-5.40); RDW 15.1 % (11.5-15.5); WBC 16.9 k/uL (3.8-10.6)
[2019-05-23 12:05] LABS: Calcium 8.5 mg/dL (8.4-10.2); Potassium 4.8 mmol/L (3.5-5.1)
[2019-05-23 14:28] VITALS: BP 168/91; PULSE 95; RESP 16; TEMP 97.9
--- NOTE | 2019-05-23 15:06 | PN ---
PROGRESS NOTE DATE OF SERVICE: 05/23/2019 REASON FOR FOLLOWUP: Left gluteal wound and cellulitis. INTERVAL HISTORY: The patient is currently afebrile. She is breathing comfortably. Denies having any chest pain or cough. Still complaining of some pain to the left gluteal area. Overall drainage has decreased and no diarrhea. PHYSICAL EXAMINATION: Blood pressure is 139/78 with a pulse of 86, temperature 97.7, she is 90% on room air. General description is a middle-aged female, lying in bed in no distress. RESPIRATORY SYSTEM: Unlabored breathing, clear to auscultation anteriorly. HEART: S1, S2. Regular rate and rhythm. ABDOMEN: Soft, no tenderness. LABS: Hemoglobin 9.1, white count of 16.9, BUN of 15, creatinine 3.73. DIAGNOSTIC IMPRESSION AND PLAN: Patient with left gluteal abscess, spontaneous drainage. Culture positive for Klebsiella. The patient at this time covered with Rocephin and Flagyl that will be switched to oral Ceftin and Flagyl. Cipro could not be used because of the SSRI the patient is on. Local care with dry Aquacel Silver packing and follow up in the [facility] with Dr. Herr. Follow up in the office in a week. Prescription sent to the pharmacy. MMODL / IJN: [id number] /
[2019-05-23] MEDS ORDERED: FUROSEMIDE 10 MG/ML 4 ML VIAL IV STA (17:09)
--- NOTE | 2019-05-23 19:30 | PN ---
PROGRESS NOTE Patient is seen for followup for acute kidney injury from ATN, currently nonoliguric. Renal function continues to improve. Serum creatinine is down to 3.7 from 5.9 at peak. Patient has received a couple of doses of IV Lasix. She is maintained on empiric steroids for possible acute interstitial nephritis. PHYSICAL EXAMINATION: On examination this morning, blood pressure was 139/78, heart rate 86 per minute. Patient is afebrile. She is sleepy. She is easily arousable. She is not in any acute distress. EXAMINATION OF LUNGS: Bilateral breath sounds are heard. ABDOMEN: Soft, obese, non-tender. Examination of lower extremities shows edema 2+ bilaterally. ARMATURE TESTER exam is grossly intact. LABS: Labs show sodium 139, potassium 4.8, chloride 111. CO2 is 19, BUN 50, creatinine 3.7, hemoglobin 9.6 g/dL. ASSESSMENT: 1. Acute kidney injury, acute tubular necrosis, nonoliguric, currently improving. 2. Volume overload, status post IV Lasix yesterday. I will repeat another dose of IV Lasix today. 3. Generalized debility. 4. Left gluteal abscess. Wound culture positive for Klebsiella, maintained on antibiotics. 5. Metabolic acidosis, maintained on oral sodium bicarb. PLAN: Repeat IV Lasix today. Patient is stable for discharge on a small dose of prednisone for the next 4-5 days. Hopefully we can also discontinue the sodium bicarb as outpatient. She will need labs to be done in 2-3 days post discharge and follow up in about one week post discharge. MMODL / IJN: [id number] /
[2019-05-24 09:07] LABS: Albumin 1.86 g/dL (3.80-4.90); Gamma Globulin 0.76 g/dL (0.70-1.50)
== END 2019-05-23 17:07 | disposition home health service (06) | DRG 853 ==
LOC: EC 13:17 → 4SSUR 15:58 → OBSVTOIN 05-15 08:43
PROVIDERS: ADMIT Family Medicine; ATTEND Family Medicine
PROC: 0JDM0ZZ Extraction of Left Upper Leg Subcutaneous Tissue and Fascia, Open Approach (ICD-10-PCS; principal; 2019-05-16)
DX: A41.59 Other Gram-negative sepsis (principal); N17.0 Acute kidney failure with tubular necrosis; L02.416 Cutaneous abscess of left lower limb; E87.1 Hypo-osmolality and hyponatremia; E87.2 Acidosis; Z88.0 Allergy status to penicillin; F41.0 Panic disorder [episodic paroxysmal anxiety]; F32.9 Major depressive disorder, single episode, unspecified; G89.29 Other chronic pain; I10 Essential (primary) hypertension; J45.20 Mild intermittent asthma, uncomplicated; E11.65 Type 2 diabetes mellitus with hyperglycemia; E66.01 Morbid (severe) obesity due to excess calories; E87.70 Fluid overload, unspecified; F17.210 Nicotine dependence, cigarettes, uncomplicated; N14.1 Nephropathy induced by other drugs, medicaments and biological substances; R32 Unspecified urinary incontinence; T36.8X5A Adverse effect of other systemic antibiotics, initial encounter; T50.8X5A Adverse effect of diagnostic agents, initial encounter; Z68.38 Body mass index [BMI] 38.0-38.9, adult; Z79.4 Long term (current) use of insulin; Z79.899 Other long term (current) drug therapy; Z91.11 Patient's noncompliance with dietary regimen; T38.3X6A Underdosing of insulin and oral hypoglycemic [antidiabetic] drugs, initial encounter; Z91.128 Patient's intentional underdosing of medication regimen for other reason; Z90.49 Acquired absence of other specified parts of digestive tract; K44.9 Diaphragmatic hernia without obstruction or gangrene; G43.909 Migraine, unspecified, not intractable, without status migrainosus; D75.1 Secondary polycythemia; M54.9 Dorsalgia, unspecified
CPT/HCPCS: 36415; 74177; 76770; 80048; 80053; 80074; 81001; 81025; 82550; 82565; 82570; 83036; 83605; 83735; 84156; 84165; 84484; 85025; 86038; 86140; 86160; 86162; 86225; 86255; 86334; 86335; 87040; 87070; 87077; 87186; 87205; 96361; 96365; 96375; 99285

== ENCOUNTER 2019-05-24 10:02 | Inpatient (IN) | payer OTHER ==
[2019-05-24] MEDS ORDERED: SODIUM CHLORIDE 0.9% 500 ML 500 ML IV STA (10:44)
[2019-05-24] MEDS ORDERED: SODIUM CHLORIDE 0.9% 1,000 ML IV STA (10:44)
[2019-05-24 11:11] LABS: Basophils # (A) 0.1 k/uL (0-0.2); Basophils % (A) 0 %; Eosinophils # (A) 0.3 k/uL (0-0.7); Eosinophils % (A) 1 %; HCT 28.9 % (34.0-46.0); HGB 9.4 gm/dL (11.4-16.0); Hypochromasia Slight; Lymphocytes % (A) 12 %; MCH 28.5 pg (25.0-35.0); MCHC 32.4 g/dL (31.0-37.0); MCV 87.8 fL (80.0-100.0); Mean Platelet Volume 6.4; Monocytes # (A) 0.6 k/uL (0-1.0); Monocytes % (A) 3 %; Neutrophils # (A) 19.9 k/uL (1.3-7.7); Neutrophils % (A) 83 %; Platelet Count 411 k/uL (150-450); RBC 3.29 m/uL (3.80-5.40); RDW 15.1 % (11.5-15.5); WBC 24.1 k/uL (3.8-10.6)
[2019-05-24 11:24] LABS: Albumin 2.7 g/dL (3.5-5.0); Calcium 8.3 mg/dL (8.4-10.2); Magnesium 1.4 mg/dL (1.6-2.3); Potassium 4.2 mmol/L (3.5-5.1); Total Bilirubin 0.5 mg/dL (0.2-1.3); Total Protein 5.7 g/dL (6.3-8.2)
[2019-05-24 11:32] LABS: Partial Thromboplastin Time 25.2 sec (22.0-30.0)
[2019-05-24 11:39] LABS: D-Dimer 4.89 mg/L FEU (<0.60)
--- NOTE | 2019-05-24 11:42 | ED ---
SOB HPI - General Chief Complaint: Shortness of Breath Stated Complaint: Chest Pain, SOB Time Seen by Provider: 05/24/19 10:23 Source: EMS, RN notes reviewed, old records reviewed Mode of arrival: EMS Limitations: no limitations - History of Present Illness Initial Comments: Patient is a 33-year-old female with past medical history of diabetes, asthma c hronic back pain. She presents emergency department today for complaints of shortness of breath. She also had an episode of chest pain this morning. Patient was recently admitted for an left buttocks abscess abscess reports it's painful for her to walk with the pain down her left leg. He reports diffuse swelling within her abdomen and legs. She reports some significant dyspnea on exertion. Patient reports that she was discharged yesterday and did have some shortness of breath at that time. - Related Data Home Medications Medication Instructions Recorded Confirmed metFORMIN HCL [Glucophage] 1,000 mg PO BID 09/04/16 05/24/19 DULoxetine HCL [Cymbalta] 60 mg PO HS 01/25/18 05/24/19 Medroxyprogesterone Acetate 150 mg IM Q90D 01/25/18 05/24/19 [Depo-Provera] Omeprazole 20 mg PO DAILY 01/25/18 05/24/19 Pregabalin [Lyrica] 150 mg PO TID 02/18/19 05/24/19 Nicotine Polacrilex [Nicorette] 4 mg BC Q2H PRN 05/13/19 05/24/19 busPIRone HCl [Buspar] 5 mg PO BID 05/13/19 05/24/19 HYDROcodone/APAP 10-325MG [[place] 1 tab PO Q6H PRN 05/24/19 05/24/19 10-325] Previous Rx's Medication Instructions Recorded Cefuroxime [Ceftin] 250 mg PO BID #20 tab 05/23/19 Insulin Glargine/Lixisenatide 25 units SQ HS #0 05/23/19 [[place] 100 Unit-33 Mcg/ml Pen] Sodium Bicarbonate Tab 650 mg PO BID #0 tab 05/23/19 metroNIDAZOLE [Flagyl] 500 mg PO TID #30 tab 05/23/19 predniSONE 20 mg PO DAILY #5 tab 05/23/19 Allergies Allergy/AdvReac Type Severity Reaction Status Date / Time amoxicillin AdvReac Severe Nausea & Verified 05/24/19 10:57 Vomiting Tomatoes fresh cut Allergy Rash/Hives Uncoded 05/15/19 16:09 Review of Systems ROS Statement: Those systems with pertinent positive or pertinent negative responses have been documented in the HPI. ROS Other: All systems not noted in ROS Statement are negative. Past Medical History Past Medical History: Asthma, Diabetes Mellitus Additional Past Medical History / Comment(s): chronic back pain, one seizure as infant, enlarged spleen, hiatal hernia, "high red blood cell count", neuropathy nat[place] feet, MIGRAINE HEADACHE,difficult swallowing History of Any Multi-Drug Resistant Organisms: None Reported Past Surgical History: Cholecystectomy, Hernia Repair, Tonsillectomy Additional Past Surgical History / Comment(s): cyst removed from SIDE neck, COLONOSCOPY, robotic assisted hernia repair- UMBILICAL REPAIR Past Anesthesia/Blood Transfusion Reactions: No Reported Reaction Additional Past Anesthesia/Blood Transfusion Reaction / Comment(s): 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 Alert and oriented 3. Patient appears in no significant distress at this time. Limitations: no limitations General appearance: alert, in no apparent distress Head exam: Present: atraumatic, normocephalic, normal inspection Eye exam: Present: normal appearance, PERRL, EOMI. Absent: scleral icterus, conjunctival injection, periorbital swelling ENT exam: Present: normal exam, mucous membranes moist. Absent: normal oropharynx ( is a dry oropharynx.) Neck exam: Present: normal inspection. Absent: tenderness, meningismus, lymphadenopathy Respiratory exam: Present: decreased breath sounds. Absent: normal lung sounds bilaterally, respiratory distress, wheezes, rales, rhonchi, stridor Cardiovascular Exam: Present: regular rate GI/Abdominal exam: Present: soft, normal bowel sounds. Absent: distended, tenderness, guarding, rebound, rigid Extremities exam: Present: normal inspection, full ROM, normal capillary refill, pedal edema, other (4+ bilateral pedal edema. Patient has a abscess that was d rained on her left posterior thigh. There is no stranding erythema but wound appears to be quite deep. Dressing was removed and repacked with gauze.). Absent: tenderness, joint swelling, calf tenderness Back exam: Present: normal inspection Neurological exam: Present: alert, oriented X3, CN II-XII intact Psychiatric exam: Present: normal affect, normal mood Skin exam: Present: warm, dry, intact, normal color. Absent: rash Course Vital Signs 05/24/19 05/24/19 05/24/19 10:10 11:00 11:30 Temperature 98.9 F Pulse Rate 100 92 98 Respiratory 21 12 21 Rate Blood Pressure 158/80 137/76 145/83 O2 Sat by Pulse 95 95 96 Oximetry 05/24/19 05/24/19 12:00 14:00 Temperature Pulse Rate 96 103 H Respiratory 12 24 Rate Blood Pressure 145/105 159/103 O2 Sat by Pulse 94 L 18 L Oximetry Medical Decision Making - Medical Decision Making 33-year-old female with multiple complaints. Main complaint today shortness of breath. She is discharged yesterday for a left thigh and buttocks abscess. The wound was reviewed. She does have some drainage from the wound at this time but no stranding erythema. Patient was given IV and laboratory obtained. She was given 500 EC full bolus concern for fluid overload at this time. Patient does have an elevated BNP of 9560. Patient asked BUN/creatinine are increased with is no significant change from her last the lab from yesterday. Patient's white blood cell count is went up to 24,000 this time. Patient will continue antibiotics.Hemoglobin is 9.4. She did have a significantly elevated d-dimer 4.89. Patient went to VQ scan as Patient has poor kidney function would not tolerate computed tomography scan with contrast. This was negative for PE. I discussed the case with Dr. Patiño who recommended admission with discussing with Dr. Medrano. We'll consult cardiology for CHF. They also request group social worker consult. - Lab Data Result diagrams: 05/24/19 10:49 05/24/19 10:49 Lab Results 05/24/19 05/24/19 05/24/19 Range/Units 10:49 10:49 10:49 WBC 24.1 H (3.8-10.6) k/uL RBC 3.29 L (3.80-5.40) m/uL Hgb 9.4 L (11.4-16.0) gm/dL Hct 28.9 L (34.0-46.0) % MCV 87.8 (80.0-100.0) fL MCH 28.5 (25.0-35.0) pg MCHC 32.4 (31.0-37.0) g/dL RDW 15.1 (11.5-15.5) % Plt Count 411 (150-450) k/uL Neutrophils % 83 % Lymphocytes % 12 % Monocytes % 3 % Eosinophils % 1 % Basophils % 0 % Neutrophils # 19.9 H (1.3-7.7) k/uL Lymphocytes # 3.0 (1.0-4.8) k/uL Monocytes # 0.6 (0-1.0) k/uL Eosinophils # 0.3 (0-0.7) k/uL Basophils # 0.1 (0-0.2) k/uL Hypochromasia Slight PT 11.0 (9.0-12.0) sec INR 1.0 (<1.2) APTT 25.2 (22.0-30.0) sec D-Dimer 4.89 H (<0.60) mg/L FEU Sodium 142 (137-145) mmol/L Potassium 4.2 (3.5-5.1) mmol/L Chloride 112 H (98-107) mmol/L Carbon Dioxide 21 L (22-30) mmol/L Anion Gap 9 mmol/L BUN 50 H (7-17) mg/dL Creatinine 3.35 H (0.52-1.04) mg/dL Est GFR (CKD-EPI)AfAm 20 (>60 ml/min/1.73 sqM) Est GFR (CKD-EPI)NonAf 17 (>60 ml/min/1.73 sqM) Glucose 175 H (74-99) mg/dL Calcium 8.3 L (8.4-10.2) mg/dL Magnesium 1.4 L (1.6-2.3) mg/dL Total Bilirubin 0.5 (0.2-1.3) mg/dL AST 17 (14-36) U/L ALT 26 (9-52) U/L Alkaline Phosphatase 116 (38-126) U/L Troponin I (0.000-0.034) ng/mL NT-Pro-B Natriuret Pep pg/mL Total Protein 5.7 L (6.3-8.2) g/dL Albumin 2.7 L (3.5-5.0) g/dL 05/24/19 05/24/19 Range/Units 10:49 10:49 WBC (3.8-10.6) k/uL RBC (3.80-5.40) m/uL Hgb (11.4-16.0) gm/dL Hct (34.0-46.0) % MCV (80.0-100.0) fL MCH (25.0-35.0) pg MCHC (31.0-37.0) g/dL RDW (11.5-15.5) % Plt Count (150-450) k/uL Neutrophils % % Lymphocytes % % Monocytes % % Eosinophils % % Basophils % % Neutrophils # (1.3-7.7) k/uL Lymphocytes # (1.0-4.8) k/uL Monocytes # (0-1.0) k/uL Eosinophils # (0-0.7) k/uL Basophils # (0-0.2) k/uL Hypochromasia PT (9.0-12.0) sec INR (<1.2) APTT (22.0-30.0) sec D-Dimer (<0.60) mg/L FEU Sodium (137-145) mmol/L Potassium (3.5-5.1) mmol/L Chloride (98-107) mmol/L Carbon Dioxide (22-30) mmol/L Anion Gap mmol/L BUN (7-17) mg/dL Creatinine (0.52-1.04) mg/dL Est GFR (CKD-EPI)AfAm (>60 ml/min/1.73 sqM) Est GFR (CKD-EPI)NonAf (>60 ml/min/1.73 sqM) Glucose (74-99) mg/dL Calcium (8.4-10.2) mg/dL Magnesium (1.6-2.3) mg/dL Total Bilirubin (0.2-1.3) mg/dL AST (14-36) U/L ALT (9-52) U/L Alkaline Phosphatase (38-126) U/L Troponin I <0.012 (0.000-0.034) ng/mL NT-Pro-B Natriuret Pep 9560 pg/mL Total Protein (6.3-8.2) g/dL Albumin (3.5-5.0) g/dL EKG performed at 1049 shows normal sinus rhythm, low voltage QRS. Borderline EKG. Ventricular rate of 93 beats were minute period. Normal is 180 ms. Frustration a 72 ms. QT QTc is 320/400 ms. - Radiology Data Radiology results: report reviewed CXR shows Mild interstitial edema and trace pleural effusions. Consider congestive heart failure. Pulmonary perfusion test report states examination was not completed by the Patient. There is normal perfusion with low probability for pulmonary embolus. Disposition Clinical Impression: Abscess, gluteal, left, Acute renal failure, CHF (congestive heart failure) Disposition: ADMITTED IP TO THIS HOSP Condition: Stable Is patient prescribed a controlled substance at d/c from ED?: No Referrals: Zach Herr MD [Primary Care Provider] - 1-2 days Time of Disposition: 14:21
--- NOTE | 2019-05-24 11:50 | XR ---
EXAMINATION TYPE: XR chest 2V DATE OF EXAM: 05/24/2019 COMPARISON: 05/10/2017 HISTORY: Difficulty breathing TECHNIQUE: Frontal and lateral views of the chest are obtained. FINDINGS: Diffuse interstitial prominence is new from the prior. Right minor fissural fluid is trace . Trace pleural effusions are also seen. Cardiomediastinal silhouette is enlarged. IMPRESSION: Mild interstitial edema and trace pleural effusions. Consider congestive heart failure.
--- NOTE | 2019-05-24 13:10 | NM ---
EXAMINATION TYPE: NM pul perfusion DATE OF EXAM: 05/24/2019 COMPARISON: Chest x-ray of the same date. HISTORY: Difficulty breathing. Following administration of 5.2 mCi Tc 99m MAA. Images obtained post injection. FINDINGS: The patient declined the ventilatory portion of examination. Normal perfusion is seen within the lung s. IMPRESSION: Examination was not completed by the patient. There is normal perfusion with low probabil ity for pulmonary embolus.
[2019-05-24] MEDS ORDERED: NON FORMULARY DRUG (Medroxyprogesterone Acetate [Depo-Provera] 150 MG) IM SCH (14:30)
[2019-05-24] MEDS: FUROSEMIDE 10 MG/ML 4 ML VIAL IV SCH (15:19)
--- NOTE | 2019-05-24 16:34 | P.CON ---
Consult Note - . Consult date: 05/24/19 Assessment/Plan:: This is a 33-year-old pleasant female being seen by the wound care center for a nonhealing ulceration to the left thigh. The ulceration started as an abscess with tunneling. Patient had a debridement preformed on 05/13/[address] Herr. At that time the ulceration was measuring 5.4 x 3.2 x 0.3 cm with undermining of 10 cm's at 7:00 to 12:00. There has been no significant change to the ulceration since this debridement. The ulceration now has a purulent drainage from the site. The wound bed shows minimal granulation with adherent slough noted. Review of systems: Integumentary: Reports ulceration, reports drainage, denies any new ulcerations, denies pruritus, denies ecchymosis Physical exam: Integumentary: See HPI Assessment/plan: 1. Nonhealing ulceration with fatty layer exposure. Cleanse with normal saline, apply silver rope, saline moistened gauze, and a BD. Utilize skin prep. Utilize waffle cushion for sitting. Discussed with patient's outpatient wound care therapy when discharged area patient was agreeable. Culture sent. 2. Diabetes with skin ulceration 3. Abscess Thank you kindly for the consult. Any questions please contact the wound care center DNP note has been reviewed and discussed with Dr. Barahona and the impression and plan of care has been directed as dictated.
[2019-05-24] MEDS: PREGABALIN 75 MG CAP PO SCH ×2 (17:05→21:38)
[2019-05-24] MEDS: metFORMIN 500 MG TAB PO SCH (17:05)
[2019-05-24] MEDS: metroNIDAZOLE 500 MG TAB PO SCH ×2 (17:05→21:39)
[2019-05-24 17:08] LABS: Glucose,Whole Blood 191 mg/dL (75-99)
[2019-05-24 20:25] LABS: Glucose,Whole Blood 228 mg/dL (75-99)
[2019-05-24] MEDS: [UNRECOGNIZED DRUG - OTHER] SQ SCH (21:00)
[2019-05-24] MEDS: CEFDINIR 300 MG CAP PO SCH (21:38)
[2019-05-24] MEDS: DULoxetine HCL 60 MG CAPSULE.DR PO SCH (21:38)
[2019-05-24] MEDS: SODIUM BICARBONATE TAB 650 MG TAB PO SCH (21:39)
[2019-05-24] MEDS: busPIRone HCl 5 MG TAB PO SCH (21:39)
[2019-05-24] MEDS: HYDROcodone/APAP 10-325MG 1 EACH TAB PO PRN (21:43)
[2019-05-25] MEDS: hydrALAZINE HCL 25 MG TAB PO SCH ×4 (00:28→23:11)
[2019-05-25] MEDS: NICOTINE POLACRILEX 2 MG GUM BUCCAL PRN ×2 (02:10→06:48)
[2019-05-25] MEDS: FUROSEMIDE 10 MG/ML 4 ML VIAL IV SCH ×2 (02:10→17:37)
[2019-05-25 06:16] LABS: Glucose,Whole Blood 158 mg/dL (75-99)
[2019-05-25 06:38] LABS: Basophils # (A) 0.1 k/uL (0-0.2); Basophils % (A) 0 %; Eosinophils # (A) 0.4 k/uL (0-0.7); Eosinophils % (A) 2 %; HCT 28.7 % (34.0-46.0); Hypochromasia Slight; Lymphocytes # (A) 3.2 k/uL (1.0-4.8); Lymphocytes % (A) 17 %; MCH 27.6 pg (25.0-35.0); MCHC 31.4 g/dL (31.0-37.0); MCV 88.2 fL (80.0-100.0); Mean Platelet Volume 8.2; Monocytes # (A) 0.6 k/uL (0-1.0); Monocytes % (A) 3 %; Neutrophils # (A) 14.3 k/uL (1.3-7.7); Neutrophils % (A) 77 %; Platelet Count 391 k/uL (150-450); RBC 3.25 m/uL (3.80-5.40); RDW 15.4 % (11.5-15.5); WBC 18.8 k/uL (3.8-10.6)
[2019-05-25] MEDS: metFORMIN 500 MG TAB PO SCH (06:45)
[2019-05-25 06:56] LABS: Calcium 8.5 mg/dL (8.4-10.2); Potassium 4.4 mmol/L (3.5-5.1)
[2019-05-25] MEDS ORDERED: PANTOPRAZOLE 40 MG TABLET PO SCH (07:30)
[2019-05-25] MEDS: busPIRone HCl 5 MG TAB PO SCH ×2 (08:24→21:33)
[2019-05-25] MEDS: CEFDINIR 300 MG CAP PO SCH (08:24)
[2019-05-25] MEDS: PREGABALIN 75 MG CAP PO SCH ×3 (08:24→23:11)
[2019-05-25] MEDS: metroNIDAZOLE 500 MG TAB PO SCH (08:24)
[2019-05-25] MEDS: SODIUM BICARBONATE TAB 650 MG TAB PO SCH ×2 (08:24→21:33)
[2019-05-25] MEDS: predniSONE 20 MG TAB PO SCH (08:25)
[2019-05-25] MEDS ORDERED: ASPIRIN 325 MG TAB PO SCH (09:00)
--- NOTE | 2019-05-25 09:20 | P.CRDCN ---
History of Present Illness Consult date: 05/25/19 Requesting physician: Ernesto Nguyen Jr Consult reason: chest pain, shortness of breath Chief complaint: Chest pain, shortness of breath History of present illness: This is a 32-year-old female with history of morbid obesity, diabetes, hypertension, nicotine dependence, asthma, marijuana use, anxiety and panic attacks who was recently in the hospital because of a sepsis from gluteal a bscess on the left, which was growing Klebsiella oxytoca, she had been receiving antibiotics as well as wound care during that hospitalization. Patient also had acute kidney injury during that admission, and was being followed by nephrology. She was discharged home the day prior to returning to the hospital, she came back in with symptoms of shortness of breath, and she also states that she had some chest pain which she described as sharp stabbing chest pain like a knife in her chest. Chest x-ray on presentation here showed mild interstitial edema and a trace pleural effusions. Consider congestive heart failure. A lung perfusion scan was recommended for the patient, she declined the ventilatory portion of the examination, normal perfusion was seen within the lungs suggesting low proba bility for pulmonary embolism. EKG shows normal sinus rhythm with no acute changes. Blood pressure on presentation here 158/80 with a heart rate in the 90s. This morning's blood pressure 135/70, heart rate low 100s, afebrile. 93% on room air. White blood cell count 24.1 on admission, hemoglobin 9.4, platelet count 411. Sodium 142, potassium 4.2, BUN 50, creatinine 3.3, BUN this morning is 44 with a creatinine of 2.8 numbers are downward trend from her recent admission. Magnesium 1.4. Troponin 0.012. BNP level 9560. Patient was initiated on IV Lasix here, we will decrease her aspirin to 81 mg daily, add Lipitor to her medication regime as she is a diabetic, we will also add small d ose of metoprolol to the medication regime. At the time of my examination this morning patient is very sleepy, not wanting to wait To speak much, still feel short of breath but she does state that she is feeling better than when she came in. Denies any chest pains at present. Past Medical History Past Medical History: Asthma, Diabetes Mellitus, GERD/Reflux, Liver Disease, Pneumonia, Renal Disease Additional Past Medical History / Comment(s): Pt recently admitted to [facility] on 05/15/19 with sepsis d/t L gluteal/thigh abscess/leukocytosis and acute renal failure. Other hx: IDDM type II, neuropathy bilateral feet, past renal f ailure and has passed kidney stones, leukocytosis, elevated RBCs, enlarged liver and spleen, hiatal hernia, gastritis, bronchitis, migraines in the past. 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 currently being worked up by oncology Smoking Status: Current every day smoker - Past Family History Mother Family Medical History: Deep Vein Thrombosis (DVT), Pulmonary Embolus Father History Unknown: Yes Medications and Allergies Home Medications Medication Instructions Recorded Confirmed Type metFORMIN HCL [Glucophage] 1,000 mg PO BID 09/04/16 05/24/19 History DULoxetine HCL [Cymbalta] 60 mg PO HS 01/25/18 05/24/19 History Medroxyprogesterone Acetate 150 mg IM Q90D 01/25/18 05/24/19 History [Depo-Provera] Omeprazole 20 mg PO DAILY 01/25/18 05/24/19 History Pregabalin [Lyrica] 150 mg PO TID 02/18/19 05/24/19 History Nicotine Polacrilex [Nicorette] 4 mg BC Q2H PRN 05/13/19 05/24/19 History busPIRone HCl [Buspar] 5 mg PO BID 05/13/19 05/24/19 History Cefuroxime [Ceftin] 250 mg PO BID #20 tab 05/23/19 05/24/19 Rx Insulin Glargine/Lixisenatide 25 units SQ HS #0 05/23/19 05/24/19 Rx [Soliqua 100 Unit-33 Mcg/ml Pen] Sodium Bicarbonate Tab 650 mg PO BID #0 tab 05/23/19 05/24/19 Rx metroNIDAZOLE [Flagyl] 500 mg PO TID #30 tab 05/23/19 05/24/19 Rx predniSONE 20 mg PO DAILY #5 tab 05/23/19 05/24/19 Rx HYDROcodone/APAP 10-325MG [Ramona 1 tab PO Q6H PRN 05/24/19 05/24/19 History 10-325] Allergies Allergy/AdvReac Type Severity Reaction Status Date / Time amoxicillin AdvReac Severe Nausea & Verified 05/24/19 10:57 Vomiting Tomatoes fresh cut Allergy Rash/Hives Uncoded 05/15/19 16:09 Physical Exam Vitals: Vital Signs Temp Pulse Pulse Resp BP BP Pulse Ox 05/25/19 08:00 97.2 F L 104 H 18 135/70 93 L 05/25/19 04:00 98.7 F 95 20 145/79 99 05/25/19 00:00 98.8 F 103 H 18 173/93 93 L 05/24/19 20:00 98.2 F 101 H 18 133/72 96 05/24/19 16:00 98.1 F 90 18 158/79 94 L 05/24/19 15:45 98.1 F 94 18 135/75 98 05/24/19 14:00 103 H 24 159/103 18 L 05/24/19 12:00 96 12 145/105 94 L 05/24/19 11:30 98 21 145/83 96 05/24/19 11:00 92 12 137/76 95 05/24/19 10:10 98.9 F 100 21 158/80 95 Intake and Output 05/24/19 05/25/19 05/25/19 22:59 06:59 14:59 Intake Total 240 360 Balance 240 360 Intake: Oral 240 360 Other: Voiding Method Toilet Toilet # Voids 2 2 # Bowel Movements 1 Weight 111.584 kg 140 kg PHYSICAL EXAMINATION: GENERAL: 33-year-old female in no acute distress at the time of my examination HEENT: Head is atraumatic, normocephalic. Pupils equal, round. Sclera anicteric. Conjunctiva are clear. Mucous membranes of the mouth are moist. Neck is supple. Unable to assess jugular venous pressure. No carotid bruit is heard. HEART EXAMINATION: Heart S1, S2 normal. No murmur or gallop heard. CHEST EXAMINATION: Lungs are clear with diminished air entry anteriorly at the bases ABDOMEN: Soft, obese nontender. Bowel sounds are heard. No organomegaly noted. EXTREMITIES: 2+ peripheral pulses with trace evidence of peripheral edema and no calf tenderness noted. Nonhealing ulcerated area to the left thigh/buttocks NEUROLOGIC patient is awake, alert and oriented 3 . . Results 05/25/19 05:44 05/25/19 05:44 Cardiac Enzymes 05/24/19 05/24/19 Range/Units 10:49 10:49 AST 17 (14-36) U/L Troponin I <0.012 (0.000-0.034) ng/mL Coagulation 05/24/19 Range/Units 10:49 PT 11.0 (9.0-12.0) sec APTT 25.2 (22.0-30.0) sec CBC 05/24/19 05/25/19 Range/Units 10:49 05:44 WBC 24.1 H 18.8 H (3.8-10.6) k/uL RBC 3.29 L 3.25 L (3.80-5.40) m/uL Hgb 9.4 L 9.0 L (11.4-16.0) gm/dL Hct 28.9 L 28.7 L (34.0-46.0) % Plt Count 411 391 (150-450) k/uL Comprehensive Metabolic Panel 05/24/19 05/25/19 Range/Units 10:49 05:44 Sodium 142 141 (137-145) mmol/L Potassium 4.2 4.4 (3.5-5.1) mmol/L Chloride 112 H 112 H (98-107) mmol/L Carbon Dioxide 21 L 20 L (22-30) mmol/L BUN 50 H 44 H (7-17) mg/dL Creatinine 3.35 H 2.87 H (0.52-1.04) mg/dL Glucose 175 H 137 H (74-99) mg/dL Calcium 8.3 L 8.5 (8.4-10.2) mg/dL AST 17 (14-36) U/L ALT 26 (9-52) U/L Alkaline Phosphatase 116 (38-126) U/L Total Protein 5.7 L (6.3-8.2) g/dL Albumin 2.7 L (3.5-5.0) g/dL Current Medications Generic Name Dose Route Start Last Admin Trade Name Freq PRN Reason Stop Dose Admin Hydrocodone Bitart/Acetaminophen 1 each 05/24/19 14:25 05/24/19 21:43 Ramona 10 PO 1 each Q6H PRN Administration Pain Aspirin 81 mg 05/25/19 09:00 Aspirin PO DAILY [facility] Atorvastatin Calcium 40 mg 05/25/19 21:00 Lipitor PO HS BIRDIE Buspirone HCl 5 mg 05/24/19 21:00 05/25/19 08:24 Buspar PO 5 mg BID BIRDIE Administration Cefdinir 300 mg 05/24/19 21:00 05/25/19 08:24 Omnicef PO 300 mg BID BIRDIE Administration Duloxetine HCl 60 mg 05/24/19 21:00 05/24/19 21:38 Cymbalta PO 60 mg HS BIRDIE Administration Furosemide 40 mg 05/24/19 14:30 05/25/19 02:10 Lasix IV 40 mg Q12H BIRDIE Administration Hydralazine HCl 12.5 mg 05/25/19 00:00 05/25/19 08:24 Apresoline PO 12.5 mg Q8HR BIRDIE Administration Metformin HCl 1,000 mg 05/24/19 17:30 05/25/19 06:45 Glucophage PO 1,000 mg BID-W/MEALS BIRDIE Administration Metoprolol Tartrate 25 mg 05/25/19 09:00 Lopressor PO DAILY [facility] Metronidazole 500 mg 05/24/19 16:00 05/25/19 08:24 Flagyl PO 500 mg TID BIRDIE Administration Nicotine Polacrilex 4 mg 05/24/19 14:25 05/25/19 06:48 Nicorette Gum BUCCAL 4 mg Q2H PRN Administration CRAVINGS Non-Formulary Medication 25 units 05/24/19 21:00 05/24/19 21:00 Insulin Glargine/Lixisenatide [Soliqua 100 Unit-33 Mcg/Ml Pen] SQ Not Given HS BIRDIE Pantoprazole Sodium 40 mg 05/25/19 07:30 05/25/19 06:45 Protonix PO 40 mg AC-BRKFST BIRDIE Administration Prednisone 20 mg 05/25/19 09:00 05/25/19 08:25 PO 20 mg DAILY BIRDIE Administration Pregabalin 150 mg 05/24/19 16:00 05/25/19 08:24 Lyrica PO 150 mg TID BIRDIE Administration Sodium Bicarbonate 650 mg 05/24/19 21:00 05/25/19 08:24 Sodium Bicarbonate Tab PO 650 mg BID BIRDIE Administration Intake and Output 05/24/19 05/25/19 05/25/19 22:59 06:59 14:59 Intake Total 240 360 Balance 240 360 Intake: Oral 240 360 Other: Voiding Method Toilet Toilet # Voids 2 2 # Bowel Movements 1 Weight 111.584 kg 140 kg 05/25/19 05:44 05/25/19 05:44 EKG Interpretations (text) EKG shows a normal sinus rhythm with no acute changes. Assessment and Plan Plan: Assessment and plan #1 atypical chest pain, initial troponin negative. EKG shows normal sinus rhythm with no acute changes. #2 congestive heart failure, LV function unknown #3 acute on chronic renal failure, patient had acute kidney injury during this recent admission felt to be secondary to infection and hypotension, numbers are improving, her baseline creatinine is near 1 #4 recent hospitalization for a left gluteal abscess, sepsis, wound culture positive for Klebsiella #5 morbid obesity #6 diabetes #7 hypertension #8 nicotine dependence #9 asthma #10 anxiety and depression #11 marijuana use Plan We will continue IV Lasix, obtain echocardiogram with Doppler study. Start the patient on a statin being that she is a diabetic, decrease aspirin to 81 mg daily, add a small dose of metoprolol to her medication regime. The patient's chest pain is very atypical in nature, we will obtain 2 subsequent troponins. Further recommendations to follow. DNP note has been reviewed, I agree with a documented findings and plan of care. Patient was seen and examined.
--- NOTE | 2019-05-25 10:01 | ECHOF ---
Referral Reason:Heart function MEASUREMENTS -------- HEIGHT: 165.1 cm WEIGHT: 139.7 kg BP: RVIDd: 3.7 cm (< 3.3) IVSd: 1.2 cm (0.6 - 1.1) LVIDd: 4.4 cm (3.9 - 5.3) LVPWd: 0.9 cm (0.6 - 1.1) IVSs: 1.5 cm LVIDs: 3.3 cm LVPWs: 1.3 cm LA Diam: 4.0 cm (2.7 - 3.8) LAESV Index (A-L): 27.18 ml/m Ao Diam: 3.3 cm (2.0 - 3.7) AV Cusp: 2.0 cm (1.5 - 2.6) LA Diam: 4.2 cm (2.7 - 3.8) MV EXCURSION: 19.089 mm (> 18.000) MV EF SLOPE: 94 mm/s (70 - 150) EPSS: 0.6 cm MV E Vinay: 1.12 m/s MV DecT: 188 ms MV A Vinay: 1.40 m/s MV E/A Ratio: 0.81 RAP: 5.00 mmHg RVSP: 16.45 mmHg FINDINGS -------- Sinus rhythm. Morbid Obesity The left ventricular size is normal. There is mild concentric left ventricular hypertrophy. Overa ll left ventricular systolic function is normal with, an EF between 55 - 60 %. The diastolic fillin g pattern is normal for the age of the patient 10.84. The right ventricle is normal in size. The left atrial size is normal. Normal LA size by volume 22+/-6 ml/m2. The right atrial size is normal. The aortic valve is trileaflet, and appears structurally normal. No aortic stenosis or regurgitation. Mild mitral annular calcification present. Mild mitral regurgitation is present. Mild tricuspid regurgitation present. Right ventricular systolic pressure is normal at < 35 mmHg. There is no evidence of pulmonary hypertension. There is no pulmonic regurgitation present. The aortic root size is normal. There is no pericardial effusion. CONCLUSIONS -------- 1. Sinus rhythm. 2. Morbid Obesity 3. The left ventricular size is normal. 4. There is mild concentric left ventricular hypertrophy. 5. Overall left ventricular systolic function is normal with, an EF between 55 - 60 %. 6. The diastolic filling pattern is normal for the age of the patient 10.84 7. The right ventricle is normal in size. 8. The left atrial size is normal. 9. Normal LA size by volume 22+/-6 ml/m2. 10. The right atrial size is normal. 11. The aortic valve is trileaflet, and appears structurally normal. No aortic stenosis or regurgitat ion. 12. Mild mitral annular calcification present. 13. Mild mitral regurgitation is present. 14. Mild tricuspid regurgitation present. 15. Right ventricular systolic pressure is normal at < 35 mmHg. 16. There is no evidence of pulmonary hypertension. 17. There is no pulmonic regurgitation present. 18. The aortic root size is normal. 19. There is no pericardial effusion. DIRECTOR OF MIDWIFERY/STAFF MIDWIFE: Baylee Paredes RDCS
[2019-05-25] MEDS: ASPIRIN 81 MG PO SCH (10:10)
[2019-05-25] MEDS: METOPROLOL TARTRATE 25 MG TAB PO SCH (10:19)
[2019-05-25] MEDS: NICOTINE 14MG/24HR PATCH TRANSDERM SCH (10:26)
[2019-05-25 12:03] LABS: Glucose,Whole Blood 223 mg/dL (75-99)
--- NOTE | 2019-05-25 12:44 | P.CN ---
Psychiatric Consult - . Consult date: 05/25/19 Consult:: IDENTIFYING DATA: She is a 33-year-old single female admitted to medicine service for treatment of an abscess on her left buttocks. The hospitalist submitted a consult for "suspected depression and declining ability to care of herself." HISTORY OF PRESENT ILLNESS: I reviewed the medical record and interviewed the patient. She was concerned about her physical health and expressed concern about her many medical problems. She complained of pain from from the abscess. When I asked about depression she replied that "I'm always depressed." However, she denied that she had lost ability to enjoy herself. She denied feeling hopeless, helpless or worthless. She denied having thoughts of or suicide and denied a history of suicide attempts or gestures. She denied experiencing significant weight loss, persistent insomnia or hypersomnia, psychomotor agitation or retardation nearly every day, fatigue or loss of energy nearly every day. She anxious about her health but denied persistent anxiety and inability to control her anxiety. She denied experiencing increased anxiety disorder with panic attack. She denied obsessions or compulsions. She denied use of alcohol or drugs. She denied experiencing such psychotic symptoms as hallucinations ideas reference etc. PAST PSYCHIATRIC HISTORY: Her parents referred her for individual therapy when she was 9 or 10 years old because she had repeated conflict with her stepfather. Her primary care provider has prescribed BuSpar and Cymbalta for treatment of complaints of depression and anxiety. She denied side effects to his medications and reported that they've been effective in reducing her symptoms. PAST MEDICAL HISTORY: Asthma, diabetes mellitus, GERD, liver disease, pneumonia, renal . ALLERGIES: Amoxicillin. SUBSTANCE USE HISTORY: She said she hasn't drank alcohol last 4 years. She "occasionally," aides marijuana-containing foods (cookies, brownish). She denied use of other drugs such as cocaine, "crack", methamphetamine, heroin, or opioid pain medications. FAMILY PSYCHIATRIC/SUBSTANCE USE HISTORY: She is unaware of family history of mental illness. SOCIAL HISTORY: She was born out of wedlock. Her mother remarried when she was young. She talked about frequent ongoing conflicts with her stepfather. She left home and live with her grandparents at age 15. She is single and has no children. She lives with her mother. She is unemployed and has no income. MENTAL STATUS EXAM: She presented as a morbidly obese 33-year-old female who was pleasant on approach. She made eye contact and attended to interview. She had no distinguishing features or prominent physical abnormalities. She had a bright facial expression. She is alert and oriented to person, place and time. She was laying comfortably in bed and demonstrated no abnormal movements. Her speech was spontaneous with normal rate, rhythm and volume. Affect was bright and expressive. She laughed and joked during the interview. She denied suicidal ideation or wishes. She denied homicidal ideation. She denied experiencing such depressive cognitions as hopelessness, helplessness or worthlessness. She did not express ideas reference, paranoid ideation or delusions. Her thinking was abstract and associations were coherent, logical and goal directed. She denied hallucinations did not appear to be responding to internal stimuli.. IMPRESSIONS: She is a 33-year-old female with multiple medical problems that have prevented her from maintaining gainful employment. She presented to [facility] with an abscess that requires department. She has a history of depression that appears been well managed with combination of BuSpar and Loxitane. There is no indication for acute psychiatric treatment at this time. DIAGNOSIS: Major depressive disorder in remission PLAN: Is no indication for transfer to psychiatric unit this time. There is no indication for referral for psychiatric treatment. There is no indication for change in her psychotropic medication regimen this time. Thank you for the consult. 05/25/19 12:27
[2019-05-25 14:19] VITALS: BMI 49.8
[2019-05-25 16:51] LABS: Glucose,Whole Blood 342 mg/dL (75-99)
[2019-05-25] MEDS: HYDROcodone/APAP 10-325MG 1 EACH TAB PO PRN ×2 (17:35→23:11)
--- NOTE | 2019-05-25 19:26 | P.HPIM ---
History of Present Illness H&P Date: 05/25/19 Chief Complaint: Shortness of breath, draining perianal abscess Ms. Camille Fonseca was discharged from the hospital yesterday and returned to the hospital within 8 hours. He had developed shortness of breath and prior to this her kidney function white count all of her labs were improving the attempt was to discharge her to rehab unit which she refused, we were going to discharge her home with plans of treating her in the wound center and doing outpatient wound care her dietary compliance is less than stellar heating potato chips salty cookies high sodium diet beverages her urine creatinine were still elevated in the V1 in the 40s and creatinine was 2.5 2.4 but significantly improved patient wanted bag to go home and we made the attempt to try and get her all the help of that she could patient developed congestive heart failure and basically all due to dietary noncompliance. Echocardiogram was basically normal sugars were anywhere from 150-350 her white count had was elevated but had diminished significantly at one point it was over 25,000 and had been down to 18,000 and improving she was on appropriate antibiotic therapy and return to the hospital. I sat down with this patient and presented to her the big picture, #1 she is 33 years old, there is no reason that she should be in congestive heart failure with an almost normal echo, #2 she has been non compliant with her diabetes and the 2 years that she has been being seen at our office this is only the second time that I have evaluated this patient and when I looked at her office charts her sugars have never been any lower than 200 or 300, she is morbidly obese, she has blood pressure controlled on antihypertensives and these are all behaviorally controlled I had a long conversation with her discussing her diet including carbohydrates, sodium, and proteins I made sure the nurse was in the room with me at that time who happened to be a classmate of Karins in high school. She became somewhat teary-eyed but listen to me and when I asked her to these try to meet me long term and not bringing potato chips and other salty snacks in the hospital or have friends bring them into the hospital and I asked her to comply with a low sodium or 4 g sodium diet her comment was she would go along but she was afraid that I was going to be angry with her I's and non-angry with the year doing this to yourself I discussed I want to help you get better and the only way I can help you get better as a few help herself . Review of Systems Constitutional: Reports as per HPI Ears, nose, mouth and throat: Reports as per HPI Cardiovascular: Reports chest pain, Reports dyspnea on exertion, Reports high blood pressure, Reports shortness of breath Respiratory: Reports as per HPI (Diminished breath sounds secondary to body habitus) Gastrointestinal: Reports as per HPI Genitourinary: Reports as per HPI Menstruation: Reports as per HPI Musculoskeletal: Reports low back pain Integumentary: Reports wounds (A Aixa anal abscess) Neurological: Reports as per HPI Psychiatric: Reports anhedonia, Reports depression, Reports mood swings, Reports sadness/tearfulness Endocrine: Reports as per HPI Hematologic/Lymphatic: Reports as per HPI Allergic/Immunologic: Reports as per HPI Past Medical History Past Medical History: Asthma, Diabetes Mellitus, GERD/Reflux, Liver Disease, Pneumonia, Renal Disease Additional Past Medical History / Comment(s): Pt recently admitted to [facility] on 05/15/19 with sepsis d/t L gluteal/thigh abscess/leukocytosis and acute renal failure. Other hx: IDDM type II, neuropathy bilateral feet, past renal failure and has passed kidney stones, leukocytosis, elevated RBCs, enlarged liver and spleen, hiatal hernia, gastritis, bronchitis, migraines in the past. 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 currently being worked up by oncology Smoking Status: Current every day smoker - Past Family History Mother Family Medical History: Deep Vein Thrombosis (DVT), Pulmonary Embolus Father History Unknown: Yes Medications and Allergies Home Medications Medication Instructions Recorded Confirmed Type metFORMIN HCL [Glucophage] 1,000 mg PO BID 09/04/16 05/24/19 History DULoxetine HCL [Cymbalta] 60 mg PO HS 01/25/18 05/24/19 History Medroxyprogesterone Acetate 150 mg IM Q90D 01/25/18 05/24/19 History [Depo-Provera] Omeprazole 20 mg PO DAILY 01/25/18 05/24/19 History Pregabalin [Lyrica] 150 mg PO TID 02/18/19 05/24/19 History Nicotine Polacrilex [Nicorette] 4 mg BC Q2H PRN 05/13/19 05/24/19 History busPIRone HCl [Buspar] 5 mg PO BID 05/13/19 05/24/19 History Cefuroxime [Ceftin] 250 mg PO BID #20 tab 05/23/19 05/24/19 Rx Insulin Glargine/Lixisenatide 25 units SQ HS #0 05/23/19 05/24/19 Rx [[place] 100 Unit-33 Mcg/ml Pen] Sodium Bicarbonate Tab 650 mg PO BID #0 tab 05/23/19 05/24/19 Rx metroNIDAZOLE [Flagyl] 500 mg PO TID #30 tab 05/23/19 05/24/19 Rx predniSONE 20 mg PO DAILY #5 tab 05/23/19 05/24/19 Rx HYDROcodone/APAP 10-325MG [[place] 1 tab PO Q6H PRN 05/24/19 05/24/19 History 10-325] Allergies Allergy/AdvReac Type Severity Reaction Status Date / Time amoxicillin AdvReac Severe Nausea & Verified 05/24/19 10:57 Vomiting Tomatoes fresh cut Allergy Rash/Hives Uncoded 05/15/19 16:09 Physical Exam Osteopathic Statement: *. No significant issues noted on an osteopathic structural exam other than those noted in the History and Physical/Consult. Vitals: Vital Signs Temp Pulse Resp BP Pulse Ox 05/25/19 16:00 98.1 F 84 18 155/79 92 L 05/25/19 11:36 97.6 F 86 18 128/70 92 L 05/25/19 08:00 97.2 F L 104 H 18 135/70 93 L 05/25/19 04:00 98.7 F 95 20 145/79 99 05/25/19 00:00 98.8 F 103 H 18 173/93 93 L 05/24/19 20:00 98.2 F 101 H 18 133/72 96 Intake and Output 05/25/19 05/25/19 05/25/19 06:59 14:59 22:59 Intake Total 600 240 Balance 600 240 Intake: Oral 600 240 Other: Voiding Method Toilet Toilet # Voids 2 1 # Bowel Movements 1 Weight 140 kg 140 kg General: [Patient awake, alert and oriented times 3. Patient in no acute distress.] HEENT: [PERRL. EOMI. No pharyngeal erythema or exudate.] Neck: [No adenopathy.] Cardiac: [Heart regular in rate and rhythm. No S3. No S4. No clicks, rubs. No murmur.] Lungs: [Clear to auscultation bilaterally.] Abdomen: [No mass. No organomegaly. Bowel sounds presnt and normoactive in all 4 quadrants.] Morbid obesity Extremes: [2-3+ pitting edema improved from earlier no cyanosis no claudication normal pulses] : [] Normal female genitalia Musculoskeletal: [No joint erythema, edema or tenderness.] Skin: [No rash.] Neurologic: [No lateralizing deficits. CN II - XII grossly intact.] Lymphatic: [No adenopathy.] Results CBC & Chem 7: 05/25/19 05:44 05/25/19 05:44 Labs: Abnormal Lab Results - Last 24 Hours (Table) 05/24/19 05/25/19 05/25/19 Range/Units 20:21 05:44 05:44 WBC 18.8 H (3.8-10.6) k/uL RBC 3.25 L (3.80-5.40) m/uL Hgb 9.0 L (11.4-16.0) gm/dL Hct 28.7 L (34.0-46.0) % Neutrophils # 14.3 H (1.3-7.7) k/uL Chloride 112 H (98-107) mmol/L Carbon Dioxide 20 L (22-30) mmol/L BUN 44 H (7-17) mg/dL Creatinine 2.87 H (0.52-1.04) mg/dL Glucose 137 H (74-99) mg/dL POC Glucose (mg/dL) 228 H (75-99) mg/dL 05/25/19 05/25/19 05/25/19 Range/Units 06:14 11:58 16:49 WBC (3.8-10.6) k/uL RBC (3.80-5.40) m/uL Hgb (11.4-16.0) gm/dL Hct (34.0-46.0) % Neutrophils # (1.3-7.7) k/uL Chloride (98-107) mmol/L Carbon Dioxide (22-30) mmol/L BUN (7-17) mg/dL Creatinine (0.52-1.04) mg/dL Glucose (74-99) mg/dL POC Glucose (mg/dL) 158 H 223 H 342 H (75-99) mg/dL Microbiology - Last 24 Hours (Table) 05/24/19 16:18 Blood Culture - Preliminary Blood No Growth after 24 hours 05/24/19 17:10 Gram Stain - Preliminary Buttock Wound Culture - Preliminary 05/24/19 23:15 Anaerobic Culture - Preliminary Buttock Thrombosis Risk Factor Assmnt - Choose All That Apply Any of the Below Risk Factors Present?: Yes Each Factor Represents 1 point: Heart failure (<1month), Obesity (BMI >25), Swollen legs (current) Other Risk Factors: Yes Each Risk Factor Represents 3 Points: Family history of DVT/PE Other congenital or acquired thrombophilia - If yes, enter type in comment: No Thrombosis Risk Factor Assessment Total Risk Factor Score: 6 Thrombosis Risk Factor Assessment Level: High Risk Assessment and Plan (1) Noncompliance Current Visit: Yes Status: Acute Code(s): Z91.19 - PATIENT'S NONCOMPLIANCE W OTH MEDICAL TREATMENT AND REGIMEN SNOMED Code(s): 1111426 (2) Abscess, gluteal, left Current Visit: Yes Status: Acute Code(s): L02.31 - CUTANEOUS ABSCESS OF BUTTOCK SNOMED Code(s): 24910431 (3) Acute renal failure Current Visit: Yes Status: Acute Code(s): N17.9 - ACUTE KIDNEY FAILURE, UNSPECIFIED SNOMED Code(s): 03693707 (4) CHF (congestive heart failure) Current Visit: Yes Status: Acute Code(s): I50.9 - HEART FAILURE, UNSPECIFIED SNOMED Code(s): 22387336 (5) Abscess Current Visit: No Status: Acute Code(s): L02.91 - CUTANEOUS ABSCESS, UNSPECIFIED SNOMED Code(s): 373383493 (6) Asthma Current Visit: No Status: Acute Code(s): J45.909 - UNSPECIFIED ASTHMA, UNCOMPLICATED SNOMED Code(s): 249118334 (7) Depression Current Visit: No Status: Acute Code(s): F32.9 - MAJOR DEPRESSIVE DISORDER, SINGLE EPISODE, UNSPECIFIED SNOMED Code(s): 95462929 (8) Morbid (severe) obesity due to excess calories Current Visit: No Status: Acute Code(s): E66.01 - MORBID (SEVERE) OBESITY DUE TO EXCESS CALORIES SNOMED Code(s): 743601213 (9) Sepsis due to Klebsiella Current Visit: No Status: Acute Code(s): A41.4 - SEPSIS DUE TO ANAEROBES SNOMED Code(s): 403265570 Plan: Set down patient and talked with her about 45 minutes Regarding diet, including low sodium, low carbohydrate decreased protein in order to allow her kidneys and her heart and her organs to recover and improve Discussed at length with this patient the need to change certain habits or her long-term prognosis is poor Judicial use of loop diuretics to bring patient's heart failure under control Echocardiogram was ordered and completed LV function normal Dietary compliance of until this time nonexistent Appropriate IV antibiotic therapy recommended for infectious disease Psychiatry consultation recommended secondary to depression and poor self-esteem Nephrology consult recommended for acute renal failure, improving Will continue to follow closel Time with Patient: Greater than 30
[2019-05-25 20:18] LABS: Glucose,Whole Blood 387 mg/dL (75-99)
--- NOTE | 2019-05-25 20:59 | CONS ---
CONSULTATION REASON FOR CONSULT: Renal failure. HISTORY OF PRESENT ILLNESS: The patient is a 33-year-old female who was admitted to the hospital last month with a gluteal abscess on the left side with sepsis and acute kidney injury, mainly ATN. Patient's creatinine had peaked to about 5.9 mg/dL on 05/19/2019 during her last admission. It had started to come down to 3.3 mg/dL and patient was discharged home; however, she returns back with complaints of increased swelling and some shortness of breath. She does have evidence of volume overload and has been started on IV Lasix. Patient states she is feeling better. Her creatinine continues to improve and it is down to 2.8 now. PAST MEDICAL HISTORY: Recent hospitalization for left gluteal abscess associated with acute kidney injury, sepsis, volume overload, type 2 diabetes, gastroesophageal reflux disease, previous history of pneumonia, history of kidney stones, bronchitis, migraines. PAST SURGICAL HISTORY: Adenoidectomy, cholecystectomy, tonsillectomy, hernia repair, debridement, left thigh wound, umbilical hernia repair, EGDs, colonoscopy, cysts removed from the neck. Possible polycythemia vera versus CLL, being followed by Oncology. SOCIAL HISTORY: Positive for smoking. No history of drug abuse or alcohol abuse. MEDICATIONS: Medications prior to admission included: 1. Glucophage. 2. Cymbalta. 3. Omeprazole. 4. Lyrica. 5. Nicorette. 6. BuSpar. 7. Ceftin. 8. Sodium bicarb. 9. Flagyl. 10.Prednisone. 11.Coleridge. ALLERGIES: ALLERGIES include: 1. AMOXICILLIN, which causes nausea and vomiting. 2. TOMATOES cause rash and hives. REVIEW OF SYSTEMS: As per HPI. Other systems negative. PHYSICAL EXAMINATION: On examination, patient is currently comfortable. She is seen in the shower. She is not in any acute distress. Blood pressure was 128/70, heart rate 86 per minute. She is afebrile. EXAMINATION OF THE HEART: Examination of lower extremities shows no edema 2+ bilaterally. ABDOMEN: Soft, obese. Bruising is noted. [employer] exam is grossly intact. Patient is moving all 4 extremities. LABS: Sodium 141, potassium 4.4, chloride 112, BUN 44, creatinine 2.8, hemoglobin 9.0 g/dL. ASSESSMENT: 1. Acute kidney injury, acute tubular necrosis, currently improving with creatinine down from around 5.9 on 05/19/2019 during her last admission to 2.8 now. Patient was also started on steroids during her last admission for possible acute interstitial nephritis. I will continue with the prednisone for now and we can discontinue that in the next 3 to 4 days. There was suspicion for possible underlying acute interstitial nephritis as well. The serum creatinine did actually start to decline after initiation of prednisone. 2. Volume overload, currently maintained on IV Lasix, which I will continue for now. 3. Metabolic acidosis, now improved. We can decrease the sodium bicarb. 4. Hypertension, currently stable. 5. Abscess, left gluteal area, maintained on antibiotics from last admission. PLAN: Continue with IV Lasix. Repeat labs in a.m. We can decrease the sodium bicarb by tomorrow to help decrease the sodium load and we can discontinue the prednisone in the next 24 to 48 hours. I would avoid use of Protonix and Glucophage. MMODL / IJN: [id number] /
[2019-05-25] MEDS ORDERED: INSULIN DETEMIR (LEVEMIR) 100 UNIT/ML SYR SQ SCH (21:00)
[2019-05-25] MEDS: DULoxetine HCL 60 MG CAPSULE.DR PO SCH (21:33)
[2019-05-25] MEDS: FAMOTIDINE 20 MG TAB PO SCH (21:33)
[2019-05-25] MEDS: ATORVASTATIN 40 MG TAB PO SCH (21:34)
[2019-05-25] MEDS: ERTAPENEM 1 GM in SODIUM CHLORIDE 0.9% 50 ML IVPB SCH (23:12)
[2019-05-25] MEDS: [UNRECOGNIZED DRUG - OTHER] SQ SCH (23:13)
[2019-05-26] MEDS: FUROSEMIDE 10 MG/ML 4 ML VIAL IV SCH ×2 (02:38→17:05)
[2019-05-26 06:16] LABS: Glucose,Whole Blood 139 mg/dL (75-99)
[2019-05-26] MEDS: INSULIN ASPART (NovoLOG) 100 UNIT/ML VIAL SQ SCH ×5 (06:43→21:04)
[2019-05-26] MEDS: HYDROcodone/APAP 10-325MG 1 EACH TAB PO PRN ×3 (06:51→21:03)
[2019-05-26 07:21] LABS: Potassium 4.3 mmol/L (3.5-5.1)
[2019-05-26] MEDS: SODIUM BICARBONATE TAB 650 MG TAB PO SCH (08:24)
[2019-05-26] MEDS: PREGABALIN 75 MG CAP PO SCH ×3 (08:24→21:03)
[2019-05-26] MEDS: busPIRone HCl 5 MG TAB PO SCH ×2 (08:24→21:03)
[2019-05-26] MEDS: ASPIRIN 81 MG PO SCH (08:24)
[2019-05-26] MEDS: predniSONE 20 MG TAB PO SCH (08:24)
[2019-05-26] MEDS: hydrALAZINE HCL 25 MG TAB PO SCH ×2 (08:24→17:04)
[2019-05-26] MEDS: METOPROLOL TARTRATE 25 MG TAB PO SCH (08:25)
[2019-05-26] MEDS: NICOTINE 14MG/24HR PATCH TRANSDERM SCH (08:25)
[2019-05-26] MEDS: FAMOTIDINE 20 MG TAB PO SCH ×2 (08:25→21:03)
[2019-05-26] MEDS: ERTAPENEM 1 GM in SODIUM CHLORIDE 0.9% 50 ML IVPB SCH (09:16)
[2019-05-26] MEDS: metroNIDAZOLE 500 MG TAB PO SCH (09:20)
--- NOTE | 2019-05-26 11:06 | P.PN ---
Subjective Progress Note Date: 05/26/19 Seen and examined for the follow-up of acute kidney injury. Recently discharged from the hospital secondary to septic ATN with a Peak creatinine of 5.9 improved to 3.3 at discharge. She comes in with edema, worsening and on steroids for suspicion of AIN. Still has edema denies any rashes no nausea vomiting diarrhea. Objective - Vital Signs Vital signs: Vital Signs Temp 97.7 F 05/26/19 07:30 Pulse 87 05/26/19 08:00 Resp 20 05/26/19 08:00 BP 153/90 05/26/19 07:30 Pulse Ox 95 05/26/19 07:30 Intake & Output 05/25/19 05/26/19 05/26/19 18:59 06:59 18:59 Intake Total 840 410 Balance 840 410 Weight 140 kg 141.2 kg Intake: IV 50 Ertapenem 1 gm In Sodium 50 Chloride 0.9% 50 ml @ 100 mls/hr IVPB DAILY PENDING SALE TO [facility] Rx #:[id number] Oral 840 360 Other: Voiding Method Toilet Toilet Toilet # Voids 1 2 # Bowel Movements 1 1 - Exam No acute distress S1-S2 heard Decreased breath sounds Abdomen distended Edema - Labs CBC & Chem 7: 05/25/19 05:44 05/26/19 06:35 Labs: Abnormal Lab Results - Last 24 Hours (Table) 05/25/19 05/25/19 05/25/19 Range/Units 11:58 16:49 20:14 Chloride (98-107) mmol/L BUN (7-17) mg/dL Creatinine (0.52-1.04) mg/dL Glucose (74-99) mg/dL POC Glucose (mg/dL) 223 H 342 H 387 H (75-99) mg/dL 05/26/19 05/26/19 Range/Units 06:14 06:35 Chloride 108 H (98-107) mmol/L BUN 41 H (7-17) mg/dL Creatinine 2.79 H (0.52-1.04) mg/dL Glucose 111 H (74-99) mg/dL POC Glucose (mg/dL) 139 H (75-99) mg/dL Microbiology - Last 24 Hours (Table) 05/24/19 16:18 Blood Culture - Preliminary Blood No Growth after 24 hours 05/24/19 17:10 Gram Stain - Preliminary Buttock Wound Culture - Preliminary Assessment and Plan Assessment: #1 Nonoliguric acute kidney injury or more creatinine stable. Baseline creatinine 0.5 MG per DL. #2 edema suspect secondary to acute kidney injury with fluid retention and also component of steroids. #3 metabolic acidosis improved #4 hypertension #5 diabetes on insulin #6 left gluteal area abscess on Invanz Plan: #1 check urine analysis. #2 strict ins and outs and postvoid residual to rule out urinary retention #3 check serology for vasculitis #4 ultrasound from last admission no obstruction. If renal function worsens repeat renal ultrasound. #5 avoid nephrotoxic agents and hypotensive episodes. #6 planned renal biopsy next week if renal function continues to remain high or worsens.
[2019-05-26 11:55] LABS: Glucose,Whole Blood 206 mg/dL (75-99)
--- NOTE | 2019-05-26 12:23 | P.CONS ---
History of Present Illness - Reason for Consult Consult date: 05/25/19 - Chief Complaint Buttocks wound - History of Present Illness 33-year-old patient who was recently hospitalized at which point in time she is being treated for a nonhealing ulceration to her buttocks as well as her many medical troubles that includes her chronic shortness of breath, uncontrolled diabetes mellitus and what appears to be acute congestive heart failure diastolic type. She was recently hospitalized and discharged home and now rebounds back to the hospital almost immediately with uncontrolled pain, increasing shortness of breath ongoing drainage from her wound and feeling poorl y. Her primary care physician relates that she has chronic medical noncompliance and is trying to work with her to improve her diet, sodium intake and to improve her blood glucose control. The wound to the buttocks is of an unknown origin but has been open and draining. She's been available by surgery and is not thought to be a surgical candidate. She's been evaluated by the wound team. Review of Systems HEENT:Denies headache or acute visual change. Denies sinus or mouth discomforts. Denies neck stiffness or pain. Denies significant oral cavity pain. Denies difficulty on swallowing. Lungs: Relates this to being shortness of breath including orthopnea not with cough sputum production or hemoptysis. Cardiovascular: History of shortness of breath, she has orthopnea she over does not histidine chest pain she does have dyspnea with exertion Gastrointestinal:Denies nausea, vomiting, diarrhea, constipation, hematemesis, melena, hematochezia. No no significant change of bowel habit noticed. Musculoskeletal: She has chronic back pain and chronic pain related to the wound Skin: Chronic ulceration the buttocks she is unclear how it started but contin ues to drain a large amount of material. Neuro: Believe she complains of headaches frequently but has no new significant neurological complaints or new onset weakness. Psychiatric: Chronic anxiety and depression Endocrine: Chronic fatigue and progressive weight gain the BMI is now over 50 Past Medical History Past Medical History: Asthma, Diabetes Mellitus, GERD/Reflux, Liver Disease, Pneumonia, Renal Disease Additional Past Medical History / Comment(s): Pt recently admitted to [facility] on 05/15/19 with sepsis d/t L gluteal/thigh abscess/leukocytosis and acute renal failure. Other hx: IDDM type II, neuropathy bilateral feet, past renal failure and has passed kidney stones, leukocytosis, elevated RBCs, enlarged liver and spleen, hiatal hernia, gastritis, bronchitis, migraines in the past. 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 Positive tobacco use. Denies alcohol use. No travel. The experience. Does not work outside of the home Smoking Status: Current every day smoker - Past Family History Mother Family Medical History: Deep Vein Thrombosis (DVT), Pulmonary Embolus Father History Unknown: Yes Medications and Allergies Home Medications and Allergies Comment(s): Current Medications Hydrocodone Bitart/Acetaminophen ([place] 10) 1 each PO Q6H PRN PRN Reason: Pain Last Admin: 05/26/19 06:51 Dose: 1 each Documented by: Aspirin (Aspirin) 81 mg PO DAILY [facility] Last Admin: 05/26/19 08:24 Dose: 81 mg Documented by: Atorvastatin Calcium (Lipitor) 40 mg PO HS [facility] Last Admin: 05/25/19 21:34 Dose: 40 mg Documented by: Buspirone HCl (Buspar) 5 mg PO BID [facility] Last Admin: 05/26/19 08:24 Dose: 5 mg Documented by: Duloxetine HCl (Cymbalta) 60 mg PO HS [facility] Last Admin: 05/25/19 21:33 Dose: 60 mg Documented by: Famotidine (Pepcid) 20 mg PO BID [facility] Last Admin: 05/26/19 08:25 Dose: 20 mg Documented by: Furosemide (Lasix) 40 mg IV Q12H [facility] Last Admin: 05/26/19 02:38 Dose: 40 mg Documented by: Hydralazine HCl (Apresoline) 12.5 mg PO Q8HR [facility] Last Admin: 05/26/19 08:24 Dose: 12.5 mg Documented by: Ertapenem 1 gm/ Sodium (Chloride) 50 mls @ 100 mls/hr IVPB DAILY [facility]; Protocol Last Admin: 05/26/19 09:16 Dose: 100 mls/hr Documented by: Insulin Aspart (Novolog) 0 unit SQ ACHS [facility]; Protocol Last Admin: 05/26/19 07:27 Dose: Not Given Documented by: Insulin Detemir (Levemir) 27 unit SQ HS [facility] Last Admin: 05/25/19 21:34 Dose: 27 unit Documented by: Metoprolol Tartrate (Lopressor) 25 mg PO DAILY [facility] Last Admin: 05/26/19 08:25 Dose: 25 mg Documented by: Nicotine (Habitrol 14mg/24hr Patch) 1 patch TRANSDERM DAILY [facility] Last Admin: 05/26/19 08:25 Dose: 1 patch Documented by: Non-Formulary Medication (Insulin Glargine/Lixisenatide [[place] 100 Unit-33 Mcg/Ml Pen]) 25 units SQ HS [facility] Last Admin: 05/25/19 23:13 Dose: Not Given Documented by: Prednisone () 20 mg PO DAILY [facility] Last Admin: 05/26/19 08:24 Dose: 20 mg Documented by: Pregabalin (Lyrica) 150 mg PO TID [facility] Last Admin: 05/26/19 08:24 Dose: 150 mg Documented by: Home Medications Medication Instructions Recorded Confirmed Type metFORMIN HCL [Glucophage] 1,000 mg PO BID 09/04/16 05/24/19 History DULoxetine HCL [Cymbalta] 60 mg PO HS 01/25/18 05/24/19 History Medroxyprogesterone Acetate 150 mg IM Q90D 01/25/18 05/24/19 History [Depo-Provera] Omeprazole 20 mg PO DAILY 01/25/18 05/24/19 History Pregabalin [Lyrica] 150 mg PO TID 02/18/19 05/24/19 History Nicotine Polacrilex [Nicorette] 4 mg BC Q2H PRN 05/13/19 05/24/19 History busPIRone HCl [Buspar] 5 mg PO BID 05/13/19 05/24/19 History Cefuroxime [Ceftin] 250 mg PO BID #20 tab 05/23/19 05/24/19 Rx Insulin Glargine/Lixisenatide 25 units SQ HS #0 05/23/19 05/24/19 Rx [Soliqua 100 Unit-33 Mcg/ml Pen] Sodium Bicarbonate Tab 650 mg PO BID #0 tab 05/23/19 05/24/19 Rx metroNIDAZOLE [Flagyl] 500 mg PO TID #30 tab 05/23/19 05/24/19 Rx predniSONE 20 mg PO DAILY #5 tab 05/23/19 05/24/19 Rx HYDROcodone/APAP 10-325MG [[place] 1 tab PO Q6H PRN 05/24/19 05/24/19 History 10-325] Allergies Allergy/AdvReac Type Severity Reaction Status Date / Time amoxicillin AdvReac Severe Nausea & Verified 05/24/19 10:57 Vomiting Tomatoes fresh cut Allergy Rash/Hives Uncoded 05/15/19 16:09 Physical Exam Vitals: Vital Signs Temp Pulse Resp BP Pulse Ox 05/26/19 11:25 78 18 05/26/19 11:02 97.7 F 78 18 134/75 95 05/26/19 08:00 87 20 05/26/19 07:30 97.7 F 87 20 153/90 95 05/26/19 04:00 98.0 F 86 20 143/77 94 L 05/26/19 00:00 97.8 F 89 18 168/85 94 L 05/25/19 20:00 97.9 F 91 18 161/76 95 05/25/19 16:00 98.1 F 84 18 155/79 92 L Intake and Output 05/25/19 05/26/19 05/26/19 22:59 06:59 14:59 Intake Total 240 410 Balance 240 410 Intake: IV 50 Ertapenem 1 gm In Sodium 50 Chloride 0.9% 50 ml @ 100 mls/hr IVPB DAILY [facility] Rx #:[id number] Oral 240 360 Other: Voiding Method Toilet Toilet Toilet # Voids 1 2 # Bowel Movements 1 Weight 141.2 kg Obese 33-year-old woman, appears much older than her stated age, is complaining of being miserable HEENT: Anicteric conjunctiva are pink and moist nasal mucosa grossly intact without significant lesions, there is no thrush. Neck: The neck is supple without significant lymphadenopathy or thyromegaly. Lungs: Symmetrical air entry, basilar crackles few expiratory wheezes no bronchial sounds no dullness or egophony Heart: Regular rate and rhythm with an audible S1-S2, no S3 no S4. There is no significant murmur click or rub, PMI was nondisplaced. Abdomen: Obese, Positive bowel sounds soft and nontender without palpable masses or organomegaly. There was no guarding or rebound. Extremities: The upper extremities have excellent pulses they are symmetric, no significant petechiae or telangiectasia. No splinter hemorrhages were noted. The lower extremities are free from significant edema. The peripheral pulses were 2+ and symmetric. Neuro: Awake alert oriented to person place and time. There are no acute new gross focal sensory motor deficits. Skin reveals evidence of that wound on the left upper buttocks receiving notes. His With Aquacel Silver but continues to have a large amount of drainage which has been cultured. Results CBC & Chem 7: 05/25/19 05:44 05/26/19 06:35 Labs: Abnormal Lab Results - Last 24 Hours (Table) 05/25/19 05/25/19 05/26/19 Range/Units 16:49 20:14 06:14 Chloride (98-107) mmol/L BUN (7-17) mg/dL Creatinine (0.52-1.04) mg/dL Glucose (74-99) mg/dL POC Glucose (mg/dL) 342 H 387 H 139 H (75-99) mg/dL 05/26/19 05/26/19 Range/Units 06:35 11:52 Chloride 108 H (98-107) mmol/L BUN 41 H (7-17) mg/dL Creatinine 2.79 H (0.52-1.04) mg/dL Glucose 111 H (74-99) mg/dL POC Glucose (mg/dL) 206 H (75-99) mg/dL Microbiology - Last 24 Hours (Table) 05/24/19 16:18 Blood Culture - Preliminary Blood No Growth after 24 hours 05/24/19 17:10 Gram Stain - Preliminary Buttock Wound Culture - Preliminary Laboratory Results WBC 18.8 k/uL (3.8-10.6) H 05/25/19 05:44 RBC 3.25 m/uL (3.80-5.40) L 05/25/19 05:44 Hgb 9.0 gm/dL (11.4-16.0) L 05/25/19 05:44 Hct 28.7 % (34.0-46.0) L 05/25/19 05:44 MCV 88.2 fL (80.0-100.0) 05/25/19 05:44 MCH 27.6 pg (25.0-35.0) 05/25/19 05:44 MCHC 31.4 g/dL (31.0-37.0) 05/25/19 05:44 RDW 15.4 % (11.5-15.5) 05/25/19 05:44 Plt Count 391 k/uL (150-450) 05/25/19 05:44 Neutrophils % 77 % 05/25/19 05:44 Lymphocytes % 17 % 05/25/19 05:44 Monocytes % 3 % 05/25/19 05:44 Eosinophils % 2 % 05/25/19 05:44 Basophils % 0 % 05/25/19 05:44 Neutrophils # 14.3 k/uL (1.3-7.7) H 05/25/19 05:44 Lymphocytes # 3.2 k/uL (1.0-4.8) 05/25/19 05:44 Monocytes # 0.6 k/uL (0-1.0) 05/25/19 05:44 Eosinophils # 0.4 k/uL (0-0.7) 05/25/19 05:44 Basophils # 0.1 k/uL (0-0.2) 05/25/19 05:44 Hypochromasia Slight 05/25/19 05:44 PT 11.0 sec (9.0-12.0) 05/24/19 10:49 INR 1.0 (<1.2) 05/24/19 10:49 APTT 25.2 sec (22.0-30.0) 05/24/19 10:49 D-Dimer 4.89 mg/L FEU (<0.60) H 05/24/19 10:49 Sodium 144 mmol/L (137-145) 05/26/19 06:35 Potassium 4.3 mmol/L (3.5-5.1) 05/26/19 06:35 Chloride 108 mmol/L (98-107) H 05/26/19 06:35 Carbon Dioxide 26 mmol/L (22-30) 05/26/19 06:35 Anion Gap 10 mmol/L 05/26/19 06:35 BUN 41 mg/dL (7-17) H 05/26/19 06:35 Creatinine 2.79 mg/dL (0.52-1.04) H 05/26/19 06:35 Est GFR (CKD-EPI)AfAm 25 (>60 ml/min/1.73 sqM) 05/26/19 06:35 Est GFR (CKD-EPI)NonAf 22 (>60 ml/min/1.73 sqM) 05/26/19 06:35 Glucose 111 mg/dL (74-99) H 05/26/19 06:35 POC Glucose (mg/dL) 206 mg/dL (75-99) H 05/26/19 11:52 POC Glu [employer] ID Ralph Farmer 05/26/19 11:52 Calcium 9.0 mg/dL (8.4-10.2) 05/26/19 06:35 Magnesium 1.4 mg/dL (1.6-2.3) L 05/24/19 10:49 Total Bilirubin 0.5 mg/dL (0.2-1.3) 05/24/19 10:49 AST 17 U/L (14-36) 05/24/19 10:49 ALT 26 U/L (9-52) 05/24/19 10:49 Alkaline Phosphatase 116 U/L (38-126) 05/24/19 10:49 Troponin I <0.012 ng/mL (0.000-0.034) 05/25/19 18:14 NT-Pro-B Natriuret Pep 9560 pg/mL 05/24/19 10:49 Total Protein 5.7 g/dL (6.3-8.2) L 05/24/19 10:49 Albumin 2.7 g/dL (3.5-5.0) L 05/24/19 10:49 Microbiology 05/24/19 16:18 Blood Blood Culture - Preliminary No Growth after 24 hours 05/24/19 17:10 Buttock Gram Stain - Preliminary 05/24/19 17:10 Buttock Wound Culture - Preliminary 05/24/19 23:15 Buttock Anaerobic Culture - Preliminary Assessment and Plan (1) Abscess, gluteal, left Narrative/Plan: 33-year-old who presents to hospital with worsening of her shortness of breath feeling poorly increasing pain and ongoing drainage from her wound was just recently hospitalized and now comes back. She has worsening of her acute renal failure is being addressed. She also has hyponatremia and some volume overload. She may have acute diastolic congestive heart failure also. As far as the wound continue with the Aquacel silver packing in dressings to observe the drainage. Antibiotic therapy is transitioned ertapenem given her prior cultures severe lower volume with cover a plethora of organisms and hopefully loss improvement of the site. She's had imaging studies that show evidence of the site infections aside. Retract any deeper. These have offloading to that site and local wound care. Once infection is improved she may be a candidate for negative pressure therapy which may allow better control in faster healing of this wound is likely pressure related. Has leukocytosis directly related to the current infection as well as a stress of the acute renal failure. Current Visit: Yes Status: Acute Code(s): L02.31 - CUTANEOUS ABSCESS OF BUTTOCK SNOMED Code(s): 93643319 (2) Acute renal failure Current Visit: Yes Status: Acute Code(s): N17.9 - ACUTE KIDNEY FAILURE, UNSPECIFIED SNOMED Code(s): 88260496 (3) CHF (congestive heart failure) Current Visit: Yes Status: Acute Code(s): I50.9 - HEART FAILURE, UNSPECIFIED SNOMED Code(s): 03714595 (4) Noncompliance Current Visit: Yes Status: Acute Code(s): Z91.19 - PATIENT'S NONCOMPLIANCE W OT MEDICAL TREATMENT AND REGIMEN SNOMED Code(s): 4704662 (5) Morbid (severe) obesity due to excess calories Current Visit: No Status: Acute Code(s): E66.01 - MORBID (SEVERE) OBESITY DUE TO EXCESS CALORIES SNOMED Code(s): 380837621
--- NOTE | 2019-05-26 13:45 | P.PN ---
Subjective Progress Note Date: 05/26/19 Principal diagnosis: Diastolic congestive heart failure, buttocks abscess draining Poorly controlled type 2 diabetes Patient patient is awake alert vital signs stable patient is afebrile O2 sats 95% on room air. Objective - Vital Signs Vital signs: Vital Signs Temp 97.7 F 05/26/19 11:02 Pulse 78 05/26/19 11:25 Resp 18 05/26/19 11:25 BP 134/75 05/26/19 11:02 Pulse Ox 95 05/26/19 11:02 Intake & Output 05/25/19 05/26/19 05/26/19 18:59 06:59 18:59 Intake Total 840 410 Balance 840 410 Weight 140 kg 141.2 kg Intake: IV 50 Ertapenem 1 gm In Sodium 50 Chloride 0.9% 50 ml @ 100 mls/hr IVPB DAILY [facility] Rx #:[id number] Oral 840 360 Other: Voiding Method Toilet Toilet Toilet # Voids 1 2 # Bowel Movements 1 1 - Labs CBC & Chem 7: 05/25/19 05:44 05/26/19 06:35 Labs: Abnormal Lab Results - Last 24 Hours (Table) 05/25/19 05/25/19 05/26/19 Range/Units 16:49 20:14 06:14 Chloride (98-107) mmol/L BUN (7-17) mg/dL Creatinine (0.52-1.04) mg/dL Glucose (74-99) mg/dL POC Glucose (mg/dL) 342 H 387 H 139 H (75-99) mg/dL 05/26/19 05/26/19 Range/Units 06:35 11:52 Chloride 108 H (98-107) mmol/L BUN 41 H (7-17) mg/dL Creatinine 2.79 H (0.52-1.04) mg/dL Glucose 111 H (74-99) mg/dL POC Glucose (mg/dL) 206 H (75-99) mg/dL Microbiology - Last 24 Hours (Table) 05/24/19 16:18 Blood Culture - Preliminary Blood No Growth after 24 hours 05/24/19 17:10 Gram Stain - Preliminary Buttock Wound Culture - Preliminary Assessment and Plan (1) Noncompliance Current Visit: Yes Status: Acute Code(s): Z91.19 - PATIENT'S NONCOMPLIANCE W OTH MEDICAL TREATMENT AND REGIMEN SNOMED Code(s): 5117852 (2) Abscess, gluteal, left Current Visit: Yes Status: Acute Code(s): L02.31 - CUTANEOUS ABSCESS OF BU TTOCK SNOMED Code(s): 42160569 (3) Acute renal failure Current Visit: Yes Status: Acute Code(s): N17.9 - ACUTE KIDNEY FAILURE, UNSPECIFIED SNOMED Code(s): 04077622 (4) CHF (congestive heart failure) Current Visit: Yes Status: Acute Code(s): I50.9 - HEART FAILURE, UNSPECIFIED SNOMED Code(s): 57404487 (5) Abscess Current Visit: No Status: Acute Code(s): L02.91 - CUTANEOUS ABSCESS, UNSPECIFIED SNOMED Code(s): 100566949 (6) Asthma Current Visit: No Status: Acute Code(s): J45.909 - UNSPECIFIED ASTHMA, UN COMPLICATED SNOMED Code(s): 460755449 (7) Depression Current Visit: No Status: Acute Code(s): F32.9 - MAJOR DEPRESSIVE DISORDER, SINGLE EPISODE, UNSPECIFIED SNOMED Code(s): 08671237 (8) Morbid (severe) obesity due to excess calories Current Visit: No Status: Acute Code(s): E66.01 - MORBID (SEVERE) OBESITY DUE TO EXCESS CALORIES SNOMED Code(s): 217381653 (9) Sepsis due to Klebsiella Current Visit: No Status: Acute Code(s): A41.4 - SEPSIS DUE TO ANAEROBES SNOMED Code(s): 962168978
[2019-05-26 13:56] LABS: Appearance,Urine Clear (Clear); Bilirubin,Urine Negative (Negative); Blood,Urine Moderate (Negative); Color,Urine Yellow; Glucose,Urine (UA) Negative (Negative); Ketones,Urine Negative (Negative); Leukocyte Esterase,Urine Small (Negative); Mucus,Urine Rare /hpf; Nitrite,Urine Negative (Negative); PH, Urine 5.5 (5.0-8.0); Protein,Urine Trace (Negative); RBC,Urine 86 /hpf (0-5); Specific Gravity,Urine 1.011 (1.001-1.035); Squamous Epithelial Cell,Urine <1 /hpf (0-4); Urobilinogen,Urine <2.0 mg/dL (<2.0); WBC,Urine 8 /hpf (0-5)
--- NOTE | 2019-05-26 14:02 | PN ---
PROGRESS NOTE This patient is admitted with atypical angina. Patient has diabetes as well as renal failure. The patient is doing better and comfortable. Denies any chest pain. Denies any shortness of breath. First and second heart sounds are heard. Lungs are clinically clear to auscultation and percussion. Patient's condition remains stable. We will continue the current medications. We will now see the patient p.r.n. MMGAYLEL / IJN: [id number] /
[2019-05-26 16:59] LABS: Glucose,Whole Blood 291 mg/dL (75-99)
[2019-05-26 20:20] LABS: Glucose,Whole Blood 297 mg/dL (75-99)
[2019-05-26] MEDS: DULoxetine HCL 60 MG CAPSULE.DR PO SCH (21:03)
[2019-05-26] MEDS: ATORVASTATIN 40 MG TAB PO SCH (21:03)
[2019-05-26] MEDS: INSULIN DETEMIR (LEVEMIR) 100 UNIT/ML SYR SQ SCH (21:07)
[2019-05-27] MEDS: hydrALAZINE HCL 25 MG TAB PO SCH ×4 (00:13→22:59)
[2019-05-27 06:24] LABS: Glucose,Whole Blood 146 mg/dL (75-99)
[2019-05-27 06:27] LABS: Calcium 8.7 mg/dL (8.4-10.2); Phosphorus 5.9 mg/dL (2.5-4.5); Potassium 4.5 mmol/L (3.5-5.1)
[2019-05-27] MEDS: INSULIN ASPART (NovoLOG) 100 UNIT/ML VIAL SQ SCH ×4 (06:30→21:43)
[2019-05-27] MEDS: FUROSEMIDE 10 MG/ML 4 ML VIAL IV SCH ×2 (06:31→17:25)
--- NOTE | 2019-05-27 09:24 | P.PN ---
Subjective Progress Note Date: 05/27/19 Seen and examined for the follow-up of acute kidney injury. Recently discharged from the hospital secondary to septic ATN with a Peak creatinine of 5.9 improved to 3.3 at discharge. She comes in with edema, worsening and on steroids for suspicion of AIN. Still has edema denies any rashes no nausea vomiting diarrhea. Objective - Vital Signs Vital signs: Vital Signs Temp 98.0 F 05/27/19 04:00 Pulse 90 05/27/19 04:00 Resp 18 05/27/19 04:00 BP 144/79 05/27/19 04:00 Pulse Ox 93 L 05/27/19 04:00 Intake & Output 05/26/19 05/27/19 05/27/19 18:59 06:59 18:59 Intake Total 1850 540 240 Output Total 800 Balance 1850 -260 240 Weight 138.1 kg Intake: IV 50 Ertapenem 1 gm In Sodium 50 Chloride 0.9% 50 ml @ 100 mls/hr IVPB DAILY [facility] Rx #:[id number] Oral 1800 540 240 Output: Urine 800 Other: Voiding Method Toilet Toilet # Voids 1 - Exam No acute distress S1-S2 heard Decreased breath sounds Abdomen distended Edema - Labs CBC & Chem 7: 05/25/19 05:44 05/27/19 05:57 Labs: Abnormal Lab Results - Last 24 Hours (Table) 05/26/19 05/26/19 05/26/19 Range/Units 11:52 13:13 16:56 Chloride (98-107) mmol/L BUN (7-17) mg/dL Creatinine (0.52-1.04) mg/dL Glucose (74-99) mg/dL POC Glucose (mg/dL) 206 H 291 H (75-99) mg/dL Phosphorus (2.5-4.5) mg/dL Urine Protein Trace H (Negative) Urine Blood Moderate H (Negative) Ur Leukocyte Esterase Small H (Negative) Urine RBC 86 H (0-5) /hpf Urine WBC 8 H (0-5) /hpf Urine Mucus Rare H (None) /hpf 05/26/19 05/27/19 05/27/19 Range/Units 20:17 05:57 06:23 Chloride 109 H (98-107) mmol/L BUN 43 H (7-17) mg/dL Creatinine 2.31 H (0.52-1.04) mg/dL Glucose 130 H (74-99) mg/dL POC Glucose (mg/dL) 297 H 146 H (75-99) mg/dL Phosphorus 5.9 H (2.5-4.5) mg/dL Urine Protein (Negative) Urine Blood (Negative) Ur Leukocyte Esterase (Negative) Urine RBC (0-5) /hpf Urine WBC (0-5) /hpf Urine Mucus (None) /hpf Microbiology - Last 24 Hours (Table) 05/24/19 23:15 Anaerobic Culture - Preliminary Buttock 05/24/19 16:18 Blood Culture - Preliminary Blood No Growth after 48 hours 05/24/19 17:10 Gram Stain - Final Buttock Wound Culture - Final Assessment and Plan Assessment: #1 Nonoliguric acute kidney injury or more creatinine stable and improving. Baseline creatinine 0.5 MG per DL. #2 edema suspect secondary to acute kidney injury with fluid retention and also component of steroids. #3 metabolic acidosis improved #4 hypertension #5 diabetes on insulin #6 left gluteal area abscess on Invanz Plan: #1 renal function improving. Urine analysis noted active. Serology requested again to rule out vasculitis. #2 strict ins and outs and postvoid residual to rule out urinary retention #3 continue with Lasix 40 mg IV twice a day. #4 ultrasound from last admission no obstruction. If renal function worsens repeat renal ultrasound. #5 avoid nephrotoxic agents and hypotensive episodes. #6 will planned renal biopsy based on the serology and renal function next week.
[2019-05-27] MEDS: FAMOTIDINE 20 MG TAB PO SCH ×2 (09:36→21:44)
[2019-05-27] MEDS: ASPIRIN 81 MG PO SCH (09:36)
[2019-05-27] MEDS: HYDROcodone/APAP 10-325MG 1 EACH TAB PO PRN ×3 (09:37→22:58)
[2019-05-27] MEDS: PREGABALIN 75 MG CAP PO SCH ×3 (09:37→21:44)
[2019-05-27] MEDS: METOPROLOL TARTRATE 25 MG TAB PO SCH (09:37)
[2019-05-27] MEDS: busPIRone HCl 5 MG TAB PO SCH ×2 (09:37→21:44)
[2019-05-27] MEDS: NICOTINE 14MG/24HR PATCH TRANSDERM SCH (09:37)
[2019-05-27] MEDS: ERTAPENEM 1 GM in SODIUM CHLORIDE 0.9% 50 ML IVPB SCH (09:42)
--- NOTE | 2019-05-27 10:05 | P.PN ---
Subjective Progress Note Date: 05/27/19 Principal diagnosis: Diastolic congestive heart failure, buttocks abscess draining Poorly controlled type 2 diabetes Patient patient is awake alert vital signs stable patient is afebrile O2 sats 95% on room air. Culture urine, stop steroids, stop Lasix, will reduce any sodium diet we'll re-evaluate kidney function in the morning Objective - Vital Signs Vital signs: Vital Signs Temp 98.0 F 05/27/19 04:00 Pulse 90 05/27/19 04:00 Resp 18 05/27/19 04:00 BP 144/79 05/27/19 04:00 Pulse Ox 93 L 05/27/19 04:00 Intake & Output 05/26/19 05/27/19 05/27/19 18:59 06:59 18:59 Intake Total 1850 540 240 Output Total 800 Balance 1850 -260 240 Weight 138.1 kg Intake: IV 50 Ertapenem 1 gm In Sodium 50 Chloride 0.9% 50 ml @ 100 mls/hr IVPB DAILY BIRDIE Rx #:[id number] Oral 1800 540 240 Output: Urine 800 Other: Voiding Method Toilet Toilet # Voids 1 - Exam General: [Patient awake, alert and oriented times 3. Patient in no acute distress.] HEENT: [PERRL. EOMI. No pharyngeal erythema or exudate.] Neck: [No adenopathy.] Cardiac: [Heart regular in rate and rhythm. No S3. No S4. No clicks, rubs. No murmur.] Lungs: [Clear to auscultation bilaterally.] Abdomen: [No mass. No organomegaly. Bowel sounds presnt and normoactive in all 4 quadrants.] Morbid obesity Extremes: [No edema no cyanosis no claudication normal pulses] : [] Musculoskeletal: [No joint erythema, edema or tenderness.] Skin: Left gluteal abscess draining Neurologic: [No lateralizing deficits. CN II - XII grossly intact.] Lymphatic: [No adenopathy.] - Labs CBC & Chem 7: 05/25/19 05:44 05/27/19 05:57 Labs: Abnormal Lab Results - Last 24 Hours (Table) 05/26/19 05/26/19 05/26/19 Range/Units 11:52 13:13 16:56 Chloride (98-107) mmol/L BUN (7-17) mg/dL Creatinine (0.52-1.04) mg/dL Glucose (74-99) mg/dL POC Glucose (mg/dL) 206 H 291 H (75-99) mg/dL Phosphorus (2.5-4.5) mg/dL Urine Protein Trace H (Negative) Urine Blood Moderate H (Negative) Ur Leukocyte Esterase Small H (Negative) Urine RBC 86 H (0-5) /hpf Urine WBC 8 H (0-5) /hpf Urine Mucus Rare H (None) /hpf 05/26/19 05/27/19 05/27/19 Range/Units 20:17 05:57 06:23 Chloride 109 H (98-107) mmol/L BUN 43 H (7-17) mg/dL Creatinine 2.31 H (0.52-1.04) mg/dL Glucose 130 H (74-99) mg/dL POC Glucose (mg/dL) 297 H 146 H (75-99) mg/dL Phosphorus 5.9 H (2.5-4.5) mg/dL Urine Protein (Negative) Urine Blood (Negative) Ur Leukocyte Esterase (Negative) Urine RBC (0-5) /hpf Urine WBC (0-5) /hpf Urine Mucus (None) /hpf Microbiology - Last 24 Hours (Table) 05/24/19 23:15 Anaerobic Culture - Preliminary Buttock 05/24/19 16:18 Blood Culture - Preliminary Blood No Growth after 48 hours 05/24/19 17:10 Gram Stain - Final Buttock Wound Culture - Final Assessment and Plan (1) Noncompliance Current Visit: Yes Status: Acute Code(s): Z91.19 - PATIENT'S NONCOMPLIANCE W [facility] SNOMED Code(s): 0068913 (2) Abscess, gluteal, left Current Visit: Yes Status: Acute Code(s): L02.31 - CUTANEOUS ABSCESS OF BUTTOCK SNOMED Code(s): 99261275 (3) Acute renal failure Current Visit: Yes Status: Acute Code(s): N17.9 - ACUTE KIDNEY FAILURE, UNSPECIFIED SNOMED Code(s): 55993907 (4) CHF (congestive heart failure) Current Visit: Yes Status: Acute Code(s): I50.9 - HEART FAILURE, UNSPECIFIED SNOMED Code(s): 48454740 (5) Abscess Current Visit: No Status: Acute Code(s): L02.91 - CUTANEOUS ABSCESS, UNSPECIFIED SNOMED Code(s): 412259304 (6) Asthma Current Visit: No Status: Acute Code(s): J45.909 - UNSPECIFIED ASTHMA, UNCOMPLICATED SNOMED Code(s): 389480026 (7) Depression Current Visit: No Status: Acute Code(s): F32.9 - MAJOR DEPRESSIVE DISORDER, SINGLE EPISODE, UNSPECIFIED SNOMED Code(s): 57894915 (8) Morbid (severe) obesity due to excess calories Current Visit: No Status: Acute Code(s): E66.01 - MORBID (SEVERE) OBESITY DUE TO EXCESS CALORIES SNOMED Code(s): 407302057 (9) Sepsis due to Klebsiella Current Visit: No Status: Acute Code(s): A41.4 - SEPSIS DUE TO ANAEROBES SNOMED Code(s): 608838991 Plan: Set down patient and talked with her about 45 minutes Regarding diet, including low sodium, low carbohydrate decreased protein in order to allow her kidneys and her heart and her organs to recover and improve Discussed at length with this patient the need to change certain habits or her long-term prognosis is poor Judicial use of loop diuretics to bring patient's heart failure under control Echocardiogram was ordered and completed LV function normal Dietary compliance of until this time nonexistent Appropriate IV antibiotic therapy recommended for infectious disease Psychiatry consultation recommended secondary to depression and poor self-esteem Nephrology consult recommended for acute renal failure, improving Will continue to follow closel Time with Patient: Greater than 30
[2019-05-27 12:11] LABS: Glucose,Whole Blood 144 mg/dL (75-99)
[2019-05-27 17:09] LABS: Glucose,Whole Blood 190 mg/dL (75-99)
[2019-05-27] MEDS: NITROGLYCERIN SL TABS 0.4 MG TAB SUBLINGUAL PRN ×3 (18:38→18:48)
[2019-05-27 20:47] LABS: Glucose,Whole Blood 183 mg/dL (75-99)
--- NOTE | 2019-05-27 21:17 | US ---
EXAMINATION TYPE: US venous doppler duplex LE BI DATE OF EXAM: 05/27/2019 8:41 PM COMPARISON: [facility] 2016 CLINICAL HISTORY: Left calf pain. Pain and swelling. No hx of DVT. Patient does not take blood thinne rs. SIDE PERFORMED: Bilateral TECHNIQUE: The lower extremity deep venous system is examined utilizing real time linear array sonog sis with graded compression, doppler sonography and color-flow sonography. FINDINGS: Limited exam due to body habitus and edema. Right Leg: No evidence of DVT in veins imaged from prox calf veins to EIV. Edema seen posterior knee and calf. Left Leg: No evidence of DVT in veins imaged from distal popliteal vein to EIV. Limited visibility a nd evaluation of prox calf veins. Edema seen throughout lower extremity. IMPRESSION: 1. No evidence of DVT in the bilateral lower extremities. 2. Subcutaneous edema is noted of the lower legs bilaterally.
[2019-05-27] MEDS: INSULIN DETEMIR (LEVEMIR) 100 UNIT/ML SYR SQ SCH (21:43)
[2019-05-27] MEDS: ATORVASTATIN 40 MG TAB PO SCH (21:44)
[2019-05-27] MEDS: DULoxetine HCL 60 MG CAPSULE.DR PO SCH (21:44)
[2019-05-28 01:09] VITALS: RESP 18
[2019-05-28 03:57] LABS: Anti-Glomerular Basement Memb 2 UNITS (0-20)
[2019-05-28 06:16] LABS: Glucose,Whole Blood 100 mg/dL (75-99)
[2019-05-28] MEDS: INSULIN ASPART (NovoLOG) 100 UNIT/ML VIAL SQ SCH ×2 (06:29→11:59)
[2019-05-28] MEDS: HYDROcodone/APAP 10-325MG 1 EACH TAB PO PRN ×2 (06:41→12:59)
[2019-05-28] MEDS: FUROSEMIDE 10 MG/ML 4 ML VIAL IV SCH ×2 (06:41→16:10)
[2019-05-28] MEDS: PREGABALIN 75 MG CAP PO SCH ×2 (09:44→16:09)
[2019-05-28] MEDS: METOPROLOL TARTRATE 25 MG TAB PO SCH (09:44)
[2019-05-28] MEDS: NICOTINE 14MG/24HR PATCH TRANSDERM SCH (09:44)
[2019-05-28] MEDS: FAMOTIDINE 20 MG TAB PO SCH (09:44)
[2019-05-28] MEDS: ASPIRIN 81 MG PO SCH (09:44)
[2019-05-28] MEDS: ERTAPENEM 1 GM in SODIUM CHLORIDE 0.9% 50 ML IVPB SCH (09:44)
[2019-05-28] MEDS: hydrALAZINE HCL 25 MG TAB PO SCH ×2 (09:44→16:10)
[2019-05-28] MEDS: busPIRone HCl 5 MG TAB PO SCH (09:44)
[2019-05-28 12:04] LABS: Glucose,Whole Blood 121 mg/dL (75-99)
[2019-05-28 12:29] LABS: Anti-DNA, DS unit <1.0 IU/mL; DNA Double-Stranded NEGATIVE (NEGATIVE)
--- NOTE | 2019-05-28 12:41 | CT ---
EXAMINATION TYPE: CT lower extremity LT wo con DATE OF EXAM: 05/28/2019 COMPARISON: 05/14/2019 HISTORY: Left buttock wound CT DLP: 1285.4 mGycm Automated exposure control for dose reduction was used. FINDINGS: There is prominent soft tissue swelling over the subcutaneous tissues the left lower extremity. Some minimal edema may be within the visualized medial portion of the right lower extremity. There is a suspicious air-fluid level within the medial left proximal thigh. Collection measuring 6.7 x 2.0 cm is present suspicious for an abscess. There is soft tissue air within the inferior medial l eft buttocks and in the posterior thigh. This extends through the superficial soft tissues posteriorl y laterally and laterally into the right thigh region. Some air wraps around to the left inguinal reg ion. Subcutaneous infection should be considered. Necrotizing gas forming organism should be consider ed. No communication with the intraperitoneal region is identified within the [id number]. The proximal left femur and the left hip as visualized appear intact. No fracture is evident. The femoral head ar ticulates with the acetabulum. Joint space narrowing is noted. IMPRESSION: 1. GAS-FORMING INFECTION SHOULD BE CONSIDERED IN THE SUBCUTANEOUS TISSUES. THIS EXTENDS FROM THE LEFT INGUINAL REGION SUPERFICIALLY AROUND THE POSTERIOR AND LATERAL THIGH TO THE INFERIOR BUTTOCKS. THIS IS WORSENING FROM THE COMPARISON. 2. A MEDIAL THIGH AIR-FLUID LEVEL WITH ADDITIONAL FLUID AND DEBRIS IS IN THE MEDIAL THIGH WHICH COULD REPRESENT AN ABSCESS. THIS APPEARS TO BE A NEW FINDING. A [place] level critical message alert has been initiated for Ernesto Nguyen Jr, DO via the [employer] Critical Results System on 05/28/2019 12:38 PM. This message alert has been sent to Ernesto arora Jr, DO via the preferences provided by the clinician for the receipt of Radiology Critical Findin gs. Message ID [id number].
--- NOTE | 2019-05-28 14:31 | P.DS ---
Providers Date of admission: 05/26/19 12:59 Expected date of discharge: 05/28/19 Attending physician: Ernesto Nguyen Consults: 05/24/19 14:22 Consult Physician Stat Consulting Provider: Dayami Houston Consult Reason/Comments: CHF Do you want consulting provider notified?: Yes 05/24/19 17:45 Consult Physician Routine Consulting Provider: Raheem Cochran Consult Reason/Comments: suspected depression, declinging ability to take care of self Do you want consulting provider notified?: Yes Consult Physician Urgent Consulting Provider: Rickie Hamm Consult Reason/Comments: Impaired Kidney Function Do you want consulting provider notified?: Yes 05/24/19 17:48 Consult Physician Routine Consulting Provider: Raheem Colunga Consult Reason/Comments: Left Tunneling wound, Elevated WBC Do you want consulting provider notified?: Yes 05/28/19 09:58 Consult Physician Routine Consulting Provider: Alex De Paz Consult Reason/Comments: Wound Tunneling , rectal drainage Do you want consulting provider notified?: Yes Primary care physician: Zach Herr Hospital Course: Final Diagnoses: Sepsis secondary to Abscess with Nonhealing ulceration, left gluteal, thigh, i nitially growing Klebsiella oxytoca, worsening CT, suspect necrotizing fasciitis -Leukocytosis secondary to the above -CHF -Diabetes mellitus, hyperglycemia, secondary to infection and noncompliance,h emoglobin A1c 14.6 -acute renal failure secondary to ATN from contrast-induced nephropathy, infection, hypotension.possible ALLERGIC interstitial nephritis. -metabolic acidosis secondary to ATN -Chronic intermittent asthma -Chronic back pain -Anxiety-depression -Panic attacks -Ongoing nicotine dependence -Marijuana use -Morbid obesity, BMI 38.7. This is a 33-year-old female recently treated for a nonhealing ulceration of her left buttock/thigh and multiple other medical issues, returned back to the ER within 24 hours with complaints of shortness of breath, increasing pain, ongoing drainage from wound. Previously evaluated by surgery, no surgical intervention recommended at that time. Ulceration initially appeared as an abscess with tunneling - debridement per Dr. Herr on last admission . Evaluated by wound team, infectious disease, surgery, cardiology, nephrology, psychiatry. Maintained on Invanz . Repeat CT worsening compared to prior ,reporting gas- forming infection, possibly in the subcutaneous tissues extending from the left inguinal region superficially around the posterior lateral thigh to the inferior buttocks, medial thigh air-filled level with additional fluid and debris possibly an abscess-appears to be a new finding. Necrotizing fasciitis suspected. Surgery recommending patient transfer to a tertiary center for extensive debridement that he is unable to perform here at this hospital. Discussed with patient and family,patient agreeable to transfer to [facility]. Patient is being transferred to [facility] in a stable c ondition with fair prognosis. GENERAL: Alert and oriented 3, no acute distress CARDIOVASCULAR: S1, S2 regular. No murmur RESPIRATION: Breath sounds diminished in the bases. No rhonchi or crackles. ABDOMEN: Obese, Soft, nontender . No guarding. no masses palpable.Bowel sounds heard. NERVOUS SYSTEM: No focal deficits. Skin: Left posterior lateral buttock/thigh abscess, tender, positive edema, dressing clean dry and intact. Microbiology 05/24/19 16:18 Blood Blood Culture - Preliminary No Growth after 72 hours 05/27/19 13:38 Urine,Clean Catch Urine Culture - Preliminary 05/24/19 23:15 Buttock Anaerobic Culture - Preliminary 05/24/19 17:10 Buttock Gram Stain - Final 05/24/19 17:10 Buttock Wound Culture - Final The impression and plan of care has been dictated as directed. : I performed a history and examination of this patient, discussed the same with the dictator. I agree with the dictator's note ,documented as a scribe. Any additional findings or plans will be noted. Patient Condition at Discharge: Stable Plan - Discharge Summary Discharge Rx Participant: No New Discharge Prescriptions: No Action metFORMIN HCL [Glucophage] 1,000 mg PO BID Omeprazole 20 mg PO DAILY Medroxyprogesterone Acetate [Depo-Provera] 150 mg IM Q90D DULoxetine HCL [Cymbalta] 60 mg PO HS Pregabalin [Lyrica] 150 mg PO TID busPIRone HCl [Buspar] 5 mg PO BID Nicotine Polacrilex [Nicorette] 4 mg BC Q2H PRN PRN Reason: CRAVINGS predniSONE 20 mg PO DAILY #5 tab Sodium Bicarbonate Tab 650 mg PO BID #0 tab Cefuroxime [Ceftin] 250 mg PO BID #20 tab metroNIDAZOLE [Flagyl] 500 mg PO TID #30 tab Insulin Glargine/Lixisenatide [[place] 100 Unit-33 Mcg/ml Pen] 25 units SQ HS #0 HYDROcodone/APAP 10-325MG [[place] 10-325] 1 tab PO Q6H PRN PRN Reason: Pain Discharge Medication List metFORMIN HCL [Glucophage] 1,000 mg PO BID 09/04/16 [History] DULoxetine HCL [Cymbalta] 60 mg PO HS 01/25/18 [History] Medroxyprogesterone Acetate [Depo-Provera] 150 mg IM Q90D 01/25/18 [History] Omeprazole 20 mg PO DAILY 01/25/18 [History] Pregabalin [Lyrica] 150 mg PO TID 02/18/19 [History] Nicotine Polacrilex [Nicorette] 4 mg BC Q2H PRN 05/13/19 [History] busPIRone HCl [Buspar] 5 mg PO BID 05/13/19 [History] Cefuroxime [Ceftin] 250 mg PO BID #20 tab 05/23/19 [Rx] Insulin Glargine/Lixisenatide [[place] 100 Unit-33 Mcg/ml Pen] 25 units SQ HS #0 05/23/19 [Rx] Sodium Bicarbonate Tab 650 mg PO BID #0 tab 05/23/19 [Rx] metroNIDAZOLE [Flagyl] 500 mg PO TID #30 tab 05/23/19 [Rx] predniSONE 20 mg PO DAILY #5 tab 05/23/19 [Rx] HYDROcodone/APAP 10-325MG [[place] 10-325] 1 tab PO Q6H PRN 05/24/19 [History] Follow up Appointment(s)/Referral(s): Zach Herr MD [Primary Care Provider] - 1-2 days [facility] Visiting Nurse, [NON-STAFF] - 1-2 Days
--- NOTE | 2019-05-28 14:43 | P.GSCN ---
History of Present Illness Consult date: 05/28/19 Reason for Consult: wound tunneling, rectal drainage Requesting physician: Kerline Malhotra History of present illness: 33-year-old female who is known to surgical services from recent hospital admission secondary to left thigh wound. Patient was treated with conservative management including IV antibiotics and local wound care. Patient was discharged home in stable condition. She is now readmitted to the hospital. General surgery was consulted for re-evaluation of the wound. Patient reports increased pain to the leg. She reports increased swelling to left leg and is unable to bend her leg. She also reports pain into the buttocks and reports rectal drainage similar to the drainage from her thigh wound. Review of Systems REVIEW OF SYSTEMS: CONSTITUTIONAL: Denies fever or chills. HEENT: Denies blurred vision, vision changes, or eye pain. Denies hemoptysis CARDIOVASCULAR: Denies chest pain or pressure. RESPIRATORY: No shortness of breath. GASTROINTESTINAL: Denies abdominal pain. Denies nausea or vomiting. HEMATOLOGIC: Denies bleeding disorders. GENITOURINARY: Denies any blood in urine. SKIN: Reports increased pain, swelling, and drainage of left thigh wound. Reports new rectal drainage also. Past Medical History Past Medical History: Asthma, Diabetes Mellitus, GERD/Reflux, Liver Disease, Pneumonia, Renal Disease Additional Past Medical History / Comment(s): Pt recently admitted to [facility] on 05/15/19 with sepsis d/t L gluteal/thigh abscess/leukocytosis and acute renal failure. Other hx: IDDM type II, neuropathy bilateral feet, past renal failure and has passed kidney stones, leukocytosis, elevated RBCs, enlarged liver and spleen, hiatal hernia, gastritis, bronchitis, migraines in the past. 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 Positive tobacco use. Denies alcohol use. No travel. The experience. Does not work outside of the home Smoking Status: Current every day smoker - Past Family History Mother Family Medical History: Deep Vein Thrombosis (DVT), Pulmonary Embolus Father History Unknown: Yes Medications and Allergies Home Medications Medication Instructions Recorded Confirmed Type metFORMIN HCL [Glucophage] 1,000 mg PO BID 09/04/16 05/24/19 History DULoxetine HCL [Cymbalta] 60 mg PO HS 01/25/18 05/24/19 History Medroxyprogesterone Acetate 150 mg IM Q90D 01/25/18 05/24/19 History [Depo-Provera] Omeprazole 20 mg PO DAILY 01/25/18 05/24/19 History Pregabalin [Lyrica] 150 mg PO TID 02/18/19 05/24/19 History Nicotine Polacrilex [Nicorette] 4 mg BC Q2H PRN 05/13/19 05/24/19 History busPIRone HCl [Buspar] 5 mg PO BID 05/13/19 05/24/19 History Cefuroxime [Ceftin] 250 mg PO BID #20 tab 05/23/19 05/24/19 Rx Insulin Glargine/Lixisenatide 25 units SQ HS #0 05/23/19 05/24/19 Rx [[place] 100 Unit-33 Mcg/ml Pen] Sodium Bicarbonate Tab 650 mg PO BID #0 tab 05/23/19 05/24/19 Rx metroNIDAZOLE [Flagyl] 500 mg PO TID #30 tab 05/23/19 05/24/19 Rx predniSONE 20 mg PO DAILY #5 tab 05/23/19 05/24/19 Rx HYDROcodone/APAP 10-325MG [[place] 1 tab PO Q6H PRN 05/24/19 05/24/19 History 10-325] Allergies Allergy/AdvReac Type Severity Reaction Status Date / Time amoxicillin AdvReac Severe Nausea & Verified 05/24/19 10:57 Vomiting Tomatoes fresh cut Allergy Rash/Hives Uncoded 05/15/19 16:09 Surgical - Exam Vital Signs Temp Pulse Resp BP Pulse Ox 98.9 F 100 21 158/80 95 05/24/19 10:10 05/24/19 10:10 05/24/19 10:10 05/24/19 10:10 05/24/19 10:10 VITAL SIGNS: Reviewed. GENERAL: Well-developed in no acute distress. HEENT: No sclera icterus. Extraocular movements grossly intact. Moist buccal mucosa. Head is atraumatic, normocephalic. ABDOMEN: Soft. Nondistended. Nontender. NEUROLOGIC: Alert and oriented. Cranial nerves II through XII grossly intact. EXTREMITIES: Dressing to left thigh CDI. Patient with severe pain upon palpation of left lower extremity. She has edema to left lower extremity as well. Results - Labs 05/25/19 05:44 05/27/19 05:57 Abnormal Lab Results - Last 24 Hours (Table) 05/27/19 05/27/19 05/28/19 Range/Units 17:01 20:46 06:15 POC Glucose (mg/dL) 190 H 183 H 100 H (75-99) mg/dL 05/28/19 Range/Units 11:54 POC Glucose (mg/dL) 121 H (75-99) mg/dL Microbiology - Last 24 Hours (Table) 05/24/19 16:18 Blood Culture - Preliminary Blood No Growth after 72 hours 05/27/19 13:38 Urine Culture - Preliminary Urine,Clean Catch - Imaging Additional studies: CT left lower extremity: Gas-forming infection to be considered in the sub cutaneous tissues. This extends from the left inguinal region superficially around the posterior and lateral thigh to the inferior buttocks. This is worsening from previous exam. Medial thigh air-fluid level with additional fluid and debris in the medial thigh which could represent an abscess. This appears to be a new finding Assessment and Plan Assessment: 1. Left thigh wound, suspect necrotizing infection Plan: Dr. De Paz evaluated patient at the bedside. Two family members present. Dr. De Paz recommends transfer to tertiary care center for necrotizing infection of the left lower extremity. Dr. De Paz spoke with Dr. Herr via phone and updated him on his findings and recommendations to transfer. Nurse practitioner note has been reviewed by physician. Signing provider agrees with the documented findings, assessment, and plan of care.
[2019-05-28 15:49] LABS: C-ANCA <1:20 Titer (<1:20)
[2019-05-28 16:03] LABS: Basophils # (A) 0.1 k/uL (0-0.2); Basophils % (A) 0 %; Eosinophils # (A) 0.7 k/uL (0-0.7); Eosinophils % (A) 4 %; HCT 28.7 % (34.0-46.0); HGB 9.2 gm/dL (11.4-16.0); Hypochromasia Slight; Lymphocytes # (A) 2.8 k/uL (1.0-4.8); Lymphocytes % (A) 14 %; MCH 28.2 pg (25.0-35.0); Monocytes # (A) 0.7 k/uL (0-1.0); Monocytes % (A) 4 %; Neutrophils # (A) 15.1 k/uL (1.3-7.7); Neutrophils % (A) 77 %; Platelet Count 365 k/uL (150-450); RBC 3.26 m/uL (3.80-5.40); RDW 15.9 % (11.5-15.5); WBC 19.5 k/uL (3.8-10.6)
[2019-05-28 16:14] LABS: Calcium 8.7 mg/dL (8.4-10.2); Potassium 4.8 mmol/L (3.5-5.1)
[2019-05-28 16:48] VITALS: BP 149/78; PULSE 98; TEMP 98.8
--- NOTE | 2019-05-28 19:01 | PN ---
PROGRESS NOTE The patient is seen for followup for acute kidney injury. Her renal function continues to improve. She is currently being diuresed for severe volume overload. Serologies were ordered and they are and they are all negative. She had been on prednisone which is now discontinued. PHYSICAL EXAMINATION: This morning blood pressure was 136/88, heart rate 66 per minute, she is afebrile. Examination of the heart S1, S2. Examination of the lungs, bilateral breath sounds are heard. Abdomen is soft, nontender. Examination lower extremities shows edema with tenderness noted in the left leg. Some erythema is noted as well. BANKING REPRESENTATIVE exam is grossly intact. LABS: From today show sodium of 141, potassium 4.8, chloride 109, BUN 38, creatinine 1.93, hemoglobin 9.2 g/dL. ASSESSMENT: 1. Acute kidney injury, acute tubular necrosis, currently improving. There was suspicion for AIN from last admission and patient was maintained on steroids, which are now discontinued. Her renal function continues to improve. 2. Volume overload, maintained on IV Lasix, currently significantly improved. 3. Pain in the left lower extremity which will need further evaluation including Dopplers to rule out deep venous thrombosis. 4. Left gluteal abscess, status post antibiotics. PLAN: May continue with the IV Lasix for now. Further workup for left leg pain. MMODL / IJN: [id number] /
[2019-05-29] MEDS ORDERED: FAMOTIDINE 20 MG TAB PO SCH (09:00)
== END 2019-05-28 16:57 | disposition short-term general hospital (02) | DRG 871 ==
LOC: EC 10:02 → 3SCARD 13:56 → OBSVTOIN 05-26 12:59
PROVIDERS: ADMIT Family Medicine; ATTEND Family Medicine
DX: A41.59 Other Gram-negative sepsis (principal); N17.0 Acute kidney failure with tubular necrosis; M72.6 Necrotizing fasciitis; C91.10 Chronic lymphocytic leukemia of B-cell type not having achieved remission; L02.31 Cutaneous abscess of buttock; L97.122 Non-pressure chronic ulcer of left thigh with fat layer exposed; E87.2 Acidosis; E87.1 Hypo-osmolality and hyponatremia; I13.0 Hypertensive heart and chronic kidney disease with heart failure and stage 1 through stage 4 chronic kidney disease, or unspecified chronic kidney disease; I50.30 Unspecified diastolic (congestive) heart failure; Z68.42 Body mass index [BMI] 45.0-49.9, adult; M54.9 Dorsalgia, unspecified; G43.909 Migraine, unspecified, not intractable, without status migrainosus; F41.9 Anxiety disorder, unspecified; F32.9 Major depressive disorder, single episode, unspecified; F17.200 Nicotine dependence, unspecified, uncomplicated; N14.1 Nephropathy induced by other drugs, medicaments and biological substances; T50.8X5A Adverse effect of diagnostic agents, initial encounter; F41.0 Panic disorder [episodic paroxysmal anxiety]; J45.20 Mild intermittent asthma, uncomplicated; E66.01 Morbid (severe) obesity due to excess calories; K21.9 Gastro-esophageal reflux disease without esophagitis; E11.40 Type 2 diabetes mellitus with diabetic neuropathy, unspecified; T38.0X5A Adverse effect of glucocorticoids and synthetic analogues, initial encounter; G89.29 Other chronic pain; E11.622 Type 2 diabetes mellitus with other skin ulcer; E11.22 Type 2 diabetes mellitus with diabetic chronic kidney disease; N18.9 Chronic kidney disease, unspecified; I20.9 Angina pectoris, unspecified; E11.65 Type 2 diabetes mellitus with hyperglycemia; M79.605 Pain in left leg; R56.9 Unspecified convulsions; Z88.0 Allergy status to penicillin; Z91.018 Allergy to other foods; Z79.4 Long term (current) use of insulin; Z79.52 Long term (current) use of systemic steroids; Z79.899 Other long term (current) drug therapy; Z79.891 Long term (current) use of opiate analgesic; Z90.89 Acquired absence of other organs; Z98.890 Other specified postprocedural states; Z87.19 Personal history of other diseases of the digestive system; Z91.19 Patient's noncompliance with other medical treatment and regimen; Z91.11 Patient's noncompliance with dietary regimen; Z90.49 Acquired absence of other specified parts of digestive tract; Z87.01 Personal history of pneumonia (recurrent); Z87.442 Personal history of urinary calculi; Z82.49 Family history of ischemic heart disease and other diseases of the circulatory system; Z83.2 Family history of diseases of the blood and blood-forming organs and certain disorders involving the immune mechanism
CPT/HCPCS: 36415; 71046; 78580; 80048; 80053; 81001; 83516; 83735; 83880; 84100; 84484; 85025; 85379; 85610; 85730; 86038; 86160; 86225; 86255; 87040; 87070; 87075; 87077; 87086; 87186; 87205; 93005; 93306; 93970; 96361; 96374; 99285

== ENCOUNTER 2019-07-11 13:12 | Emergency (ER) | payer OTHER ==
--- NOTE | 2019-07-11 13:32 | ED ---
General Adult HPI - General Chief complaint: Recheck/Abnormal Lab/Rx Stated complaint: ABN labs Time Seen by Provider: 07/11/19 13:19 Source: patient, RN notes reviewed, old records reviewed Mode of arrival: ambulatory Limitations: no limitations - History of Present Illness Initial comments: 35-year-old female presenting for evaluation of elevated potassium. Patient is currently at the care home for rehabilitation and wound care. She had a infection in her left thigh and gluteal region requiring surgical intervention. His was necrotizing fasciitis and was debrided at [facility]. Patient has no known complaints today. No fever or chills. She states her wounds have been healing well. She had potassium drawn yesterday which was 6.8 and a redraw today that was 6.2. She has no history of chronic kidney disease, no history of hyperkalemia. No nausea vomiting. No diarrhea. No fever chills. No chest pain or dyspnea. - Related Data Home Medications Medication Instructions Recorded Confirmed metFORMIN HCL [Glucophage] 1,000 mg PO BID 09/04/16 06/22/19 DULoxetine HCL [Cymbalta] 60 mg PO HS 01/25/18 06/22/19 Medroxyprogesterone Acetate 150 mg IM Q90D 01/25/18 06/22/19 [Depo-Provera] Omeprazole 20 mg PO DAILY 01/25/18 06/22/19 busPIRone HCl [Buspar] 5 mg PO BID 05/13/19 06/22/19 Calcium Acetate [PhosLo] 1,334 mg PO TID 06/22/19 06/22/19 Insulin Glargine,Hum.rec.anlog 20 unit SQ HS 06/22/19 06/22/19 [Basaglar Kwikpen U-100] Levothyroxine Sodium [Synthroid] 100 mcg PO DAILY 06/22/19 06/22/19 Sennosides-Docusate Sodium 1 tab PO BID 06/22/19 06/22/19 [Senokot-S] Valsartan [Diovan] 160 mg PO DAILY 06/22/19 06/22/19 amLODIPine [Norvasc] 5 mg PO DAILY 06/22/19 06/22/19 Previous Rx's Medication Instructions Recorded Acetaminophen Tab [Tylenol] 650 mg PO Q6HR PRN tab 06/25/19 INSULIN LISPRO (HumaLOG) [humaLOG] 0 unit SQ ACHS #1 vial 06/25/19 Nicotine 21Mg/24Hr Patch [Habitrol] 1 patch TRANSDERM DAILY #30 patch 06/25/19 Pregabalin [Lyrica] 150 mg PO TID #9 cap 06/25/19 Cefepime HCl [Maxipime] 2 gm IV Q12HR #28 vial 06/26/19 Fluconazole [Diflucan] 200 mg PO DAILY #14 tab 06/26/19 Sodium Polystyrene Sulfonate 15 gm PO BID 5 Days #600 ml 07/11/19 [Kayexalate] Allergies Allergy/AdvReac Type Severity Reaction Status Date / Time amoxicillin AdvReac Severe Nausea & Verified 07/11/19 13:17 Vomiting Tomatoes fresh cut Allergy Rash/Hives Uncoded 07/11/19 13:17 Review of Systems ROS Statement: Those systems with pertinent positive or pertinent negative responses have been documented in the HPI. ROS Other: All systems not noted in ROS Statement are negative. Past Medical History Past Medical History: Asthma, Diabetes Mellitus, GERD/Reflux, Liver Disease, Pneumonia, Renal Disease Additional Past Medical History / Comment(s): Pt recently admitted to [facility] on 05/15/19 with sepsis d/t L gluteal/thigh abscess/leukocytosis and acute renal failure and admitted again 05/26/19 with sepsis 2ndary to abscess/nonhealing ulcer L fluteal/thigh growing Klebsiella oxytoca/suspected necrotizing facsitis/ acute renal failure/volume overload and transferred to [facility] where she states they performed surgery to site and also stated she had necrotizing fascitis. 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 History of Any Multi-Drug Resistant Organisms: VRE Date of last positivie culture/infection: 05/27/19 MDRO Source:: Urine Past Surgical History: Adenoidectomy, Cholecystectomy, Hernia Repair, Tons illectomy Additional Past Surgical History / Comment(s): Surgery on L leg wound with drains at [facility] 05/2019, debridement L thigh wound, BMAs, umbilical hernia repair, EGDs, colonoscopy, cyst removed side of neck Past Anesthesia/Blood Transfusion Reactions: No Reported Reaction Additional Past Anesthesia/Blood Transfusion Reaction / Comment(s): 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 currently being worked up by oncology Past Psychological History: Anxiety, Depression Smoking Status: Current every day smoker Past Alcohol Use History: None Reported Past Drug Use History: None Reported - Past Family History Mother Family Medical History: Deep Vein Thrombosis (DVT), Pulmonary Embolus Father History Unknown: Yes General Exam Limitations: no limitations General appearance: alert, in no apparent distress Head exam: Present: atraumatic, normocephalic Eye exam: Present: normal appearance, PERRL ENT exam: Present: normal exam Neck exam: Present: normal inspection. Absent: tenderness, meningismus Respiratory exam: Present: normal lung sounds bilaterally. Absent: respiratory distress, wheezes Cardiovascular Exam: Present: regular rate, normal rhythm GI/Abdominal exam: Present: soft. Absent: distended, tenderness, guarding Rectal exam: Present: normal inspection External exam: Present: normal external exam Extremities exam: Present: other (Left thigh, gluteal region is examined. She has several incisions from debridement. All of these are well healing with no purulent drainage. There is no erythema. There is no crepitus or induration. No signs of current infection.) Neurological exam: Present: alert, oriented X3 Psychiatric exam: Present: normal affect, normal mood Skin exam: Present: warm, dry, intact. Absent: cyanosis, diaphoretic Course Vital Signs 07/11/19 07/11/19 13:17 14:38 Temperature 98.7 F Pulse Rate 96 100 Respiratory 16 20 Rate Blood Pressure 132/72 110/63 O2 Sat by Pulse 100 100 Oximetry EKG Findings - EKG Comments: EKG Findings:: EKG: Normal sinus rhythm, rate of 97, TN interval 182, QRS duration 74, QTC 408, no ST segment elevation. Medical Decision Making - Medical Decision Making 34-year-old female presenting with abnormal outpatient labs. No complaints. Laboratory studies are repeated in the emergency department she has leukocytosis which is chronically elevated. She has hemoglobin which is improved from baseline. Her potassium is 5.8 which is improved. She's given IV hydration and Kayexalate in the emergency department. I discussed the case with Dr. Herr who is very familiar with this patient, he will continue to monitor these laboratory studies on an outpatient basis. She is prescribed Kayexalate and will maintain oral hydration. Return with any new issues. - Lab Data Result diagrams: 07/11/19 13:25 07/11/19 13:25 Lab Results 07/11/19 07/11/19 Range/Units 13:25 13:25 WBC 18.8 H (3.8-10.6) k/uL RBC 4.29 (3.80-5.40) m/uL Hgb 11.0 L (11.4-16.0) gm/dL Hct 35.7 (34.0-46.0) % MCV 83.4 (80.0-100.0) fL MCH 25.7 (25.0-35.0) pg MCHC 30.8 L (31.0-37.0) g/dL RDW 15.3 (11.5-15.5) % Plt Count 397 (150-450) k/uL Neutrophils % 65 % Lymphocytes % 21 % Monocytes % 4 % Eosinophils % 7 % Basophils % 1 % Neutrophils # 12.1 H (1.3-7.7) k/uL Lymphocytes # 4.0 (1.0-4.8) k/uL Monocytes # 0.8 (0-1.0) k/uL Eosinophils # 1.3 H (0-0.7) k/uL Basophils # 0.1 (0-0.2) k/uL Hypochromasia Slight Sodium 141 (137-145) mmol/L Potassium 5.8 H (3.5-5.1) mmol/L Chloride 111 H (98-107) mmol/L Carbon Dioxide 17 L (22-30) mmol/L Anion Gap 13 mmol/L BUN 32 H (7-17) mg/dL Creatinine 0.98 (0.52-1.04) mg/dL Est GFR (CKD-EPI)AfAm 88 (>60 ml/min/1.73 sqM) Est GFR (CKD-EPI)NonAf 77 (>60 ml/min/1.73 sqM) Glucose 145 H (74-99) mg/dL Calcium 10.2 (8.4-10.2) mg/dL Magnesium 1.6 (1.6-2.3) mg/dL Disposition Clinical Impression: Hyperkalemia Disposition: HOME SELF-CARE Condition: Fair Instructions (If sedation given, give patient instructions): Hyperkalemia (ED) Prescriptions: Sodium Polystyrene Sulfonate [Kayexalate] 15 gm PO BID 5 Days #600 ml Is patient prescribed a controlled substance at d/c from ED?: No Referrals: Zach Herr MD [Primary Care Provider] - 1-2 days Time of Disposition: 15:38
[2019-07-11 13:48] LABS: Basophils # (A) 0.1 k/uL (0-0.2); Basophils % (A) 1 %; Eosinophils # (A) 1.3 k/uL (0-0.7); Eosinophils % (A) 7 %; HCT 35.7 % (34.0-46.0); Hypochromasia Slight; Lymphocytes % (A) 21 %; MCH 25.7 pg (25.0-35.0); MCHC 30.8 g/dL (31.0-37.0); MCV 83.4 fL (80.0-100.0); Mean Platelet Volume 8.5; Monocytes # (A) 0.8 k/uL (0-1.0); Monocytes % (A) 4 %; Neutrophils # (A) 12.1 k/uL (1.3-7.7); Neutrophils % (A) 65 %; Platelet Count 397 k/uL (150-450); RBC 4.29 m/uL (3.80-5.40); RDW 15.3 % (11.5-15.5); WBC 18.8 k/uL (3.8-10.6)
[2019-07-11 14:06] LABS: Calcium 10.2 mg/dL (8.4-10.2); Magnesium 1.6 mg/dL (1.6-2.3); Potassium 5.8 mmol/L (3.5-5.1)
[2019-07-11] MEDS ORDERED: SODIUM CHLORIDE 0.9% 500 ML 500 ML IV ONE (14:17)
[2019-07-11] MEDS ORDERED: SODIUM POLYSTYRENE SULFONATE 15 GM/60 ML BOTTLE PO STA (14:27)
[2019-07-11 16:12] VITALS: BP 112/87; PULSE 84; RESP 16; TEMP 98
== END 2019-07-11 16:10 | disposition home or self-care (01) ==
LOC: EC 13:12
DX: E87.5 Hyperkalemia (principal); D72.829 Elevated white blood cell count, unspecified; E11.42 Type 2 diabetes mellitus with diabetic polyneuropathy; K21.9 Gastro-esophageal reflux disease without esophagitis; F32.9 Major depressive disorder, single episode, unspecified; F41.9 Anxiety disorder, unspecified; F17.200 Nicotine dependence, unspecified, uncomplicated; Z88.0 Allergy status to penicillin; Z91.018 Allergy to other foods; Z79.3 Long term (current) use of hormonal contraceptives; Z79.4 Long term (current) use of insulin; Z79.890 Hormone replacement therapy; Z79.899 Other long term (current) drug therapy; Z98.890 Other specified postprocedural states
CPT/HCPCS: 36415; 80048; 83735; 85025; 93005; 96360; 96361; 99285

== ENCOUNTER 2019-11-30 16:31 | Inpatient (IN) | payer OTHER ==
[2019-11-30 17:35] LABS: Basophils # (A) 0.1 k/uL (0-0.2); Basophils % (A) 1 %; Eosinophils # (A) 0.5 k/uL (0-0.7); Eosinophils % (A) 3 %; HCT 37.7 % (34.0-46.0); HGB 12.4 gm/dL (11.4-16.0); Hypochromasia Slight; Lymphocytes # (A) 3.5 k/uL (1.0-4.8); Lymphocytes % (A) 22 %; MCH 27.3 pg (25.0-35.0); MCHC 32.9 g/dL (31.0-37.0); MCV 83.1 fL (80.0-100.0); Mean Platelet Volume 8.8; Monocytes # (A) 0.7 k/uL (0-1.0); Monocytes % (A) 5 %; Neutrophils # (A) 10.8 k/uL (1.3-7.7); Neutrophils % (A) 68 %; Platelet Count 318 k/uL (150-450); RBC 4.53 m/uL (3.80-5.40); RDW 15.8 % (11.5-15.5); WBC 15.8 k/uL (3.8-10.6)
[2019-11-30 17:43] LABS: Albumin 3.6 g/dL (3.5-5.0); Calcium 9.2 mg/dL (8.4-10.2); Magnesium 1.8 mg/dL (1.6-2.3); Potassium 4.5 mmol/L (3.5-5.1); Total Bilirubin 0.2 mg/dL (0.2-1.3); Total Protein 6.7 g/dL (6.3-8.2)
[2019-11-30 17:48] LABS: D-Dimer 0.42 mg/L FEU (<0.60); INR 0.9 (<1.2); Partial Thromboplastin Time 24.8 sec (22.0-30.0); Prothrombin Time 9.4 sec (9.0-12.0)
--- NOTE | 2019-11-30 18:05 | XR ---
EXAMINATION TYPE: XR chest 2V DATE OF EXAM: 11/30/2019 COMPARISON: 06/22/2019 HISTORY: Cough TECHNIQUE: 2 views FINDINGS: Heart and mediastinum are normal. Lungs are clear. Diaphragm is normal. Bony thorax appears normal. IMPRESSION: Normal chest. No change.
[2019-11-30] MEDS ORDERED: NITROGLYCERIN SL TABS 0.4 MG TAB SUBLINGUAL PRN (19:54)
[2019-11-30] MEDS ORDERED: HEPARIN SODIUM,PORCINE 5,000 UNIT/ML 1 ML VIAL IV ONE (19:54)
--- NOTE | 2019-11-30 19:54 | ED ---
Chest Pain HPI - General Chief Complaint: Chest Pain Stated Complaint: Chest pain Time Seen by Provider: 11/30/19 16:31 Source: patient, RN notes reviewed Mode of arrival: EMS Limitations: no limitations - History of Present Illness Initial Comments: This is a 34-year-old female with a history of CHF but no other history of heart problems who states she had the onset around 2 PM today of retrosternal chest discomfort and pain radiating to her jaw on both sides. States it was about 8/10 severity he was given nitroglycerin as well as other medication we did seem to help. She was brought in by EMS. She denies any fevers chills nausea vomiting sweats or other symptoms MD Complaint: chest pain - Related Data Home Medications Medication Instructions Recorded Confirmed metFORMIN HCL [Glucophage] 1,000 mg PO BID 09/04/16 06/22/19 DULoxetine HCL [Cymbalta] 60 mg PO HS 01/25/18 06/22/19 Medroxyprogesterone Acetate 150 mg IM Q90D 01/25/18 06/22/19 [Depo-Provera] Omeprazole 20 mg PO DAILY 01/25/18 06/22/19 busPIRone HCl [Buspar] 5 mg PO BID 05/13/19 06/22/19 Calcium Acetate [PhosLo] 1,334 mg PO TID 06/22/19 06/22/19 Insulin Glargine,Hum.rec.anlog 20 unit SQ HS 06/22/19 06/22/19 [Basaglar Kwikpen U-100] Levothyroxine Sodium [Synthroid] 100 mcg PO DAILY 06/22/19 06/22/19 Sennosides-Docusate Sodium 1 tab PO BID 06/22/19 06/22/19 [Senokot-S] Valsartan [Diovan] 160 mg PO DAILY 06/22/19 06/22/19 amLODIPine [Norvasc] 5 mg PO DAILY 06/22/19 06/22/19 Previous Rx's Medication Instructions Recorded Acetaminophen Tab [Tylenol] 650 mg PO Q6HR PRN tab 06/25/19 INSULIN LISPRO (HumaLOG) [humaLOG] 0 unit SQ ACHS #1 vial 06/25/19 Nicotine 21Mg/24Hr Patch [Habitrol] 1 patch TRANSDERM DAILY #30 patch 06/25/19 Pregabalin [Lyrica] 150 mg PO TID #9 cap 06/25/19 Cefepime HCl [Maxipime] 2 gm IV Q12HR #28 vial 06/26/19 Fluconazole [Diflucan] 200 mg PO DAILY #14 tab 06/26/19 Sodium Polystyrene Sulfonate 15 gm PO BID 5 Days #600 ml 07/11/19 [Kayexalate] Allergies Allergy/AdvReac Type Severity Reaction Status Date / Time amoxicillin AdvReac Severe Nausea & Verified 11/30/19 16:37 Vomiting Tomatoes fresh cut Allergy Rash/Hives Uncoded 11/30/19 16:37 Review of Systems ROS Statement: Those systems with pertinent positive or pertinent negative responses have been documented in the HPI. ROS Other: All systems not noted in ROS Statement are negative. EKG Findings - EKG Results: EKG: interpreted by WILBERTO, sinus rhythm (Sinus tachycardia of 108 AR interval 190 QRS duration 64 QT since QTC 3:30/442 low-voltage QRS poor R-wave progression this is consistent with an EKG dated 05/24/19) Past Medical History Past Medical History: Asthma, Diabetes Mellitus, GERD/Reflux, Liver Disease, Pneumonia, Renal Disease Additional Past Medical History / Comment(s): Pt recently admitted to [facility] on 05/15/19 with sepsis d/t L gluteal/thigh abscess/leukocytosis and acute renal failure and admitted again 05/26/19 with sepsis 2ndary to abscess/nonhealing ulcer L fluteal/thigh growing Klebsiella oxytoca/suspected necrotizing facsitis/ acute renal failure/volume overload and transferred to [facility] where she states they performed surgery to site and also stated she had necrotizing fascitis. 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 currently being worked up by oncology Past Psychological History: Anxiety, Depression Smoking Status: Current every day smoker Past Alcohol Use History: None Reported Past Drug Use History: None Reported - Past Family History Mother Family Medical History: Deep Vein Thrombosis (DVT), Pulmonary Embolus Father History Unknown: Yes General Exam - General Exam Comments Initial Comments: This is a well-developed well-nourished awake alert oriented 5 female Limitations: no limitations General appearance: alert, in no apparent distress Head exam: Present: atraumatic, normocephalic, normal inspection Eye exam: Present: normal appearance, PERRL, EOMI. Absent: scleral icterus, conjunctival injection, periorbital swelling ENT exam: Present: normal exam, mucous membranes moist Neck exam: Present: normal inspection. Absent: tenderness, meningismus, lymphadenopathy Respiratory exam: Present: normal lung sounds bilaterally. Absent: respiratory distress, wheezes, rales, rhonchi, stridor Cardiovascular Exam: Present: regular rate, normal rhythm, normal heart sounds. Absent: systolic murmur, diastolic murmur, rubs, gallop, clicks GI/Abdominal exam: Present: soft, normal bowel sounds. Absent: distended, tenderness, guarding, rebound, rigid Extremities exam: Present: normal inspection, full ROM, normal capillary refill. Absent: tenderness, pedal edema, joint swelling, calf tenderness Back exam: Present: normal inspection Neurological exam: Present: alert, oriented X3, CN II-XII intact Psychiatric exam: Present: normal affect, normal mood Skin exam: Present: warm, dry, intact, normal color. Absent: rash Course Vital Signs 11/30/19 11/30/19 11/30/19 16:34 17:00 18:00 Temperature 98.8 F Pulse Rate 110 H 106 H 105 H Respiratory 16 19 18 Rate Blood Pressure 117/67 117/71 122/70 O2 Sat by Pulse 97 97 97 Oximetry Procedures - [place] Protocol (Time Out) Nurse: Corrie Harris Chest Pain MDM - MDM . No further chest pain she did however have elevated troponin I did discuss the findings with her and her grandfather was present who is agreed to stay case was discussed with Dr. Herr. Cardiology will be consulted x-ray was negative Critical Care Time Critical Care Time: Yes Critical Care Time: 31 minutes of critical care time which includes initial presentation with history physical labs x-rays discussed with paramedics also reevaluation the patient discussed with the patient family regarding findings discussed with the admitting physician admission orders and documentation of the above Disposition Clinical Impression: Chest pain, Unstable angina pectoris, Elevated troponin, Acute coronary syndrome Disposition: ADMITTED IP TO THIS HOSP Condition: Fair Referrals: Zach Herr MD [Primary Care Provider] - 1-2 days
[2019-11-30] MEDS ORDERED: HEPARIN SOD,PORK IN 0.45% NACL 25,000 UNIT in 0.45% NACL 1 250ML.BAG IV SCH (20:00)
[2019-11-30] MEDS ORDERED: HYDROmorphone 1 MG/ML 1 ML SYRINGE IVP STA (20:39)
[2019-11-30 22:21] LABS: Glucose,Whole Blood 175 mg/dL (75-99)
[2019-11-30] MEDS: DULoxetine HCL 60 MG CAPSULE.DR PO SCH (23:20)
[2019-11-30] MEDS: PREGABALIN 75 MG CAP PO SCH (23:20)
[2019-11-30] MEDS: NITROGLYCERIN OINT 1 INCH/GM PACKET TOPICAL SCH (23:21)
[2019-11-30] MEDS: busPIRone HCl 5 MG TAB PO SCH (23:21)
[2019-11-30] MEDS: AMITRIPTYLINE HCL 50 MG TAB PO SCH (23:21)
[2019-11-30] MEDS: INSULIN DETEMIR (LEVEMIR) 100 UNIT/ML SYR SQ SCH (23:24)
[2019-11-30] MEDS: INSULIN ASPART (NovoLOG) 100 UNIT/ML VIAL SQ SCH (23:29)
[2019-11-30] MEDS: metFORMIN 500 MG TAB PO SCH (23:33)
[2019-12-01] MEDS: NITROGLYCERIN OINT 1 INCH/GM PACKET TOPICAL SCH ×2 (06:04→12:16)
[2019-12-01] MEDS: LEVOTHYROXINE 100 MCG TAB PO SCH (06:04)
[2019-12-01] MEDS: PANTOPRAZOLE 40 MG TABLET PO SCH (06:04)
[2019-12-01] MEDS: metFORMIN 500 MG TAB PO SCH (06:04)
[2019-12-01 06:14] LABS: Glucose,Whole Blood 157 mg/dL (75-99)
[2019-12-01] MEDS: INSULIN ASPART (NovoLOG) 100 UNIT/ML VIAL SQ SCH ×4 (07:02→20:41)
[2019-12-01 08:00] LABS: Cholesterol 211 mg/dL (<200); HDL Cholesterol 26 mg/dL (40-60)
[2019-12-01 08:18] LABS: Triglycerides 570 mg/dL (<150)
[2019-12-01] MEDS ORDERED: ASPIRIN 325 MG TAB PO SCH (09:00)
[2019-12-01] MEDS ORDERED: amLODIPine 5 MG TAB PO SCH (09:00)
[2019-12-01] MEDS ORDERED: HEPARIN SODIUM,PORCINE 5,000 UNIT/ML 1 ML VIAL IV PRN (09:32)
[2019-12-01] MEDS ORDERED: HEPARIN SODIUM,PORCINE 5,000 UNIT/ML 1 ML VIAL IV ONE (09:32)
[2019-12-01] MEDS ORDERED: HEPARIN SOD,PORK IN 0.45% NACL 25,000 UNIT in 0.45% NACL 1 250ML.BAG IV SCH (09:45)
[2019-12-01 10:15] LABS: Anisocytosis Slight; Basophils # (A) 0.1 k/uL (0-0.2); Basophils % (A) 1 %; Eosinophils # (A) 0.7 k/uL (0-0.7); Eosinophils % (A) 4 %; HCT 38.9 % (34.0-46.0); HGB 12.1 gm/dL (11.4-16.0); Hypochromasia Moderate; Lymphocytes # (A) 3.9 k/uL (1.0-4.8); Lymphocytes % (A) 23 %; MCH 26.5 pg (25.0-35.0); MCHC 31.3 g/dL (31.0-37.0); MCV 84.8 fL (80.0-100.0); Mean Platelet Volume 9.4; Monocytes # (A) 0.9 k/uL (0-1.0); Monocytes % (A) 5 %; Neutrophils % (A) 66 %; Platelet Count 302 k/uL (150-450); RBC 4.58 m/uL (3.80-5.40); WBC 16.7 k/uL (3.8-10.6)
[2019-12-01 10:21] LABS: INR 0.9 (<1.2); Prothrombin Time 9.6 sec (9.0-12.0)
[2019-12-01] MEDS ORDERED: ALPRAZolam 0.25 MG TAB PO PRN (11:10)
[2019-12-01] MEDS ORDERED: NITROGLYCERIN SL TABS 0.4 MG TAB SUBLINGUAL PRN ×2 (11:10→16:04)
[2019-12-01] MEDS ORDERED: ASPIRIN 325 MG TAB PO STA (11:10)
[2019-12-01] MEDS ORDERED: SODIUM CHLORIDE 0.9% 1,000 ML in EMPTY BAG 1 BAG IV ONE (11:10)
[2019-12-01] MEDS ORDERED: ALPRAZolam 0.5 MG TAB PO PRN (11:10)
[2019-12-01] MEDS ORDERED: ATORVASTATIN 80 MG TAB PO STA (11:10)
--- NOTE | 2019-12-01 11:52 | P.HPIM ---
History of Present Illness H&P Date: 12/01/19 Chief Complaint: Chest pain On 11/30/2019 she presented to the emergency room via EMS with complaints of chest pain. She is a 34-year-old female with a history of CHF but no other heart problems. The chest pain started around 1400 on Tuesday with chest discomfort and pain radiating to her jaw on both sides. The pain was rated 8 out of 10 and was reduce with the use of nitroglycerin. She denies any fever, chills, nausea, vomiting, sweats or any other symptoms. Currently she is sitting up in bed with no complaints at this time with the exception of intermittent left lower quadrant abdominal pain that just started after having a bowel movement. She denies chest pain or pressure, difficulty breathing, dizziness, nausea or vomiting. She is currently on room air main taining oxygen saturation saturations are 98% with respiratory rate of 16, afebrile 98.0, blood pressure 123/73,. Per patient cardiology came through told her that she is continuing to go to ammunition assembly laborer around 2:00 today for possible stent. They also ordered an echocardiogram which is completed just prior to my evaluation. Currently patient is nothing by mouth moment maintain so until after procedure although she wants to go home to have something to eat. All pertinent positives and pertinent negatives and addressed in HPI Review of Systems Constitutional: Reports as per HPI Ears, nose, mouth and throat: Reports as per HPI Cardiovascular: Reports as per HPI Respiratory: Reports as per HPI Gastrointestinal: Reports as per HPI Genitourinary: Reports as per HPI Musculoskeletal: Reports as per HPI Integumentary: Reports as per HPI Neurological: Reports as per HPI Psychiatric: Reports as per HPI Endocrine: Reports as per HPI Hematologic/Lymphatic: Reports as per HPI Allergic/Immunologic: Reports as per HPI Past Medical History Past Medical History: Asthma, Diabetes Mellitus, GERD/Reflux, Liver Disease, Pneumonia, Renal Disease Additional Past Medical History / Comment(s): Pt recently admitted to [facility] on 05/15/19 with sepsis d/t L gluteal/thigh abscess/leukocytosis and acute renal failure and admitted again 05/26/19 with sepsis 2ndary to abscess/nonhealing ulcer L fluteal/thigh growing Klebsiella oxytoca/suspected necrotizing facsitis/ acute renal failure/volume overload and transferred to [facility] where she states they performed surgery to site and also stated she had necrotizing fascitis. 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 History of Any Multi-Drug Resistant Organisms: VRE Date of last positivie culture/infection: 05/27/19 MDRO Source:: Urine Past Surgical History: Adenoidectomy, Cholecystectomy, Hernia Repair, Tonsillectomy Additional Past Surgical History / Comment(s): Surgery on L leg wound with drain s at [facility] 05/2019, debridement L thigh wound, BMAs, umbilical hernia repair, EGDs, colonoscopy, cyst removed side of neck Past Anesthesia/Blood Transfusion Reactions: No Reported Reaction Additional Past Anesthesia/Blood Transfusion Reaction / Comment(s): 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 currently being worked up by oncology Past Psychological History: Anxiety, Depression Additional Psychological History / Comment(s): Pt resides with her mother. She is ambulating with a walker. She is not driving d/[employer], mother or grandfather drive. She is receiving home care thru [facility]. Single, no children. Positive tobacco use. Denies alcohol use. No travel. The experience. Does not work outside of the home Smoking Status: Current every day smoker Past Alcohol Use History: None Reported Additional Past Alcohol Use History / Comment(s): STARTED SMOKING AT AGE 15, SMOKES 1/2 PPD Past Drug Use History: None Reported Additional Drug Use History / Comment(s): Pt does edible marijuana occasionally. - Past Family History Mother Family Medical History: Deep Vein Thrombosis (DVT), Pulmonary Embolus Father History Unknown: Yes Medications and Allergies Home Medications Medication Instructions Recorded Confirmed Type metFORMIN HCL [Glucophage] 1,000 mg PO BID 09/04/16 11/30/19 History DULoxetine HCL [Cymbalta] 60 mg PO DAILY 01/25/18 11/30/19 History Medroxyprogesterone Acetate 150 mg IM Q90D 01/25/18 11/30/19 History [Depo-Provera] Omeprazole 20 mg PO DAILY 01/25/18 11/30/19 History busPIRone HCl [Buspar] 5 mg PO BID 05/13/19 11/30/19 History Levothyroxine Sodium [Synthroid] 100 mcg PO DAILY 06/22/19 11/30/19 History Valsartan [Diovan] 160 mg PO DAILY 06/22/19 11/30/19 History amLODIPine [Norvasc] 5 mg PO DAILY 06/22/19 11/30/19 History Amitriptyline HCl [Elavil] 50 mg PO HS 11/30/19 11/30/19 History Cranberry Fruit Extract [Cranberry] 200 mg PO DAILY 11/30/19 11/30/19 History Ibuprofen [Advil] 800 - 1,000 mg PO ONCE PRN 11/30/19 11/30/19 History Insulin Glargine,Hum.rec.anlog 20 unit SQ DAILY 11/30/19 11/30/19 History [Basaglar Kwikpen U-100] Montelukast Sodium [Singulair] 10 mg PO DAILY 11/30/19 11/30/19 History Pregabalin [Lyrica] 200 mg PO TID 11/30/19 11/30/19 History Allergies Allergy/AdvReac Type Severity Reaction Status Date / Time amoxicillin AdvReac Severe Nausea & Verified 11/30/19 20:51 Vomiting Tomatoes fresh cut Allergy Rash/Hives Uncoded 11/30/19 16:37 Physical Exam Vitals: Vital Signs Temp Pulse Pulse Resp BP BP Pulse Ox 12/01/19 05:26 98.0 F 107 H 16 123/73 97 12/01/19 04:36 105 H 12/01/19 00:31 97.9 F 104 H 20 126/83 97 11/30/19 23:02 97 11/30/19 21:41 98.1 F 105 H 20 123/83 97 11/30/19 18:00 105 H 18 122/70 97 11/30/19 17:00 106 H 19 117/71 97 11/30/19 16:34 98.8 F 110 H 16 117/67 97 Intake and Output 11/30/19 12/01/19 12/01/19 22:59 06:59 14:59 Intake Total 126.258 Balance 126.258 Intake: Intake, IV Titration 126.258 Amount Heparin Sod,Pork in 0.45% 126.258 NaCl 25,000 unit In 0.45 % NaCl 1 250ml.bag @ 9.18 UNITS/KG/HR 9.994 mls/hr IV .Q24H [facility] Rx#: [id number] Other: # Voids 1 2 Weight 108.862 kg 115.8 kg GENERAL: Well-appearing, well-nourished and in no acute distress. HEAD: Atraumatic, normocephalic. EYES: Pupils equal round and reactive to light, extraocular movements intact, sclera anicteric, conjunctiva are normal. ENT:nares patent, oropharynx clear without exudates. Moist mucous membranes. NECK: Normal range of motion, supple without lymphadenopathy or JVD, no thyromegaly LUNGS: Breath sounds clear to auscultation bilaterally and equal. No wheezes rales or rhonchi. HEART: Regular rate and rhythm without murmurs, rubs or gallops.S1S2 Normal ABDOMEN: Soft, nontender, normoactive bowel sounds. No guarding, no rebound. No masses appreciated. EXTREMITIES: Normal range of motion, no pitting or edema. No clubbing or cyanosis. NEUROLOGICAL: Cranial nerves II through XII grossly intact. Normal speech, normal gait. PSYCH: Normal mood, normal affect. SKIN: Warm, Dry, normal turgor, no rashes or lesions noted. Results CBC & Chem 7: 12/01/19 06:10 11/30/19 16:45 Labs: Abnormal Lab Results - Last 24 Hours (Table) 11/30/19 11/30/19 11/30/19 Range/Units 16:45 16:45 16:45 WBC 15.8 H (3.8-10.6) k/uL RDW 15.8 H (11.5-15.5) % Neutrophils # 10.8 H (1.3-7.7) k/uL Chloride 112 H (98-107) mmol/L Carbon Dioxide 19 L (22-30) mmol/L BUN 19 H (7-17) mg/dL Glucose 215 H (74-99) mg/dL POC Glucose (mg/dL) (75-99) mg/dL Alkaline Phosphatase 173 H (38-126) U/L Troponin I 0.057 H* (0.000-0.034) ng/mL Triglycerides (<150) mg/dL Cholesterol (<200) mg/dL HDL Cholesterol (40-60) mg/dL Lipase 521 H (23-300) U/L 06/12/20 06/12/20 06/13/20 Range/Units 22:16 23:15 06:10 WBC (3.8-10.6) k/uL RDW (11.5-15.5) % Neutrophils # (1.3-7.7) k/uL Chloride (98-107) mmol/L Carbon Dioxide (22-30) mmol/L BUN (7-17) mg/dL Glucose (74-99) mg/dL POC Glucose (mg/dL) 175 H (75-99) mg/dL Alkaline Phosphatase (38-126) U/L Troponin I 0.562 H* 0.833 H* (0.000-0.034) ng/mL Triglycerides (<150) mg/dL Cholesterol (<200) mg/dL HDL Cholesterol (40-60) mg/dL Lipase (23-300) U/L 12/01/19 12/01/19 12/01/19 Range/Units 06:10 06:10 06:13 WBC 16.7 H (3.8-10.6) k/uL RDW 16.0 H (11.5-15.5) % Neutrophils # 11.0 H (1.3-7.7) k/uL Chloride (98-107) mmol/L Carbon Dioxide (22-30) mmol/L BUN (7-17) mg/dL Glucose (74-99) mg/dL POC Glucose (mg/dL) 157 H (75-99) mg/dL Alkaline Phosphatase (38-126) U/L Troponin I (0.000-0.034) ng/mL Triglycerides 570 H (<150) mg/dL Cholesterol 211 H (<200) mg/dL HDL Cholesterol 26 L (40-60) mg/dL Lipase (23-300) U/L Thrombosis Risk Factor Assmnt - Choose All That Apply Each Factor Represents 1 point: Obesity (BMI >25) Other Risk Factors: No Thrombosis Risk Factor Assessment Total Risk Factor Score: 1 Thrombosis Risk Factor Assessment Level: Low Risk Assessment and Plan (1) Acute coronary syndrome Current Visit: Yes Status: Acute Code(s): I24.9 - ACUTE ISCHEMIC HEART DISEASE, UNSPECIFIED SNOMED Code(s): 941021502 (2) Chest pain Current Visit: Yes Status: Acute Code(s): R07.9 - CHEST PAIN, UNSPECIFIED SNOMED Code(s): 13597047 (3) Elevated troponin Current Visit: Yes Status: Acute Code(s): R79.89 - OTHER SPECIFIED ABNORMAL FINDINGS OF BLOOD CHEMISTRY SNOMED Code(s): 093815755 (4) Unstable angina pectoris Current Visit: Yes Status: Acute Code(s): I20.0 - UNSTABLE ANGINA SNOMED Code(s): 2548016 (5) Lactic acidosis Current Visit: No Status: Acute Code(s): E87.2 - ACIDOSIS SNOMED Code(s): 54967298 (6) Morbid (severe) obesity due to excess calories Current Visit: No Status: Acute Code(s): E66.01 - MORBID (SEVERE) OBESITY DUE TO EXCESS CALORIES SNOMED Code(s): 383952882 (7) Morbid obesity due to excess calories Current Visit: No Status: Acute Code(s): E66.01 - MORBID (SEVERE) OBESITY DUE TO EXCESS CALORIES SNOMED Code(s): 284336543 (8) Self-care deficit for medication management Current Visit: No Status: Acute Code(s): OAX6566 - SNOMED Code(s): 634977410 (9) Type 2 diabetes mellitus with hyperglycemia Current Visit: No Status: Acute Code(s): E11.65 - TYPE 2 DIABETES MELLITUS WITH HYPERGLYCEMIA SNOMED Code(s): 551794120105172 Plan: 1. Continue current medication regimen with the exception of metformin. 2. Per patient planned catheterization today at 1400. 3. Echocardiogram completed today. 4. Continue nothing by mouth until after procedure. 5. Continue on heparin drip. 6. Follow cardiology recommendations. 7. We will order labs for tomorrow morning. 8. We'll continue to follow closely and reassess tomorrow. Time with Patient: Greater than 30
[2019-12-01 11:56] LABS: Glucose,Whole Blood 135 mg/dL (75-99)
[2019-12-01] MEDS: FLUCONAZOLE 100 MG TAB PO SCH (12:06)
[2019-12-01] MEDS: busPIRone HCl 5 MG TAB PO SCH ×2 (12:06→20:31)
[2019-12-01] MEDS: PREGABALIN 75 MG CAP PO SCH ×3 (12:07→20:30)
[2019-12-01] MEDS: METOPROLOL TARTRATE 25 MG TAB PO SCH ×2 (12:12→20:30)
[2019-12-01] MEDS: NICOTINE 21MG/24HR PATCH TRANSDERM SCH ×2 (12:15→20:31)
--- NOTE | 2019-12-01 12:37 | CONS ---
CONSULTATION ATTENDING: Dr. Herr HISTORY: Mrs. Fonseca is a 34-year-old female with a history of chronic tobacco use, history of diabetes mellitus, history of hypertension who presented to the emergency room with symptoms of chest discomfort. She has been having discomfort on and off, but not as severe as yesterday. The discomfort yesterday persisted. Usually she uses oxygen with relief. She is limited in her activity because of an injury to the left leg following surgery. She has a prior history of nonhealing wound that improved. She has according to her no prior history of documented obstructive coronary artery disease. She was in the hospital in May of 2019 and at that time she presented with symptoms of chest discomfort of unclear etiology. She had at that time a gluteal abscess on the left. Her cardiac enzymes at that time were unremarkable. She subsequently underwent an echocardiogram during that admission that showed a preserved ventricular size systolic function. The patient activity is limited. She has history of dyspnea on exertion. No dizziness. No palpitation. No syncope. She has occasional peripheral edema. Her coronary risk factors are remarkable for the history of hypertension, hyperlipidemia, and she is a smoker at least a pack a day. MEDICATION: At home include metformin, buspirone, Norvasc 5 mg daily, Diovan 160 mg daily, Lyrica, omeprazole, Singulair, Synthroid, insulin, Advil, Cymbalta and Elavil on a p.r.n. basis. REVIEW OF SYSTEMS: RESPIRATORY system: She had dyspnea on exertion. Wheezing. History of obstructive lung disease. GI system: No recent GI bleeding. No peptic ulcer disease. system: No dysuria or hematuria. NERVOUS SYSTEM: No stroke or seizure. PHYSICAL EXAMINATION: She is a 34-year-old female, alert, oriented, in no apparent distress. Morbidly obese. HEAD: Normocephalic. EYES sclerae anicteric. NECK good upstroke. No bruit. No jugular venous distention. LUNGS: Clear to auscultation. HEART: Regular rate and rhythm S1, S2. No S3. No rub. ABDOMEN: Soft, obese, nontender. EXTREMITIES: No significant edema. LAB DATA: Revealed troponin 0.057, 0.562 and 0.833. Her cholesterol is 211, triglycerides of 570. Her BUN and creatinine 19 and 1.01. Hemoglobin of 12.1, white blood cell of 16.7. Her EKG revealed a sinus mechanism. Normal axis and intervals with T-wave inversion in lead V1 to V3 compared with an EKG done in May more prominent. Her chest x-ray shows no acute changes. IMPRESSION: 1. Non ST-segment elevation myocardial infarction, could be in the LAD territory. 2. History of hypertension. 3. Hyperlipidemia. 4. Diabetes mellitus. 5. Chronic tobacco use. 6. Obesity. 7. Prior history of renal failure that resolved. RECOMMENDATIONS: From the cardiac standpoint, I will obtain echocardiogram with Doppler. I have recommend proceeding with coronary angiography to assess her status and guide her treatment. The rationale behind the procedure as well as risks and complications were discussed with the patient, who was in full understanding and agreement. Thank you for this consult. We will follow with you. MILTON / ODILIAN: [id number] /
[2019-12-01] MEDS ORDERED: LIDOCAINE 1% INJ 10MG/ML (20 ML MDV) ONE (14:41)
[2019-12-01] MEDS ORDERED: VERAPAMIL 2.5 MG/ML 2 ML AMP ONE (14:41)
[2019-12-01] MEDS ORDERED: HEPARIN SODIUM 1,000 UN/ML (10ML VL) ONE (14:41)
[2019-12-01] MEDS ORDERED: fentaNYL (PF) 50 MCG/ML 2 ML AMP ONE (14:41)
[2019-12-01] MEDS ORDERED: IV FLUID CONTINUATION 800 ML IV ONE (14:46)
[2019-12-01] MEDS ORDERED: LIDOCAINE 1% INJ 10MG/ML (20 ML MDV) SQ ONE (15:11)
[2019-12-01] MEDS ORDERED: fentaNYL (PF) 50 MCG/ML 2 ML AMP IV ONE (15:11)
[2019-12-01] MEDS ORDERED: MIDAZOLAM 2 MG/2 ML VIAL IV ONE (15:11)
[2019-12-01] MEDS ORDERED: VERAPAMIL SYRINGE (5 MG/10 ML) INTRAARTER ONE (15:11)
[2019-12-01] MEDS ORDERED: BIVALIRUDIN BOLUS 250 MG/50 ML IV ONE (15:20)
[2019-12-01] MEDS ORDERED: BIVALIRUDIN 250 MG in SODIUM CHLORIDE 0.9% 33 ML IV ONE (15:20)
[2019-12-01] MEDS ORDERED: PRASUGREL 10 MG TAB ONE ×2 (15:22)
[2019-12-01] MEDS ORDERED: PRASUGREL 10 MG TAB PO ONE (15:24)
[2019-12-01] MEDS ORDERED: MIDAZOLAM 2 MG/2 ML VIAL IVP ONE (15:24)
[2019-12-01] MEDS ORDERED: NITROGLYCERIN 1000MCG/10ML SYRINGE INTRACORON ONE (15:32)
[2019-12-01] MEDS ORDERED: IOPAMIDOL-370 100ML BTL INJ ONE (15:41)
[2019-12-01] MEDS ORDERED: IOPAMIDOL-370 125ML BTL INJ ONE (15:41)
[2019-12-01] MEDS ORDERED: RX INFO: IV CONTRAST WAS GIVEN 1 EACH MISC MISCELLANE PRN (16:04)
[2019-12-01] MEDS ORDERED: MAG HYDROX/AL HYDROX/SIMETH 30 ML CUP PO PRN (16:04)
[2019-12-01] MEDS ORDERED: ATROPINE SULFATE 0.1 MG/ML 10ML SYRINGE IV PRN (16:04)
[2019-12-01] MEDS ORDERED: ZOLPIDEM 5 MG TAB PO PRN (16:04)
[2019-12-01] MEDS ORDERED: SODIUM CHLORIDE 0.9% 1,000 ML IV SCH (16:15)
[2019-12-01 16:24] LABS: Glucose,Whole Blood 114 mg/dL (75-99)
[2019-12-01] MEDS: VALSARTAN 160 MG TAB PO SCH (16:24)
--- NOTE | 2019-12-01 16:31 | ECHOF ---
Referral Reason:CP, elevated troponin MEASUREMENTS -------- HEIGHT: 170.2 cm WEIGHT: 113.4 kg BP: 123/73 IVSd: 1.6 cm (0.6 - 1.1) LVIDd: 3.9 cm (3.9 - 5.3) LVPWd: 1.6 cm (0.6 - 1.1) IVSs: 2.1 cm LVIDs: 1.8 cm LVPWs: 2.1 cm RVIDd: 3.1 cm (< 3.3) LAESV Index (A-L): 26.46 ml/m Ao Diam: 2.7 cm (2.0 - 3.7) AV Cusp: 2.2 cm (1.5 - 2.6) EPSS: 0.7 cm MV EF SLOPE: 79.41 mm/s (70 - 150) MV EXCURSION: 16.31 mm (> 18.000) FINDINGS -------- Resting tachycardia (HR>100bpm). This was a technically difficult study with suboptimal apical views. The left ventricular size is normal. There is moderate concentric left ventricular hypertrophy. O verall left ventricular systolic function is low-normal with, an EF between 50 - 55 %. Apical septu m LV wall motion is hypokinetic. The right ventricle is normal in size. Normal LA size by volume 22+/-6 ml/m2. The right atrial size is normal. The aortic valve is trileaflet, and appears structurally normal. No aortic stenosis or regurgitation. The mitral valve is normal. No mitral regurgitation. The tricuspid valve appears structurally normal. No regurgitation noted The pulmonic valve was not well visualized. There is no pulmonic regurgitation present. The aortic root size is normal. IVC Not well visulized. There is no pericardial effusion. 5.0mg of Lumason was utilized for enhancement of images CONCLUSIONS -------- 1. This was a technically difficult study with suboptimal apical views. 2. The left ventricular size is normal. 3. There is moderate concentric left ventricular hypertrophy. 4. Overall left ventricular systolic function is low-normal with, an EF between 50 - 55 %. 5. Apical septum LV wall motion is hypokinetic. 6. Normal LA size by volume 22+/-6 ml/m2. 7. The aortic valve is trileaflet, and appears structurally normal. No aortic stenosis or regurgitati on. 8. The mitral valve is normal. 9. 5.0mg of Lumason was utilized for enhancement of images 10. No regurgitation noted 11. There is no pericardial effusion. SPECIAL DISTRIBUTION CLERK: Agustina Rincon RDCS
--- NOTE | 2019-12-01 17:37 | CC ---
CARDIAC CATHETERIZATION REPORT Mrs. Fonseca is a 34-year-old female with a known history of chronic tobacco use, history of diabetes mellitus, hypertension and obesity who presented with symptoms of chest discomfort and had mild troponin elevation with mild EKG changes. In view of that, recommendation made regarding cardiac catheterization. The procedures, risks, and complications were discussed with the patient who is in full understanding and agreement. 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 After receiving fentanyl and Benadryl and achieving moderate conscious sedated state, using Xylocaine anesthesia and Seldinger technique, a 6-Italian sheath was introduced in the right radial artery. Selective right and left coronary angiography performed using 5-Italian, 3 and a half bend right Yomi catheter and a 6-Italian 3 and half FR guiding catheter. Multiple views of the coronary artery including hemiaxial views were obtained. Angioplasty and stenting of the LAD were performed using the 6-Italian FR 3 and half catheter, the aortic valve was crossed and pressures were calculated. At the end of the procedure, catheter and sheath were removed. Hemostasis was obtained with deployment of a TR band. There was no immediate complication. Patient was returned to her room in stable condition. FINDINGS: LEFT MAIN: This is a short size vessel bifurcating into left circumflex, left anterior descending artery, left main coronary artery has no evidence of high-grade stenosis. LEFT ANTERIOR DESCENDING ARTERY: This vessel has a 99% stenosis. The ostium in the long segment, the flow into the distal LAD is slow. The rest of the vessel in the mid segment has a 40% to 50% plaque. The rest of the vessel has no high-grade stenosis. LEFT CIRCUMFLEX: This is a large codominant vessel, giving rise to a very large proximal obtuse marginal branch. The second obtuse marginal branch is large as well distally bifurcating into PDA and posterolateral segment and branches. The left circumflex, 1st obtuse marginal branch has 20% to 30% plaque proximally. The rest of the vessel has no high-grade stenosis. RIGHT CORONARY ARTERY: This is a codominant vessel moderate in caliber, giving rise to a right PDA. The right coronary artery has no evidence of high-grade stenosis. COLLATERALS: There is collaterals from the right PDA toward the LAD through the septals. LEFT VENTRICULOGRAM: Left ventriculogram was not performed. HEMODYNAMICS: There was no gradient across the aortic valve. The left ventricular end-diastolic pressure was was 14-16 mmHg. CONCLUSION: 1. Subtotally occluded ostial left anterior descending coronary artery. 2. Mild disease in the first obtuse marginal branch. RECOMMENDATIONS: In view of finding anatomy, I recommend proceeding with angioplasty/stenting of the LAD. The procedures, risks, and complications were discussed with the patient who is in full understanding and agreement. MMODL / IJN: [id number] /
--- NOTE | 2019-12-01 17:43 | LTR ---
DATE OF SERVICE: 12/01/[address] Herr: I had the pleasure of performing cardiac catheterization and coronary angioplasty and stenting on Mrs. Fonseca at [facility] on November 30, and a full copy of procedure note will be forwarded to you. In brief, she was found to have severe obstructive disease involving the ostium of the LAD and underwent successful stenting of that vessel. I am hopeful that this procedure will stabilize her status. I have recommended to continue with the dual antiplatelet treatment as well as aggressive coronary risk factor modifications in view of her young age and her severe disease. I will keep you updated on her progress. Thank you again for allowing me to participate in her care. Please feel free to call for any questions. Sincerely yours, MMGAYLEL / IJN: [id number] /
--- NOTE | 2019-12-01 17:43 | PTCA ---
PERCUTANEOUSTRANS CORORONARY ANGIOGRAPHY Mrs Fonseca is a 34-year-old female, known history of chronic tobacco use, diabetes, hypertension, morbid obesity, who presented with non ST-segment elevation myocardial infarction, underwent cardiac catheterization was found to have subtotally occluded ostial LAD. In view of that, recommendation was made regarding angioplasty and stenting. The procedures, risks, and complications were discussed with the patient who is in full understanding and agreement. PROCEDURE DETAILS: Using the 6-Pakistani FR 3.5 guiding catheter a 0.014 balanced medium weight J-wire was advanced across the lesion, positioned in the distal LAD. Subsequently, another 0.014 balanced medium weight J-wire was advanced and positioned distal left circumflex. Following that, a 2.5 x 12 mm Trek balloon was advanced and multiple inflations at a maximum of 8 atmospheres were done. Following that, the balloon was removed and a 3.5 x 23 mm Xience Jenae stent was deployed postdilated at 16 atmospheres. After the last inflation, after appropriate wait, the balloon and the guidewire were withdrawn back in the guiding catheter. Images were obtained, repeated. Those images reveal stable successful stenting. At that point, the guiding catheter, the balloon and the guidewire were removed. The sheath was removed. Hemostasis was obtained with deployment of a TR band. There were no immediate complications. Patient is returned to her room in stable condition. Of note, the patient received Angiomax per protocol as well as oral loading dose of Effient. She had jaw and chest discomfort with the inflation that resolved at the end of the procedure. RESULTS: Successful stenting of the ostium of the LAD with reduction of stenosis from 99% to 0%. RECOMMENDATIONS: Patient will be continued on aspirin, Effient, beta geoffrey, ROSANGELA inhibitor and statin. The importance of dual antiplatelet treatment and smoking cessation were discussed with the patient and her grandfather over the phone and they are in full understanding and agreement. Duration of procedure is 36 minutes. MMODL / IJN: [id number] /
[2019-12-01] MEDS: AMITRIPTYLINE HCL 50 MG TAB PO SCH (20:30)
[2019-12-01 20:31] LABS: Glucose,Whole Blood 212 mg/dL (75-99)
[2019-12-01] MEDS: DULoxetine HCL 60 MG CAPSULE.DR PO SCH (20:31)
[2019-12-01] MEDS: INSULIN DETEMIR (LEVEMIR) 100 UNIT/ML SYR SQ SCH (20:41)
[2019-12-01] MEDS: ACETAMINOPHEN TAB 325 MG TAB PO PRN (22:16)
[2019-12-02] MEDS: ACETAMINOPHEN TAB 325 MG TAB PO PRN ×2 (03:54→21:04)
[2019-12-02 06:10] LABS: Glucose,Whole Blood 219 mg/dL (75-99)
[2019-12-02] MEDS: INSULIN ASPART (NovoLOG) 100 UNIT/ML VIAL SQ SCH ×4 (06:34→20:58)
[2019-12-02] MEDS: LEVOTHYROXINE 100 MCG TAB PO SCH (06:34)
[2019-12-02] MEDS: PANTOPRAZOLE 40 MG TABLET PO SCH (06:34)
[2019-12-02 07:00] LABS: Basophils # (A) 0.1 k/uL (0-0.2); Basophils % (A) 1 %; Eosinophils # (A) 0.6 k/uL (0-0.7); Eosinophils % (A) 4 %; HCT 35.4 % (34.0-46.0); HGB 11.1 gm/dL (11.4-16.0); Lymphocytes # (A) 3.3 k/uL (1.0-4.8); Lymphocytes % (A) 22 %; MCH 25.8 pg (25.0-35.0); MCHC 31.3 g/dL (31.0-37.0); MCV 82.5 fL (80.0-100.0); Mean Platelet Volume 8.3; Monocytes # (A) 0.8 k/uL (0-1.0); Monocytes % (A) 5 %; Neutrophils # (A) 10.5 k/uL (1.3-7.7); Neutrophils % (A) 68 %; Platelet Count 262 k/uL (150-450); RBC 4.29 m/uL (3.80-5.40); RDW 15.8 % (11.5-15.5); WBC 15.5 k/uL (3.8-10.6)
[2019-12-02 07:25] LABS: ALT 28 U/L (4-34); AST 24 U/L (14-36); African American GFR (CKD) >90 (>60 ml/min/1.73 sqM); Albumin 3.2 g/dL (3.5-5.0); Alkaline Phosphatase 152 U/L (38-126); Anion Gap 5 mmol/L; Blood Urea Nitrogen 18 mg/dL (7-17); Carbon Dioxide 23 mmol/L (22-30); Chloride 109 mmol/L (98-107); Glucose 193 mg/dL (74-99); Magnesium 1.7 mg/dL (1.6-2.3); Non-African American GFR(CKD) >90 (>60 ml/min/1.73 sqM); Potassium 4.2 mmol/L (3.5-5.1); Sodium 137 mmol/L (137-145); Total Bilirubin 0.4 mg/dL (0.2-1.3); Total Protein 6.1 g/dL (6.3-8.2)
--- NOTE | 2019-12-02 08:01 | P.PN ---
Subjective Progress Note Date: 12/02/19 Principal diagnosis: Chest pain On 11/30/2019 she presented to the emergency room via EMS with complaints of chest pain. She is a 34-year-old female with a history of CHF but no other heart problems. The chest pain started around 1400 on Tuesday with chest discomfort and pain radiating to her jaw on both sides. The pain was rated 8 out of 10 and was reduce with the use of nitroglycerin. She denies any fever, chills, nausea, vomiting, sweats or any other symptoms. Currently she is sitting up in bed with no complaints at this time with the exception of intermittent left lower quadrant abdominal pain that just started after having a bowel movement. She denies chest pain or pressure, difficulty breathing, dizziness, nausea or vomiting. She is currently on room air main taining oxygen saturation saturations are 98% with respiratory rate of 16, afebrile 98.0, blood pressure 123/73,. Per patient cardiology came through told her that she is continuing to go to [employer] around 2:00 today for possible stent. They also ordered an echocardiogram which is completed just prior to my evaluation. Currently patient is nothing by mouth moment maintain so until after procedure although she wants to go home to have something to eat. All pertinent positives and pertinent negatives and addressed in HPI 12/02/2019 patient laying in bed this morning resting comfortably without any complaints at this time. She is postprocedure day 1 from a cardiac catheterization with stent placement to the ostium of the LAD. Yesterday's echocardiogram showed EF approximately 50-55% with apical septum and left ventricular wall motion being hypokinetic. Vital signs are heard this morning her temperature of 97.8 pulse rate of 94 normal sinus rhythm, respiratory rate of 18, oxygen saturation 90% 7% on room air, blood pressure 108/60. Most recent lab work wet blood cell count 15.5, hemoglobin 11.1, hematocrit 35.4, platelet count of 262, neutrophils 10.5. Chemistry reveals sodium 137, potassium 4.2, P1 of 18, creatinine 0.78, glucose of 193, AST of 24, ELT 28, and magnesium 1.7. Objective - Vital Signs Vital signs: Vital Signs Temp 97.8 F 12/02/19 05:45 Pulse 94 12/02/19 05:45 Resp 18 12/02/19 05:45 BP 108/60 12/02/19 05:45 Pulse Ox 97 12/02/19 05:45 Intake & Output 12/01/19 12/02/19 12/02/19 18:59 06:59 18:59 Intake Total 554.258 300 Balance 554.258 300 Weight 116.1 kg Intake: IV 428 Intake, IV Titration 126.258 300 Amount Heparin Sod,Pork in 0.45% 126.258 NaCl 25,000 unit In 0.45 % NaCl 1 250ml.bag @ 9.18 UNITS/KG/HR 9.994 mls/hr IV .Q24H BIRDIE Rx#: [id number] Sodium Chloride 0.9% 1, 300 000 ml @ 75 mls/hr IV . [id number] BIRDIE Rx#:[id number] Other: # Voids 3 1 # Bowel Movements 2 - Exam GENERAL: Well-appearing, well-nourished and in no acute distress. HEAD: Atraumatic, normocephalic. EYES: Pupils equal round and reactive to light, extraocular movements intact, sclera anicteric, conjunctiva are normal. ENT:nares patent, oropharynx clear without exudates. Moist mucous membranes. NECK: Normal range of motion, supple without lymphadenopathy or JVD, no thyromegaly LUNGS: Breath sounds clear to auscultation bilaterally and equal. No wheezes rales or rhonchi. HEART: Regular rate and rhythm without murmurs, rubs or gallops.S1S2 Normal ABDOMEN: Soft, nontender, normoactive bowel sounds. No guarding, no rebound. No masses appreciated. EXTREMITIES: Normal range of motion, no pitting or edema. No clubbing or cyanosis. NEUROLOGICAL: Cranial nerves II through XII grossly intact. Normal speech, normal gait. PSYCH: Normal mood, normal affect. SKIN: Warm, Dry, normal turgor, no rashes or lesions noted. - Labs CBC & Chem 7: 12/02/19 06:21 12/02/19 06:21 Labs: Abnormal Lab Results - Last 24 Hours (Table) 12/01/19 12/01/19 12/01/19 Range/Units 06:10 06:10 06:10 WBC 16.7 H (3.8-10.6) k/uL Hgb (11.4-16.0) gm/dL RDW 16.0 H (11.5-15.5) % Neutrophils # 11.0 H (1.3-7.7) k/uL Chloride (98-107) mmol/L BUN (7-17) mg/dL Glucose (74-99) mg/dL POC Glucose (mg/dL) (75-99) mg/dL Alkaline Phosphatase (38-126) U/L Troponin I 0.833 H* (0.000-0.034) ng/mL Total Protein (6.3-8.2) g/dL Albumin (3.5-5.0) g/dL Triglycerides 570 H (<150) mg/dL Cholesterol 211 H (<200) mg/dL HDL Cholesterol 26 L (40-60) mg/dL 12/01/19 12/01/19 12/01/19 Range/Units 11:54 16:23 20:30 WBC (3.8-10.6) k/uL Hgb (11.4-16.0) gm/dL RDW (11.5-15.5) % Neutrophils # (1.3-7.7) k/uL Chloride (98-107) mmol/L BUN (7-17) mg/dL Glucose (74-99) mg/dL POC Glucose (mg/dL) 135 H 114 H 212 H (75-99) mg/dL Alkaline Phosphatase (38-126) U/L Troponin I (0.000-0.034) ng/mL Total Protein (6.3-8.2) g/dL Albumin (3.5-5.0) g/dL Triglycerides (<150) mg/dL Cholesterol (<200) mg/dL HDL Cholesterol (40-60) mg/dL 12/02/19 12/02/19 12/02/19 Range/Units 06:09 06:21 06:21 WBC 15.5 H (3.8-10.6) k/uL Hgb 11.1 L (11.4-16.0) gm/dL RDW 15.8 H (11.5-15.5) % Neutrophils # 10.5 H (1.3-7.7) k/uL Chloride 109 H (98-107) mmol/L BUN 18 H (7-17) mg/dL Glucose 193 H (74-99) mg/dL POC Glucose (mg/dL) 219 H (75-99) mg/dL Alkaline Phosphatase 152 H (38-126) U/L Troponin I (0.000-0.034) ng/mL Total Protein 6.1 L (6.3-8.2) g/dL Albumin 3.2 L (3.5-5.0) g/dL Triglycerides (<150) mg/dL Cholesterol (<200) mg/dL HDL Cholesterol (40-60) mg/dL Assessment and Plan (1) Acute coronary syndrome Current Visit: Yes Status: Acute Code(s): I24.9 - ACUTE ISCHEMIC HEART DISEASE, UNSPECIFIED SNOMED Code(s): 791877189 (2) Chest pain Current Visit: Yes Status: Acute Code(s): R07.9 - CHEST PAIN, UNSPECIFIED SNOMED Code(s): 02176914 (3) Elevated troponin Current Visit: Yes Status: Acute Code(s): R79.89 - OTHER SPECIFIED ABNORMAL FINDINGS OF BLOOD CHEMISTRY SNOMED Code(s): 549333835 (4) Unstable angina pectoris Current Visit: Yes Status: Acute Code(s): I20.0 - UNSTABLE ANGINA SNOMED Code(s): 4292239 (5) Lactic acidosis Current Visit: No Status: Acute Code(s): E87.2 - ACIDOSIS SNOMED Code(s): 97791433 (6) Morbid (severe) obesity due to excess calories Current Visit: No Status: Acute Code(s): E66.01 - MORBID (SEVERE) OBESITY DUE TO EXCESS CALORIES SNOMED Code(s): 569788581 (7) Morbid obesity due to excess calories Current Visit: No Status: Acute Code(s): E66.01 - MORBID (SEVERE) OBESITY DUE TO EXCESS CALORIES SNOMED Code(s): 558866003 (8) Self-care deficit for medication management Current Visit: No Status: Acute Code(s): DAF2598 - SNOMED Code(s): 720865365 (9) Type 2 diabetes mellitus with hyperglycemia Current Visit: No Status: Acute Code(s): E11.65 - TYPE 2 DIABETES MELLITUS WITH HYPERGLYCEMIA SNOMED Code(s): 195278282847081 Plan: 1. Continue current medication regimen. 2. Continue diet as ordered. 3. Increase activity as tolerated. 4. Continued total antiplatelet therapy 5. Work on smoking cessation. 6. Set up an exercise plan for weight reduction. 7. Continue to follow with cardiology in the recommendations. 8. We'll continue to follow closely and reassess tomorrow. Time with Patient: Greater than 30
[2019-12-02] MEDS: NICOTINE 21MG/24HR PATCH TRANSDERM SCH (08:54)
[2019-12-02] MEDS: METOPROLOL TARTRATE 25 MG TAB PO SCH (08:55)
[2019-12-02] MEDS: PRASUGREL 10 MG TAB PO SCH (08:55)
[2019-12-02] MEDS: ASPIRIN 81 MG PO SCH (08:55)
[2019-12-02] MEDS: FLUCONAZOLE 100 MG TAB PO SCH (08:55)
[2019-12-02] MEDS: VALSARTAN 160 MG TAB PO SCH (08:55)
[2019-12-02] MEDS: PREGABALIN 75 MG CAP PO SCH ×3 (08:55→20:58)
[2019-12-02] MEDS: busPIRone HCl 5 MG TAB PO SCH ×2 (08:55→20:57)
[2019-12-02] MEDS: ATORVASTATIN 40 MG TAB PO SCH (08:55)
[2019-12-02 12:00] LABS: Glucose,Whole Blood 138 mg/dL (75-99)
--- NOTE | 2019-12-02 13:15 | PN ---
PROGRESS NOTE Mrs. Fonseca is a 34-year-old female with known history of diabetes, chronic tobacco use, who presented with symptoms of unstable angina and non ST-segment elevation myocardial infarction. She is feeling better today. She has no chest pain. She underwent a cardiac catheterization and was found to have an ostial LAD lesion that was stented. She had a run of nonsustained ventricular tachycardia that was asymptomatic. She denies any dizziness or palpitation. She denies any nausea. She continues to be at this time on aspirin once a day, Lipitor 40 mg daily, insulin, metoprolol tartrate 25 mg twice a day, Effient 10 mg daily, valsartan 160 mg daily. PHYSICAL EXAMINATION: Blood pressure 112/60 with a heart rate in the 90s. LUNGS: Clear. HEART: Regular rate and rhythm, S1, S2. No S3. No rub. ABDOMEN: Soft, obese, nontender. EXTREMITIES: No edema. Right radial pulse intact. EKG shows no acute changes. LAB DATA: BUN and creatinine 18 and 0.78. Potassium 4.2, hemoglobin 11.1. IMPRESSION: 1. Status post non ST-segment elevation myocardial infarction. 2. Acute disease in the ostium of the LAD, status post stenting. 3. Hypertension. 4. Hyperlipidemia. 5. Diabetes mellitus. 6. Obesity. 7. Tobacco use. 8. Episode of nonsustained ventricular tachycardia. RECOMMENDATION: I will increase the dose of her beta geoffrey, increase her level of activity. We will observe her for another 24 hours. If she has no further arrhythmia or symptoms, then I would expect she should be able to be discharged home. MMODL / IJN: [id number] /
[2019-12-02 16:10] VITALS: BMI 41.3
[2019-12-02 16:54] LABS: Glucose,Whole Blood 246 mg/dL (75-99)
[2019-12-02 20:42] LABS: Glucose,Whole Blood 211 mg/dL (75-99)
[2019-12-02] MEDS: DULoxetine HCL 60 MG CAPSULE.DR PO SCH (20:58)
[2019-12-02] MEDS: METOPROLOL TARTRATE 50 MG TAB PO SCH (20:58)
[2019-12-02] MEDS: AMITRIPTYLINE HCL 50 MG TAB PO SCH (20:58)
[2019-12-02] MEDS: INSULIN DETEMIR (LEVEMIR) 100 UNIT/ML SYR SQ SCH (20:58)
[2019-12-03 04:21] VITALS: BP 121/68
[2019-12-03 06:15] LABS: Glucose,Whole Blood 155 mg/dL (75-99)
[2019-12-03] MEDS: INSULIN ASPART (NovoLOG) 100 UNIT/ML VIAL SQ SCH ×2 (06:21→11:56)
[2019-12-03] MEDS: PANTOPRAZOLE 40 MG TABLET PO SCH (06:21)
[2019-12-03] MEDS: LEVOTHYROXINE 100 MCG TAB PO SCH (06:21)
[2019-12-03 07:25] LABS: Basophils # (A) 0.1 k/uL (0-0.2); Basophils % (A) 1 %; Eosinophils # (A) 0.5 k/uL (0-0.7); Eosinophils % (A) 3 %; HCT 36.6 % (34.0-46.0); HGB 12.1 gm/dL (11.4-16.0); Lymphocytes # (A) 3.2 k/uL (1.0-4.8); Lymphocytes % (A) 19 %; MCH 27.6 pg (25.0-35.0); MCHC 33.1 g/dL (31.0-37.0); MCV 83.4 fL (80.0-100.0); Mean Platelet Volume 8.2; Monocytes # (A) 0.8 k/uL (0-1.0); Monocytes % (A) 5 %; Neutrophils # (A) 12.5 k/uL (1.3-7.7); Neutrophils % (A) 72 %; Platelet Count 294 k/uL (150-450); RBC 4.39 m/uL (3.80-5.40); RDW 15.7 % (11.5-15.5); WBC 17.3 k/uL (3.8-10.6)
[2019-12-03 07:37] LABS: African American GFR (CKD) >90 (>60 ml/min/1.73 sqM); Anion Gap 7 mmol/L; Blood Urea Nitrogen 21 mg/dL (7-17); Calcium 9.4 mg/dL (8.4-10.2); Carbon Dioxide 23 mmol/L (22-30); Chloride 107 mmol/L (98-107); Glucose 141 mg/dL (74-99); Non-African American GFR(CKD) >90 (>60 ml/min/1.73 sqM); Potassium 4.6 mmol/L (3.5-5.1); Sodium 137 mmol/L (137-145)
[2019-12-03] MEDS: PRASUGREL 10 MG TAB PO SCH (08:36)
[2019-12-03] MEDS: PREGABALIN 75 MG CAP PO SCH (08:36)
[2019-12-03] MEDS: busPIRone HCl 5 MG TAB PO SCH (08:37)
[2019-12-03] MEDS: VALSARTAN 160 MG TAB PO SCH (08:37)
[2019-12-03] MEDS: FLUCONAZOLE 100 MG TAB PO SCH (08:37)
[2019-12-03] MEDS: ATORVASTATIN 40 MG TAB PO SCH (08:37)
[2019-12-03] MEDS: METOPROLOL TARTRATE 50 MG TAB PO SCH (08:37)
[2019-12-03] MEDS: ASPIRIN 81 MG PO SCH (08:37)
[2019-12-03] MEDS: NICOTINE 21MG/24HR PATCH TRANSDERM SCH (08:38)
[2019-12-03 08:43] VITALS: PULSE 96; TEMP 98.5
[2019-12-03 09:50] VITALS: RESP 16
[2019-12-03 11:29] LABS: Glucose,Whole Blood 145 mg/dL (75-99)
--- NOTE | 2019-12-03 11:41 | PN ---
PROGRESS NOTE Mrs Fonseca is a 34-year-old female who presented with an acute non STEMI, was found to have ostial LAD lesion, underwent stenting of that vessel. She had a run of nonsustained ventricular tachycardia yesterday. Today, she is feeling well. She has no further arrhythmia. She has been ambulating without difficulty. She has no further chest pain. Her breathing has been stable. She denies any dizziness or palpitation. She denies any nausea. She continued to be on aspirin once a day, Lipitor 40 mg daily, insulin, metoprolol tartrate 50 mg twice a day, nicotine patch, Effient 10 mg daily. PHYSICAL EXAMINATION: Blood pressure 121/60 with a heart rate in the 80s. LUNGS: Clear. HEART: Regular rate and rhythm, S1, S2. No S3. No rub. ABDOMEN: Soft, obese, nontender. EXTREMITIES: No edema. LAB DATA: Revealed BUN and creatinine 21 and 0.8, potassium 4.6, hemoglobin 12.1. IMPRESSION: 1. Status post stenting of the ostial LAD in the setting of non STEMI. 2. Nonsustained ventricular tachycardia, resolved. 3. Hypertension. 4. Hyperlipidemia. 5. Diabetes mellitus. 6. Chronic tobacco use. 7. Morbid obesity. RECOMMENDATION: Will continue present therapy. Patient should be able to be discharged home today and followed as an outpatient. I discussed with her again the importance of compliance with her treatment. MMODL / IJN: [id number] /
--- NOTE | 2019-12-03 14:52 | P.DS ---
Providers Date of admission: 12/01/19 14:58 Expected date of discharge: 12/03/19 Attending physician: Zach Herr Consults: 11/30/19 19:54 Consult Physician Urgent Consulting Provider: Sebastián Uribe Consult Reason/Comments: Chest pain, elevated troponin Do you want consulting provider notified?: Yes 12/01/19 16:04 Consult Physician Routine Consulting Provider: [facility] Consult Reason/Comments: Post Interventional patient Do you want consulting provider notified?: Already Contacted Primary care physician: Zach Herr Hospital Course: Final Diagnoses: Acute non-STEMI, status post cardiac cath with stenting of the ostial LAD Nonsustained ventricular tachycardia Hypertension Hyperlipidemia Diabetes mellitus, uncontrolled with hyperglycemia Morbid obesity, BMI 40.5 Self-care deficit for medication management Chronic ongoing nicotine dependence Hospital course: This a 34-year-old female admitted with acute non-STEMI, status post cardiac catheterization with stenting of the ostial LAD. Tolerated procedure well. Patient also had nonsustained V. tach. yesterday with no further arrhythmias. Significant clinical improvement. Cleared by cardiology for discharge. Patient is being discharged home in a stable condition with guarded prognosis. The impression and plan of care has been dictated as directed. : I performed a history and examination of this patient, discussed the same with the dictator. I agree with the dictator's note ,documented as a scribe. Any additional findings or plans will be noted. Patient Condition at Discharge: Stable Plan - Discharge Summary Discharge Rx Participant: No New Discharge Prescriptions: New Aspirin 81 mg PO DAILY chew Prasugrel [Effient] 10 mg PO DAILY #90 tab Atorvastatin [Lipitor] 40 mg PO DAILY #90 tab Metoprolol Tartrate [Lopressor] 50 mg PO BID #180 tab Nitroglycerin Sl Tabs [Nitrostat] 0.4 mg SUBLINGUAL Q5M PRN #25 tab PRN Reason: Chest Pain Fluconazole [Diflucan] 200 mg PO DAILY tab Nicotine 21Mg/24Hr Patch [Habitrol] 1 patch TRANSDERM DAILY #30 patch Continue metFORMIN HCL [Glucophage] 1,000 mg PO BID Omeprazole 20 mg PO DAILY Medroxyprogesterone Acetate [Depo-Provera] 150 mg IM Q90D DULoxetine HCL [Cymbalta] 60 mg PO DAILY busPIRone HCl [Buspar] 5 mg PO BID Valsartan [Diovan] 160 mg PO DAILY Levothyroxine Sodium [Synthroid] 100 mcg PO DAILY Cranberry Fruit Extract [Cranberry] 200 mg PO DAILY Montelukast Sodium [Singulair] 10 mg PO DAILY Pregabalin [Lyrica] 200 mg PO TID Insulin Glargine,Hum.rec.anlog [Basaglar Kwikpen U-100] 20 unit SQ DAILY Amitriptyline HCl [Elavil] 50 mg PO HS Discontinued amLODIPine [Norvasc] 5 mg PO DAILY Ibuprofen [Advil] 800 - 1,000 mg PO ONCE PRN PRN Reason: Pain Discharge Medication List metFORMIN HCL [Glucophage] 1,000 mg PO BID 09/04/16 [History] DULoxetine HCL [Cymbalta] 60 mg PO DAILY 01/25/18 [History] Medroxyprogesterone Acetate [Depo-Provera] 150 mg IM Q90D 01/25/18 [History] Omeprazole 20 mg PO DAILY 01/25/18 [History] busPIRone HCl [Buspar] 5 mg PO BID 05/13/19 [History] Levothyroxine Sodium [Synthroid] 100 mcg PO DAILY 06/22/19 [History] Valsartan [Diovan] 160 mg PO DAILY 06/22/19 [History] Amitriptyline HCl [Elavil] 50 mg PO HS 11/30/19 [History] Cranberry Fruit Extract [Cranberry] 200 mg PO DAILY 11/30/19 [History] Insulin Glargine,Hum.rec.anlog [Basaglar Kwikpen U-100] 20 unit SQ DAILY 11/30/19 [History] Montelukast Sodium [Singulair] 10 mg PO DAILY 11/30/19 [History] Pregabalin [Lyrica] 200 mg PO TID 11/30/19 [History] Aspirin 81 mg PO DAILY chew 12/03/19 [Rx] Atorvastatin [Lipitor] 40 mg PO DAILY #90 tab 12/03/19 [Rx] Fluconazole [Diflucan] 200 mg PO DAILY tab 12/03/19 [Rx] Metoprolol Tartrate [Lopressor] 50 mg PO BID #180 tab 12/03/19 [Rx] Nicotine 21Mg/24Hr Patch [Habitrol] 1 patch TRANSDERM DAILY #30 patch 12/03/19 [Rx] Nitroglycerin Sl Tabs [Nitrostat] 0.4 mg SUBLINGUAL Q5M PRN #25 tab 12/03/19 [Rx] Prasugrel [Effient] 10 mg PO DAILY #90 tab 12/03/19 [Rx] Follow up Appointment(s)/Referral(s): Dayami Houston MD [STAFF PHYSICIAN] - 12/11/19 11:00 am Zach Herr MD [Primary Care Provider] - 12/07/19 1:30 pm (With FARTUN Albert) Ambulatory/Diagnostic Orders: Complete Blood Count w/diff [LAB.AMB] Time Frame: 3 Days, Location: None Selected Patient Instructions/Handouts: *Surgery [facility] - After Heart Catheterization - Band Saw Runner Instructions, How to Stop Smoking (DC) Discharge Disposition: HOME SELF-CARE
--- NOTE | 2019-12-05 01:55 | CDI ---
Documentation Clarification Form Date: 12/05/2019 From: Jimbo Trotter Phone: If you have a question about this query, please contact Eusebia Frank Is Support Analyst at [phone] between 8am and 5pm. Admit Date: 12/01/19 Discharge Date: 12/03/2019 Patient Name: Camille Fonseca Visit Number: [id number] ATTENTION: The Clinical Documentation Specialists (CDI) and [facility] Coding Staff appreciate your assistance in clarifying documentation. Please respond to the clarification below the line at the bottom and electronically sign. The CDI & [facility] Coding staff will review the response and follow-up if needed. Please note: Queries are made part of the Legal Health Record. If you have any questions, please contact the author of this message via ITS. Dear Zach Villar., This is a 34-year-old female with a history of CHF . History/Risk Factors: CAD, Obesity. VS/Pulse OX: Pulse Ox 97 Temperature 98.8 F Pulse Rate 110 H 106 H 105 H Respiratory 16 19 18 Rate Blood Pressure 117/67 117/71 122/70 O2 Sat by Pulse 97 97 97 Echocardiogram Results:Overall left ventricular systolic function is low-normal with, an EF between 50 - 55 %. Chest X Ray: Normal chest.No change. Treatment: Metoprolol Tartrate [Lopressor] 50 mg PO BID #180 tab 12/03/19 [Rx] In your professional opinion, can you please type of CHF if known? Systolic Heart Failure: Chronic Diastolic Heart Failure: Chronic Unable to Determine Other, please specify MTDD
== END 2019-12-03 13:25 | disposition home or self-care (01) | DRG 247 ==
LOC: EC 16:31 → 3SCARD 19:54 → OBSVTOIN 12-01 14:58
PROVIDERS: ADMIT Family Medicine; ATTEND Family Medicine
PROC: B2111ZZ Fluoroscopy of Multiple Coronary Arteries using Low Osmolar Contrast (ICD-10-PCS; principal; 2019-12-01 14:30)
PROC: 4A023N7 Measurement of Cardiac Sampling and Pressure, Left Heart, Percutaneous Approach (ICD-10-PCS; principal; 2019-12-01 14:30)
PROC: 027034Z Dilation of Coronary Artery, One Artery with Drug-eluting Intraluminal Device, Percutaneous Approach (ICD-10-PCS; principal; 2019-12-01 14:30)
DX: I21.4 Non-ST elevation (NSTEMI) myocardial infarction (principal); Z68.41 Body mass index [BMI] 40.0-44.9, adult; E87.2 Acidosis; I47.2 Ventricular tachycardia; I50.22 Chronic systolic (congestive) heart failure; K21.9 Gastro-esophageal reflux disease without esophagitis; F17.200 Nicotine dependence, unspecified, uncomplicated; F32.9 Major depressive disorder, single episode, unspecified; F41.9 Anxiety disorder, unspecified; E66.01 Morbid (severe) obesity due to excess calories; E78.5 Hyperlipidemia, unspecified; J45.909 Unspecified asthma, uncomplicated; I50.9 Heart failure, unspecified; I25.10 Atherosclerotic heart disease of native coronary artery without angina pectoris; E11.65 Type 2 diabetes mellitus with hyperglycemia; I11.0 Hypertensive heart disease with heart failure; Z79.02 Long term (current) use of antithrombotics/antiplatelets; Z79.890 Hormone replacement therapy; Z79.4 Long term (current) use of insulin; Z79.899 Other long term (current) drug therapy; Z88.0 Allergy status to penicillin; Z91.018 Allergy to other foods; I25.2 Old myocardial infarction; Z87.442 Personal history of urinary calculi; Z87.01 Personal history of pneumonia (recurrent); Z90.49 Acquired absence of other specified parts of digestive tract; Z90.89 Acquired absence of other organs; Z98.890 Other specified postprocedural states; Z82.49 Family history of ischemic heart disease and other diseases of the circulatory system
CPT/HCPCS: 36415; 71046; 80048; 80053; 80061; 82550; 83690; 83735; 84484; 85025; 85347; 85379; 85610; 85730; 93005; 93306; 93458; 96374; 96375; 99291

== ENCOUNTER 2019-12-29 12:09 | Emergency (ER) | payer OTHER ==
[2019-12-29 12:31] VITALS: BP 123/76; PULSE 102; RESP 18; TEMP 98.7
--- NOTE | 2019-12-29 13:05 | ED ---
General Adult HPI - General Chief complaint: Skin/Abscess/Foreign Body Stated complaint: Sore on L leg Time Seen by Provider: 12/29/19 12:32 Source: patient, RN notes reviewed, old records reviewed Mode of arrival: ambulatory Limitations: no limitations - History of Present Illness Initial comments: 34-year-old female presenting for evaluation of lesion on the posterior aspect of her left thigh. She has previous history of deep infection in the left thigh which required operative drainage. She noticed a small bump that was freely draining and is seeking medical attention. The drainage was clear. She denies fever. She denies pain. She states this is totally different than her previous thigh infection. She has a diabetic. - Related Data Home Medications Medication Instructions Recorded Confirmed metFORMIN HCL [Glucophage] 1,000 mg PO BID 09/04/16 11/30/19 DULoxetine HCL [Cymbalta] 60 mg PO DAILY 01/25/18 11/30/19 Medroxyprogesterone Acetate 150 mg IM Q90D 01/25/18 11/30/19 [Depo-Provera] Omeprazole 20 mg PO DAILY 01/25/18 11/30/19 busPIRone HCl [Buspar] 5 mg PO BID 05/13/19 11/30/19 Levothyroxine Sodium [Synthroid] 100 mcg PO DAILY 06/22/19 11/30/19 Valsartan [Diovan] 160 mg PO DAILY 06/22/19 11/30/19 Amitriptyline HCl [Elavil] 50 mg PO HS 11/30/19 11/30/19 Cranberry Fruit Extract [Cranberry] 200 mg PO DAILY 11/30/19 11/30/19 Insulin Glargine,Hum.rec.anlog 20 unit SQ DAILY 11/30/19 11/30/19 [Basaglar Kwikpen U-100] Montelukast Sodium [Singulair] 10 mg PO DAILY 11/30/19 11/30/19 Pregabalin [Lyrica] 200 mg PO TID 11/30/19 11/30/19 Previous Rx's Medication Instructions Recorded Aspirin 81 mg PO DAILY chew 12/03/19 Atorvastatin [Lipitor] 40 mg PO DAILY #90 tab 12/03/19 Fluconazole [Diflucan] 200 mg PO DAILY tab 12/03/19 Metoprolol Tartrate [Lopressor] 50 mg PO BID #180 tab 12/03/19 Nicotine 21Mg/24Hr Patch [Habitrol] 1 patch TRANSDERM DAILY #30 patch 12/03/19 Nitroglycerin Sl Tabs [Nitrostat] 0.4 mg SUBLINGUAL Q5M PRN #25 tab 12/03/19 Prasugrel [Effient] 10 mg PO DAILY #90 tab 12/03/19 Cephalexin [Keflex] 500 mg PO Q6HR 10 Days #40 cap 12/29/19 Sulfamethox-Tmp 800-160Mg [Bactrim 1 tab PO Q12HR #28 tab 12/29/19 DS 800-160 mg] Allergies Allergy/AdvReac Type Severity Reaction Status Date / Time amoxicillin AdvReac Severe Nausea & Verified 12/29/19 12:30 Vomiting Tomatoes fresh cut Allergy Rash/Hives Uncoded 12/29/19 12:30 Review of Systems ROS Statement: Those systems with pertinent positive or pertinent negative responses have been documented in the HPI. ROS Other: All systems not noted in ROS Statement are negative. Past Medical History Past Medical History: Asthma, Diabetes Mellitus, GERD/Reflux, Liver Disease, Pneumonia, Renal Disease Additional Past Medical History / Comment(s): Pt recently admitted to [facility] on 05/15/19 with sepsis d/t L gluteal/thigh abscess/leukocytosis and acute renal failure and admitted again 05/26/19 with sepsis 2ndary to abscess/nonhealing ulcer L fluteal/thigh growing Klebsiella oxytoca/suspected necrotizing facsitis/ acute renal failure/volume overload and transferred to [facility] where she states they performed surgery to site and also stated she had necrotizing fascitis. 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 History of Any Multi-Drug Resistant Organisms: VRE Date of last positivie culture/infection: 05/27/19 MDRO Source:: Urine Past Surgical History: Adenoidectomy, Cholecystectomy, Heart Catheterization With Stent, Hernia Repair, Tonsillectomy Additional Past Surgical History / Comment(s): Surgery on L leg wound with drains at [facility] 05/2019, debridement L thigh wound, BMAs, umbilical hernia repair, EGDs, colonoscopy, cyst removed side of neck Past Anesthesia/Blood Transfusion Reactions: No Reported Reaction Additional Past Anesthesia/Blood Transfusion Reaction / Comment(s): 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 currently being worked up by oncology Past Psychological History: Anxiety, Depression Smoking Status: Current every day smoker Past Alcohol Use History: None Reported Past Drug Use History: None Reported - Past Family History Mother Family Medical History: Deep Vein Thrombosis (DVT), Pulmonary Embolus Father History Unknown: Yes General Exam Limitations: no limitations General appearance: alert, in no apparent distress Head exam: Present: atraumatic, normocephalic Eye exam: Present: normal appearance, PERRL ENT exam: Present: normal exam Neck exam: Present: normal inspection Respiratory exam: Present: normal lung sounds bilaterally. Absent: respiratory distress Cardiovascular Exam: Present: regular rate, normal rhythm GI/Abdominal exam: Present: soft. Absent: distended, tenderness, guarding Extremities exam: Present: normal capillary refill, other (Posterior left thigh, less than 1 cm folliculitis, trace amount of surrounding cellulitis, no induration, soft tissues on the remainder of the posterior left thigh are unremarkable.). Absent: pedal edema Course Vital Signs 12/29/19 12:27 Temperature 98.7 F Pulse Rate 102 H Respiratory 18 Rate Blood Pressure 123/76 O2 Sat by Pulse 98 Oximetry Medical Decision Making - Medical Decision Making 34-year-old with complicated medical history including infection in the posterior thigh presenting with a folliculitis of the posterior thigh. There is no induration or drainable abscess. I suspect this is just a folliculitis but given the patient's history will start her on antibiotics including Keflex and Bactrim. I discussed the case with her primary care physician who will reevalu ate next week. Comfortable with outpatient follow-up. Dr. Nguyen. He will see the patient on Tuesday which is less than 48 hours. Patient will return with fever, increased drainage, worsening redness or worsening symptoms of any kind. Disposition Clinical Impression: Folliculitis Disposition: HOME SELF-CARE Condition: Fair Instructions (If sedation given, give patient instructions): Folliculitis (ED) Prescriptions: Sulfamethox-Tmp 800-160Mg [Bactrim DS 800-160 mg] 1 tab PO Q12HR #28 tab Cephalexin [Keflex] 500 mg PO Q6HR 10 Days #40 cap Is patient prescribed a controlled substance at d/c from ED?: No Referrals: Zach Herr MD [Primary Care Provider] - 1-2 days Time of Disposition: 13:10
== END 2019-12-29 13:25 | disposition home or self-care (01) ==
LOC: EC 12:09
DX: L73.9 Follicular disorder, unspecified (principal); F41.9 Anxiety disorder, unspecified; F32.9 Major depressive disorder, single episode, unspecified; K21.9 Gastro-esophageal reflux disease without esophagitis; E11.42 Type 2 diabetes mellitus with diabetic polyneuropathy; F17.200 Nicotine dependence, unspecified, uncomplicated; Z79.890 Hormone replacement therapy; Z79.84 Long term (current) use of oral hypoglycemic drugs; Z79.899 Other long term (current) drug therapy; Z88.0 Allergy status to penicillin; Z91.018 Allergy to other foods; Z79.3 Long term (current) use of hormonal contraceptives; Z87.19 Personal history of other diseases of the digestive system
CPT/HCPCS: 99283

== ENCOUNTER 2020-01-29 11:13 | Emergency (ER) | payer OTHER ==
[2020-01-29 11:22] VITALS: RESP 20
[2020-01-29] MEDS ORDERED: ONDANSETRON 4 MG/2 ML VIAL IVP STA (11:40)
[2020-01-29] MEDS ORDERED: SODIUM CHLORIDE 0.9% 1,000 ML IV STA (11:40)
--- NOTE | 2020-01-29 12:07 | ED ---
General Adult HPI - General Chief complaint: Nausea/Vomiting/Diarrhea Stated complaint: N/V/D Time Seen by Provider: 01/29/20 11:23 Source: patient, RN notes reviewed Mode of arrival: ambulatory Limitations: no limitations - History of Present Illness Initial comments: 34-year-old female presents to the emergency room for a chief complaint of nausea vomiting diarrhea. Patient states she has been nauseous for about one week. States she is sick of feeling like she has to vomit. Patient has had multiple episodes of vomiting. Patient states she also had several episodes of diarrhea starting yesterday. She denies any abdominal pain whatsoever asso ciated with this. Denies fevers or chills. Patient reports she has seen Dr. De Paz and was told to go to the emergency room if she had any worsening symptoms. She reports that Pepto-Bismol helps but otherwise nothing else seems to help. She denies melena or hematochezia.Patient has no other complaints at this time including shortness of breath, chest pain, abdominal pain, headache, or visual changes. - Related Data Home Medications Medication Instructions Recorded Confirmed metFORMIN HCL [Glucophage] 1,000 mg PO BID 09/04/16 01/29/20 Medroxyprogesterone Acetate 150 mg IM Q84D 01/25/18 01/29/20 [Depo-Provera] Omeprazole 20 mg PO DAILY 01/25/18 01/29/20 Levothyroxine Sodium [Synthroid] 100 mcg PO DAILY 06/22/19 01/29/20 Amitriptyline HCl [Elavil] 50 mg PO HS 11/30/19 01/29/20 Cranberry Fruit Extract [Cranberry] 200 mg PO DAILY 11/30/19 01/29/20 Insulin Glargine,Hum.rec.anlog 22 unit SQ HS 11/30/19 01/29/20 [Basaglar Kwikpen U-100] Montelukast Sodium [Singulair] 10 mg PO DAILY 11/30/19 01/29/20 Pregabalin [Lyrica] 200 mg PO TID 11/30/19 01/29/20 Albuterol Inhaler [Ventolin Hfa 1 - 2 puff INHALATION RT-Q4H PRN 01/29/20 01/29/20 Inhaler] DULoxetine HCL [Cymbalta] 30 mg PO HS 01/29/20 01/29/20 amLODIPine [Norvasc] 5 mg PO DAILY 01/29/20 01/29/20 Previous Rx's Medication Instructions Recorded Aspirin 81 mg PO DAILY chew 12/03/19 Atorvastatin [Lipitor] 40 mg PO DAILY #90 tab 12/03/19 Metoprolol Tartrate [Lopressor] 50 mg PO BID #180 tab 12/03/19 Nitroglycerin Sl Tabs [Nitrostat] 0.4 mg SUBLINGUAL Q5M PRN #25 tab 12/03/19 Prasugrel [Effient] 10 mg PO DAILY #90 tab 12/03/19 Ondansetron [Zofran ODT] 4 mg PO Q8HR PRN #15 tab 01/29/20 Allergies Allergy/AdvReac Type Severity Reaction Status Date / Time amoxicillin AdvReac Severe Nausea & Verified 01/29/20 12:40 Vomiting Tomatoes fresh cut Allergy Rash/Hives Uncoded 01/29/20 12:40 Review of Systems ROS Statement: Those systems with pertinent positive or pertinent negative responses have been documented in the HPI. ROS Other: All systems not noted in ROS Statement are negative. Past Medical History Past Medical History: Asthma, Diabetes Mellitus, GERD/Reflux, Liver Disease, Pneumonia, Renal Disease Additional Past Medical History / Comment(s): Pt recently admitted to [facility] on 05/15/19 with sepsis d/t L gluteal/thigh abscess/leukocytosis and acute renal failure and admitted again 05/26/19 with sepsis 2ndary to abscess/nonhealing ulcer L fluteal/thigh growing Klebsiella oxytoca/suspected necrotizing facsitis/ acute renal failure/volume overload and transferred to [facility] where she states they performed surgery to site and also stated she had necrotizing fascitis. 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 History of Any Multi-Drug Resistant Organisms: VRE Date of last positivie culture/infection: 05/27/19 MDRO Source:: Urine Past Surgical History: Adenoidectomy, Cholecystectomy, Heart Catheterization With Stent, Hernia Repair, Tonsillectomy Additional Past Surgical History / Comment(s): Surgery on L leg wound with drains at [facility] 05/2019, debridement L thigh wound, BMAs, umbilical hernia repair, EGDs, colonoscopy, cyst removed side of neck Past Anesthesia/Blood Transfusion Reactions: No Reported Reaction Additional Past Anesthesia/Blood Transfusion Reaction / Comment(s): 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 currently being worked up by oncology Past Psychological History: Anxiety, Depression Past Alcohol Use History: None Reported Past Drug Use History: None Reported - Past Family History Mother Family Medical History: Deep Vein Thrombosis (DVT), Pulmonary Embolus Father History Unknown: Yes General Exam Limitations: no limitations General appearance: alert, in no apparent distress Head exam: Present: atraumatic, normocephalic, normal inspection Eye exam: Present: normal appearance, PERRL, EOMI. Absent: scleral icterus, conjunctival injection, periorbital swelling ENT exam: Present: normal exam, mucous membranes moist Neck exam: Present: normal inspection, full ROM. Absent: tenderness, meningismus, lymphadenopathy Respiratory exam: Present: normal lung sounds bilaterally. Absent: respiratory distress, wheezes, rales, rhonchi, stridor Cardiovascular Exam: Present: regular rate, normal rhythm, normal heart sounds. Absent: systolic murmur, diastolic murmur, rubs, gallop, clicks GI/Abdominal exam: Present: soft, normal bowel sounds. Absent: distended, tenderness, guarding, rebound, rigid Neurological exam: Present: alert Course Vital Signs 01/29/20 01/29/20 01/29/20 11:19 12:48 13:04 Temperature 98.3 F 98.4 F Pulse Rate 122 H 106 H 101 H Respiratory 20 20 Rate Blood Pressure 150/103 138/87 O2 Sat by Pulse 98 97 99 Oximetry Medical Decision Making - Medical Decision Making Patient initially tachycardic which did improve throughout her stay. On examination patient is completely nontender. Abdomen is soft. Abdominal sounds are normal. Patient is not having any nausea or vomiting here in the emergency room. CBC does show leukocytosis of 23. 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 This is apparent throughout her previous CBCs. CMP is unremarkable. Urinalysis is contaminated with squamous cells. Patient does not have dysuria. Culture pending. Patient reevaluated after Zofran and fluids. She has been much better. Heart rate has improved to 101. Patient is able to tolerate oral intake. Patient is adamantly requesting discharge. She does not any further management. Patient will be discharged home with Zofran prescription and is to follow-up with her surgeon. Patient does not have a history of bariatric surgery. I did also evaluate patient's site of necrotizing fasciitis in the past which appears normal. case was discussed and labs were evaluated in depth with Dr. De La Rosa. - Lab Data Result diagrams: 01/29/20 12:00 01/29/20 12:00 Lab Results 01/29/20 01/29/20 01/29/20 Range/Units 12:00 12:00 12:00 WBC 23.0 H (3.8-10.6) k/uL RBC 5.76 H (3.80-5.40) m/uL Hgb 15.6 D (11.4-16.0) gm/dL Hct 47.6 H (34.0-46.0) % MCV 82.6 (80.0-100.0) fL MCH 27.1 (25.0-35.0) pg MCHC 32.8 (31.0-37.0) g/dL RDW 14.4 (11.5-15.5) % Plt Count 362 (150-450) k/uL Neutrophils % 70 % Lymphocytes % 20 % Monocytes % 5 % Eosinophils % 3 % Basophils % 1 % Neutrophils # 16.2 H (1.3-7.7) k/uL Lymphocytes # 4.5 (1.0-4.8) k/uL Monocytes # 1.2 H (0-1.0) k/uL Eosinophils # 0.6 (0-0.7) k/uL Basophils # 0.3 H (0-0.2) k/uL Sodium (137-145) mmol/L Potassium (3.5-5.1) mmol/L Chloride (98-107) mmol/L Carbon Dioxide (22-30) mmol/L Anion Gap mmol/L BUN (7-17) mg/dL Creatinine (0.52-1.04) mg/dL Est GFR (CKD-EPI)AfAm (>60 ml/min/1.73 sqM) Est GFR (CKD-EPI)NonAf (>60 ml/min/1.73 sqM) Glucose (74-99) mg/dL Calcium (8.4-10.2) mg/dL Total Bilirubin (0.2-1.3) mg/dL AST (14-36) U/L ALT (4-34) U/L Alkaline Phosphatase (38-126) U/L Total Protein (6.3-8.2) g/dL Albumin (3.5-5.0) g/dL Amylase (30-110) U/L Lipase (23-300) U/L Urine Color Yellow Urine Appearance Cloudy H (Clear) Urine pH 6.0 (5.0-8.0) Ur Specific [place] 1.035 (1.001-1.035) Urine Protein 2+ H (Negative) Urine Glucose (UA) Negative (Negative) Urine Ketones Trace H (Negative) Urine Blood Negative (Negative) Urine Nitrite Negative (Negative) Urine Bilirubin Negative (Negative) Urine Urobilinogen 3.0 (<2.0) mg/dL Ur Leukocyte Esterase Large H (Negative) Urine RBC 2 (0-5) /hpf Urine WBC 54 H (0-5) /hpf Ur Squamous Epith Cells 16 H (0-4) /hpf Urine Bacteria Occasional H (None) /hpf Urine Mucus Few H (None) /hpf Urine HCG, Qual Not Detected (Not Detectd) 01/29/20 Range/Units 12:00 WBC (3.8-10.6) k/uL RBC (3.80-5.40) m/uL Hgb (11.4-16.0) gm/dL Hct (34.0-46.0) % MCV (80.0-100.0) fL MCH (25.0-35.0) pg MCHC (31.0-37.0) g/dL RDW (11.5-15.5) % Plt Count (150-450) k/uL Neutrophils % % Lymphocytes % % Monocytes % % Eosinophils % % Basophils % % Neutrophils # (1.3-7.7) k/uL Lymphocytes # (1.0-4.8) k/uL Monocytes # (0-1.0) k/uL Eosinophils # (0-0.7) k/uL Basophils # (0-0.2) k/uL Sodium 140 (137-145) mmol/L Potassium 4.7 (3.5-5.1) mmol/L Chloride 105 (98-107) mmol/L Carbon Dioxide 23 (22-30) mmol/L Anion Gap 12 mmol/L BUN 18 H (7-17) mg/dL Creatinine 0.92 (0.52-1.04) mg/dL Est GFR (CKD-EPI)AfAm >90 (>60 ml/min/1.73 sqM) Est GFR (CKD-EPI)NonAf 83 (>60 ml/min/1.73 sqM) Glucose 178 H (74-99) mg/dL Calcium 10.4 H (8.4-10.2) mg/dL Total Bilirubin 0.6 (0.2-1.3) mg/dL AST 23 (14-36) U/L ALT 26 (4-34) U/L Alkaline Phosphatase 212 H (38-126) U/L Total Protein 7.9 (6.3-8.2) g/dL Albumin 4.6 (3.5-5.0) g/dL Amylase 45 (30-110) U/L Lipase 355 H (23-300) U/L Urine Color Urine Appearance (Clear) Urine pH (5.0-8.0) Ur Specific [place] (1.001-1.035) Urine Protein (Negative) Urine Glucose (UA) (Negative) Urine Ketones (Negative) Urine Blood (Negative) Urine Nitrite (Negative) Urine Bilirubin (Negative) Urine Urobilinogen (<2.0) mg/dL Ur Leukocyte Esterase (Negative) Urine RBC (0-5) /hpf Urine WBC (0-5) /hpf Ur Squamous Epith Cells (0-4) /hpf Urine Bacteria (None) /hpf Urine Mucus (None) /hpf Urine HCG, Qual (Not Detectd) Disposition Clinical Impression: Nausea vomiting and diarrhea Disposition: HOME SELF-CARE Condition: Good Instructions (If sedation given, give patient instructions): Acute Nausea and Vomiting (ED), Acute Diarrhea (ED) Additional Instructions: drink plenty of fluids. Follow-up with your surgeon. Take Zofran as needed for nausea. Return to the emergency room for any worsening symptoms or fevers. Prescriptions: Ondansetron [Zofran ODT] 4 mg PO Q8HR PRN #15 tab PRN Reason: Nausea Is patient prescribed a controlled substance at d/c from ED?: No Referrals: Zach Herr MD [Primary Care Provider] - 1-2 days Time of Disposition: 13:15
[2020-01-29 12:26] LABS: Appearance,Urine Cloudy (Clear); Bacteria,Urine Occasional /hpf; Bilirubin,Urine Negative (Negative); Blood,Urine Negative (Negative); Color,Urine Yellow; Glucose,Urine (UA) Negative (Negative); Ketones,Urine Trace (Negative); Leukocyte Esterase,Urine Large (Negative); Mucus,Urine Few /hpf; Nitrite,Urine Negative (Negative); Protein,Urine 2+ (Negative); RBC,Urine 2 /hpf (0-5); Specific Gravity,Urine 1.035 (1.001-1.035); Squamous Epithelial Cell,Urine 16 /hpf (0-4); WBC,Urine 54 /hpf (0-5)
[2020-01-29 12:36] LABS: ALT 26 U/L (4-34); AST 23 U/L (14-36); African American GFR (CKD) >90 (>60 ml/min/1.73 sqM); Albumin 4.6 g/dL (3.5-5.0); Alkaline Phosphatase 212 U/L (38-126); Amylase 45 U/L (30-110); Anion Gap 12 mmol/L; Blood Urea Nitrogen 18 mg/dL (7-17); Calcium 10.4 mg/dL (8.4-10.2); Carbon Dioxide 23 mmol/L (22-30); Chloride 105 mmol/L (98-107); Glucose 178 mg/dL (74-99); Non-African American GFR(CKD) 83 (>60 ml/min/1.73 sqM); Potassium 4.7 mmol/L (3.5-5.1); Sodium 140 mmol/L (137-145); Total Bilirubin 0.6 mg/dL (0.2-1.3); Total Protein 7.9 g/dL (6.3-8.2)
[2020-01-29] MEDS ORDERED: PREGABALIN 100 MG CAP PO STA (12:36)
[2020-01-29 12:41] LABS: Basophils # (A) 0.3 k/uL (0-0.2); Basophils % (A) 1 %; Eosinophils # (A) 0.6 k/uL (0-0.7); Eosinophils % (A) 3 %; HCT 47.6 % (34.0-46.0); Lymphocytes # (A) 4.5 k/uL (1.0-4.8); Lymphocytes % (A) 20 %; MCH 27.1 pg (25.0-35.0); MCHC 32.8 g/dL (31.0-37.0); MCV 82.6 fL (80.0-100.0); Mean Platelet Volume 8.5; Monocytes # (A) 1.2 k/uL (0-1.0); Monocytes % (A) 5 %; Neutrophils # (A) 16.2 k/uL (1.3-7.7); Neutrophils % (A) 70 %; Platelet Count 362 k/uL (150-450); RBC 5.76 m/uL (3.80-5.40); RDW 14.4 % (11.5-15.5)
[2020-01-29 12:42] LABS: HGB 15.6 gm/dL (11.4-16.0)
[2020-01-29 12:52] VITALS: TEMP 98.4
[2020-01-29 13:46] VITALS: BP 131/80; PULSE 96
== END 2020-01-29 13:49 | disposition home or self-care (01) ==
LOC: EC 11:13
DX: R11.2 Nausea with vomiting, unspecified (principal); R19.7 Diarrhea, unspecified; D72.829 Elevated white blood cell count, unspecified; F41.9 Anxiety disorder, unspecified; F32.9 Major depressive disorder, single episode, unspecified; J45.909 Unspecified asthma, uncomplicated; E11.40 Type 2 diabetes mellitus with diabetic neuropathy, unspecified; K21.9 Gastro-esophageal reflux disease without esophagitis; Z79.84 Long term (current) use of oral hypoglycemic drugs; Z79.890 Hormone replacement therapy; Z79.899 Other long term (current) drug therapy; Z79.4 Long term (current) use of insulin; Z88.0 Allergy status to penicillin; Z91.018 Allergy to other foods; Z95.5 Presence of coronary angioplasty implant and graft
CPT/HCPCS: 36415; 80053; 82150; 83690; 85025; 81001; 81025; 87086; 99284; 96374; 96361; J2405

== ENCOUNTER → 2020-09-05 | Outpatient (CLI) | payer OTHER ==
--- NOTE | 2020-09-05 08:46 | XR ---
EXAMINATION TYPE: XR ankle complete RT DATE OF EXAM: 09/05/2020 CLINICAL HISTORY: Pain. TECHNIQUE: Frontal, lateral and oblique images of the right ankle are obtained. COMPARISON: None. FINDINGS: There is no acute fracture/dislocation evident in the right ankle. The ankle mortise appe ars within normal limits. Mild diffuse subcutaneous edema. Small to moderate size inferior calcaneal spur. IMPRESSION: As above.
== END ==
LOC: RADXRMAIN 08:17
PROVIDERS: ATTEND Family Medicine
DX: M25.571 Pain in right ankle and joints of right foot (principal)

== ENCOUNTER → 2020-09-15 | Outpatient (CLI) | payer OTHER ==
[2020-09-15 14:46] VITALS: BP 122/85; PULSE 85; RESP 16; TEMP 98.3; BMI 43.9
--- NOTE | 2020-09-15 15:58 | P.HPBAR ---
Bariatric H&P - History & Physicial H&P Date: 09/15/20 History & Physicial: Visit/CC: Patient initial contact: Initial weight: 119.55 kg Initial weight in pounds: 263.56 Height: 5 ft 6 in Initial BMI: 42.5 Last weight: Current weight: 123.377 kg Current weight in pounds: 272.00 Current BMI: 43.9 [place] body weight (based on NIH guidelines): 58.967 kg Excess body weight loss: The patient is a 35 year-old F who presents for Bariatric Assessment.patient presents today for presurgical consultation. She has been enrolled in the bariatric program 4. Her BMI is 44. Patient has significant comorbidities including severe IDDM. Past Medical History Past Medical History: Asthma, Diabetes Mellitus, GERD/Reflux, Liver Disease, Pneumonia, Renal Disease Additional Past Medical History / Comment(s): Pt recently admitted to [facility] on 05/15/19 with sepsis d/t L gluteal/thigh abscess/leukocytosis and acute renal failure and admitted again 05/26/19 with sepsis 2ndary to abscess/nonhealing ulcer L fluteal/thigh growing Klebsiella oxytoca/suspected necrotizing facsitis/ acute renal failure/volume overload and transferred to [facility] where she states they performed surgery to site and also stated she had necrotizing fascitis. 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 History of Any Multi-Drug Resistant Organisms: DERRELLE Year Discovered:: 05/27/19 MDRO Source:: Urine Past Surgical History: Adenoidectomy, Cholecystectomy, Heart Catheterization With Stent, Hernia Repair, Tonsillectomy Additional Past Surgical History / Comment(s): Surgery on L leg wound with drains at [facility] 05/2019, debridement L thigh wound, BMAs, umbilical hernia repair, EGDs, colonoscopy, cyst removed side of neck Past Anesthesia/Blood Transfusion Reactions: No Reported Reaction Additional Past Anesthesia/Blood Transfusion Reaction / Comm: 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 currently being worked up by oncology Date of Last Stent Placement:: 2019 Past Psychological History: Anxiety, Depression Additional Psychological History / Comment(s): Pt resides with her mother. She is ambulating with a walker. She is not driving d/t [employer], mother or grandfather drive. She is receiving home care thru [facility]. Single, no children. Positive tobacco use. Denies alcohol use. No travel. The experience. Does not work outside of the home Smoking Status: Unknown if ever smoked Past Alcohol Use History: None Reported Additional Past Alcohol Use History / Comment(s): STARTED SMOKING AT AGE 15, SMOKES 1/2 PPD Past Drug Use History: None Reported Additional Drug Use History / Comment(s): Pt does edible marijuana occasionally. - Past Family History Mother Family Medical History: Deep Vein Thrombosis (DVT), Pulmonary Embolus Father History Unknown: Yes Surgical - Exam Vital Signs Temp Pulse Resp BP 98.3 F 85 16 122/85 09/15/20 14:30 09/15/20 14:30 09/15/20 14:30 09/15/20 14:30 - General well developed, well nourished, no distress - Eyes PERRL - ENT normal pinna - Neck no masses - Respiratory normal expansion - Cardiovascular Rhythm: regular - Abdomen Abdomen: soft, non tender Bariatric Assessment & Plan Plan: ordered obesity, BMI 44. Patient is scheduled for EGD. Bariatric Checklist Checklist: Plan: Checklist: EGD: 1. Hiatal hernia: 2. H. Pylori: HgbA1c: Vitamin D: Smoking: Current every day smoker Primary care physician referral: Psychiatry clearance: Cardiology clearance: Sleep study: Diet journal: VTE risk score: VTE risk level: Rehab needs at discharge:
== END ==
LOC: BARWHC3 14:19
PROVIDERS: ATTEND Surgery
DX: E66.9 Obesity, unspecified (principal); J45.909 Unspecified asthma, uncomplicated; K21.9 Gastro-esophageal reflux disease without esophagitis; E11.9 Type 2 diabetes mellitus without complications; F41.9 Anxiety disorder, unspecified; F32.9 Major depressive disorder, single episode, unspecified; F17.200 Nicotine dependence, unspecified, uncomplicated; Z68.41 Body mass index [BMI] 40.0-44.9, adult; Z79.4 Long term (current) use of insulin; Z79.899 Other long term (current) drug therapy
CPT/HCPCS: 99211

== ENCOUNTER → 2020-10-21 | Outpatient (CLI) | payer OTHER ==
--- NOTE | 2020-10-21 08:45 | XR ---
EXAMINATION TYPE: XR knee complete LT DATE OF EXAM: 10/21/2020 COMPARISON: 10/23/2015 HISTORY: Pain TECHNIQUE: 3 view left knee FINDINGS: No joint effusion is evident. Joint spaces are preserved. No acute fracture or dislocation is evident. IMPRESSION: 1. No acute osseous abnormality left knee.
== END | disposition home or self-care (01) ==
LOC: RADXRMAIN 08:03
PROVIDERS: ATTEND Family Medicine
DX: M25.562 Pain in left knee (principal)

== ENCOUNTER 2020-10-23 09:09 | Emergency (ER) | payer OTHER ==
[2020-10-23 09:15] VITALS: BP 104/69; PULSE 116; RESP 18; TEMP 98.8
[2020-10-23 09:51] LABS: Appearance,Urine Clear (Clear); Bilirubin,Urine Negative (Negative); Blood,Urine Negative (Negative); Color,Urine Yellow; Glucose,Urine (UA) 4+ (Negative); Ketones,Urine Negative (Negative); Leukocyte Esterase,Urine Negative (Negative); Nitrite,Urine Negative (Negative); PH, Urine 5.5 (5.0-8.0); Protein,Urine Negative (Negative); Specific Gravity,Urine 1.027 (1.001-1.035); Urobilinogen,Urine <2.0 mg/dL (<2.0)
[2020-10-23] MEDS ORDERED: ACET/COD 300 MG/30 MG STARTER PACK 6 TAB BTL PO STA (10:00)
--- NOTE | 2020-10-23 10:00 | ED ---
Back Pain [facility] - General Chief Complaint: Back Pain/Injury Stated Complaint: Back Pain Time Seen by Provider: 10/23/20 09:18 Source: patient, family, RN notes reviewed Limitations: no limitations - History of Present Illness Initial Comments: This is a 35-year-old female presents emergency Department chief complaint left- sided back pain. Patient states that started hurting a couple days ago. Patient has multiple health issues in which she has had back pain in the past like this. She has no dysuria no hematuria denies any loss of bowel bladder incontinence or retention also anesthesias patient states that she does have neuropathy in which she always has lower extremity numbness. She states is not worsened usual. Patient is on complaint abdominal pain no other issues. - Related Data Home Medications Medication Instructions Recorded Confirmed metFORMIN HCL [Glucophage] 1,000 mg PO BID 09/04/16 09/15/20 Medroxyprogesterone Acetate 150 mg IM Q84D 01/25/18 09/15/20 [Depo-Provera] Omeprazole 20 mg PO DAILY 01/25/18 09/15/20 Levothyroxine Sodium [Synthroid] 100 mcg PO DAILY 06/22/19 09/15/20 Amitriptyline HCl [Elavil] 50 mg PO HS 11/30/19 09/15/20 Cranberry Fruit Extract [Cranberry] 200 mg PO DAILY 11/30/19 09/15/20 Insulin Glargine,Hum.rec.anlog 22 unit SQ HS 11/30/19 09/15/20 [Basaglar Kwikpen U-100] Montelukast Sodium [Singulair] 10 mg PO DAILY 11/30/19 09/15/20 Pregabalin [Lyrica] 200 mg PO TID 11/30/19 09/15/20 Albuterol Inhaler [Ventolin Hfa 1 - 2 puff INHALATION RT-Q4H PRN 01/29/20 09/15/20 Inhaler] DULoxetine HCL [Cymbalta] 30 mg PO HS 01/29/20 09/15/20 amLODIPine [Norvasc] 5 mg PO DAILY 01/29/20 09/15/20 Previous Rx's Medication Instructions Recorded Aspirin 81 mg PO DAILY chew 12/03/19 Atorvastatin [Lipitor] 40 mg PO DAILY #90 tab 12/03/19 Metoprolol Tartrate [Lopressor] 50 mg PO BID #180 tab 12/03/19 Nitroglycerin Sl Tabs [Nitrostat] 0.4 mg SUBLINGUAL Q5M PRN #25 tab 12/03/19 Prasugrel [Effient] 10 mg PO DAILY #90 tab 12/03/19 Ondansetron [Zofran ODT] 4 mg PO Q8HR PRN #15 tab 01/29/20 Cyclobenzaprine [Flexeril] 10 mg PO TID PRN #15 tab 10/23/20 Allergies Allergy/AdvReac Type Severity Reaction Status Date / Time amoxicillin AdvReac Severe Nausea & Verified 10/23/20 09:15 Vomiting Tomatoes fresh cut Allergy Rash/Hives Uncoded 10/23/20 09:15 Review of Systems ROS Statement: Those systems with pertinent positive or pertinent negative responses have been documented in the HPI. ROS Other: All systems not noted in ROS Statement are negative. Past Medical History Past Medical History: Asthma, Diabetes Mellitus, GERD/Reflux, Liver Disease, Pneumonia, Renal Disease Additional Past Medical History / Comment(s): Pt recently admitted to [facility] on 05/15/19 with sepsis d/t L gluteal/thigh abscess/leukocytosis and acute renal failure and admitted again 05/26/19 with sepsis 2ndary to abscess/nonhealing ulcer L fluteal/thigh growing Klebsiella oxytoca/suspected necrotizing facsitis/ acute renal failure/volume overload and transferred to [facility] where she states they performed surgery to site and also stated she had necrotizing fascitis. 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 Absent: respiratory distress, wheezes, rales, rhonchi, stridor Cardiovascular Exam: Present: regular rate, normal rhythm, normal heart sounds. Absent: systolic murmur, diastolic murmur, rubs, gallop, clicks GI/Abdominal exam: Present: soft, normal bowel sounds. Absent: distended, tenderness, guarding, rebound, rigid Extremities exam: Present: other (Lower extremity pulses equal bilaterally, neurovascular intact equal color equal warmth) Back exam: Present: full ROM (Pain with range of motion), tenderness (Left lower lumbar), paraspinal tenderness. Absent: vertebral tenderness Neurological exam: Present: alert, reflexes normal. Absent: motor sensory deficit Course Vital Signs 10/23/20 09:11 Temperature 98.8 F Pulse Rate 116 H Respiratory 18 Rate Blood Pressure 104/69 O2 Sat by Pulse 97 Oximetry Medical Decision Making - Medical Decision Making Patient has a lumbar strain, lumbar muscle spasms with no red flag symptoms. Patient discharged in stable condition return parameters were discussed. - Lab Data Lab Results 10/23/20 Range/Units 09:28 Urine Color Yellow Urine Appearance Clear (Clear) Urine pH 5.5 (5.0-8.0) Ur Specific [place] 1.027 (1.001-1.035) Urine Protein Negative (Negative) Urine Glucose (UA) 4+ H (Negative) Urine Ketones Negative (Negative) Urine Blood Negative (Negative) Urine Nitrite Negative (Negative) Urine Bilirubin Negative (Negative) Urine Urobilinogen <2.0 (<2.0) mg/dL Ur Leukocyte Esterase Negative (Negative) Disposition Clinical Impression: Strain of lumbar region Disposition: HOME SELF-CARE Condition: Stable Instructions (If sedation given, give patient instructions): Acute Low Back Pain (ED) Additional Instructions: Please return to the Emergency Department if symptoms worsen or any other concerns. Prescriptions: Cyclobenzaprine [Flexeril] 10 mg PO TID PRN #15 tab PRN Reason: Muscle Spasm Is patient prescribed a controlled substance at d/c from ED?: No Referrals: Zach Herr MD [Primary Care Provider] - 1-2 days Time of Disposition: 10:00
== END 2020-10-23 10:11 | disposition home or self-care (01) ==
LOC: EC 09:09
DX: S39.012A Strain of muscle, fascia and tendon of lower back, initial encounter (principal); F17.200 Nicotine dependence, unspecified, uncomplicated; F32.9 Major depressive disorder, single episode, unspecified; J45.909 Unspecified asthma, uncomplicated; E11.9 Type 2 diabetes mellitus without complications; K21.9 Gastro-esophageal reflux disease without esophagitis; Z90.49 Acquired absence of other specified parts of digestive tract; Z95.5 Presence of coronary angioplasty implant and graft; Z90.09 Acquired absence of other part of head and neck; Z79.82 Long term (current) use of aspirin; X58.XXXA Exposure to other specified factors, initial encounter; Z79.4 Long term (current) use of insulin
CPT/HCPCS: 81003; 99283

== ENCOUNTER 2020-11-20 08:41 | Emergency (ER) | payer OTHER ==
[2020-11-20 08:47] VITALS: BP 101/64; PULSE 108; RESP 18; TEMP 97.7
--- NOTE | 2020-11-20 09:31 | ED ---
Lower Extremity Injury HPI - General Chief Complaint: Extremity Injury, Lower Stated Complaint: Swollen foot Time Seen by Provider: 11/20/20 08:58 Source: patient, family, RN notes reviewed Mode of arrival: wheelchair Limitations: no limitations - History of Present Illness Initial Comments: 35-year-old female presenting to the emergency department complaining of feet swelling during the day that goes away which puts her feet up at night. She did note that she is diabetic and has diabetic neuropathy. She does note that her right foot tends to get worse. She notes that the swelling increases throughout the day more she stands or walks around. She notes as soon as she puts her feet up to go to bed and laid down the swelling starts to go down. She denied any pain in her feet. She denied any history of clots. She denied any weakness numbness tingling outside of her normal. She denied any chest pain short of breath headache nausea vomiting diarrhea constipation fever fatigue chills. - Related Data Home Medications Medication Instructions Recorded Confirmed metFORMIN HCL [Glucophage] 1,000 mg PO BID 09/04/16 09/15/20 Medroxyprogesterone Acetate 150 mg IM Q84D 01/25/18 09/15/20 [Depo-Provera] Omeprazole 20 mg PO DAILY 01/25/18 09/15/20 Levothyroxine Sodium [Synthroid] 100 mcg PO DAILY 06/22/19 09/15/20 Amitriptyline HCl [Elavil] 50 mg PO HS 11/30/19 09/15/20 Cranberry Fruit Extract [Cranberry] 200 mg PO DAILY 11/30/19 09/15/20 Insulin Glargine,Hum.rec.anlog 22 unit SQ HS 11/30/19 09/15/20 [Basaglar Kwikpen U-100] Montelukast Sodium [Singulair] 10 mg PO DAILY 11/30/19 09/15/20 Pregabalin [Lyrica] 200 mg PO TID 11/30/19 09/15/20 Albuterol Inhaler [Ventolin Hfa 1 - 2 puff INHALATION RT-Q4H PRN 01/29/20 09/15/20 Inhaler] DULoxetine HCL [Cymbalta] 30 mg PO HS 01/29/20 09/15/20 amLODIPine [Norvasc] 5 mg PO DAILY 01/29/20 09/15/20 Previous Rx's Medication Instructions Recorded Aspirin 81 mg PO DAILY chew 12/03/19 Atorvastatin [Lipitor] 40 mg PO DAILY #90 tab 12/03/19 Metoprolol Tartrate [Lopressor] 50 mg PO BID #180 tab 12/03/19 Nitroglycerin Sl Tabs [Nitrostat] 0.4 mg SUBLINGUAL Q5M PRN #25 tab 12/03/19 Prasugrel [Effient] 10 mg PO DAILY #90 tab 12/03/19 Ondansetron [Zofran ODT] 4 mg PO Q8HR PRN #15 tab 01/29/20 Cyclobenzaprine [Flexeril] 10 mg PO TID PRN #15 tab 10/23/20 Allergies Allergy/AdvReac Type Severity Reaction Status Date / Time amoxicillin AdvReac Severe Nausea & Verified 11/20/20 08:47 Vomiting Tomatoes fresh cut Allergy Rash/Hives Uncoded 11/20/20 08:47 Review of Systems ROS Statement: Those systems with pertinent positive or pertinent negative responses have been documented in the HPI. ROS Other: All systems not noted in ROS Statement are negative. Past Medical History Past Medical History: Asthma, Diabetes Mellitus, GERD/Reflux, Liver Disease, Pneumonia, Renal Disease Additional Past Medical History / Comment(s): Pt recently admitted to [facility] on 05/15/19 with sepsis d/t L gluteal/thigh abscess/leukocytosis and acute renal failure and admitted again 05/26/19 with sepsis 2ndary to abscess/nonhealing ulcer L fluteal/thigh growing Klebsiella oxytoca/suspected necrotizing facsitis/ acute renal failure/volume overload and transferred to [facility] where she states they performed surgery to site and also stated she had necrotizing fascitis. 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 History of Any Multi-Drug Resistant Organisms: VRE Date of last positivie culture/infection: 05/27/19 MDRO Source:: Urine Past Surgical History: Adenoidectomy, Cholecystectomy, Heart Catheterization With Stent, Hernia Repair, Tonsillectomy Additional Past Surgical History / Comment(s): Surgery on L leg wound with drains at [facility] 05/2019, debridement L thigh wound, BMAs, umbilical hernia repair, EGDs, colonoscopy, cyst removed side of neck Past Anesthesia/Blood Transfusion Reactions: No Reported Reaction Additional Past Anesthesia/Blood Transfusion Reaction / Comment(s): 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 currently being worked up by oncology Date of Last Stent Placement:: 2019 Past Psychological History: Anxiety, Depression Smoking Status: Current every day smoker, Vaper Past Alcohol Use History: None Reported Past Drug Use History: None Reported - Past Family History Mother Family Medical History: Deep Vein Thrombosis (DVT), Pulmonary Embolus Father History Unknown: Yes General Exam Limitations: no limitations General appearance: alert, in no apparent distress Head exam: Present: atraumatic, normocephalic, normal inspection Eye exam: Present: normal appearance, PERRL, EOMI. Absent: scleral icterus, conjunctival injection, periorbital swelling Neck exam: Present: normal inspection. Absent: tenderness, meningismus, ly mphadenopathy Respiratory exam: Present: normal lung sounds bilaterally. Absent: respiratory distress, wheezes, rales, rhonchi, stridor Cardiovascular Exam: Present: regular rate, normal rhythm, normal heart sounds. Absent: systolic murmur, diastolic murmur, rubs, gallop, clicks GI/Abdominal exam: Present: soft, normal bowel sounds. Absent: distended, tenderness, guarding, rebound, rigid Extremities exam: Present: normal inspection, full ROM, normal capillary refill. Absent: tenderness, pedal edema, joint swelling, calf tenderness Right Foot/Toe exam: Present: normal inspection, full ROM. Absent: tenderness, swelling, abrasion, laceration, ecchymosis, deformity, crepitus, erythema, calcaneal tenderness Neurological exam: Present: alert, oriented X3, CN II-XII intact Psychiatric exam: Present: normal affect, normal mood Skin exam: Present: warm, dry, intact, normal color. Absent: rash Course Vital Signs 11/20/20 08:43 Temperature 97.7 F Pulse Rate 108 H Respiratory 18 Rate Blood Pressure 101/64 O2 Sat by Pulse 97 Oximetry Medical Decision Making - Medical Decision Making 35-year-old female complaining of right foot swelling worse than the left throughout the day. X-ray right foot ordered. X-ray negative for any acute fractures or dislocations. Case discussed with Dr. De La Rosa, patient can follow-up with primary care. - Radiology Data Radiology results: report reviewed, image reviewed Right foot x-ray: No evidence of acute fracture dislocation right foot. Mild bony demineralization. Clinical correlation for osteopenia is recommended. Disposition Clinical Impression: Localized swelling of both lower legs Disposition: HOME SELF-CARE Condition: Stable Instructions (If sedation given, give patient instructions): Swollen Ankle Joint (ED) Additional Instructions: Please return to the Emergency Department if symptoms worsen or any other concerns. Wear compression stockings throughout the day. Elevate legs at night. Reduce salt intake to help fluid retention. Follow-up with primary care in the next 2-4 days. Is patient prescribed a controlled substance at d/c from ED?: No Referrals: Zach Herr MD [Primary Care Provider] - 1-2 days Time of Disposition: 10:08
--- NOTE | 2020-11-20 09:34 | XR ---
EXAMINATION TYPE: XR foot complete RT DATE OF EXAM: 11/20/2020 CLINICAL HISTORY: Right foot with swelling, no trauma or injury TECHNIQUE: Frontal, lateral and oblique images of the right foot are obtained. COMPARISON: None. FINDINGS: No evidence of acute fracture or dislocation of the right foot. There is bony demineralizat ion for the patient's age. Clinical correlation for osteopenia is recommended. The tarsals, metatarsa ls and phalanges are in alignment. Soft tissues are unremarkable. No radiopaque foreign body. Tiny pl freeman calcaneal spur. IMPRESSION: 1. No evidence of acute fracture or dislocation of the right foot. Mild bony demineralization. Clinic al correlation for osteopenia is recommended and 35-year-old female patient.
== END 2020-11-20 10:22 | disposition home or self-care (01) ==
LOC: EC 08:41
DX: M79.89 Other specified soft tissue disorders (principal); J45.909 Unspecified asthma, uncomplicated; E11.40 Type 2 diabetes mellitus with diabetic neuropathy, unspecified; F41.9 Anxiety disorder, unspecified; F32.9 Major depressive disorder, single episode, unspecified; K21.9 Gastro-esophageal reflux disease without esophagitis; F17.290 Nicotine dependence, other tobacco product, uncomplicated; Z79.82 Long term (current) use of aspirin; Z79.51 Long term (current) use of inhaled steroids; Z79.4 Long term (current) use of insulin
CPT/HCPCS: 99283

== ENCOUNTER 2020-11-27 06:45 | Day surgery (SDC) | payer OTHER ==
[2020-11-25 10:27] VITALS: BMI 42.6
[2020-11-27 07:27] VITALS: TEMP 97.7
[2020-11-27] MEDS ORDERED: LIDOCAINE 1% (10MG/ML) FOR IV START INTRADERMA ONE (07:32)
[2020-11-27 07:37] LABS: Glucose,Whole Blood 231 mg/dL (75-99)
[2020-11-27] MEDS ORDERED: PROPOFOL 10 MG/ML 20 ML VIAL IV ONE (07:55)
[2020-11-27] MEDS ORDERED: LIDOCAINE 1% INJ 10MG/ML (20 ML MDV) ONE (07:55)
--- NOTE | 2020-11-27 08:02 | P.GSHP ---
History of Present Illness H&P Date: 11/27/20 Chief Complaint: GERD, morbid obesity 35-year-old female who is undergoing workup for sleeve gastrectomy. Patient rents today for EGD. She's had issues with GERD. Her BMI is 44 Past Medical History Past Medical History: Asthma, Diabetes Mellitus, GERD/Reflux, Liver Disease, Pneumonia, Renal Disease Additional Past Medical History / Comment(s): Pt recently admitted to [facility] on 05/15/19 with sepsis d/t L gluteal/thigh abscess/leukocytosis and acute renal failure and admitted again 05/26/19 with sepsis 2ndary to abscess/nonhealing ulcer L fluteal/thigh growing Klebsiella oxytoca/suspected necrotizing facsitis/ acute renal failure/volume overload and transferred to [facility] where she states they performed surgery to site and also stated she had necrotizing fascitis. 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 History of Any Multi-Drug Resistant Organisms: VRE Date of last positivie culture/infection: 05/27/19 MDRO Source:: Urine Past Surgical History: Adenoidectomy, Cholecystectomy, Heart Catheterization With Stent, Hernia Repair, Tonsillectomy Additional Past Surgical History / Comment(s): Surgery on L leg wound with drains at [facility] 05/2019, debridement L thigh wound, BMAs, umbilical hernia repair, EGDs, colonoscopy, cyst removed side of neck Past Anesthesia/Blood Transfusion Reactions: No Reported Reaction Additional Past Anesthesia/Blood Transfusion Reaction / Comment(s): 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 currently being worked up by oncology Date of Last Stent Placement:: 2019 Smoking Status: Current every day smoker - Past Family History Mother Family Medical History: Deep Vein Thrombosis (DVT), Pulmonary Embolus Father History Unknown: Yes Family Medical History: No Reported History Medications and Allergies Home Medications Medication Instructions Recorded Confirmed Type metFORMIN HCL [Glucophage] 1,000 mg PO BID 09/04/16 11/27/20 History Medroxyprogesterone Acetate 150 mg IM Q84D 01/25/18 11/27/20 History [Depo-Provera] Omeprazole 20 mg PO DAILY 01/25/18 11/27/20 History Levothyroxine Sodium [Synthroid] 100 mcg PO DAILY 06/22/19 11/27/20 History Amitriptyline HCl [Elavil] 50 mg PO HS 11/30/19 11/27/20 History Cranberry Fruit Extract [Cranberry] 200 mg PO DAILY 11/30/19 11/27/20 History Montelukast Sodium [Singulair] 10 mg PO DAILY 11/30/19 11/27/20 History Pregabalin [Lyrica] 200 mg PO TID 11/30/19 11/27/20 History Aspirin 81 mg PO DAILY chew 12/03/19 11/27/20 Rx Atorvastatin [Lipitor] 40 mg PO DAILY #90 tab 12/03/19 11/27/20 Rx Metoprolol Tartrate [Lopressor] 50 mg PO BID #180 tab 12/03/19 11/27/20 Rx Nitroglycerin Sl Tabs [Nitrostat] 0.4 mg SUBLINGUAL Q5M PRN #25 tab 12/03/19 11/27/20 Rx Prasugrel [Effient] 10 mg PO DAILY #90 tab 12/03/19 11/27/20 Rx Albuterol Inhaler [Ventolin Hfa 1 - 2 puff INHALATION RT-Q4H PRN 01/29/20 11/27/20 History Inhaler] DULoxetine HCL [Cymbalta] 30 mg PO HS 01/29/20 11/27/20 History Ondansetron [Zofran ODT] 4 mg PO Q8HR PRN #15 tab 01/29/20 11/27/20 Rx amLODIPine [Norvasc] 5 mg PO DAILY 01/29/20 11/27/20 History Cyclobenzaprine [Flexeril] 10 mg PO TID PRN #15 tab 10/23/20 11/27/20 Rx Empagliflozin [Jardiance] 25 mg PO DAILY 11/25/20 11/27/20 History Insulin Detemir (Levemir) [Levemir] 55 unit SQ HS 11/25/20 11/27/20 History Allergies Allergy/AdvReac Type Severity Reaction Status Date / Time amoxicillin AdvReac Severe Nausea & Verified 11/27/20 07:30 Vomiting Tomatoes fresh cut Allergy Rash/Hives Uncoded 11/27/20 07:30 Surgical - Exam Vital Signs Temp Pulse Resp BP Pulse Ox 97.7 F 110 H 18 161/93 93 L 11/27/20 07:25 11/27/20 07:25 11/27/20 07:25 11/27/20 07:25 11/27/20 07:25 - General well developed, well nourished, no distress - Eyes PERRL - ENT normal pinna - Neck no masses - Respiratory normal expansion - Cardiovascular Rhythm: regular - Abdomen Abdomen: soft, non tender Results - Labs Abnormal Lab Results - Last 24 Hours (Table) 11/27/20 Range/Units 07:35 POC Glucose (mg/dL) 231 H (75-99) mg/dL Assessment and Plan Assessment: GERD Morbid obesity We'll perform EGD.
--- NOTE | 2020-11-27 08:08 | P.OP ---
Date of Procedure: 11/27/20 Preoperative Diagnosis: GERD Morbid obesity Postoperative Diagnosis: Morbid obesity Antral gastritis Procedure(s) Performed: EGD Anesthesia: MAC Surgeon: Alex De Paz Pathology: other (Antrum) Condition: stable Disposition: PACU Description of Procedure: The patient's placed on the endoscopy table in the lateral position. He received IV sedation. The gastroscope was oropharynx past esophagus and stomach. Scope was then placed through the pylorus. First and second portion of the duodenum appeared normal. Scope was then brought back the antrum this was mildly inflamed. A biopsies performed. The scope was then retroflexed and remainder the stomach appeared normal. There was no significant hiatal hernia. The GE junction was at 40 cm. The distal esophagus appeared normal. The proximal esophagus appeared normal. Scope withdrawn for patient.
[2020-11-27 08:34] VITALS: BP 117/76; PULSE 110; RESP 20
== END 2020-11-27 08:42 | disposition home or self-care (01) ==
LOC: ORWHC2ENDO 06:45
PROVIDERS: ATTEND Surgery
DX: K29.50 Unspecified chronic gastritis without bleeding (principal); J45.909 Unspecified asthma, uncomplicated; K21.9 Gastro-esophageal reflux disease without esophagitis; K76.9 Liver disease, unspecified; Z87.01 Personal history of pneumonia (recurrent); Z86.19 Personal history of other infectious and parasitic diseases; E11.42 Type 2 diabetes mellitus with diabetic polyneuropathy; E66.01 Morbid (severe) obesity due to excess calories; Z68.41 Body mass index [BMI] 40.0-44.9, adult; Z87.442 Personal history of urinary calculi; D72.829 Elevated white blood cell count, unspecified; R71.8 Other abnormality of red blood cells; Z90.89 Acquired absence of other organs; Z90.49 Acquired absence of other specified parts of digestive tract; Z95.5 Presence of coronary angioplasty implant and graft; Z98.890 Other specified postprocedural states; F17.200 Nicotine dependence, unspecified, uncomplicated; Z82.49 Family history of ischemic heart disease and other diseases of the circulatory system; Z79.82 Long term (current) use of aspirin; Z79.818 Long term (current) use of other agents affecting estrogen receptors and estrogen levels; Z79.4 Long term (current) use of insulin; Z79.52 Long term (current) use of systemic steroids; Z79.899 Other long term (current) drug therapy; Z88.0 Allergy status to penicillin; Z91.018 Allergy to other foods
CPT/HCPCS: 81025; 88305; 88342; 43239; J2001; J2704

== ENCOUNTER → 2020-12-29 | Outpatient (CLI) | payer OTHER ==
[2020-12-29 15:10] VITALS: BP 122/72; PULSE 102; TEMP 98; BMI 43.2
--- NOTE | 2020-12-29 16:14 | P.HPBAR ---
Bariatric H&P - History & Physicial H&P Date: 12/29/20 History & Physicial: Visit/CC: egd follow up Patient initial contact: Initial weight: 119.55 kg Initial weight in pounds: 263.56 Height: 5 ft 6 in Initial BMI: 42.5 Last weight: Current weight: 121.563 kg Current weight in pounds: 268.00 Current BMI: 43.2 [place] body weight (based on NIH guidelines): 58.967 kg Excess body weight loss: The patient is a 35 year-old F who presents for Bariatric Assessment. Patient presents today for presurgical consultation. She underwent recent EGD. She is morbidly obese. Her BMI is 43. She has an excellent understanding of sleeve gastrectomy. Past Medical History Past Medical History: Asthma, Diabetes Mellitus, GERD/Reflux, Liver Disease, Pneumonia, Renal Disease Additional Past Medical History / Comment(s): Pt recently admitted to [facility] on 05/15/19 with sepsis d/t L gluteal/thigh abscess/leukocytosis and acute renal failure and admitted again 05/26/19 with sepsis 2ndary to abscess/nonhealing ulcer L fluteal/thigh growing Klebsiella oxytoca/suspected necrotizing facsitis/ acute renal failure/volume overload and transferred to [facility] where she states they performed surgery to site and also stated she had necrotizing fascitis. 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 History of Any Multi-Drug Resistant Organisms: VRE Year Discovered:: 05/27/19 MDRO Source:: Urine Past Surgical History: Adenoidectomy, Cholecystectomy, Heart Catheterization With Stent, Hernia Repair, Tonsillectomy Additional Past Surgical History / Comment(s): Surgery on L leg wound with drains at [facility] 05/2019, debridement L thigh wound, BMAs, umbilical hernia repair, EGDs, colonoscopy, cyst removed side of neck Past Anesthesia/Blood Transfusion Reactions: No Reported Reaction Additional Past Anesthesia/Blood Transfusion Reaction / Comm: 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 currently being worked up by oncology Date of Last Stent Placement:: 2019 Past Psychological History: Anxiety, Depression Additional Psychological History / Comment(s): Pt resides with her mother. She is ambulating with a walker. She is not driving d/t [place], mother or grandfather drive. She is receiving home care thru [facility]. Single, no children. Positive tobacco use. Denies alcohol use. No travel. The experience. Does not work outside of the home Smoking Status: Current every day smoker, Vaper Past Alcohol Use History: None Reported Additional Past Alcohol Use History / Comment(s): STARTED SMOKING AT AGE 15, SMOKES 1/2 PPD Past Drug Use History: None Reported Additional Drug Use History / Comment(s): Pt does edible marijuana occasionally. - Past Family History Mother Family Medical History: Deep Vein Thrombosis (DVT), Pulmonary Embolus Father History Unknown: Yes Family Medical History: No Reported History Surgical - Exam Vital Signs Temp Pulse BP 98 F 102 H 122/72 12/29/20 15:07 12/29/20 15:07 12/29/20 15:07 - General well developed, well nourished, no distress - Eyes PERRL - ENT normal pinna - Neck no masses - Respiratory normal expansion - Cardiovascular Rhythm: regular - Abdomen Abdomen: soft, non tender Bariatric Assessment & Plan Plan: Morbid obesity, BMI 43. Patient will follow-up in one month. Bariatric Checklist Checklist: Plan: Checklist: EGD: 1. Hiatal hernia: 2. H. Pylori: HgbA1c: Vitamin D: Smoking: Current every day smoker Primary care physician referral: Psychiatry clearance: Cardiology clearance: Sleep study: Diet journal: VTE risk score: VTE risk level: Rehab needs at discharge:
== END ==
LOC: BARWHC3 13:48
PROVIDERS: ATTEND Surgery
DX: Z01.818 Encounter for other preprocedural examination (principal); E66.01 Morbid (severe) obesity due to excess calories; J45.909 Unspecified asthma, uncomplicated; E11.9 Type 2 diabetes mellitus without complications; F41.9 Anxiety disorder, unspecified; F32.9 Major depressive disorder, single episode, unspecified; F17.210 Nicotine dependence, cigarettes, uncomplicated; Z68.41 Body mass index [BMI] 40.0-44.9, adult
CPT/HCPCS: 99211

== ENCOUNTER 2021-01-16 20:26 | Emergency (ER) | payer OTHER ==
[2021-01-16 20:39] VITALS: BP 120/71; PULSE 111; RESP 20; TEMP 97.8
[2021-01-16] MEDS ORDERED: SULFAMETHOX-TMP 800-160MG 1 EACH TAB PO STA (20:51)
--- NOTE | 2021-01-16 21:12 | ED ---
Skin/Abscess/FB HPI - General Chief complaint: Skin/Abscess/Foreign Body Stated complaint: Wound on ABD Time Seen by Provider: 01/16/21 20:41 Source: patient, RN notes reviewed Mode of arrival: wheelchair Limitations: no limitations - History of Present Illness Initial comments: 35-year-old female presented emergency problem with a abdominal fold rash in a modest pubis open draining abscess. She notes that the left abdominal fold became painful today. She had no idea that she had the rash and/or open sore. She was otherwise a well-appearing well-hydrated 35-year-old female in no apparent distress or pain. She noted that the abdominal fold pain along with her body aches put her at approximately a 6-7 out of 10. She denied any chest pain shortness of breath headache nausea vomiting diarrhea constipation fever fatigue chills. - Related Data Home Medications Medication Instructions Recorded Confirmed metFORMIN HCL [Glucophage] 1,000 mg PO BID 09/04/16 11/27/20 Medroxyprogesterone Acetate 150 mg IM Q84D 01/25/18 11/27/20 [Depo-Provera] Omeprazole 20 mg PO DAILY 01/25/18 11/27/20 Levothyroxine Sodium [Synthroid] 100 mcg PO DAILY 06/22/19 11/27/20 Amitriptyline HCl [Elavil] 50 mg PO HS 11/30/19 11/27/20 Cranberry Fruit Extract [Cranberry] 200 mg PO DAILY 11/30/19 11/27/20 Montelukast Sodium [Singulair] 10 mg PO DAILY 11/30/19 11/27/20 Pregabalin [Lyrica] 200 mg PO TID 11/30/19 11/27/20 Albuterol Inhaler [Ventolin Hfa 1 - 2 puff INHALATION RT-Q4H PRN 01/29/20 11/27/20 Inhaler] DULoxetine HCL [Cymbalta] 30 mg PO HS 01/29/20 11/27/20 amLODIPine [Norvasc] 5 mg PO DAILY 01/29/20 11/27/20 Empagliflozin [Jardiance] 25 mg PO DAILY 11/25/20 11/27/20 Insulin Detemir (Levemir) [Levemir] 55 unit SQ HS 06/08/21 06/10/21 Previous Rx's Medication Instructions Recorded Aspirin 81 mg PO DAILY chew 12/03/19 Atorvastatin [Lipitor] 40 mg PO DAILY #90 tab 12/03/19 Metoprolol Tartrate [Lopressor] 50 mg PO BID #180 tab 12/03/19 Nitroglycerin Sl Tabs [Nitrostat] 0.4 mg SUBLINGUAL Q5M PRN #25 tab 12/03/19 Prasugrel [Effient] 10 mg PO DAILY #90 tab 12/03/19 Ondansetron [Zofran ODT] 4 mg PO Q8HR PRN #15 tab 01/29/20 Cyclobenzaprine [Flexeril] 10 mg PO TID PRN #15 tab 10/23/20 Nystatin 100,000Unit/gm Cream 1 applic TOPICAL BID #15 gram 01/16/21 [Mycostatin Cream] Sulfamethox-Tmp 800-160Mg [Bactrim 1 tab PO Q12HR 10 Days #20 tab 01/16/21 DS 800-160 mg] Allergies Allergy/AdvReac Type Severity Reaction Status Date / Time amoxicillin AdvReac Severe Nausea & Verified 01/16/21 20:38 Vomiting Tomatoes fresh cut Allergy Rash/Hives Uncoded 01/16/21 20:38 Review of Systems ROS Statement: Those systems with pertinent positive or pertinent negative responses have been documented in the HPI. ROS Other: All systems not noted in ROS Statement are negative. Past Medical History Past Medical History: Asthma, Diabetes Mellitus, GERD/Reflux, Liver Disease, Pneumonia, Renal Disease Additional Past Medical History / Comment(s): Pt recently admitted to [facility] on 05/15/19 with sepsis d/t L gluteal/thigh abscess/leukocytosis and acute renal failure and admitted again 05/26/19 with sepsis 2ndary to abscess/nonhealing ulcer L fluteal/thigh growing Klebsiella oxytoca/suspected necrotizing facsitis/ acute renal failure/volume overload and transferred to [facility] where she states they performed surgery to site and also stated she had necrotizing fascitis. 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 History of Any Multi-Drug Resistant Organisms: VRE Date of last positivie culture/infection: 05/27/19 MDRO Source:: Urine Past Surgical History: Adenoidectomy, Cholecystectomy, Heart Catheterization With Stent, Hernia Repair, Tonsillectomy Additional Past Surgical History / Comment(s): Surgery on L leg wound with drains at [facility] 05/2019, debridement L thigh wound, BMAs, umbilical hernia repair, EGDs, colonoscopy, cyst removed side of neck Past Anesthesia/Blood Transfusion Reactions: No Reported Reaction Additional Past Anesthesia/Blood Transfusion Reaction / Comment(s): 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 currently being worked up by oncology Date of Last Stent Placement:: 2019 Past Psychological History: Anxiety, Depression Smoking Status: Current every day smoker, Vaper Past Alcohol Use History: None Reported Past Drug Use History: None Reported - Past Family History Mother Family Medical History: Deep Vein Thrombosis (DVT), Pulmonary Embolus Father History Unknown: Yes Family Medical History: No Reported History General Exam Limitations: no limitations General appearance: alert, in no apparent distress Head exam: Present: atraumatic, normocephalic, normal inspection Eye exam: Present: normal appearance, PERRL, EOMI. Absent: scleral icterus, conjunctival injection, periorbital swelling Neck exam: Present: normal inspection Respiratory exam: Present: normal lung sounds bilaterally. Absent: respiratory distress, wheezes, rales, rhonchi, stridor Cardiovascular Exam: Present: regular rate, normal rhythm, normal heart sounds. Absent: systolic murmur, diastolic murmur, rubs, gallop, clicks GI/Abdominal exam: Present: soft, normal bowel sounds. Absent: distended, tenderness, guarding, rebound, rigid Extremities exam: Present: normal inspection, full ROM, normal capillary refill. Absent: tenderness, pedal edema, joint swelling, calf tenderness Neurological exam: Present: alert, oriented X3 Psychiatric exam: Present: normal affect, normal mood Skin exam: Present: warm, dry, intact, normal color, rash (When the bilateral lower abdominal fold.), other (Open sore on the mons pubis draining on its own.) Course Vital Signs 01/16/21 20:35 Temperature 97.8 F Pulse Rate 111 H Respiratory 20 Rate Blood Pressure 120/71 O2 Sat by Pulse 96 Oximetry Medical Decision Making - Medical Decision Making 35-year-old female complaining of abdominal pain and open sore mons pubis. Nystatin ointment, Bactrim double strength ordered. Given patient's clinical signs and symptoms she most likely has intertrigo and a small cutaneous abscess is open and draining. Case discussed with Dr. Alejandra, patient can discharge home with follow-up to primary care. Disposition Clinical Impression: Intertrigo, Abscess Disposition: HOME SELF-CARE Condition: Stable Instructions (If sedation given, give patient instructions): Abscess (ED) Additional Instructions: Please return to the Emergency Department if symptoms worsen or any other concerns. Use nystatin cream as prescribed 3 times a day. Take antibiotics as prescribed until complete. Keep abdominal fold as clean and as dry as possible. Follow-up with primary care in the next 1-2 days. Prescriptions: Sulfamethox-Tmp 800-160Mg [Bactrim DS 800-160 mg] 1 tab PO Q12HR 10 Days #20 tab Nystatin 100,000Unit/gm Cream [Mycostatin Cream] 1 applic TOPICAL BID #15 gram Is patient prescribed a controlled substance at d/c from ED?: No Referrals: Zach Herr MD [Primary Care Provider] - 1-2 days Time of Disposition: 21:11
[2021-01-16] MEDS ORDERED: NYSTATIN 100,000 UNIT/GM OINT 30 GM TUBE TOPICAL SCH (22:00)
== END 2021-01-16 21:22 | disposition home or self-care (01) ==
LOC: EC 20:26
DX: L30.4 Erythema intertrigo (principal); L02.211 Cutaneous abscess of abdominal wall; E11.40 Type 2 diabetes mellitus with diabetic neuropathy, unspecified; J45.909 Unspecified asthma, uncomplicated; F32.9 Major depressive disorder, single episode, unspecified; F41.9 Anxiety disorder, unspecified; K21.9 Gastro-esophageal reflux disease without esophagitis; F17.290 Nicotine dependence, other tobacco product, uncomplicated; Z79.4 Long term (current) use of insulin; Z79.3 Long term (current) use of hormonal contraceptives; Z79.82 Long term (current) use of aspirin; Z79.51 Long term (current) use of inhaled steroids; Z79.890 Hormone replacement therapy; Z79.899 Other long term (current) drug therapy; Z88.0 Allergy status to penicillin; Z90.49 Acquired absence of other specified parts of digestive tract
CPT/HCPCS: 99284

== ENCOUNTER → 2021-03-02 | Outpatient (CLI) | payer OTHER ==
--- NOTE | 2021-03-02 13:46 | XR ---
EXAMINATION TYPE: XR knee limited RT DATE OF EXAM: 03/02/2021 CLINICAL HISTORY: pain TECHNIQUE: Two views of the right knee are obtained. COMPARISON: None. FINDINGS: There is no acute fracture/dislocation. The tri-compartment joint spaces appear within no rmal limits. The overlying soft tissue appears unremarkable. IMPRESSION: There is no acute fracture or dislocation. ICD 10 NO FRACTURE, INITIAL EVALUATION
== END | disposition home or self-care (01) ==
LOC: RADXRMAIN 13:11
PROVIDERS: ATTEND Family Medicine
DX: M25.561 Pain in right knee (principal)

== ENCOUNTER 2021-03-12 12:06 | Emergency (ER) | payer OTHER ==
[2021-03-12 12:11] VITALS: BP 92/65; RESP 16; TEMP 98.6
--- NOTE | 2021-03-12 13:23 | XR ---
Left ankle and left foot HISTORY: Trauma and pain 3 views of the left ankle and 3 views the left foot are submitted There is soft tissue swelling present. There is a plantar calcaneal spur. Bone mineralization is redu noam. Alignment and joint spaces are maintained. No fracture or dislocation. There is a plantar calcan eal spur. IMPRESSION: Soft tissue swelling, low bone mineralization, follow-up as indicated.
--- NOTE | 2021-03-12 13:34 | ED ---
Lower Extremity Injury HPI - General Chief Complaint: Extremity Injury, Lower Stated Complaint: Ankle injury Time Seen by Provider: 03/12/21 12:15 Source: patient Mode of arrival: wheelchair - History of Present Illness Initial Comments: Patient is a 35-year-old female presenting to emergency Department with complaints of left ankle pain. Patient states she slipped on the last 2 stairs at her house yesterday and feels like she twisted her left foot and ankle. She denies any previous history of fractures of the foot or ankle. She denies hitting her head or any other injuries from this fall. - Related Data Home Medications Medication Instructions Recorded Confirmed metFORMIN HCL [Glucophage] 1,000 mg PO BID 09/04/16 01/16/21 Medroxyprogesterone Acetate 150 mg IM Q84D 01/25/18 01/16/21 [Depo-Provera] Omeprazole 20 mg PO DAILY 01/25/18 01/16/21 Levothyroxine Sodium [Synthroid] 100 mcg PO DAILY 06/22/19 01/16/21 Pregabalin [Lyrica] 200 mg PO TID 11/30/19 01/16/21 Albuterol Inhaler [Ventolin Hfa 1 - 2 puff INHALATION RT-Q4H PRN 01/29/20 01/16/21 Inhaler] amLODIPine [Norvasc] 5 mg PO DAILY 01/29/20 01/16/21 Empagliflozin [Jardiance] 25 mg PO DAILY 11/25/20 01/16/21 Insulin Detemir (Levemir) [Levemir] 55 unit SQ BID 11/25/20 01/16/21 Amitriptyline HCl [Elavil] 100 mg PO HS 01/16/21 01/16/21 Dulaglutide [Trulicity] 1.5 mg SQ SA 01/16/21 01/16/21 Insulin Aspart [NovoLOG Flexpen] See Protocol SQ BID 01/16/21 01/16/21 Isosorbide Mononitrate ER [Imdur] 30 mg PO DAILY 01/16/21 01/16/21 Valsartan [Diovan] 160 mg PO DAILY 01/16/21 01/16/21 traMADol HCL 50 mg PO DAILY PRN 01/16/21 01/16/21 Previous Rx's Medication Instructions Recorded Atorvastatin [Lipitor] 40 mg PO DAILY #90 tab 12/03/19 Metoprolol Tartrate [Lopressor] 50 mg PO BID #180 tab 12/03/19 Nitroglycerin Sl Tabs [Nitrostat] 0.4 mg SUBLINGUAL Q5M PRN #25 tab 12/03/19 Nystatin 100,000Unit/gm Cream 1 applic TOPICAL BID #15 gram 01/16/21 [Mycostatin Cream] Sulfamethox-Tmp 800-160Mg [Bactrim 1 tab PO Q12HR 10 Days #20 tab 01/16/21 DS 800-160 mg] Allergies Allergy/AdvReac Type Severity Reaction Status Date / Time amoxicillin AdvReac Severe Nausea & Verified 03/12/21 12:11 Vomiting Tomatoes fresh cut Allergy Rash/Hives Uncoded 03/12/21 12:11 Review of Systems ROS Statement: Those systems with pertinent positive or pertinent negative responses have been documented in the HPI. ROS Other: All systems not noted in ROS Statement are negative. Past Medical History Past Medical History: Asthma, Diabetes Mellitus, GERD/Reflux, Liver Disease, Pneumonia, Renal Disease Additional Past Medical History / Comment(s): Pt recently admitted to [facility] on 05/15/19 with sepsis d/t L gluteal/thigh abscess/leukocytosis and acute renal failure and admitted again 05/26/19 with sepsis 2ndary to abscess/nonhealing ulcer L fluteal/thigh growing Klebsiella oxytoca/suspected necrotizing facsitis/ acute renal failure/volume overload and transferred to [facility] where she states they performed surgery to site and also stated she had necrotizing fascitis. 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 History of Any Multi-Drug Resistant Organisms: VRE Date of last positivie culture/infection: 05/27/19 MDRO Source:: Urine Past Surgical History: Adenoidectomy, Cholecystectomy, Heart Catheterization With Stent, Hernia Repair, Tonsillectomy Additional Past Surgical History / Comment(s): Surgery on L leg wound with drains at [facility] 05/2019, debridement L thigh wound, BMAs, umbilical hernia repair, EGDs, colonoscopy, cyst removed side of neck Past Anesthesia/Blood Transfusion Reactions: No Reported Reaction Additional Past Anesthesia/Blood Transfusion Reaction / Comment(s): 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 currently being worked up by oncology Date of Last Stent Placement:: 2019 Past Psychological History: Anxiety, Depression Smoking Status: Current every day smoker, Vaper Past Alcohol Use History: None Reported Past Drug Use History: None Reported - Past Family History Mother Family Medical History: Deep Vein Thrombosis (DVT), Pulmonary Embolus Father History Unknown: Yes Family Medical History: No Reported History General Exam - General Exam Comments Initial Comments: GENERAL: Patient is well-developed and well-nourished. Patient is nontoxic and in no acute distress. HEAD: Atraumatic, normocephalic. EYES: Pupils equal round and reactive to light, extraocular movements intact, sclera anicteric, conjunctiva are normal. Eyelids were unremarkable. LUNGS: Unlabored respirations. Breath sounds clear to auscultation bilaterally and equal. No wheezes rales or rhonchi. HEART: Regular rate and rhythm without murmurs, rubs or gallops. MUSCULOSKELETAL: Patient has pain with palpation along the medial lateral malleolus of the left ankle, she has some pain into her left foot as well. There is no obvious deformity, maybe some mild swelling present. She is neurovascular intact. No clubbing or cyanosis. NEUROLOGICAL: Patient is alert and oriented x 3. SKIN: Warm, Dry, normal turgor, no rashes or lesions noted. Course Vital Signs 03/12/21 12:08 Temperature 98.6 F Pulse Rate 87 Respiratory 16 Rate Blood Pressure 92/65 O2 Sat by Pulse 95 Oximetry Medical Decision Making - Medical Decision Making Patient is a 35-year-old female here with left ankle and foot pain after she slipped down a couple stairs at her house yesterday. No other injuries from this fall. X-rays reveal no acute fracture dislocations of the left foot or left ankle. I will discuss these findings with the patient, since most likely an ankle sprain. Give her a stirrup brace for support. Recommended ice and ibuprofen. She is in agreement with this plan of care and can follow-up with her primary care. Disposition Clinical Impression: Left ankle sprain Disposition: HOME SELF-CARE Condition: Stable Instructions (If sedation given, give patient instructions): Ankle Sprain (ED) Additional Instructions: Please return to the Emergency Department if symptoms worsen or any other concerns. Recommend a brace for support. May apply ice to the area, ibuprofen for discomfort. If symptoms persist, follow-up with your primary care doctor. Is patient prescribed a controlled substance at d/c from ED?: No Referrals: Zach Herr MD [Primary Care Provider] - 1-2 days Time of Disposition: 13:34
[2021-03-12 13:45] VITALS: PULSE 84
== END 2021-03-12 13:45 | disposition home or self-care (01) ==
LOC: EC 12:06
DX: S93.402A Sprain of unspecified ligament of left ankle, initial encounter (principal); J45.909 Unspecified asthma, uncomplicated; K21.9 Gastro-esophageal reflux disease without esophagitis; E11.40 Type 2 diabetes mellitus with diabetic neuropathy, unspecified; G43.909 Migraine, unspecified, not intractable, without status migrainosus; F32.9 Major depressive disorder, single episode, unspecified; F41.9 Anxiety disorder, unspecified; F17.290 Nicotine dependence, other tobacco product, uncomplicated; Z79.4 Long term (current) use of insulin; Z79.51 Long term (current) use of inhaled steroids; X50.1XXA Overexertion from prolonged static or awkward postures, initial encounter; Y92.009 Unspecified place in unspecified non-institutional (private) residence as the place of occurrence of the external cause
CPT/HCPCS: 99283

== ENCOUNTER 2021-06-30 14:48 | Emergency (ER) | payer OTHER ==
[2021-06-30 15:03] VITALS: RESP 20
[2021-06-30] MEDS ORDERED: VANCOMYCIN IV PER PHARMACY 1 EACH MISC MISCELLANE PRN (15:24)
[2021-06-30] MEDS ORDERED: CEFEPIME 2 GM in SODIUM CHLORIDE 0.9% 100 ML IVPB STA (15:24)
[2021-06-30] MEDS ORDERED: SODIUM CHLORIDE 0.9% 1,000 ML IV STA ×2 (15:25→18:43)
--- NOTE | 2021-06-30 15:34 | ED ---
General Adult HPI - General Chief complaint: Wound/Laceration Stated complaint: DIZZINESS Time Seen by Provider: 06/30/21 15:07 Source: patient, EMS Mode of arrival: EMS Limitations: no limitations - History of Present Illness Initial comments: Dictation was produced using [employer] dictation software. please excuse any grammatical, word or spelling errors. Chief Complaint: Patient is a 36-year-old female multiple medical problems pres ents to the emergency department for worsening right groin infection History of Present Illness: 36-year-old female she was recently seen by her primary care doctor in 2-3 days ago. She had a incision and drainage of an abscess to the right proximal medial groin a couple days ago by her primary care doctor, Dr. Herr. She is given follow up with general surgery. Patient followed up with Dr. De Paz. Wound was reevaluated and patient was instructed to come to the emergency department for worsening infection. Prior to the eye and the patient had pain to the right groin for approximately one week. States that during the procedure to her PCPs office that a lot of pus was removed. Lester murphy states she had needle aspiration and incision with packing. Patient denies any constitutional symptoms. She states that the pain is getting worse in the area of redness is expanding. Told to come here to the emergency department to be admitted for IV antibiotics. Patient has been on Bactrim for the last several days. The ROS documented in this emergency department record has been reviewed and confirmed by me. Those systems with pertinent positive or negative responses have been documented in the HPI. All other systems are other negative and/or noncontributory. PHYSICAL EXAM: General Impression: Alert and oriented x3, not in acute distress HEENT: Normocephalic atraumatic, extra-ocular movements intact, pupils equal and reactive to light bilaterally, mucous membranes moist. Cardiovascular: Heart regular rate and rhythm Chest: Able to complete full sentences, no retractions, no tachypnea Abdomen: abdomen soft, non-tender, non-distended, no organomegaly Musculoskeletal: Pulses present and equal in all extremities, no peripheral edema Motor: no focal deficits noted Neurological: CN II-XII grossly intact, no focal motor or sensory deficits noted Skin: Extremely malodorous erythematous area to the proximal right groin, there is a area of redness to the proximal medial thigh measuring 18" x 12", with palpation to the area induces tenderness, there is purulent discharge coming from the small area incised Psych: Normal affect and mood ED course: 36-year-old female presents to the emergency department for worsening soft tissue infection. As upon arrival shows heart rate of 120, blood pressure 96/46, rest of vital signs within acceptable limits. Patient has multiple comorbidities including diabetes. She is susceptible to all microbial infections, including pseudomonas aeruginosa. Patient started on cefepime and vancomycin to cover gram-positive and gram-negative's including MRSA and pseudomonas. Patient's ideal body weight for her height is 59 kg. Patient given 30 mL per KG bolus for suspicion of sepsis. Case was discussed with Dr. De Paz who believes that patient's clinical presentation is beyond the capabilities of her hospital. Dr. De Paz requested patient be transferred to [facility]. Patient was reevaluated at the bedside at 7:00 PM. She is denies any systemic symptoms. She states that she does have pain to that area. She is on 130 mL/h of normal saline maintenance fluids. Case discussed with Dr. Bella at [facility]. She is accepting of patient transfer. Patient also started on clindamycin. Repeat vital signs are stable. Patient to be transferred to [facility] were further care. Patient reevaluated at the bedside at 80 6 PM. COVID-19 test is negative. Patient still stable medical condition. She's not showing any signs of worsening infection. She denies any systemic symptoms currently. Patient is stable for transfer. - Related Data Home Medications Medication Instructions Recorded Confirmed metFORMIN HCL [Glucophage] 1,000 mg PO BID 09/04/16 06/30/21 Medroxyprogesterone Acetate 150 mg IM Q84D 01/25/18 06/30/21 [Depo-Provera] Omeprazole 20 mg PO DAILY 01/25/18 06/30/21 Levothyroxine Sodium [Synthroid] 100 mcg PO DAILY 06/22/19 06/30/21 Pregabalin [Lyrica] 200 mg PO TID 11/30/19 06/30/21 amLODIPine [Norvasc] 5 mg PO DAILY 01/29/20 06/30/21 Empagliflozin [Jardiance] 25 mg PO DAILY 11/25/20 06/30/21 Amitriptyline HCl [Elavil] 100 mg PO HS 01/16/21 06/30/21 Insulin Aspart [NovoLOG Flexpen] See Protocol SQ AC-BID PRN 01/16/21 06/30/21 Valsartan [Diovan] 160 mg PO DAILY 01/16/21 06/30/21 traMADol HCL 50 mg PO BID PRN 01/16/21 06/30/21 Aspirin EC [Ecotrin Low Dose] 81 mg PO DAILY 03/12/21 06/30/21 DULoxetine HCL [Cymbalta] 30 mg PO HS 03/12/21 06/30/21 Insulin Detemir (Levemir) [Levemir] 62 unit SQ HS 03/12/21 06/30/21 SILVER sulfADIAZINE Cream 1 applic TOPICAL BID 06/30/21 06/30/21 [Silvadene 1% Cream] Sulfamethox-Tmp 800-160Mg [Bactrim 1 tab PO BID 06/30/21 06/30/21 DS 800-160 mg] Previous Rx's Medication Instructions Recorded Metoprolol Tartrate [Lopressor] 50 mg PO BID #180 tab 12/03/19 Allergies Allergy/AdvReac Type Severity Reaction Status Date / Time tomato Allergy Rash/Hives Verified 06/30/21 17:48 amoxicillin AdvReac Severe Nausea & Verified 06/30/21 17:48 Vomiting Review of Systems ROS Statement: Those systems with pertinent positive or pertinent negative responses have been documented in the HPI. ROS Other: All systems not noted in ROS Statement are negative. Past Medical History Past Medical History: Asthma, Diabetes Mellitus, GERD/Reflux, Liver Disease, Pneumonia, Renal Disease Additional Past Medical History / Comment(s): Pt recently admitted to [facility] on 05/15/19 with sepsis d/t L gluteal/thigh abscess/leukocytosis and acute renal failure and admitted again 05/26/19 with sepsis 2ndary to abscess/nonhealing ulcer L fluteal/thigh growing Klebsiella oxytoca/suspected necrotizing facsitis/ acute renal failure/volume overload and transferred to [facility] where she states they performed surgery to site and also stated she had necrotizing fascitis. 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 History of Any Multi-Drug Resistant Organisms: VRE Date of last positivie culture/infection: 05/27/19 MDRO Source:: Urine Past Surgical History: Adenoidectomy, Cholecystectomy, Heart Catheterization With Stent, Hernia Repair, Tonsillectomy Additional Past Surgical History / Comment(s): Surgery on L leg wound with drains at [facility] 05/2019, debridement L thigh wound, BMAs, umbilical hernia repair, EGDs, colonoscopy, cyst removed side of neck Past Anesthesia/Blood Transfusion Reactions: No Reported Reaction Additional Past Anesthesia/Blood Transfusion Reaction / Comment(s): 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 currently being worked up by oncology Date of Last Stent Placement:: 2019 Past Psychological History: Anxiety, Depression Smoking Status: Current every day smoker, Vaper Past Alcohol Use History: None Reported Past Drug Use History: None Reported - Past Family History Mother Family Medical History: Deep Vein Thrombosis (DVT), Pulmonary Embolus Father History Unknown: Yes Family Medical History: No Reported History General Exam Limitations: no limitations Course Vital Signs 06/30/21 06/30/21 06/30/21 14:55 17:13 18:54 Temperature 98.0 F Pulse Rate 120 H 115 H 119 H Respiratory 20 20 20 Rate Blood Pressure 96/46 93/49 95/51 O2 Sat by Pulse 98 100 99 Oximetry Procedures - Sepsis Sepsis Focused Exam #1 Time Sepsis Criteria Met: 16:55 Sepsis Focused Exam Date: 06/30/21 Sepsis Focused Exam Time: 16:55 Sepsis Focused Exam Complete: Yes Vital Signs & RN Notes Reviewed: Yes Capillary Refill: < 2 Seconds: Fingers, Toes Peripheral Pulses: Normal: Radial (R), Radial (L), Posterior Tibialis (R), Posterior Tibialis (L), Dorsalis Pedis (R), Dorsalis Pedis (L) Skin Color: Normal for Patient Respiratory Exam: normal lung sounds Cardiovascular Exam: tachycardia Medical Decision Making - Lab Data Result diagrams: 06/30/21 15:44 06/30/21 15:44 Lab Results 06/30/21 06/30/21 06/30/21 Range/Units 15:44 15:44 15:44 WBC 24.1 H (3.8-10.6) k/uL RBC 4.30 (3.80-5.40) m/uL Hgb 11.8 (11.4-16.0) gm/dL Hct 37.7 (34.0-46.0) % MCV 87.8 (80.0-100.0) fL MCH 27.6 (25.0-35.0) pg MCHC 31.4 (31.0-37.0) g/dL RDW 15.1 (11.5-15.5) % Plt Count 340 (150-450) k/uL MPV 9.4 Neutrophils % 80 % Lymphocytes % 12 % Monocytes % 4 % Eosinophils % 2 % Basophils % 0 % Neutrophils # 19.2 H (1.3-7.7) k/uL Lymphocytes # 2.8 (1.0-4.8) k/uL Monocytes # 0.9 (0-1.0) k/uL Eosinophils # 0.4 (0-0.7) k/uL Basophils # 0.1 (0-0.2) k/uL Hypochromasia Marked PT 10.9 (9.0-12.0) sec INR 1.0 (<1.2) APTT 26.4 (22.0-30.0) sec Sodium 132 L (137-145) mmol/L Potassium 5.4 H (3.5-5.1) mmol/L Chloride 104 (98-107) mmol/L Carbon Dioxide 13 L (22-30) mmol/L Anion Gap 15 mmol/L BUN 41 H (7-17) mg/dL Creatinine 2.78 H (0.52-1.04) mg/dL Est GFR (CKD-EPI)AfAm 25 (>60 ml/min/1.73 sqM) Est GFR (CKD-EPI)NonAf 21 (>60 ml/min/1.73 sqM) Glucose 345 H (74-99) mg/dL Lactic Ac Sepsis Rflx Plasma Lactic Acid Simon (0.7-2.0) mmol/L Calcium 8.5 (8.4-10.2) mg/dL Total Bilirubin 0.3 (0.2-1.3) mg/dL AST 27 (14-36) U/L ALT 22 (4-34) U/L Alkaline Phosphatase 252 H (38-126) U/L Total Protein 5.8 L (6.3-8.2) g/dL Albumin 2.8 L (3.5-5.0) g/dL Coronavirus (PCR) (Not Detectd) 06/30/21 06/30/21 06/30/21 Range/Units 15:44 16:54 18:54 WBC (3.8-10.6) k/uL RBC (3.80-5.40) m/uL Hgb (11.4-16.0) gm/dL Hct (34.0-46.0) % MCV (80.0-100.0) fL MCH (25.0-35.0) pg MCHC (31.0-37.0) g/dL RDW (11.5-15.5) % Plt Count (150-450) k/uL MPV Neutrophils % % Lymphocytes % % Monocytes % % Eosinophils % % Basophils % % Neutrophils # (1.3-7.7) k/uL Lymphocytes # (1.0-4.8) k/uL Monocytes # (0-1.0) k/uL Eosinophils # (0-0.7) k/uL Basophils # (0-0.2) k/uL Hypochromasia PT (9.0-12.0) sec INR (<1.2) APTT (22.0-30.0) sec Sodium (137-145) mmol/L Potassium (3.5-5.1) mmol/L Chloride (98-107) mmol/L Carbon Dioxide (22-30) mmol/L Anion Gap mmol/L BUN (7-17) mg/dL Creatinine (0.52-1.04) mg/dL Est GFR (CKD-EPI)AfAm (>60 ml/min/1.73 sqM) Est GFR (CKD-EPI)NonAf (>60 ml/min/1.73 sqM) Glucose (74-99) mg/dL Lactic Ac Sepsis Rflx Y Plasma Lactic Acid Simon 2.8 H* (0.7-2.0) mmol/L Calcium (8.4-10.2) mg/dL Total Bilirubin (0.2-1.3) mg/dL AST (14-36) U/L ALT (4-34) U/L Alkaline Phosphatase (38-126) U/L Total Protein (6.3-8.2) g/dL Albumin (3.5-5.0) g/dL Coronavirus (PCR) Not Detected (Not Detectd) Critical Care Time Critical Care Time: Yes Total Critical Care Time: 33 Disposition Clinical Impression: Necrotizing fasciitis Disposition: OTHER INSTITUTION NOT DEFINED Condition: Critical Referrals: Zach Herr MD [Primary Care Provider] - 1-2 days - Out of Hospital Transfer - Req. Specs Out of Hospital Transfer - Requested Specifics: Other Emergency Center ([facility])
[2021-06-30] MEDS ORDERED: VANCOMYCIN 2,000 MG in SODIUM CHLORIDE 0.9% 500 ML 500 ML IVPB ONE (16:00)
[2021-06-30 16:13] LABS: Partial Thromboplastin Time 26.4 sec (22.0-30.0); Prothrombin Time 10.9 sec (9.0-12.0)
[2021-06-30 16:16] LABS: Basophils # (A) 0.1 k/uL (0-0.2); Basophils % (A) 0 %; Eosinophils # (A) 0.4 k/uL (0-0.7); Eosinophils % (A) 2 %; HCT 37.7 % (34.0-46.0); HGB 11.8 gm/dL (11.4-16.0); Hypochromasia Marked; Lymphocytes # (A) 2.8 k/uL (1.0-4.8); Lymphocytes % (A) 12 %; MCH 27.6 pg (25.0-35.0); MCHC 31.4 g/dL (31.0-37.0); MCV 87.8 fL (80.0-100.0); Mean Platelet Volume 9.4; Monocytes # (A) 0.9 k/uL (0-1.0); Monocytes % (A) 4 %; Neutrophils # (A) 19.2 k/uL (1.3-7.7); Neutrophils % (A) 80 %; Platelet Count 340 k/uL (150-450); RDW 15.1 % (11.5-15.5); WBC 24.1 k/uL (3.8-10.6)
[2021-06-30 16:29] LABS: Albumin 2.8 g/dL (3.5-5.0); Calcium 8.5 mg/dL (8.4-10.2); Potassium 5.4 mmol/L (3.5-5.1); Total Bilirubin 0.3 mg/dL (0.2-1.3); Total Protein 5.8 g/dL (6.3-8.2)
[2021-06-30] MEDS ORDERED: SODIUM CHLORIDE 0.9% IV STA (16:40)
--- NOTE | 2021-06-30 17:28 | US ---
EXAMINATION TYPE: US extremity nonvasc mass RT DATE OF EXAM: 06/30/2021 COMPARISON: NONE CLINICAL HISTORY: abscess vs phlegmon to proximal medial thigh RLE. Patient states having an area of right proximal medial thigh lanced yesterday. Painful, feels hard and looks red. Patient states are a is leaking. IMPRESSION: Are of concern scanned proximal medial thigh. There is mild edema of the soft tissue and hyperechoic surrounding fat which suggests inflammation and/or infection. No loculated drainable fluid collection is seen at this time. Difficult to exclude any foreign body due to technique.
--- NOTE | 2021-06-30 17:33 | XR ---
EXAMINATION TYPE: XR Hip Limited RT DATE OF EXAM: 06/30/2021 COMPARISON: KUB dated 04/03/2019 HISTORY: 36 years Female. STUDY INDICATION GIVEN: assess for soft tissue air . TECHNIQUE: AP and lateral radiographs of the right hip joint IMPRESSION: There is extensive subcutaneous air in the medial aspect of the proximal thigh. There is decreased de nsity of the lesser trochanter which may be reflective of osseous erosive changes or may be related t o superimposed subcutaneous air. No acute fracture or dislocation seen. A bony spur seen in the superior aspect of the acetabulum. The right hip joint is maintained.
--- NOTE | 2021-06-30 18:35 | CT ---
EXAMINATION TYPE: CT hip RT wo con DATE OF EXAM: 06/30/2021 COMPARISON: HISTORY: right hip pain TECHNIQUE: CT scan of the proximal right upper extremity and right hip joint of contrast CT DLP: 1541.1 mGycm Automated exposure control for dose reduction was used. FINDINGS: Right hip joint demonstrates mild arthritic changes, no acute abnormality. Included portion of the ri ght femur is normal in appearance. There is mild bilateral right greater than left sacroiliac joint a rthritic changes. There is extensive soft tissue swelling included portion of the right thigh, this is greatest anterio rly and medially. There is free air in the subcutaneous tissue. The air appears to extend deeper reac krystin the level of the fascia and in some areas there appears to be deeper to the fascia (304/97).Mild edema involving the sartorius (304/75). No loculated fluid collection. Right inguinal and external iliac chain prominent likely reactive lymph nodes are seen. IMPRESSION: EXTENSIVE SOFT TISSUE SWELLING OF THE PROXIMAL RIGHT THIGH AND SUBCUTANEOUS SUPERFICIAL AND DEEP AIR, MILD FOCAL EDEMA INVOLVING THE UPPER SARTORIUS. FINDINGS CONCERNING FOR SOFT TISSUE INFECTION INCLUD ING NECROTIZING FASCIITIS. CLINICAL CORRELATION RECOMMENDED FINDINGS WERE DISCUSSED WITH DR. SHARP OVER THE PHONE AT 6:30 PM.
[2021-06-30] MEDS ORDERED: CLINDAMYCIN 300 MG in DEXTROSE 5% IN WATER 50 ML IVPB STA ×2 (19:02)
[2021-06-30 20:42] VITALS: BP 124/63; PULSE 117; TEMP 99
[2021-07-02] MEDS ORDERED: VANCOMYCIN 2,000 MG in SODIUM CHLORIDE 0.9% 500 ML 500 ML IVPB SCH (18:00)
== END 2021-06-30 21:12 | disposition other institution (70) ==
LOC: EC 14:48
DX: M72.6 Necrotizing fasciitis (principal); J45.909 Unspecified asthma, uncomplicated; E11.9 Type 2 diabetes mellitus without complications; K21.9 Gastro-esophageal reflux disease without esophagitis; F41.9 Anxiety disorder, unspecified; F32.A Depression, unspecified; F17.200 Nicotine dependence, unspecified, uncomplicated; Z20.822 Contact with and (suspected) exposure to COVID-19; Z79.84 Long term (current) use of oral hypoglycemic drugs; Z79.4 Long term (current) use of insulin; Z79.82 Long term (current) use of aspirin; Z90.49 Acquired absence of other specified parts of digestive tract
CPT/HCPCS: 99291; 96365; 96366; 96361 ×3; 36415; 80053; 83605; 85025; 85610; 85730; 87040; 87635; 73501; 76882; 73700; J3370; J0692

== ENCOUNTER → 2021-12-08 | Outpatient (CLI) | payer OTHER ==
--- NOTE | 2021-12-24 06:38 | US ---
EXAMINATION TYPE: US arterial LE single level DATE OF EXAM: 12/08/2021 2:39 PM CLINICAL HISTORY: I73.9 PERIPHERAL VASCULAR DISEASE. History of diabetes and peripheral vascular dise ase along with TIA and RI. Patient has cardiac stent placed 2 years ago. Doppler Waveforms: Right: Multiphasic Left: Multiphasic Flattening and loss of phasicity of bilateral toes Ankle-Brachial Indices: Right: 1.09 Left: 1.02 Toe Brachial Indices: Right: 0.98 Left: 0.80 IMPRESSION: Normal MACY and TBI values. Loss of phasicity in toes is nonspecific, may be technical. C orrelate clinically.
== END | disposition home or self-care (01) ==
LOC: RADUSWWP 13:35
PROVIDERS: ATTEND Family Medicine
DX: I73.9 Peripheral vascular disease, unspecified (principal)
CPT/HCPCS: 93922

== ENCOUNTER → 2023-03-03 | Outpatient (CLI) | payer OTHER ==
--- NOTE | 2023-03-03 21:08 | US ---
EXAMINATION TYPE: US kidneys/renal and bladder DATE OF EXAM: 03/03/2023 COMPARISON: NONE CLINICAL INDICATION: Female, 37 years old with history of N18.31 chronic kidney disease; ADITI from CT contrast EXAM MEASUREMENTS: Right Kidney: 10.8x4.2x5.6 cm Left Kidney: 11.1x5.3x5.9 cm Right Kidney: wnl Left Kidney: wnl Bladder: Limited due to partial distention. Bilateral Jets seen: Yes Incidental echogenic hepatic parenchyma. IMPRESSION: 1. No hydronephrosis. 2. Incidental findings suggesting hepatic steatosis.
== END | disposition home or self-care (01) ==
LOC: RADUSWWP 12:42
PROVIDERS: ATTEND Family Medicine
DX: N18.31 Chronic kidney disease, stage 3a (principal)
CPT/HCPCS: 76770